=== PATIENT | female | born 1970 | race Caucasian/White ===

== ENCOUNTER → 2017-04-28 | Outpatient (CLI) | payer OTHER ==
--- NOTE | 2017-04-28 10:12 | US ---
EXAMINATION TYPE: US thyroid st tissue head/neck DATE OF EXAM: 04/28/2017 COMPARISON: NONE CLINICAL HISTORY: E04.9 Goiter, R22.0 Swelling. Goiter, has script for synthroid but has not started yet GLAND SIZE: Right Lobe: 5.6 x 1.7 x 1.5 cm Overall Parenchyma: homogenous Left Lobe: 5.6 x 1.2 x 1.6 cm Overall Parenchyma: homogeneous Isthmus Thickness: 0.3 cm NODULES RIGHT: # of nodules measured on right: 1 1. 0.6 X 0.2 x 0.5 cm hypoechoic solid nodule at the mid pole with well-defined margins. This nodul e is wider than tall and shows intranodular vascularity. Prior size: [employer] here LEFT: # of nodules measured on left: 0 ISTHMUS: # of nodules measured in the isthmus: 0 Bilateral neck scanned, no evidence of lymphadenopathy. IMPRESSION: Single subcentimeter right thyroid nodule in an enlarged but otherwise homogenous thyroid gland.
== END | disposition home or self-care (01) ==
LOC: RADUSWWP 09:39
PROVIDERS: ATTEND Family Medicine
DX: E04.1 Nontoxic single thyroid nodule (principal); Z88.1 Allergy status to other antibiotic agents; Z88.6 Allergy status to analgesic agent
CPT/HCPCS: 76536

== ENCOUNTER → 2017-05-22 | Outpatient (CLI) | payer OTHER ==
--- NOTE | 2017-05-23 11:38 | NM ---
EXAMINATION TYPE: NM thyroid image w uptake DATE OF EXAM: 05/23/2017 COMPARISON: Thyroid ultrasound April 28, 2017 HISTORY: Neck swelling or palpable abnormality neck per order. Symptoms of weight gain and diminished appetite with irritability and insomnia per patient. TECHNIQUE: After the intravenous administration of 10.8 mCi Tc 99m Sodium Pertechnetate, thyroid imag ing is performed 10 minutes post injection. Thyroid iodine uptake is calculated after the oral admini stration of15.0 NM uCi I-131 capsule. FINDINGS: There is normal distribution of activity throughout the gland. The 4 hour iodine uptake is calculated at 7%, minimally deviated from normal range (normal range 8-14%). The 24-hour iodine upta ke is calculated at 26% in the normal range. (normal range 15-35%). IMPRESSION: Essentially normal thyroid scan and uptake.
== END | disposition home or self-care (01) ==
LOC: RADNMMAIN 10:01
PROVIDERS: ATTEND Family Medicine
DX: R22.0 Localized swelling, mass and lump, head (principal); R22.2 Localized swelling, mass and lump, trunk; Z88.1 Allergy status to other antibiotic agents; Z88.5 Allergy status to narcotic agent
CPT/HCPCS: 78014; A9528; A9512

== ENCOUNTER 2017-09-02 06:49 | Day surgery (SDC) | payer OTHER ==
[2017-08-27 14:59] VITALS: BMI 34.1
[~2017-09-02 06:49] MED LIST: DEXAMETHASONE SOD PHOSPHATE 10 MG/ML 1 ML VIAL IV ONE; LACTATED RINGERS 1,000 ML IV SCH; MIDAZOLAM 2 MG/2 ML VIAL IV PRN; ONDANSETRON 4 MG/2 ML VIAL IVP ONE; Pre Op ABX Message 1 EACH MISC MISCELLANE ONE; SCOPOLAMINE 1.5MG/72HR PATCH TRANSDERM ONE; fentaNYL (PF) 50 MCG/ML 2 ML AMP IV PRN
[2017-09-02] MEDS ORDERED: LIDOCAINE 1% 20 ML VIAL (10MG/ML) FOR IV START INTRADERMA ONE (07:20)
[2017-09-02] MEDS ORDERED: SUCCINYLCHOLINE CHLORIDE 100 MG/5 ML SYR IV ONE (07:55)
[2017-09-02] MEDS ORDERED: MIDAZOLAM 2 MG/2 ML VIAL ONE (07:55)
[2017-09-02] MEDS ORDERED: ePHEDrine SULFATE/0.9% NACL/PF 50 MG/5 ML SYRINGE IV ONE (07:55)
[2017-09-02] MEDS ORDERED: PROPOFOL 10 MG/ML 20 ML VIAL IV ONE (07:55)
[2017-09-02] MEDS ORDERED: fentaNYL (PF) 50 MCG/ML 2 ML AMP ONE (07:55)
[2017-09-02] MEDS ORDERED: LIDOCAINE 1% INJ 10MG/ML (20 ML MDV) ONE (07:55)
[2017-09-02] MEDS ORDERED: BUPIVACAINE (PF) 0.5% 30 ML VIAL SQ ONE ×2 (08:31)
[2017-09-02 09:24] VITALS: TEMP 98.2
[2017-09-02] MEDS ORDERED: SODIUM CHLORIDE 0.9% 1,000 ML IV ONE (09:39)
[2017-09-02] MEDS: MEPERIDINE 50 MG/ML SYRINGE IVP ONE ×4 (09:46→10:04)
[2017-09-02 10:32] VITALS: RESP 16
[2017-09-02 10:43] VITALS: BP 132/98; PULSE 110
--- NOTE | 2017-09-04 10:35 | OP ---
OPERATIVE REPORT SURGEON: Buck Clements DO PREOPERATIVE DIAGNOSIS: Degenerative joint of the medial and lateral meniscus of the left knee with degenerative joint disease of the left knee. POSTOPERATIVE DIAGNOSIS: There is a torn left knee meniscus with partial tear of the left lateral meniscus, grade 4 chondromalacia medial femoral compartment and grade 3-4 chondromalacia of the patellofemoral. PROCEDURE: 1. Left knee arthroscopy with medial meniscectomy, medical compartment chondroplasty, posterolateral meniscectomy. 2. Patellofemoral chondroplasty. DESCRIPTION OF PROCEDURE: The patient was take to the operative suite and placed in supine position. General inhalation anesthesia was performed by the Department of Anesthesiology. The patient was secured in a leg mcdonald and the left was prepped with Betadine down the calf. Sterile drapes applied in the usual manner. An superolateral inflow trocar was developed and irrigation of the joint was performed. The arthroscope was then introduced into the anteroinferior lateral portal. No displaced fragments in the area is noted. Partial tear of lateral meniscus noted. The scope was inserted through the patellar pouch. The area was inspected grade 3-4 chondromalacia noted. Scope was then moved back into the medial compartment and copiously irrigated performed. Grade 3 to 4 chondromalacia of the medial compartment is noted. Chondroplasty of patella femoral performed and instruments removed. All portal wounds were approximated with 4-0 Vicryl suture in an interrupted fashion. Sterile pressure dressing was applied. Patient was then transferred to the recovery room in satisfactory postoperative condition. GROSS PATHOLOGY: There is evidence of degenerative torn medial meniscus in the left knee with significant grade 3 -4 of the medial compartment as well as the patellofemoral compartment. A partial tear of the lateral meniscus was noted. MMODL / IJN: [id number] / [facility]
== END 2017-09-02 11:35 | disposition home or self-care (01) ==
LOC: OR 06:49
PROVIDERS: ATTEND Orthopaedic Surgery
DX: S83.242A Other tear of medial meniscus, current injury, left knee, initial encounter (principal); S83.282A Other tear of lateral meniscus, current injury, left knee, initial encounter; X58.XXXA Exposure to other specified factors, initial encounter; M94.262 Chondromalacia, left knee; K21.9 Gastro-esophageal reflux disease without esophagitis; I10 Essential (primary) hypertension; E03.9 Hypothyroidism, unspecified; R00.2 Palpitations; Z98.84 Bariatric surgery status; Z79.891 Long term (current) use of opiate analgesic; Z79.82 Long term (current) use of aspirin; Z79.899 Other long term (current) drug therapy; Z88.1 Allergy status to other antibiotic agents; Z88.5 Allergy status to narcotic agent
CPT/HCPCS: 29880; J2250; J1100; J2175; J2405; J2001; J3010; J0330; J2704

== ENCOUNTER → 2017-12-05 | Outpatient (CLI) | payer OTHER ==
--- NOTE | 2017-12-05 13:01 | US ---
EXAMINATION TYPE: US carotid duplex BILAT DATE OF EXAM: 12/05/2017 COMPARISONS: US 2017 CLINICAL HISTORY: R55 Syncope. Syncope EXAM MEASUREMENTS: RIGHT: Peak Systolic Velocity (PSV) cm/sec ----- Right CCA: 64.7 ----- Right ICA: 71.8 ----- Right ECA: 57.2 ICA/CCA ratio: 1.1 RIGHT: End Diastole cm/sec ----- Right CCA: 25.2 ----- Right ICA: 40.7 ----- Right ECA: 12.4 LEFT: Peak Systolic Velocity (PSV) cm/sec ----- Left CCA: 67.7 ----- Left ICA: 76.6 ----- Left ECA: 68.6 ICA/CCA ratio: 1.1 LEFT: End Diastole cm/sec ----- Left CCA: 32.5 ----- Left ICA: 45.0 ----- Left ECA: 14.5 VERTEBRALS (direction of flow): Right Vertebral: Antegrade Left Vertebral: Antegrade Rhythm: Normal Grayscale images show no significant plaque or stenosis bilaterally. Velocity measurements and ratios are within normal limits bilaterally in the internal carotid arteries. IMPRESSION: No hemodynamically significant stenosis is seen in either internal carotid artery . Criteria for Assigning % of Stenosis / Diameter reduction (Estimation based on the indirect measurements of the internal carotid artery velocities (ICA PSV). 1. Normal (no stenosis)=ICA PSV < 125 cm/s: ratio < 2.0: ICA EDV<40 cm/s. 2. Less than 50% stenosis=ICA PSV < 125 cm/s: ratio < 2.0: ICA EDV<40 cm/s. 3. 50 to 69% stenosis=ICA PSV of 125 to 230 cm/s: ration 2.0 ? 4.0: ICA EDV 40-100 cm/s. 4. Greater than 70% stenosis to near occlusion= ICA PSV > 230 cm/s: ratio > 4.0: ICA EDV > 100 cm/s. 5. Near occlusion= ICA PSV velocities may be low or undetectable: variable ratio and ICA EDV. 6. Total occlusion=unable to detect flow.
== END ==
LOC: RADUSWWP 12:11
PROVIDERS: ATTEND Psychiatry & Neurology Neurology
DX: R55 Syncope and collapse (principal)
CPT/HCPCS: 93880

== ENCOUNTER → 2018-01-21 | Outpatient (CLI) | payer OTHER ==
--- NOTE | 2018-01-22 13:49 | MM ---
Reason for exam: screening (asymptomatic). Last mammogram was performed 3 years and 11 months ago. History: Patient is postmenopausal and has history of other cancer at age 16. Family history of breast cancer in maternal aunt at age 30 and breast cancer in maternal cousin at age 32. Physical Findings: A clinical breast exam by your physician is recommended on an annual basis and results should be correlated with mammographic findings. MG Screening Mammo w CAD Bilateral CC, MLO, and XCCL view(s) were taken. Prior study comparison: February 23, 2014, bilateral MG screening mammo w CAD. There are scattered fibroglandular densities. Stable benign calcifications. There is chronic nodularity in the left breast. There is no discrete abnormality. No significant changes when compared with prior studies. ASSESSMENT: Benign, BI-RAD 2 RECOMMENDATION: Routine screening mammogram of both breasts in 1 year.
== END | disposition home or self-care (01) ==
LOC: RADMAMWWP 08:11
PROVIDERS: ATTEND Obstetrics & Gynecology Obstetrics
DX: Z12.31 Encounter for screening mammogram for malignant neoplasm of breast (principal)
CPT/HCPCS: 77067

== ENCOUNTER → 2018-03-25 | Outpatient (CLI) | payer OTHER ==
--- NOTE | 2018-03-26 09:56 | MR ---
MRI CERVICAL SPINE: CLINICAL HISTORY: Cervicalgia per order. Headache with severe neck pain for over 2 years causing pain or weakness into both arms and fingers per patient. TECHNIQUE: Multiplanar, multisequence imaging of the cervical spine is performed without IV contrast. IV contrast not given as patient refused. COMPARISON: Prior MRI cervical spine February 20, [address] cervical spine November 27, 2014. FINDINGS: Sagittal images of the cervical spine show the craniocervical junction to remain within nor mal limits. The cervical and upper thoracic spinal cord is normal in caliber and signal. There is in terval surgery with new artifact from disc material in the anterior fusion hardware C3-C5 levels. The re is stable and straightened alignment with slight grade 1 retrolisthesis of C5 on C6 redemonstrated . The vertebral body and intravertebral disk heights are normal above and below surgical levels. No n ew suspicious disc herniations are present. The bone marrow signal intensity is within normal limits . No significant spurring is noted. Axial images show the C2-C3 level to appear within normal limits. Axial images at C3-C4 and C4-C5 levels show artifact from disc material. There is some effacement of the anterior thecal sac due to bony projections of the vertebra. There is successful treatment of olamide or visualized disc herniations. Bilateral neural foramina are patent. Axial images at C5-C6, C6-C7, C7-T1 levels are felt within normal limits. IMPRESSION: Successful interval surgical correction of disc herniations C3-C4 and C4-C5 level. Stable alignment. No new suspicious disc herniations are present.
== END | disposition home or self-care (01) ==
LOC: RADMRIMAIN 13:01
PROVIDERS: ATTEND Psychiatry & Neurology Neurology
DX: M54.2 Cervicalgia (principal)
CPT/HCPCS: 72141

== ENCOUNTER → 2018-05-20 | Outpatient (CLI) | payer OTHER ==
[2018-05-20 13:18] LABS: Prothrombin Time 10.1 sec (9.0-12.0)
[2018-05-20 13:30] LABS: ALT 24 U/L (9-52); AST 24 U/L (14-36); Albumin 3.8 g/dL (3.5-5.0); Alkaline Phosphatase 123 U/L (38-126); Anion Gap 8 mmol/L; Blood Urea Nitrogen 13 mg/dL (7-17); Calcium 9.5 mg/dL (8.4-10.2); Carbon Dioxide 27 mmol/L (22-30); Chloride 108 mmol/L (98-107); Glucose 85 mg/dL (74-99); Potassium 4.3 mmol/L (3.5-5.1); Sodium 143 mmol/L (137-145); Total Bilirubin 0.4 mg/dL (0.2-1.3); Total Protein 6.8 g/dL (6.3-8.2)
[2018-05-20 13:33] LABS: HCT 40.5 % (34.0-46.0); HGB 12.8 gm/dL (11.4-16.0); Hypochromasia Slight; MCH 26.1 pg (25.0-35.0); MCHC 31.7 g/dL (31.0-37.0); MCV 82.4 fL (80.0-100.0); Mean Platelet Volume 9.3; Platelet Count 174 k/uL (150-450); RBC 4.91 m/uL (3.80-5.40); RDW 15.2 % (11.5-15.5); WBC 4.3 k/uL (3.8-10.6)
[2018-05-20 13:44] LABS: Appearance,Urine Cloudy (Clear); Bacteria,Urine Rare /hpf; Bilirubin,Urine Negative (Negative); Blood,Urine Negative (Negative); Color,Urine Yellow; Glucose,Urine (UA) Negative (Negative); Ketones,Urine Negative (Negative); Leukocyte Esterase,Urine Trace (Negative); Mucus,Urine Many /hpf; Nitrite,Urine Negative (Negative); PH, Urine 5.5 (5.0-8.0); Protein,Urine Trace (Negative); RBC,Urine 3 /hpf (0-5); Specific Gravity,Urine 1.022 (1.001-1.035); Squamous Epithelial Cell,Urine 13 /hpf (0-4); WBC,Urine 4 /hpf (0-5)
== END ==
LOC: LABPAT 10:59
PROVIDERS: ATTEND Orthopaedic Surgery
DX: Z01.812 Encounter for preprocedural laboratory examination (principal)
CPT/HCPCS: 36415; 80053; 81001; 85027; 85610; 85730; 87070

== ENCOUNTER → 2018-06-05 | Outpatient (CLI) | payer OTHER ==
--- NOTE | 2018-06-06 21:17 | CT ---
EXAMINATION TYPE: CT chest w con DATE OF EXAM: 06/05/2018 COMPARISON: 06/11/2017 HISTORY: 48-year-old female Pre-op, lung nodules TECHNIQUE: Contiguous axial scanning of the chest after the administration of 100 mL of Isovue 300. Coronal/sagittal reconstructions performed. CT DLP: 286..4mGycm. Automatic exposure control utilized for a dose reduction. FINDINGS: Heart normal size without pericardial effusion. Borderline aneurysm ascending aorta 3.9 cm. Conventional arch vessel branching anatomy. No thoracic lymphadenopathy. Calcified left hilar lymph nodes compatible with prior granulomatous dis ease. Mild bronchial wall thickening probably due to chronic bronchitis. No consolidation or pleural effusi on. There is a stable calcified subpleural pulmonary nodule left upper lobe measuring 1.3 cm. Tiny hiatal hernia. Postsurgical changes of Tyrone-en-Y gastric bypass prominent fluid within the exclu ded stomach incidentally noted. Cholecystectomy clips. Bones: No osseous destructive process. Fatty matrix hemangioma within the L1 vertebral body. IMPRESSION: 1. Prior granulomatous disease with calcified left hilar lymph nodes and a stable 1.3 cm left upper l obe calcified granuloma. No new pulmonary nodules. 2. Borderline aneurysm ascending aorta at 3.9 cm slightly increased from 3.7 cm last year. There may be some motion artifacts accounting for this difference.
== END | disposition home or self-care (01) ==
LOC: RADCTMAIN 16:26
PROVIDERS: ATTEND Family Medicine
DX: J84.10 Pulmonary fibrosis, unspecified (principal); I71.2 Thoracic aortic aneurysm, without rupture; Z88.1 Allergy status to other antibiotic agents; Z88.5 Allergy status to narcotic agent
CPT/HCPCS: 71260; Q9967

== ENCOUNTER → 2018-07-17 | Outpatient (CLI) | payer OTHER ==
[2018-07-17 11:29] LABS: HCT 41.1 % (34.0-46.0); HGB 13.1 gm/dL (11.4-16.0); MCH 26.1 pg (25.0-35.0); MCHC 31.8 g/dL (31.0-37.0); MCV 82.1 fL (80.0-100.0); Mean Platelet Volume 8.4; Platelet Count 167 k/uL (150-450); RBC 5.01 m/uL (3.80-5.40); RDW 15.2 % (11.5-15.5)
[2018-07-17 11:36] LABS: Albumin 4.2 g/dL (3.5-5.0); Calcium 9.8 mg/dL (8.4-10.2); Potassium 3.9 mmol/L (3.5-5.1); Total Bilirubin 0.3 mg/dL (0.2-1.3); Total Protein 7.2 g/dL (6.3-8.2)
[2018-07-17 11:42] LABS: Partial Thromboplastin Time 24.7 sec (22.0-30.0); Prothrombin Time 9.9 sec (9.0-12.0)
[2018-07-17 12:26] LABS: Appearance,Urine Cloudy (Clear); Bacteria,Urine Rare /hpf; Bilirubin,Urine Negative (Negative); Blood,Urine Negative (Negative); Color,Urine Yellow; Glucose,Urine (UA) Negative (Negative); Ketones,Urine Negative (Negative); Leukocyte Esterase,Urine Negative (Negative); Mucus,Urine Many /hpf; Nitrite,Urine Negative (Negative); PH, Urine 5.5 (5.0-8.0); Protein,Urine 1+ (Negative); RBC,Urine 3 /hpf (0-5); Specific Gravity,Urine 1.027 (1.001-1.035); Squamous Epithelial Cell,Urine 20 /hpf (0-4); Urobilinogen,Urine <2.0 mg/dL (<2.0); WBC,Urine 3 /hpf (0-5)
== END ==
LOC: LABPAT 09:59
PROVIDERS: ATTEND Orthopaedic Surgery
DX: Z01.812 Encounter for preprocedural laboratory examination (principal); M17.11 Unilateral primary osteoarthritis, right knee
CPT/HCPCS: 80053; 81001; 85027; 85610; 85730; 87070

== ENCOUNTER 2018-07-30 05:43 | Inpatient (IN) | payer OTHER ==
[2018-07-23 08:57] VITALS: BMI 35.5
[~2018-07-30 05:43] MED LIST changes: +ACETAMINOPHEN TAB 500 MG TAB PO ONE; -DEXAMETHASONE SOD PHOSPHATE 10 MG/ML 1 ML VIAL IV ONE; -LACTATED RINGERS 1,000 ML IV SCH; +MELOXICAM 7.5 MG TAB PO ONE; -MIDAZOLAM 2 MG/2 ML VIAL IV PRN; -ONDANSETRON 4 MG/2 ML VIAL IVP ONE; -Pre Op ABX Message 1 EACH MISC MISCELLANE ONE; -SCOPOLAMINE 1.5MG/72HR PATCH TRANSDERM ONE; +TRANEXAMIC ACID 1,000 MG in SODIUM CHLORIDE 0.9% 50 ML IVPB ONE; +VANCOMYCIN 1,500 MG in SODIUM CHLORIDE 0.9% 250 ML IVPB ONE; -fentaNYL (PF) 50 MCG/ML 2 ML AMP IV PRN
[2018-07-30] MEDS ORDERED: SCOPOLAMINE 1.5MG/72HR PATCH TRANSDERM ONE (05:49)
[2018-07-30] MEDS ORDERED: ONDANSETRON 4 MG/2 ML VIAL IVP ONE (05:49)
[2018-07-30] MEDS ORDERED: LIDOCAINE 1% 20 ML VIAL (10MG/ML) FOR IV START INTRADERMA PRN (05:49)
[2018-07-30] MEDS ORDERED: DEXAMETHASONE SOD PHOSPHATE 10 MG/ML 1 ML VIAL IV ONE (05:49)
[2018-07-30] MEDS ORDERED: ROPIVACAINE 246.25 MG, EPINEPHrine 0.5 MG, KETOROLAC 30 MG, cloNIDine HCL/PF 80 MCG, WA... MISCELLANE ONE ×5 (06:06)
[2018-07-30] MEDS: LACTATED RINGERS 1,000 ML IV SCH (06:51)
[2018-07-30] MEDS: MIDAZOLAM (PF) 2 MG/2 ML VIAL IV PRN ×2 (06:51→08:01)
[2018-07-30] MEDS ORDERED: NA PHOS,M-B/NA PHOS,DI-BA 133 ML ENEMA RECTAL PRN (08:48)
[2018-07-30] MEDS ORDERED: DIAZEPAM 5 MG TAB PO PRN (08:48)
[2018-07-30] MEDS ORDERED: NALOXONE 0.4 MG/ML 1 ML VIAL IV PRN (08:48)
[2018-07-30] MEDS ORDERED: BISACODYL 10 MG SUPP RECTAL PRN (08:48)
[2018-07-30] MEDS ORDERED: HYDROmorphone 1 MG/ML 1 ML SYRINGE IVP PRN ×3 (08:48)
[2018-07-30] MEDS ORDERED: MAGNESIUM HYDROXIDE 2,400 MG/10 ML CUP PO PRN (08:48)
[2018-07-30] MEDS ORDERED: MEPERIDINE 50 MG/ML SYRINGE ONE (09:11)
[2018-07-30] MEDS ORDERED: SODIUM CHLORIDE 0.9% 100 ML BAG ONE (09:11)
[2018-07-30] MEDS ORDERED: TRANEXAMIC ACID 1,000 MG/10 ML VIAL ONE (09:11)
[2018-07-30] MEDS ORDERED: fentaNYL (PF) 50 MCG/ML 2 ML AMP ONE (09:11)
[2018-07-30] MEDS ORDERED: PROPOFOL 10 MG/ML 20 ML VIAL IV ONE (09:11)
[2018-07-30] MEDS ORDERED: MIDAZOLAM 2 MG/2 ML VIAL ONE (09:11)
[2018-07-30] MEDS ORDERED: ceFAZolin 3,000 MG in SODIUM CHLORIDE 0.9% IRRIGATIO 3,000 ML IRRIGATION ONE (09:12)
[2018-07-30] MEDS ORDERED: LACTATED RINGERS 1,000 ML IV ONE (10:12)
--- NOTE | 2018-07-30 10:40 | P.OP ---
Date of Procedure: 07/30/18 Preoperative Diagnosis: Severe osteoarthritis left knee Postoperative Diagnosis: Severe osteoarthritis left knee Procedure(s) Performed: Left total knee arthroplasty Implants: [employer] II CR Oxinium cruciate retaining femoral component size 4, left [employer] left nonporous tibial baseplate size 3 [employer] II, XLPE Deep Dished articular insert, size 10 mm, Size 3 -4 left [employer] BCS resurfacing oval patellar component, 29 mm All components were cemented using Palacos R bone cement.. The articulation is Oxinium on polyethylene. Anesthesia: spinal Surgeon: Dario Kate Supervisor Paint #1: Rose Marie Wade Estimated Blood Loss (ml): 25 Pathology: other (Bone and cartilage) Condition: stable Disposition: PACU Indications for Procedure: After failure of conservative treatment we discussed the surgical and nonsurgical treatment options at length. Patient wishes to proceed with a total knee arthroplasty. Complications specific to this procedure were discussed at length, including but not limited to infection, bleeding, stiffness , and nerve injury. Patient is aware of all these complications and informed consent was obtained Operative Findings: The operative findings are consistent with severe osteoarthritis of the left knee Description of Procedure: Patient was seen in the preoperative area consent was reviewed and operative site was marked with a skin marker. An adductor canal pain catheter was placed by anesthesia in the preoperative area. Patient was then brought to the operating room and given preoperative antibiotics intravenously. A spinal anesthetic was administered by the anesthesia department. A tourniquet was placed on the upper thigh and the lower extremity was prepped and draped in usual sterile fashion. A gram of transexamic acid was given. A universal timeout was then performed which confirmed the patient's name, surgical site, ALLERGIES, and consent. The lower extremity was then exsanguinated and tourniquet was inflated to 250 mmHg. A standard and anterior midline approach to the knee was performed. The skin and subcutaneous tissue was dissected down to the patellar tendon. A medial parapatellar arthrotomy was then performed. The knee was then extended, the patellar was everted, and the knee was again flexed. Anterior horns of both menisci were excised, and a release was performed to the posterior medial aspect of the knee. On gross visual inspection, there was complete loss of articular cartilage in the medial and patellofemoral joint spaces. There was also significant cartilage damage in the lateral compartment. There were multiple periarticular osteophytes which were then removed with a Ronguer. The femoral canal was then opened with the appropriate drill, and the intramedullary femoral cutting guide was then placed and set for 5 of valgus. The distal femoral cutting block was then pinned in place, and the distal femur was then cut. The cutting block was then removed and the cut was checked for flatness. Next, the sizing guide was then placed and set for 3 external rotation based off of the epicondylar axis and Whitesides line. After the femur was sized, the appropriate 4-in-1 cutting block was then pinned in place. The anterior condyles were cut without notching. The posterior and chamfer cuts were performed while protecting the collateral ligaments. The cutting block was then removed, and the femoral canal was plugged with autologous bone. Attention was then directed to the tibia. The remaining ACL was removed with a Ronguer, and the tibia was then gently subluxed forward with a large bent knee retractor. Any remaining menisci was excised. The posterior lateral corner was cauterized in order to cauterize the lateral geniculate artery. The extra medullary tibial cutting guide was then placed, set for the appropriate rotation , slope, and depth of resection. The proximal tibia cutting guide was then pinned in place. Proximal tibia was then cut and sized. Next trials were then placed with the appropriate-sized insert. The knee was able to fully extend and flex to 130 and was stable throughout all range of motion. The knee was then extended, patella everted. Patella was then measured, and then using an osteotomy guide, the patella was cut at the appropriate level. The patella was then measured and drilled and the patella trial was then placed. The knee was then taken through range of motion with the patella trial and the patella tracked normally. The knee was then extended patella trial was then removed and the patella was everted. Knee was then flexed and lug holes were drilled through the femoral trial and the femoral trial was then removed. The tibial was then exposed, and the tibial broach guide was then pinned in place after it was set for the appropriate rotation to allow for the most coverage without overhang. The tibia was then reamed and broached. The cut surfaces of bone were then irrigated with pulsatile lavage. The posterior structures were injected with the ropivacaine solution. The knee was also irrigated with Irrisept solution. The components were then opened, the cement was mixed, and the components were then cemented in place. The cement was allowed to harden with the knee in full extension. While the cement was hardening, the remaining soft tissues were then injected with a ropivacaine solution, which consisted of 246.25 mg of ropivacaine, 0.5 mg of epinephrine, 30 mg of Toradol, 80 g of clonidine, and 48.45 mL of sterile water, for a total of 100 mL of fluid injected. After the cemented hardened. The tourniquet was released, and hemostasis was obtained. A second gram of transexamic acid was given. The knee was again irrigated. The knee was again taken through range of motion and found to be stable throughout all range of motion of 0-130 , and the patella tracked normally. The fascia was then closed with #2 strata fix suture. The subcutaneous tissue was closed with 3-0 Vicryl and 3-0 strata fix. Dermabond glue was used for the skin and placed with the knee in flexion. The patient was placed in a sterile silver dressing. Patient was then transferred to recovery room in stable condition. The dental chairside assistant ALEM Anderson was required due the complexity surgery and the need for a skilled occupational therapist assistants. She assisted in positioning, draping, retraction, and closure of the wound.
[2018-07-30] MEDS ORDERED: ROPIVACAINE 1,100 MG, SODIUM CHLORIDE 0.9% 500 ML 330 ML MISCELLANE PRN ×2 (10:54)
--- NOTE | 2018-07-30 10:56 | P.ONQ ---
Anesthesiology Proc Note - PNB - Peripheral Nerve Block Performed Left Adductor Canal Infusion Time Out Performed: Yes ([id number]) Procedure Start Time: 08:00 Procedure Stop Time: 08:10 Indication: Acute Post-Operative Pain, Dx/Pain Location (Left Knee Pain), Requested by physician Sedation Type: Sedate with meaningful contact maintained Preparation: Sterile Prep Position: Supine Catheter: Indwelling Needle Types: On-Q Needle Size: 100mm (4") Needle Gauge: 21 Technique: Ultrasound Injectate: 0.5% Ropivacaine (see comment for volume) (20ml) Blood Aspirated: No Pain Paresthesia on Injection Noted: No Resistance on Injection: Normal Events: Uneventful and Well Tolerated
[2018-07-30] MEDS ORDERED: diphenhydrAMINE 50 MG/ML 1 ML VIAL IVP ONE (11:00)
--- NOTE | 2018-07-30 11:36 | XR ---
EXAMINATION TYPE: XR knee limited LT DATE OF EXAM: 07/30/2018 COMPARISON: None HISTORY: Post evaluation placement of the left knee prosthesis. TECHNIQUE: 2 views left knee FINDINGS: Postsurgical changes are present. Tibial and femoral components have been placed. No acute fractures are evident. IMPRESSION: 1. No acute fractures post left knee replacement.
[2018-07-30] MEDS: SODIUM CHLORIDE 0.9% 1,000 ML IV SCH ×2 (13:59→22:43)
[2018-07-30] MEDS: HYDROcodone/APAP 5-325MG 1 EACH TAB PO PRN ×3 (15:11→22:42)
--- NOTE | 2018-07-30 16:32 | P.CONS ---
History of Present Illness - Reason for Consult Consult date: 07/30/18 Medical management Requesting physician: Dario Kate - Chief Complaint Status post left total knee arthroplasty - History of Present Illness This is a 48-year-old female one of Dr. Patricia with a previous medical history significant for peptic ulcer disease, GERD, significant osteoarthritis, depressive and anxiety disorder, patient underwent left total knee arthroplasty that was done successfully by Dr. Kate and we are asked to see the patient for medical management. Patient's laying down in bed in no apparent distress she denies any chest pain or shortness breath she has no abdominal pain nausea vomiting or diarrhea. Review of Systems Constitutional: Reports weight loss, Denies chronic headaches, Denies malaise, Denies weakness, Denies weight gain Eyes: denies blurred vision, denies bulging eye, denies decreased vision, denies diplopia Ears, nose, mouth and throat: Denies dysphagia, Denies neck lump, Denies sore throat Cardiovascular: Denies chest pain, Denies decreased exercise tolerance, Denies dyspnea on exertion, Denies lightheadedness, Denies rapid heart beat, Denies shortness of breath, Denies syncope Respiratory: Denies congestion, Denies cough with sputum, Denies home oxygen, Denies sleep apnea, Denies snoring, Denies wheezing Gastrointestinal: Denies belching, Denies bloating, Denies BRBPR, Denies change in bowel habits, Denies heartburn, Denies melena, Denies nausea, Denies vomiting Genitourinary: Denies dysuria, Denies hematuria Musculoskeletal: Denies myalgias Musculoskeletal: left: knee pain, knee stiffness, absent: ankle pain, ankle stiffness, ankle swelling, elbow pain, elbow stiffness, elbow swelling, foot pain, foot stiffness, foot swelling, hand pain, hand stiffness, hand swelling, hip pain, hip stiffness, hip swelling, knee swelling, shoulder pain, shoulder stiffness, shoulder swelling, wrist pain, wrist stiffness, wrist swelling Integumentary: Denies pruritus, Denies rash Neurological: Denies numbness, Denies weakness Psychiatric: Reports anxiety, Reports depression, Denies sadness/tearfulness, Denies sleep disturbances, Denies suicidal ideation Endocrine: Denies fatigue, Denies weight change Past Medical History Past Medical History: GERD/Reflux, Hypertension, Osteoarthritis (OA) Additional Past Medical History / Comment(s): chronic back and neck pain, migraines, PAST HISTORY OF HYPERTENSION, ascending aortic aneurysm, gastric ulcers History of Any Multi-Drug Resistant Organisms: None Reported Past Surgical History: Bariatric Surgery, Cholecystectomy, Hysterectomy, Orthopedic Surgery Additional Past Surgical History / Comment(s): Migraines, NARA-EN-Y, cervical fusion c2-c5, arthroscopy lt knee Past Anesthesia/Blood Transfusion Reactions: No Reported Reaction Past Psychological History: Depression Smoking Status: Never smoker Past Alcohol Use History: Rare Past Drug Use History: Marijuana Additional Drug Use History / Comment(s): MEDICAL CARD - Past Family History Mother Family Medical History: Coronary Artery Disease (CAD) (Mother is 66-year-old has history of CAD post CABG and diabetes mellitus type 2.) Father Family Medical History: Coronary Artery Disease (CAD) (Father is 66-year-old has history of CAD post CABG .) Brother(s) Family Medical History: No Reported History (Patient has one brother no major medical problems.) Daughter(s) Family Medical History: No Reported History (Patient has 2 daughters no major medical problems.) Son(s) Family Medical History: No Reported History (Patient has one son no major medical problems.) Medications and Allergies Home Medications Medication Instructions Recorded Confirmed Type HYDROcodone/APAP 10-325MG [[place] 1 tab PO Q6H PRN 03/13/15 07/30/18 History 10] Omeprazole [PriLOSEC] 20 mg PO HS 08/27/17 07/30/18 History Sertraline HCl [Zoloft] 50 mg PO HS 06/01/18 07/30/18 History Allergies Allergy/AdvReac Type Severity Reaction Status Date / Time ciprofloxacin [From Cipro] AdvReac Nausea & Verified 07/30/18 15:19 Vomiting, SWELLING ciprofloxacin HCl AdvReac Nausea & Verified 07/30/18 15:19 [From Cipro] Vomiting, SWELLING hydromorphone HCl AdvReac VOMITING, Verified 07/30/18 15:19 [From Dilaudid] DIZZY morphine AdvReac Itching Verified 07/30/18 15:19 Physical Exam Vitals: Vital Signs Temp Pulse Pulse Pulse Resp BP Pulse Ox 07/30/18 15:15 97.4 F L 62 16 128/86 98 07/30/18 13:55 64 16 117/71 97 07/30/18 13:18 52 L 16 113/71 92 L 07/30/18 12:55 57 L 16 114/69 93 L 07/30/18 12:21 61 16 135/71 95 07/30/18 12:00 63 16 141/73 95 07/30/18 11:30 69 17 157/78 97 07/30/18 11:00 88 16 132/78 98 07/30/18 10:47 97.8 F 92 16 122/75 96 07/30/18 08:16 89 16 121/65 100 07/30/18 06:53 97.7 F 72 16 133/70 95 Intake and Output 07/30/18 07/30/18 07/30/18 06:59 14:59 22:59 Intake Total 200 1201 Output Total 25 Balance 200 1176 Intake: IV 200 1201 Output: Estimated Blood Loss 25 Other: # Voids 1 Weight 93.894 kg - Constitutional General appearance: average body habitus, no acute distress - EENT Eyes: anicteric sclerae, EOMI, PERRLA, no ptosis, no scleral icterus, normal appearance ENT: hearing grossly normal, NA/AT, normal oropharynx, no thrush Ears: bilateral: normal - Neck Neck: no lymphadenopathy, normal ROM, no rigidity, no stridor, no thyromegaly Carotids: bilateral: upstroke normal Thyroid: bilateral: normal size - Respiratory Respiratory: bilateral: diminished, negative: dullness, rales, rhonchi, wheezing , prolonged expiration, prolonged inspiration - Cardiovascular Rhythm: regular Heart sounds: normal: S1, S2 Abnormal Heart Sounds: no systolic murmur, no S3 Gallop, no S4 Gallop - Gastrointestinal General gastrointestinal: normal bowel sounds, soft, no splenomegaly, no tenderness, no umbilical hernia, no ventral hernia - Integumentary Integumentary: normal, normal turgor - Neurologic Neurologic: CNII-XII intact - Musculoskeletal Musculoskeletal: gait normal, strength equal bilaterally - Psychiatric Psychiatric: A&O x's 3, appropriate affect, intact judgment & insight Assessment and Plan Assessment: Assessment and plan: 1. Postoperative day #0 status post left total knee arthroplasty. Continue incentive spirometer, continue current pain management as outlined by orthopedic surgery, continue patient on aspirin 325 mg orally twice every day, physical therapy evaluation tomorrow morning, hopefully she will be discharged from the next 24 hours. 2. Peptic ulcer disease/GERD. Continue Prilosec 20 mg orally once every day. 3. Anxiety and depressive disorder. Continue patient on Zoloft 50 mg at bedtime. 4. DVT prophylaxis. Continue aspirin 325 mg orally twice every day. 5. GI prophylaxis. Continue patient on Prilosec 20 mg orally once every day. 6. Thank you for the consult we we will follow with you.
[2018-07-30] MEDS: ONDANSETRON 4 MG/2 ML VIAL IVP PRN (17:42)
[2018-07-30] MEDS ORDERED: VANCOMYCIN 1,500 MG in SODIUM CHLORIDE 0.9% 250 ML IVPB ONE (19:00)
[2018-07-30] MEDS ORDERED: SERTRALINE 50 MG TAB PO SCH (21:00)
[2018-07-30] MEDS ORDERED: SENNOSIDES-DOCUSATE SODIUM 1 EACH TAB PO SCH (21:00)
[2018-07-30] MEDS ORDERED: PANTOPRAZOLE 40 MG TABLET PO SCH (21:00)
[2018-07-30] MEDS: hydrOXYzine PAMOATE 25 MG CAP PO PRN (22:42)
[2018-07-30] MEDS: ASPIRIN 325 MG TAB PO SCH (22:49)
[2018-07-31] MEDS: hydrOXYzine PAMOATE 25 MG CAP PO PRN (05:13)
[2018-07-31] MEDS: ONDANSETRON 4 MG/2 ML VIAL IVP PRN (05:13)
[2018-07-31] MEDS: HYDROcodone/APAP 5-325MG 1 EACH TAB PO PRN ×2 (05:13→11:12)
[2018-07-31] MEDS: LACTATED RINGERS 1,000 ML IV SCH (06:06)
--- NOTE | 2018-07-31 07:22 | P.PN ---
Progress Note - Text Progress Note Date: 07/31/18 48-year-old female status post left total knee arthroplasty postop day #1, adductor canal catheter day #2. Current rate is at 8 ML's an hour, pain ranges between a 2-6 out of 10 in severity. Patient has complaints of "charley horses " in her upper and lower legs. No motor or sensory deficits, catheter site looks clean dry and intact. Continue with current management
[2018-07-31 07:46] VITALS: BP 127/63; PULSE 52; RESP 16; TEMP 98.3
[2018-07-31 08:48] LABS: Basophils % (A) 0 %; Eosinophils % (A) 0 %; HCT 32.8 % (34.0-46.0); HGB 10.2 gm/dL (11.4-16.0); Hypochromasia Slight; Lymphocytes # (A) 1.1 k/uL (1.0-4.8); Lymphocytes % (A) 16 %; MCH 25.6 pg (25.0-35.0); MCV 82.6 fL (80.0-100.0); Mean Platelet Volume 8.8; Monocytes # (A) 0.5 k/uL (0-1.0); Monocytes % (A) 7 %; Neutrophils # (A) 5.4 k/uL (1.3-7.7); Neutrophils % (A) 75 %; Platelet Count 134 k/uL (150-450); RBC 3.97 m/uL (3.80-5.40); RDW 15.2 % (11.5-15.5); WBC 7.2 k/uL (3.8-10.6)
[2018-07-31] MEDS ORDERED: MELOXICAM 7.5 MG TAB PO SCH (09:00)
--- NOTE | 2018-07-31 09:58 | P.DS ---
Providers Date of admission: 07/30/18 05:43 Expected date of discharge: 07/31/18 Attending physician: Dario Kate Consults: 07/30/18 08:48 Consult Physician Routine Consulting Provider: Waqas Patricia Consult Reason/Comments: medical management Do you want consulting provider notified?: Yes 07/30/18 14:54 Consult Physician Routine Consulting Provider: Yadiel Black Consult Reason/Comments: medical mangement Do you want consulting provider notified?: Yes Primary care physician: Waqas Patricia - Discharge Diagnosis(es) (1) Primary osteoarthritis of left knee Current Visit: Yes Status: Acute (2) S/P total knee arthroplasty Current Visit: Yes Status: Acute Hospital Course: This is a 48-year-old female with known history of degenerative arthritis of the left knee. The patient presents for evaluation. After discussion and consideration patient elects to proceed with total knee arthroplasty. The patient is seen preoperatively by Dr. Kate and medically cleared for surgery by their primary care physician. Patient is admitted to [facility] on 07/30/2018 for total knee arthroplasty. The procedures performed without complication or sequelae. The patient is doing well postoperatively. Labs and vital signs are stable on day of discharge. On day of discharge patient's knee incision is healing well. There is minimal erythema. There is no drainage noted at this time. There is minimal soft tissue swelling to the knee. Patient has full foot and ankle motion without difficulty or pain. Neurovascular status to the left lower extremity is intact. Patient is discharged home in good condition. Please see med rec for accurate list of home medications. Plan - Discharge Summary Discharge Rx Participant: Yes New Discharge Prescriptions: New Aspirin 325 mg PO BID #60 tab hydrOXYzine PAMOATE [Vistaril] 25 mg PO Q6H PRN #30 capsule PRN Reason: Pain No Action HYDROcodone/APAP 10-325MG [[place] 10] 1 tab PO Q6H PRN PRN Reason: Pain Omeprazole [PriLOSEC] 20 mg PO HS Sertraline HCl [Zoloft] 50 mg PO HS Discharge Medication List HYDROcodone/APAP 10-325MG [[place] 10] 1 tab PO Q6H PRN 03/13/15 [History] Omeprazole [PriLOSEC] 20 mg PO HS 08/27/17 [History] Sertraline HCl [Zoloft] 50 mg PO HS 06/01/18 [History] Aspirin 325 mg PO BID #60 tab 07/31/18 [Rx] hydrOXYzine PAMOATE [Vistaril] 25 mg PO Q6H PRN #30 capsule 07/31/18 [Rx] Follow up Appointment(s)/Referral(s): [facility] [NON-STAFF] - As Needed [facility], [NON-STAFF] - As Needed Waqas Patricia DO [Primary Care Provider] - 1 Week Dario Kate DO [Doctor of Osteopathic Medicine] - 08/13/18 1:20 pm Ambulatory/Diagnostic Orders: Continuous Passive Motion (CPM) Machine [DME.AMB1] Time Frame: 3 Weeks, Location : None Selected Activity/Diet/Wound Care/Special Instructions: Weightbearing as tolerated with a walker. CPM 5-6h daily. Leave dressing intact. May be removed by home care nurse in 10 days. May shower with dressing on. Pain management per Dr. Freitas. Patient states that she has a pain contract with him. Please follow up with [facility] and call with any questions or concerns, . Discharge Disposition: HOME WITH HOME HEALTH SERVICES
[2018-07-31] MEDS: ASPIRIN 325 MG TAB PO SCH (10:22)
[2018-07-31] MEDS ORDERED: ASPIRIN 81 MG PO SCH (10:45)
--- NOTE | 2018-07-31 15:43 | P.PN ---
Subjective Progress Note Date: 07/31/18 This is a 48-year-old female one of Dr. Patricia with a previous medical history significant for peptic ulcer disease, GERD, significant osteoarthritis, depressive and anxiety disorder, patient underwent left total knee arthroplasty that was done successfully by Dr. Kate and we are asked to see the patient for medical management. Patient's laying down in bed in no apparent distress she denies any chest pain or shortness breath she has no abdominal pain nausea vomiting or diarrhea. 07/31: Patient's pain is currently controlled. She has been working with physical therapy. She is scheduled for discharge home today. No medication changes from us. Patient is being discharged home today in stable condition. Review of Systems Constitutional: Reports weight loss, Denies chronic headaches, Denies malaise, Denies weakness Eyes: denies blurred vision, denies bulging eye, denies decreased vision, denies diplopia Ears, nose, mouth and throat: Denies dysphagia, Denies neck lump, Denies sore throat Cardiovascular: Denies chest pain, Denies decreased exercise tolerance, Denies dyspnea on exertion, Denies lightheadedness, Denies rapid heart beat, Denies shortness of breath, Denies syncope Respiratory: Denies congestion, Denies cough with sputum, Denies home oxygen, Denies sleep apnea, Denies snoring, Denies wheezing Gastrointestinal: Denies belching, Denies bloating, Denies BRBPR, Denies change in bowel habits, Denies heartburn, Denies melena, Denies nausea, Denies vomiting Genitourinary: Denies dysuria, Denies hematuria Musculoskeletal: Denies myalgias Musculoskeletal: left: knee pain, knee stiffness, absent: ankle pain, ankle stiffness, ankle swelling, elbow pain, elbow stiffness, elbow swelling, foot pain, foot stiffness, foot swelling, hand pain, hand stiffness, hand swelling, hip pain, hip stiffness, hip swelling, knee swelling, shoulder pain, shoulder stiffness, shoulder swelling, wrist pain, wrist stiffness, wrist swelling Integumentary: Denies pruritus, Denies rash Neurological: Denies numbness, Denies weakness Psychiatric: Reports anxiety, Reports depression, Denies sadness/tearfulness, Denies sleep disturbances, Denies suicidal ideation Endocrine: Denies fatigue, Denies weight change Objective - Vital Signs Vital signs: Vital Signs Temp 98.3 F 07/31/18 07:03 Pulse 52 L 07/31/18 07:03 Resp 16 07/31/18 07:03 BP 127/63 07/31/18 07:03 Pulse Ox 96 07/31/18 07:03 Intake & Output 07/30/18 07/31/18 07/31/18 18:59 06:59 18:59 Intake Total 1201 1200 Output Total 25 Balance 1176 1200 Weight 93.894 kg Intake: IV 1201 Intake, IV Titration 1200 Amount Sodium Chloride 0.9% 1, 700 000 ml @ 70 mls/hr IV . [id number] [facility] Rx#:[id number] Vancomycin 1,500 mg In 500 Sodium Chloride 0.9% 250 ml @ 125 mls/hr IVPB ONCE ONE Rx#:[id number] Output: Estimated Blood Loss 25 Other: # Voids 1 - Exam General appearance: average body habitus, no acute distress - EENT Eyes: anicteric sclerae, EOMI, PERRLA, no ptosis, no scleral icterus, normal appearance ENT: hearing grossly normal, NA/AT, normal oropharynx, no thrush Ears: bilateral: normal - Neck Neck: no lymphadenopathy, normal ROM, no rigidity, no stridor, no thyromegaly Carotids: bilateral: upstroke normal Thyroid: bilateral: normal size - Respiratory Respiratory: bilateral: diminished, negative: dullness, rales, rhonchi, wheezing , prolonged expiration, prolonged inspiration - Cardiovascular Rhythm: regular Heart sounds: normal: S1, S2 Abnormal Heart Sounds: no systolic murmur, no S3 Gallop, no S4 Gallop - Gastrointestinal General gastrointestinal: normal bowel sounds, soft, no splenomegaly, no tenderness, no umbilical hernia, no ventral hernia - Integumentary Integumentary: normal, normal turgor - Neurologic Neurologic: CNII-XII intact - Musculoskeletal Musculoskeletal: gait normal, strength equal bilaterally - Psychiatric Psychiatric: A&O x's 3, appropriate affect, intact judgment & insight - Labs CBC & Chem 7: 07/31/18 07:26 Labs: Abnormal Lab Results - Last 24 Hours (Table) 07/31/18 Range/Units 07:26 Hgb 10.2 L (11.4-16.0) gm/dL Hct 32.8 L (34.0-46.0) % Plt Count 134 L (150-450) k/uL Assessment and Plan Plan: 1. Status post left total knee arthroplasty. Continue incentive spirometer, continue current pain management as outlined by orthopedic surgery, continue patient on aspirin 325 mg orally twice every day, physical therapy evaluation tomorrow morning, hopefully she will be discharged home today. 2. Peptic ulcer disease/GERD. Continue Prilosec 20 mg orally once every day. 3. Anxiety and depressive disorder. Continue patient on Zoloft 50 mg at bedtime. 4. DVT prophylaxis. Continue aspirin 325 mg orally twice every day. 5. GI prophylaxis. Continue patient on Prilosec 20 mg orally once every day. Discharge plan: Home Impression and plan of care have been directed as dictated by the signing physician. Dariana Davis nurse practitioner acting as scribe for signing physician.
== END 2018-07-31 12:25 | disposition home health service (06) | DRG 470 ==
LOC: 2ORMAIN 05:43 → 4SSUR 14:23
PROVIDERS: ADMIT Orthopaedic Surgery; ATTEND Orthopaedic Surgery
PROC: 0SRD069 Replacement of Left Knee Joint with Oxidized Zirconium on Polyethylene Synthetic Substitute, Cemented, Open Approach (ICD-10-PCS; principal; 2018-07-30 09:15)
DX: M17.12 Unilateral primary osteoarthritis, left knee (principal); F32.9 Major depressive disorder, single episode, unspecified; F41.9 Anxiety disorder, unspecified; I10 Essential (primary) hypertension; K21.9 Gastro-esophageal reflux disease without esophagitis; K27.9 Peptic ulcer, site unspecified, unspecified as acute or chronic, without hemorrhage or perforation; G43.909 Migraine, unspecified, not intractable, without status migrainosus; G89.29 Other chronic pain; I71.2 Thoracic aortic aneurysm, without rupture; M54.9 Dorsalgia, unspecified; E03.9 Hypothyroidism, unspecified; Z90.710 Acquired absence of both cervix and uterus; Z79.899 Other long term (current) drug therapy; Z98.84 Bariatric surgery status; Z88.1 Allergy status to other antibiotic agents; Z88.5 Allergy status to narcotic agent; Z98.1 Arthrodesis status; Z90.49 Acquired absence of other specified parts of digestive tract; Z82.49 Family history of ischemic heart disease and other diseases of the circulatory system; Z83.3 Family history of diabetes mellitus
CPT/HCPCS: 85025; 88300

== ENCOUNTER 2018-09-07 11:33 | Emergency (ER) | payer OTHER ==
[2018-09-07 11:41] VITALS: TEMP 98.7
[2018-09-07] MEDS ORDERED: SODIUM CHLORIDE 0.9% 1,000 ML IV STA (11:59)
[2018-09-07 12:45] LABS: Basophils % (A) 0 %; Eosinophils # (A) 0.1 k/uL (0-0.7); Eosinophils % (A) 2 %; HGB 14.4 gm/dL (11.4-16.0); Lymphocytes # (A) 1.2 k/uL (1.0-4.8); Lymphocytes % (A) 25 %; MCH 25.8 pg (25.0-35.0); MCV 80.6 fL (80.0-100.0); Mean Platelet Volume 8.1; Monocytes # (A) 0.3 k/uL (0-1.0); Monocytes % (A) 6 %; Neutrophils % (A) 65 %; Platelet Count 192 k/uL (150-450); RBC 5.58 m/uL (3.80-5.40); RDW 15.5 % (11.5-15.5); WBC 4.7 k/uL (3.8-10.6)
[2018-09-07 12:48] LABS: ALT 29 U/L (9-52); AST 38 U/L (14-36); Albumin 4.6 g/dL (3.5-5.0); Alkaline Phosphatase 128 U/L (38-126); Anion Gap 17 mmol/L; Blood Urea Nitrogen 19 mg/dL (7-17); Calcium 10.2 mg/dL (8.4-10.2); Carbon Dioxide 20 mmol/L (22-30); Chloride 102 mmol/L (98-107); Glucose 84 mg/dL (74-99); Potassium 4.4 mmol/L (3.5-5.1); Sodium 139 mmol/L (137-145); Total Bilirubin 0.8 mg/dL (0.2-1.3); Total Protein 7.9 g/dL (6.3-8.2)
--- NOTE | 2018-09-07 12:48 | ED ---
General Adult HPI - General Chief complaint: Dizziness Stated complaint: palpitations, weakness Time Seen by Provider: 09/07/18 11:46 Source: patient, RN notes reviewed Mode of arrival: wheelchair Limitations: no limitations - History of Present Illness Initial comments: Patient's a 48-year-old female presented to the emergency room today with a chief complaint palpitations. Patient does admit that she's had palpitations off and on in the past. Does admit that today when after waking up she noticed that she could feel these palpitations and they have been pretty persistent. She does admit that recently they've been more persistent. She states that she had a knee replacement approximately on 07/30/2018. Patient does admit that appetite has been somewhat decreased recently but states she's been trying to eat and drink. Patient does feel dizzy at times when she is up moving around. Patient denies any other complaints or symptoms. Patient denies any recent fever , chills, shortness of breath, chest pain, back pain, abdominal pain, nausea or vomiting, numbness or tingling, headaches or visual changes, or any other complaints. - Related Data Home Medications Medication Instructions Recorded Confirmed HYDROcodone/APAP 10-325MG [[place] 1 tab PO Q6H PRN 03/13/15 09/07/18 10] Omeprazole [PriLOSEC] 20 mg PO HS 08/27/17 09/07/18 Sertraline HCl [Zoloft] 50 mg PO HS 06/01/18 09/07/18 Allergies Allergy/AdvReac Type Severity Reaction Status Date / Time ciprofloxacin [From Cipro] AdvReac Nausea & Verified 09/07/18 11:51 Vomiting, SWELLING ciprofloxacin HCl AdvReac Nausea & Verified 09/07/18 11:51 [From Cipro] Vomiting, SWELLING hydromorphone HCl AdvReac VOMITING, Verified 09/07/18 11:51 [From Dilaudid] DIZZY morphine AdvReac Itching Verified 09/07/18 11:51 Review of Systems ROS Statement: Those systems with pertinent positive or pertinent negative responses have been documented in the HPI. ROS Other: All systems not noted in ROS Statement are negative. Past Medical History Past Medical History: GERD/Reflux, Hypertension, Osteoarthritis (OA) Additional Past Medical History / Comment(s): chronic back and neck pain, migraines, PAST HISTORY OF HYPERTENSION, ascending aortic aneurysm, gastric ulcers History of Any Multi-Drug Resistant Organisms: None Reported Past Surgical History: Bariatric Surgery, Cholecystectomy, Hysterectomy, Orthopedic Surgery Additional Past Surgical History / Comment(s): Migraines, NARA-EN-Y, cervical fusion c2-c5, arthroscopy lt knee Past Anesthesia/Blood Transfusion Reactions: No Reported Reaction Past Psychological History: Depression Smoking Status: Never smoker Past Alcohol Use History: Rare Past Drug Use History: Marijuana - Past Family History Mother Family Medical History: Coronary Artery Disease (CAD) (Mother is 66-year-old has history of CAD post CABG and diabetes mellitus type 2.) Father Family Medical History: Coronary Artery Disease (CAD) (Father is 66-year-old has history of CAD post CABG .) Brother(s) Family Medical History: No Reported History (Patient has one brother no major medical problems.) Daughter(s) Family Medical History: No Reported History (Patient has 2 daughters no major medical problems.) Son(s) Family Medical History: No Reported History (Patient has one son no major medical problems.) General Exam - General Exam Comments Initial Comments: General: The patient is awake and alert, in no distress, and does not appear acutely ill. Eye: Pupils are equal, round and reactive to light, extra-ocular movements are intact. No nystagmus. There is normal conjunctiva bilaterally. No signs of icterus. Ears, nose, mouth and throat: There are moist mucous membranes and no oral lesions. Neck: The neck is supple, there is no tenderness or JVD. Cardiovascular: Tachycardic. No murmur, rub or gallop is appreciated. Respiratory: Lungs are clear to auscultation, respirations are non-labored, breath sounds are equal. No wheezes, stridor, rales, or rhonchi. Musculoskeletal: Normal ROM, no tenderness. Neurological: A&O x 3. CN II-XII intact, There are no obvious motor or sensory deficits. Coordination appears grossly intact. Speech is normal. Skin: Skin is warm and dry and no rashes or lesions are noted. Psychiatric: Cooperative, appropriate mood & affect, normal judgment. Limitations: no limitations Course Vital Signs 09/07/18 09/07/18 09/07/18 11:38 13:00 13:30 Temperature 98.7 F Pulse Rate 141 H 80 92 Respiratory 20 17 19 Rate Blood Pressure 148/102 145/100 131/96 O2 Sat by Pulse 98 98 Oximetry 09/07/18 09/07/18 14:00 14:30 Temperature Pulse Rate 80 74 Respiratory 18 18 Rate Blood Pressure 132/97 131/87 O2 Sat by Pulse 98 97 Oximetry EKG Findings - EKG Comments: EKG Findings:: EKG performed at 1149: Shows sinus tachycardia 170 bpm. MI interval 160. QRS 80. QT/QTC 322/449. No acute ST changes. Medical Decision Making - Medical Decision Making Patient's CT of the chest was negative for any evidence of PE. No other acute abnormality. Patient palpitations improved here in the emergency room. Initial heart rate was in the 140s. Repeat heart rate has been in the 70s and 80s here in the emergency room. Patient does admit that she's not had much of an appetite. She states that she does try to drink water. Patient's urinalysis does show 4+ ketones. She was given a liter bolus. She states palpitations improved she's feeling well at this time. Denies any dizziness. Patient will be discharged home. She is advised to increase oral fluids. Advised following up with her family doctor also her cut off saw operator over the next 2 days. Advised return if any symptoms increase or worsen. She states understanding and is in agreement. - Lab Data Result diagrams: 09/07/18 12:12 09/07/18 12:12 Lab Results 09/07/18 09/07/18 09/07/18 Range/Units 12:12 12:12 12:12 WBC 4.7 (3.8-10.6) k/uL RBC 5.58 H (3.80-5.40) m/uL Hgb 14.4 D (11.4-16.0) gm/dL Hct 45.0 (34.0-46.0) % MCV 80.6 (80.0-100.0) fL MCH 25.8 (25.0-35.0) pg MCHC 32.0 (31.0-37.0) g/dL RDW 15.5 (11.5-15.5) % Plt Count 192 (150-450) k/uL Neutrophils % 65 % Lymphocytes % 25 % Monocytes % 6 % Eosinophils % 2 % Basophils % 0 % Neutrophils # 3.0 (1.3-7.7) k/uL Lymphocytes # 1.2 (1.0-4.8) k/uL Monocytes # 0.3 (0-1.0) k/uL Eosinophils # 0.1 (0-0.7) k/uL Basophils # 0.0 (0-0.2) k/uL PT (9.0-12.0) sec INR (<1.2) APTT (22.0-30.0) sec D-Dimer (<0.60) mg/L FEU Sodium 139 (137-145) mmol/L Potassium 4.4 (3.5-5.1) mmol/L Chloride 102 (98-107) mmol/L Carbon Dioxide 20 L (22-30) mmol/L Anion Gap 17 mmol/L BUN 19 H (7-17) mg/dL Creatinine 0.76 (0.52-1.04) mg/dL Est GFR (CKD-EPI)AfAm >90 (>60 ml/min/1.73 sqM) Est GFR (CKD-EPI)NonAf >90 (>60 ml/min/1.73 sqM) Glucose 84 (74-99) mg/dL Calcium 10.2 (8.4-10.2) mg/dL Total Bilirubin 0.8 (0.2-1.3) mg/dL AST 38 H (14-36) U/L ALT 29 (9-52) U/L Alkaline Phosphatase 128 H (38-126) U/L Total Creatine Kinase 45 (30-135) U/L CK-MB (CK-2) <0.2 (0.0-2.4) ng/mL CK-MB (CK-2) Rel Index Troponin I <0.012 (0.000-0.034) ng/mL Total Protein 7.9 (6.3-8.2) g/dL Albumin 4.6 (3.5-5.0) g/dL Urine Color Urine Appearance (Clear) Urine pH (5.0-8.0) Ur Specific [place] (1.001-1.035) Urine Protein (Negative) Urine Glucose (UA) (Negative) Urine Ketones (Negative) Urine Blood (Negative) Urine Nitrite (Negative) Urine Bilirubin (Negative) Urine Urobilinogen (<2.0) mg/dL Ur Leukocyte Esterase (Negative) Urine RBC (0-5) /hpf Urine WBC (0-5) /hpf Ur Squamous Epith Cells (0-4) /hpf Urine Bacteria (None) /hpf Urine Mucus (None) /hpf Urine HCG, Qual (Not Detectd) 09/07/18 09/07/18 09/07/18 Range/Units 12:12 12:36 12:36 WBC (3.8-10.6) k/uL RBC (3.80-5.40) m/uL Hgb (11.4-16.0) gm/dL Hct (34.0-46.0) % MCV (80.0-100.0) fL MCH (25.0-35.0) pg MCHC (31.0-37.0) g/dL RDW (11.5-15.5) % Plt Count (150-450) k/uL Neutrophils % % Lymphocytes % % Monocytes % % Eosinophils % % Basophils % % Neutrophils # (1.3-7.7) k/uL Lymphocytes # (1.0-4.8) k/uL Monocytes # (0-1.0) k/uL Eosinophils # (0-0.7) k/uL Basophils # (0-0.2) k/uL PT 10.2 (9.0-12.0) sec INR 0.9 (<1.2) APTT 24.9 (22.0-30.0) sec D-Dimer 1.16 H (<0.60) mg/L FEU Sodium (137-145) mmol/L Potassium (3.5-5.1) mmol/L Chloride (98-107) mmol/L Carbon Dioxide (22-30) mmol/L Anion Gap mmol/L BUN (7-17) mg/dL Creatinine (0.52-1.04) mg/dL Est GFR (CKD-EPI)AfAm (>60 ml/min/1.73 sqM) Est GFR (CKD-EPI)NonAf (>60 ml/min/1.73 sqM) Glucose (74-99) mg/dL Calcium (8.4-10.2) mg/dL Total Bilirubin (0.2-1.3) mg/dL AST (14-36) U/L ALT (9-52) U/L Alkaline Phosphatase (38-126) U/L Total Creatine Kinase (30-135) U/L CK-MB (CK-2) (0.0-2.4) ng/mL CK-MB (CK-2) Rel Index Troponin I (0.000-0.034) ng/mL Total Protein (6.3-8.2) g/dL Albumin (3.5-5.0) g/dL Urine Color Yellow Urine Appearance Cloudy H (Clear) Urine pH 6.0 (5.0-8.0) Ur Specific [place] 1.029 (1.001-1.035) Urine Protein 2+ H (Negative) Urine Glucose (UA) Negative (Negative) Urine Ketones 4+ H (Negative) Urine Blood Negative (Negative) Urine Nitrite Negative (Negative) Urine Bilirubin 1+ H (Negative) Urine Urobilinogen 4.0 (<2.0) mg/dL Ur Leukocyte Esterase Negative (Negative) Urine RBC <1 (0-5) /hpf Urine WBC 4 (0-5) /hpf Ur Squamous Epith Cells 19 H (0-4) /hpf Urine Bacteria Rare H (None) /hpf Urine Mucus Many H (None) /hpf Urine HCG, Qual Not Detected (Not Detectd) Disposition Clinical Impression: Palpitations Disposition: HOME SELF-CARE Condition: Good Instructions (If sedation given, give patient instructions): Heart Palpitations (DC) Additional Instructions: Please use medication as discussed. Please follow-up with cut off saw operator/family doctor in the next 2 days of symptoms have not improved. Please return to emergency room if the symptoms increase or worsen or for any other concerns. Is patient prescribed a controlled substance at d/c from ED?: No Referrals: Waqas Patricia DO [Primary Care Provider] - 1-2 days Time of Disposition: 14:49
[2018-09-07 13:01] LABS: INR 0.9 (<1.2); Partial Thromboplastin Time 24.9 sec (22.0-30.0); Prothrombin Time 10.2 sec (9.0-12.0)
[2018-09-07 13:04] LABS: Creatine Kinase 45 U/L (30-135)
[2018-09-07 13:11] LABS: D-Dimer 1.16 mg/L FEU (<0.60)
[2018-09-07 13:13] LABS: Appearance,Urine Cloudy (Clear); Bacteria,Urine Rare /hpf; Bilirubin,Urine 1+ (Negative); Blood,Urine Negative (Negative); Color,Urine Yellow; Glucose,Urine (UA) Negative (Negative); Ketones,Urine 4+ (Negative); Leukocyte Esterase,Urine Negative (Negative); Mucus,Urine Many /hpf; Nitrite,Urine Negative (Negative); Protein,Urine 2+ (Negative); RBC,Urine <1 /hpf (0-5); Specific Gravity,Urine 1.029 (1.001-1.035); Squamous Epithelial Cell,Urine 19 /hpf (0-4)
[2018-09-07 13:17] LABS: Creatine Kinase MB <0.2 ng/mL (0.0-2.4); Troponin I <0.012 ng/mL (0.000-0.034)
--- NOTE | 2018-09-07 13:25 | XR ---
EXAMINATION TYPE: XR chest 2V DATE OF EXAM: 09/07/2018 COMPARISON: Chest CT June 05, 2018. Older CT from 2017. HISTORY: Palpitations and pain. TECHNIQUE: Frontal and lateral views of the chest are obtained. FINDINGS: Overlying EKG leads are seen. There is 1.1 cm calcified nodule or granuloma left upper lobe redemonstrated There is no focal air space opacity, pleural effusion, or pneumothorax seen. The car diac silhouette size is within normal limits. The osseous structures are intact. Surgical changes e pigastric region from gastric bypass procedure are redemonstrated. IMPRESSION: No acute cardiopulmonary process. No significant change from prior studies.
--- NOTE | 2018-09-07 14:13 | CT ---
EXAMINATION TYPE: CT angio chest DATE OF EXAM: 09/07/2018 COMPARISON: CT chest June 05, 2018 HISTORY: Shortness of breath. Post OP Knee replacement [address] DLP: 278.4 mGycm. Automated Exposure Control for Dose Reduction was Utilized. CONTRAST: CTA scan of the thorax is performed with IV Contrast, patient injected with 100 mL of Isovue 370, pul monary embolism protocol. MIP Images are created on CT scanner and reviewed. FINDINGS: LUNGS: There is stable calcified 1.1 cm nodule or granuloma posterior lateral aspect left upper lobe axial image 44. The lungs are grossly clear, there is no concerning noncalcified parenchymal mass or nodule identified. There is no pleural effusion or pneumothorax seen. The tracheobronchial tree is patent. MEDIASTINUM: There is satisfactory enhancement of the pulmonary artery and its branches, there is no CT evidence for pulmonary embolism. There are no greater than 1 cm noncalcified hilar or mediastinal lymph nodes. Stable calcified left hilar lymph nodes or axial image 58. No cardiomegaly or pericar dial effusion is seen. OTHER: Cholecystectomy are seen. Mild multilevel spurring in the thoracic spine is redemonstrated. IMPRESSION: No CT evidence for acute pulmonary embolism. No suspicious acute pulmonary process.
[2018-09-07 14:57] VITALS: BP 134/85; PULSE 80; RESP 19
== END 2018-09-07 14:57 | disposition home or self-care (01) ==
LOC: EC 11:33
DX: R00.2 Palpitations (principal); R42 Dizziness and giddiness; R53.1 Weakness; R63.0 Anorexia; K21.9 Gastro-esophageal reflux disease without esophagitis; F32.9 Major depressive disorder, single episode, unspecified; M19.90 Unspecified osteoarthritis, unspecified site; Z96.659 Presence of unspecified artificial knee joint; Z79.899 Other long term (current) drug therapy; Z88.1 Allergy status to other antibiotic agents; Z88.5 Allergy status to narcotic agent
CPT/HCPCS: 36415; 93005; 85379; 80053; 82550; 82553; 84484; 85025; 85610; 85730; 81001; 81025; 71046; 71275; 99284; 96360; Q9967

== ENCOUNTER 2018-10-07 19:27 | Emergency (ER) | payer OTHER ==
[2018-10-07 19:36] VITALS: TEMP 98.2
[2018-10-07 19:47] LABS: Glucose,Whole Blood 59 mg/dL (75-99)
[2018-10-07] MEDS ORDERED: ONDANSETRON 4 MG/2 ML VIAL IVP STA (19:59)
[2018-10-07] MEDS ORDERED: SODIUM CHLORIDE 0.9% 500 ML 500 ML IV STA (19:59)
[2018-10-07] MEDS ORDERED: SODIUM CHLORIDE 0.9% 1,000 ML IV STA (19:59)
[2018-10-07] MEDS ORDERED: HYDROmorphone 1 MG/ML 1 ML SYRINGE IVP STA (20:01)
--- NOTE | 2018-10-07 20:15 | ED ---
General Adult HPI - General Chief complaint: Dizziness Stated complaint: Dizzy,light headed, chest pain, vomiting Time Seen by Provider: 10/07/18 19:39 Source: patient, family, RN notes reviewed, old records reviewed Mode of arrival: ambulatory Limitations: no limitations - History of Present Illness Initial comments: Chief complaint and history of present illness a 48-year-old female here with her significant other. The patient reports she's had multiple episodes of being dizzy today. She's been seeing a neurologist for several months because of persistent dizziness. Today it was worse than normal. Causing her to vomit several times. She is unable to keep her pain medication down. She states that if she had Zofran at home she may not as needed to come to the emergency room. She also complains of a chest discomfort on the right side of her chest. The patient states that she had a total knee replacement approximately 2 months ago on the left knee and takes Ranger. Unable to keep her Ranger down. Past history of migraine type headaches as well mild photophobia today. - Related Data Home Medications Medication Instructions Recorded Confirmed HYDROcodone/APAP 10-325MG [Ranger 1 tab PO Q6H PRN 03/13/15 10/07/18 10] Omeprazole [PriLOSEC] 20 mg PO HS 08/27/17 10/07/18 Sertraline HCl [Zoloft] 50 mg PO HS 06/01/18 10/07/18 Previous Rx's Medication Instructions Recorded Ondansetron Odt [Zofran Odt] 4 mg PO Q8HR PRN #10 tab 10/08/18 Allergies Allergy/AdvReac Type Severity Reaction Status Date / Time ciprofloxacin [From Cipro] AdvReac Nausea & Verified 10/07/18 20:56 Vomiting, SWELLING ciprofloxacin HCl AdvReac Nausea & Verified 10/07/18 20:56 [From Cipro] Vomiting, SWELLING hydromorphone HCl AdvReac VOMITING, Verified 10/07/18 20:56 [From Dilaudid] DIZZY morphine AdvReac Itching Verified 10/07/18 20:56 Review of Systems ROS Statement: Those systems with pertinent positive or pertinent negative responses have been documented in the HPI. Review of systems. Patient has a headache which she describes as not being a migraine. Mild photophobia. Denies neck ache that she's had chronic neck pain in the past. Right-sided chest discomfort on again off again throughout the day. Chronic dizziness worse today than other days with the past several months for which she seeing a neurologist. Nausea vomiting several times today and injured her pain medication down which she takes for total knee surgery 2 months ago. Neurologically intact. All systems are reviewed. Past medical problems significant for GERD, hypertension, osteoarthritis chronic back and neck pain. Surgeries include a Tyrone-en-Y for bariatric surgery purposes. Cholecystectomy, hysterectomy and total left knee just several months ago. The patient reports ALLERGIES to Cipro, hydromorphone and morphine. The patient states she can take Dilaudid. The patient denies smoking denies drinking. ROS Other: All systems not noted in ROS Statement are negative. Past Medical History Past Medical History: GERD/Reflux, Hypertension, Osteoarthritis (OA) Additional Past Medical History / Comment(s): chronic back and neck pain, migraines, PAST HISTORY OF HYPERTENSION, ascending aortic aneurysm, gastric ulcers History of Any Multi-Drug Resistant Organisms: None Reported Past Surgical History: Bariatric Surgery, Cholecystectomy, Hysterectomy, Orthopedic Surgery Additional Past Surgical History / Comment(s): Migraines, TYRONE-EN-Y, cervical fusion c2-c5, arthroscopy lt knee Past Anesthesia/Blood Transfusion Reactions: No Reported Reaction Past Psychological History: Depression Smoking Status: Never smoker Past Alcohol Use History: Rare Past Drug Use History: Marijuana - Past Family History Mother Family Medical History: Coronary Artery Disease (CAD) (Mother is 66-year-old has history of CAD post CABG and diabetes mellitus type 2.) Father Family Medical History: Coronary Artery Disease (CAD) (Father is 66-year-old has history of CAD post CABG .) Brother(s) Family Medical History: No Reported History (Patient has one brother no major medical problems.) Daughter(s) Family Medical History: No Reported History (Patient has 2 daughters no major medical problems.) Son(s) Family Medical History: No Reported History (Patient has one son no major medical problems.) General Exam - General Exam Comments Initial Comments: General: The patient is awake and alert, appears a complaint of recurrent chronic dizziness worse today, right-sided chest pain on again off again throughout the day. Several episodes of nausea vomiting. in no distress, and does not appear acutely ill. Vital signs shows temperature 98.2 pulse 84 respiratory rate 18 pulse ox on percent room air blood pressure 154/98 Eye: Pupils are equal, round and reactive to light, extra-ocular movements are intact ; there is normal conjunctiva bilaterally. No signs of icterus. Ears, nose, mouth and throat: There are moist mucous membranes and no oral lesions. Thyroid not enlarged, no anterior cervical lymphadenopathy. Neck: Chronic neck pain for which she's had surgery. No acute changes. Cardiovascular: There is a regular rate and rhythm. No murmur, rub or gallop is appreciated. Denies palpitations. Complains of right-sided chest discomfort. Respiratory: Lungs are clear to auscultation, respirations are non-labored, breath sounds are equal. No wheezes, stridor, rales, or rhonchi. Gastrointestinal: Soft, non-distended, non-tender abdomen without masses or organomegaly noted. There is no rebound or guarding present. No CVA tenderness. Bowel sounds are unremarkable. Back: There is no tenderness to palpation in the midline. There is no obvious deformity. No rashes noted. Musculoskeletal: Normal ROM, no tenderness, There is no pedal edema. There is no calf tenderness or swelling. Sensation intact. Pulses equal bilaterally 2+. Recent total left knee surgery 2 months ago. Chronic pain. Able to flex and extend though. Neurological: CN II-XII intact, There are no obvious motor or sensory deficits. Coordination appears grossly intact. Speech is normal. No focal or lateralizing findings. Complains of dizziness worse today than usual. Has been seeing a neurologist for several months because of chronic dizziness. Skin: Skin is warm and dry and no rashes or lesions are noted. Psychiatric: Cooperative, appropriate mood & affect, normal judgment. Limitations: no limitations Course Vital Signs 10/07/18 10/07/18 10/07/18 19:31 21:50 22:30 Temperature 98.2 F Pulse Rate 84 76 64 Respiratory 18 18 18 Rate Blood Pressure 154/98 130/84 146/84 O2 Sat by Pulse 100 100 99 Oximetry 10/07/18 10/08/18 23:30 00:30 Temperature Pulse Rate 77 90 Respiratory 18 16 Rate Blood Pressure 126/95 134/63 O2 Sat by Pulse 98 96 Oximetry EKG Findings - EKG Comments: EKG Findings:: R interval is 136 QRS 90 QT 386 QTc 434. This EKG was compared to one dated 09/07/2018 Dr. Duran Medical Decision Making - Medical Decision Making Medical decision making; this is a 48-year-old female here with complaint of left knee pain. Patient reports that she been dizzy at home and has been vomiting. Has not been able to take her Ranger for her left knee pain. The patient had a total left knee surgery over 2 months ago. The patient stated that there are certain medication she cannot take but she can take Dilaudid. This was ordered to be administered but she then informed the nurse that she said she can't take Dilaudid but she can take Demerol. The patient's labs show a white count 5.7 hemoglobin 13 hematocrit of 40 with an INR 1.0. D-dimer is elevated 1.22. Patient's BUN is 7 creatinine 0.58 GFR greater than 90. Glucose 86. AST and ALT both mildly elevated. The patient has had a Tyrone-en-Y for bariatric surgery. X-ray of the chest done AP and lateral view and reviewed by radiologist entire report was read. His final impression is no acute cardiopulmonary disease. No significant change from before. As read by Dr. Umanzor CT [facility] chest rule out PE was performed and reviewed by radiologist this is compared to a CT done on 09/07/2018. His final impression is no PE. No other acute cardiopulmonary disease. As read by Dr. Umanzor ultrasound of the left leg is being ordered to rule out DVT. The patient had a total left knee done 2 months ago. Ultrasound of the left lower extremity was done and performed by the radiologist and reviewed his final impression is no evidence of DVT. The patient was placed on Zofran to control nausea. Advised follow-up with her family doctor and orth[facility]od [facility] surgeon. Patient states he is ready and willing to go home. - Lab Data Result diagrams: 10/07/18 19:50 10/07/18 19:50 Lab Results 10/07/18 10/07/18 10/07/18 Range/Units 19:37 19:50 19:50 WBC 5.7 (3.8-10.6) k/uL RBC 4.92 (3.80-5.40) m/uL Hgb 13.1 (11.4-16.0) gm/dL Hct 40.8 (34.0-46.0) % MCV 82.8 (80.0-100.0) fL MCH 26.6 (25.0-35.0) pg MCHC 32.2 (31.0-37.0) g/dL RDW 15.9 H (11.5-15.5) % Plt Count 152 (150-450) k/uL Neutrophils % 83 % Lymphocytes % 8 % Monocytes % 7 % Eosinophils % 1 % Basophils % 0 % Neutrophils # 4.7 (1.3-7.7) k/uL Lymphocytes # 0.5 L (1.0-4.8) k/uL Monocytes # 0.4 (0-1.0) k/uL Eosinophils # 0.0 (0-0.7) k/uL Basophils # 0.0 (0-0.2) k/uL PT (9.0-12.0) sec INR (<1.2) D-Dimer (<0.60) mg/L FEU Sodium 137 (137-145) mmol/L Potassium 3.4 L (3.5-5.1) mmol/L Chloride 101 (98-107) mmol/L Carbon Dioxide 22 (22-30) mmol/L Anion Gap 14 mmol/L BUN 7 (7-17) mg/dL Creatinine 0.58 (0.52-1.04) mg/dL Est GFR (CKD-EPI)AfAm >90 (>60 ml/min/1.73 sqM) Est GFR (CKD-EPI)NonAf >90 (>60 ml/min/1.73 sqM) Glucose 87 (74-99) mg/dL POC Glucose (mg/dL) 59 L (75-99) mg/dL POC Glu Portfolio Mgr ID Brennon Griffiths Calcium 9.0 (8.4-10.2) mg/dL Total Bilirubin 0.8 (0.2-1.3) mg/dL AST 92 H (14-36) U/L ALT 61 H (9-52) U/L Alkaline Phosphatase 222 H (38-126) U/L Troponin I (0.000-0.034) ng/mL Total Protein 6.6 (6.3-8.2) g/dL Albumin 3.9 (3.5-5.0) g/dL 10/07/18 10/07/18 Range/Units 19:50 19:50 WBC (3.8-10.6) k/uL RBC (3.80-5.40) m/uL Hgb (11.4-16.0) gm/dL Hct (34.0-46.0) % MCV (80.0-100.0) fL MCH (25.0-35.0) pg MCHC (31.0-37.0) g/dL RDW (11.5-15.5) % Plt Count (150-450) k/uL Neutrophils % % Lymphocytes % % Monocytes % % Eosinophils % % Basophils % % Neutrophils # (1.3-7.7) k/uL Lymphocytes # (1.0-4.8) k/uL Monocytes # (0-1.0) k/uL Eosinophils # (0-0.7) k/uL Basophils # (0-0.2) k/uL PT 10.3 (9.0-12.0) sec INR 1.0 (<1.2) D-Dimer 1.22 H (<0.60) mg/L FEU Sodium (137-145) mmol/L Potassium (3.5-5.1) mmol/L Chloride (98-107) mmol/L Carbon Dioxide (22-30) mmol/L Anion Gap mmol/L BUN (7-17) mg/dL Creatinine (0.52-1.04) mg/dL Est GFR (CKD-EPI)AfAm (>60 ml/min/1.73 sqM) Est GFR (CKD-EPI)NonAf (>60 ml/min/1.73 sqM) Glucose (74-99) mg/dL POC Glucose (mg/dL) (75-99) mg/dL POC Glu Portfolio Mgr ID Calcium (8.4-10.2) mg/dL Total Bilirubin (0.2-1.3) mg/dL AST (14-36) U/L ALT (9-52) U/L Alkaline Phosphatase (38-126) U/L Troponin I <0.012 (0.000-0.034) ng/mL Total Protein (6.3-8.2) g/dL Albumin (3.5-5.0) g/dL Disposition Clinical Impression: Chronic pain, History of recent surgery Disposition: HOME SELF-CARE Condition: Fair Instructions (If sedation given, give patient instructions): Dizziness (ED), Chronic Pain (ED) Additional Instructions: Follow-up with your family doctor and orthopedic surgeon. Take Zofran to control nausea vomiting. Increase fluids. Keep leg elevated. Prescriptions: Ondansetron Odt [Zofran Odt] 4 mg PO Q8HR PRN #10 tab PRN Reason: Nausea Is patient prescribed a controlled substance at d/c from ED?: No Referrals: Waqas Patricia DO [Primary Care Provider] - 1-2 days Time of Disposition: 01:18
[2018-10-07 21:11] LABS: Prothrombin Time 10.3 sec (9.0-12.0)
[2018-10-07 21:15] LABS: ALT 61 U/L (9-52); AST 92 U/L (14-36); Albumin 3.9 g/dL (3.5-5.0); Alkaline Phosphatase 222 U/L (38-126); Anion Gap 14 mmol/L; Blood Urea Nitrogen 7 mg/dL (7-17); Carbon Dioxide 22 mmol/L (22-30); Chloride 101 mmol/L (98-107); Glucose 87 mg/dL (74-99); Potassium 3.4 mmol/L (3.5-5.1); Sodium 137 mmol/L (137-145); Total Bilirubin 0.8 mg/dL (0.2-1.3); Total Protein 6.6 g/dL (6.3-8.2)
[2018-10-07 22:03] LABS: Basophils % (A) 0 %; Eosinophils % (A) 1 %; HCT 40.8 % (34.0-46.0); HGB 13.1 gm/dL (11.4-16.0); Lymphocytes # (A) 0.5 k/uL (1.0-4.8); Lymphocytes % (A) 8 %; MCH 26.6 pg (25.0-35.0); MCHC 32.2 g/dL (31.0-37.0); MCV 82.8 fL (80.0-100.0); Mean Platelet Volume 9.3; Monocytes # (A) 0.4 k/uL (0-1.0); Monocytes % (A) 7 %; Neutrophils # (A) 4.7 k/uL (1.3-7.7); Neutrophils % (A) 83 %; Platelet Count 152 k/uL (150-450); RBC 4.92 m/uL (3.80-5.40); RDW 15.9 % (11.5-15.5); WBC 5.7 k/uL (3.8-10.6)
[2018-10-07] MEDS ORDERED: MEPERIDINE 50 MG/ML SYRINGE IVP STA (22:09)
[2018-10-07 22:20] LABS: D-Dimer 1.22 mg/L FEU (<0.60)
--- NOTE | 2018-10-07 22:33 | XR ---
EXAM: XR Chest, 2 Views CLINICAL HISTORY: ITS.REASON XR Reason: Right-sided chest pain TECHNIQUE: Frontal and lateral views of the chest. COMPARISON: Chest radiography 09/07/18 FINDINGS: Lungs: Calcified granuloma at the left upper lobe. No consolidation. No hilar enlargement. Pleural space: No perfusion or pneumothorax. Heart: Normal cardiothymic silhouette. Mediastinum: Trachea appears to be normal. Bones/joints: Bones are unremarkable. Upper abdomen: Surgical clips project over the far medial/upper aspect of the left upper quadrant beneath the diaphragm. IMPRESSION: No acute cardiopulmonary disease. No significant change from before.
--- NOTE | 2018-10-07 23:55 | CT ---
EXAM: CT Angiography Chest With Intravenous Contrast CLINICAL HISTORY: ITS.REASON CT Reason: Right-sided chest pain, elevated d-dimer TECHNIQUE: Axial computed tomographic angiography images of the chest with intravenous contrast using pulmonary embolism protocol. CTDI is 6.5 mGy and DLP is 241.40 mGy-cm. This CT exam was performed using one or more of the following dose reduction techniques: automated exposure control, adjustment of the mA and/or kV according to patient size, and/or use of iterative reconstruction technique. MIP reconstructed images were created and reviewed. COMPARISON: Chest CT 09/07/18. FINDINGS: Pulmonary arteries: Unremarkable. No pulmonary embolism. Aorta: No acute findings. No thoracic aortic aneurysm. Lungs: Calcified granuloma at the left upper lobe. No mass. Pleural space: Unremarkable. No significant effusion. No pneumothorax. Heart: Unremarkable. No cardiomegaly. No significant pericardial effusion. No evidence of RV dysfunction. Bones/joints: No acute fracture. No dislocation. Soft tissues: Unremarkable. Lymph nodes: Unremarkable. No enlarged lymph nodes. IMPRESSION: No PE. No other acute cardiopulmonary disease.
[2018-10-08 00:58] VITALS: BP 134/63; PULSE 90; RESP 16
--- NOTE | 2018-10-08 01:08 | US ---
EXAM: US Left Lower Extremity, deep venous CLINICAL HISTORY: ITS.REASON US Reason: total left knee, 2 months ago, elevated d-dimer TECHNIQUE: Real-time ultrasound scan of the left lower extremity deep venous system with image documentation. COMPARISON: No relevant prior studies available. FINDINGS: Soft tissues: Unremarkable. No abscess. No foreign body. Deep veins: No DVT. Lymph nodes: No mass or adenopathy. IMPRESSION: No DVT.
== END 2018-10-08 01:22 | disposition home or self-care (01) ==
LOC: EC 19:27
DX: M25.562 Pain in left knee (principal); G89.29 Other chronic pain; R42 Dizziness and giddiness; R11.10 Vomiting, unspecified; H53.149 Visual discomfort, unspecified; R07.89 Other chest pain; K21.9 Gastro-esophageal reflux disease without esophagitis; F32.9 Major depressive disorder, single episode, unspecified; M19.90 Unspecified osteoarthritis, unspecified site; Z79.899 Other long term (current) drug therapy; Z88.1 Allergy status to other antibiotic agents; Z88.5 Allergy status to narcotic agent; Z96.652 Presence of left artificial knee joint; Z53.29 Procedure and treatment not carried out because of patient's decision for other reasons
CPT/HCPCS: 99285; 96374; 96375; 96361 ×3; 36415; 93005; 85379; 80053; 84484; 85025; 85610; 71046; 93971; 71275; J2175; J2405; Q9967

== ENCOUNTER → 2019-01-04 | Outpatient (CLI) | payer OTHER ==
[2019-01-04 17:30] LABS: Rheumatoid Factor 6 IU/mL (0-15)
[2019-01-04 18:22] LABS: DNA Double-Stranded NEGATIVE (NEGATIVE); RNP <0.2 AI; Scleroderma SC-70 Ab <0.2 AI
[2019-01-06 10:21] LABS: Cyclic Citrullinated Pep IgG 6
== END | disposition home or self-care (01) ==
LOC: LABWHC1 11:14
PROVIDERS: ATTEND Psychiatry & Neurology Pain Medicine
DX: M25.50 Pain in unspecified joint (principal)
CPT/HCPCS: 36415; 83516; 85652; 86038; 86140; 86200; 86225; 86235; 86431

== ENCOUNTER 2019-04-05 08:47 | Day surgery (SDC) | payer OTHER ==
[2019-03-29 12:25] VITALS: BMI 32.2
[~2019-04-05 08:47] MED LIST changes: -ACETAMINOPHEN TAB 500 MG TAB PO ONE; -MELOXICAM 7.5 MG TAB PO ONE; +SODIUM CHLORIDE 0.9% 1,000 ML IV SCH; -TRANEXAMIC ACID 1,000 MG in SODIUM CHLORIDE 0.9% 50 ML IVPB ONE; -VANCOMYCIN 1,500 MG in SODIUM CHLORIDE 0.9% 250 ML IVPB ONE
[2019-04-05] MEDS ORDERED: SODIUM CHLORIDE 0.9% 500 ML 500 ML IV ONE (09:21)
[2019-04-05 09:24] VITALS: RESP 16; TEMP 98
[2019-04-05 11:47] VITALS: BP 176/76; PULSE 74
--- NOTE | 2019-04-05 13:33 | P.PCN ---
Preoperative Diagnosis: Diagnosis Recurrent syncope Twelve-lead ECG shows baseline artifact but [place] interval is normal uterus is lateral and QT interval is normal no delta waves no epsilon waves ST segments in V1 through V3 are normal Tilt table test per protocol Baseline heart rate 68 beats a minute Baseline blood pressure 144/82 mmHg Patient was tilted upright at an angle of 70 per protocol the maximum heart rate increased 107 bpm within the first 10 minutes and there after remained between 9210 bpm. No change in blood pressure The patient felt lightheaded she felt her heart beating inside her head and getting sweaty. No syncope or presyncope Patient is laid supine heart rate went down to 108 beats a minute Impression Normal twelve-lead ECG mild orthostatic intolerance No syncope
== END 2019-04-05 11:47 | disposition home or self-care (01) ==
LOC: CATHEP 08:47
PROVIDERS: ATTEND Internal Medicine Clinical Cardiac Electrophysiology
DX: R55 Syncope and collapse (principal); R42 Dizziness and giddiness; R00.2 Palpitations; I10 Essential (primary) hypertension; Z82.49 Family history of ischemic heart disease and other diseases of the circulatory system; Z98.84 Bariatric surgery status; Z79.891 Long term (current) use of opiate analgesic; Z79.899 Other long term (current) drug therapy; Z88.1 Allergy status to other antibiotic agents; Z88.5 Allergy status to narcotic agent
CPT/HCPCS: 93660

== ENCOUNTER 2019-04-21 10:40 | Observation (INO) | payer OTHER ==
[2019-04-21] MEDS ORDERED: NITROGLYCERIN OINT 1 INCH/GM PACKET TOPICAL STA (11:22)
[2019-04-21] MEDS ORDERED: ASPIRIN 81 MG PO STA (11:22)
[2019-04-21] MEDS ORDERED: NITROGLYCERIN SL TABS 0.4 MG TAB SUBLINGUAL STA (11:22)
--- NOTE | 2019-04-21 11:24 | ED ---
General Adult HPI - General Chief complaint: Chest Pain Stated complaint: chest pain, dizziness Source: patient, RN notes reviewed Mode of arrival: wheelchair Limitations: no limitations - History of Present Illness Initial comments: This is a 49-year-old female presents emergency Department with a past medical history significant for hypertension and a strong family history with coronary artery disease both mom and dad had bypass surgery in the early 50s. Patient presents today he comes of chest pressure which radiates to her back and both her arms feel heavy. Patient states she also is mildly short of breath per patient denies any diaphoretic episodes. Patient denies any nausea vomiting. Patient denies lightheadedness currently but states she has been having many episodes of lightheadedness recently and cardiology wants to put a loop recorder in. Patient denies abdominal pain patient denies nausea vomiting diarrhea. Patient denies any leg swelling or calf pain. - Related Data Home Medications Medication Instructions Recorded Confirmed HYDROcodone/APAP 10-325MG [G[place]ley 1 tab PO Q6H PRN 03/13/15 04/21/19 10] Omeprazole [PriLOSEC] 40 mg PO HS 08/27/17 04/21/19 Baclofen 10 mg PO TID PRN 03/29/19 04/21/19 SUMAtriptan SUCCINATE [Imitrex] 50 mg PO DAILY PRN 03/29/19 04/21/19 Meclizine [Antivert] 12.5 mg PO DAILY PRN 04/21/19 04/21/19 Allergies Allergy/AdvReac Type Severity Reaction Status Date / Time ciprofloxacin [From Cipro] AdvReac Nausea & Verified 04/21/19 11:46 Vomiting, SWELLING ciprofloxacin HCl AdvReac Nausea & Verified 04/21/19 11:46 [From Cipro] Vomiting, SWELLING hydromorphone HCl AdvReac VOMITING, Verified 04/21/19 11:46 [From Dilaudid] DIZZY morphine AdvReac Itching Verified 04/21/19 11:46 Review of Systems ROS Statement: Those systems with pertinent positive or pertinent negative responses have been documented in the HPI. ROS Other: All systems not noted in ROS Statement are negative. Past Medical History Past Medical History: GERD/Reflux, Hypertension, Osteoarthritis (OA), Sleep Apnea/CPAP/BIPAP, Syncope Additional Past Medical History / Comment(s): Chronic back and neck pain, migraines, past history of hypertension, no current problems, ascending aortic aneurysm, gastric ulcers. No CPAP use, "sleep apnea may be resolved, I've lost 200lbs." Episodes of light headedness and dizziness approximately monthly X1 yr, but occurring more frequently recently, weekly to daily. "Thick blood, having it retested March 06." History of Any Multi-Drug Resistant Organisms: None Reported Past Surgical History: Bariatric Surgery, Cholecystectomy, Hysterectomy, Joint Replacement, Orthopedic Surgery Additional Past Surgical History / Comment(s): NARA-EN-Y, cervical fusion C2-C5, arthroscopy left knee, left knee replacement. Past Anesthesia/Blood Transfusion Reactions: Motion Sickness Past Psychological History: Depression Smoking Status: Never smoker Past Alcohol Use History: None Reported Past Drug Use History: None Reported - Past Family History Mother Family Medical History: Coronary Artery Disease (CAD) Father Family Medical History: Coronary Artery Disease (CAD) Brother(s) Family Medical History: No Reported History Daughter(s) Family Medical History: No Reported History Son(s) Family Medical History: No Reported History General Exam - General Exam Comments Initial Comments: GENERAL: Patient is well-developed and well-nourished. Patient is nontoxic and well- hydrated and is in mild distress. ENT: Neck is soft and supple. No significant lymphadenopathy is noted. Oropharynx is clear. Moist mucous membranes. Neck has full range of motion without eliciting any pain. EYES: The sclera were anicteric and conjunctiva were pink and moist. Extraocular movements were intact and pupils were equal round and reactive to light. Eyelids were unremarkable. PULMONARY: Unlabored respirations. Good breath sounds bilaterally. No audible rales rhonchi or wheezing was noted. CARDIOVASCULAR: There is a regular rate and rhythm without any murmurs gallops or rubs. ABDOMEN: Soft and nontender with normal bowel sounds. SKIN: Skin is clear with no lesions or rashes and otherwise unremarkable. NEUROLOGIC: Patient is alert and oriented x3. Cranial nerves II through XII are grossly intact. Motor and sensory are also intact. Normal speech, volume and content. Symmetrical smile. MUSCULOSKELETAL: Normal extremities with adequate strength and full range of motion. LYMPHATICS: No significant lymphadenopathy is noted PSYCHIATRIC: Normal psychiatric evaluation. 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 Patient's EKG shows no ST segment elevation or depression or T wave abnormalities are noted. Chest x-ray shows no acute abnormality. I started the patient on heparin because of her unstable angina picture. I spoke with Dr. Pruitt she agreed to admit the patient admitted the patient I consult cardiology continued heparin and aspirin and Nitropaste on the floor. - Lab Data Result diagrams: 04/21/19 11:50 04/21/19 11:50 Lab Results 04/21/19 04/21/19 04/21/19 Range/Units 11:50 11:50 11:50 WBC 4.2 (3.8-10.6) k/uL RBC 5.03 (3.80-5.40) m/uL Hgb 13.3 (11.4-16.0) gm/dL Hct 40.7 (34.0-46.0) % MCV 81.0 (80.0-100.0) fL MCH 26.4 (25.0-35.0) pg MCHC 32.6 (31.0-37.0) g/dL RDW 15.2 (11.5-15.5) % Plt Count 142 L (150-450) k/uL Neutrophils % 68 % Lymphocytes % 23 % Monocytes % 6 % Eosinophils % 2 % Basophils % 1 % Neutrophils # 2.8 (1.3-7.7) k/uL Lymphocytes # 0.9 L (1.0-4.8) k/uL Monocytes # 0.3 (0-1.0) k/uL Eosinophils # 0.1 (0-0.7) k/uL Basophils # 0.0 (0-0.2) k/uL PT 9.9 (9.0-12.0) sec INR 0.9 (<1.2) APTT 23.6 (22.0-30.0) sec Sodium 141 (137-145) mmol/L Potassium 4.1 (3.5-5.1) mmol/L Chloride 107 (98-107) mmol/L Carbon Dioxide 26 (22-30) mmol/L Anion Gap 8 mmol/L BUN 16 (7-17) mg/dL Creatinine 0.79 (0.52-1.04) mg/dL Est GFR (CKD-EPI)AfAm >90 (>60 ml/min/1.73 sqM) Est GFR (CKD-EPI)NonAf 90 (>60 ml/min/1.73 sqM) Glucose 107 H (74-99) mg/dL Calcium 9.6 (8.4-10.2) mg/dL Magnesium 1.8 (1.6-2.3) mg/dL Total Bilirubin 0.4 (0.2-1.3) mg/dL AST 20 (14-36) U/L ALT 11 (9-52) U/L Alkaline Phosphatase 100 (38-126) U/L Troponin I (0.000-0.034) ng/mL Total Protein 7.1 (6.3-8.2) g/dL Albumin 4.2 (3.5-5.0) g/dL 04/21/19 Range/Units 11:50 WBC (3.8-10.6) k/uL RBC (3.80-5.40) m/uL Hgb (11.4-16.0) gm/dL Hct (34.0-46.0) % MCV (80.0-100.0) fL MCH (25.0-35.0) pg MCHC (31.0-37.0) g/dL RDW (11.5-15.5) % Plt Count (150-450) k/uL Neutrophils % % Lymphocytes % % Monocytes % % Eosinophils % % Basophils % % Neutrophils # (1.3-7.7) k/uL Lymphocytes # (1.0-4.8) k/uL Monocytes # (0-1.0) k/uL Eosinophils # (0-0.7) k/uL Basophils # (0-0.2) k/uL PT (9.0-12.0) sec INR (<1.2) APTT (22.0-30.0) sec Sodium (137-145) mmol/L Potassium (3.5-5.1) mmol/L Chloride (98-107) mmol/L Carbon Dioxide (22-30) mmol/L Anion Gap mmol/L BUN (7-17) mg/dL Creatinine (0.52-1.04) mg/dL Est GFR (CKD-EPI)AfAm (>60 ml/min/1.73 sqM) Est GFR (CKD-EPI)NonAf (>60 ml/min/1.73 sqM) Glucose (74-99) mg/dL Calcium (8.4-10.2) mg/dL Magnesium (1.6-2.3) mg/dL Total Bilirubin (0.2-1.3) mg/dL AST (14-36) U/L ALT (9-52) U/L Alkaline Phosphatase (38-126) U/L Troponin I <0.012 (0.000-0.034) ng/mL Total Protein (6.3-8.2) g/dL Albumin (3.5-5.0) g/dL Critical Care Time Critical Care Time: Yes Total Critical Care Time: 35 Disposition Clinical Impression: Unstable angina pectoris Disposition: ADMITTED IP TO THIS HOSP Referrals: Mitesh Mcpherson MD [Primary Care Provider] - 1-2 days Time of Disposition: 14:13
[2019-04-21 11:56] LABS: Basophils % (A) 1 %; Eosinophils # (A) 0.1 k/uL (0-0.7); Eosinophils % (A) 2 %; HCT 40.7 % (34.0-46.0); HGB 13.3 gm/dL (11.4-16.0); Lymphocytes # (A) 0.9 k/uL (1.0-4.8); Lymphocytes % (A) 23 %; MCH 26.4 pg (25.0-35.0); MCHC 32.6 g/dL (31.0-37.0); Mean Platelet Volume 9.1; Monocytes # (A) 0.3 k/uL (0-1.0); Monocytes % (A) 6 %; Neutrophils # (A) 2.8 k/uL (1.3-7.7); Neutrophils % (A) 68 %; Platelet Count 142 k/uL (150-450); RBC 5.03 m/uL (3.80-5.40); RDW 15.2 % (11.5-15.5); WBC 4.2 k/uL (3.8-10.6)
--- NOTE | 2019-04-21 11:58 | XR ---
EXAMINATION TYPE: XR chest 2V DATE OF EXAM: 04/21/2019 COMPARISON: 10/07/2018 HISTORY: Chest pain with dizziness TECHNIQUE: Frontal and lateral views of the chest are obtained. FINDINGS: There is no focal air space opacity, pleural effusion, or pneumothorax seen. Calcified 1. 1 cm granuloma in the left upper lobe was demonstrated on the CT chest dated 09/07/2018. cardiac silho uette size is within normal limits. The osseous structures are intact. Surgical changes seen at the gastroesophageal junction. Mild multilevel degenerative changes of the spine and partial visualizati on of a cervical fusion device. IMPRESSION: No acute cardiopulmonary process.
[2019-04-21 12:05] LABS: INR 0.9 (<1.2); Partial Thromboplastin Time 23.6 sec (22.0-30.0); Prothrombin Time 9.9 sec (9.0-12.0)
[2019-04-21 12:17] LABS: ALT 11 U/L (9-52); AST 20 U/L (14-36); African American GFR (CKD) >90 (>60 ml/min/1.73 sqM); Albumin 4.2 g/dL (3.5-5.0); Alkaline Phosphatase 100 U/L (38-126); Anion Gap 8 mmol/L; Blood Urea Nitrogen 16 mg/dL (7-17); Calcium 9.6 mg/dL (8.4-10.2); Carbon Dioxide 26 mmol/L (22-30); Chloride 107 mmol/L (98-107); Glucose 107 mg/dL (74-99); Magnesium 1.8 mg/dL (1.6-2.3); Potassium 4.1 mmol/L (3.5-5.1); Sodium 141 mmol/L (137-145); Total Bilirubin 0.4 mg/dL (0.2-1.3); Total Protein 7.1 g/dL (6.3-8.2)
[2019-04-21] MEDS ORDERED: HEPARIN SODIUM,PORCINE 5,000 UNIT/ML 1 ML VIAL IV ONE (14:10)
[2019-04-21] MEDS ORDERED: HEPARIN SOD,PORK IN 0.45% NACL 25,000 UNIT in 0.45% NACL 1 250ML.BAG IV SCH (14:15)
[2019-04-21] MEDS ORDERED: NITROGLYCERIN SL TABS 0.4 MG TAB SUBLINGUAL PRN (14:26)
[2019-04-21] MEDS ORDERED: BACLOFEN 10 MG TAB PO PRN (15:19)
[2019-04-21] MEDS ORDERED: HYDROcodone/APAP 10-325MG 1 EACH TAB PO PRN (15:19)
[2019-04-21] MEDS ORDERED: MECLIZINE 12.5 MG TAB PO PRN (15:19)
--- NOTE | 2019-04-21 15:22 | P.HPIM ---
History of Present Illness H&P Date: 04/21/19 49 years old female patient of Dr. Mcpherson with past medical history of GERD, hypertension, osteoarthritis, sleep apnea on CPAP, history of syncope, history of bariatric surgery with [place]-en-Y with recent left knee replacement comes in from her doctor's office where she was having the procedure for her left lower knee. Patient was noted to have high blood pressure in the clinic and procedure was postponed. Patient started having acute chest pain radiating to her neck and arm associated with shortness of breath. Patient denies any previous episodes. She does have peptic ulcer disease for which she takes Protonix at nighttime but these symptoms were different. She also endorses sweating. Pat henry also have dizziness for which she is currently being worked up with Dr. Thomas and has an appointment for placement of loop recorder on May 06. Patient denies any shortness of breath or cough with sputum production. She does have numbness in the left lower extremity post surgically but denies any new tingling or weakness in any of her extremities. On evaluation Y to suggest a pulse rate of 70 regular blood pressure 122/92 saturating on room air 100%. Blood work suggests a platelet of 142 hemoglobin 13.3 PT INR normal. Creatinine 0.79. Troponin 1 negative EKG with normal sinus rhythm with sinus arrhythmias. Cardiology consulted Review of Systems Constitutional: Denies chills, Denies fever, Denies lethargy, Denies malaise, Denies poor appetite, Denies weakness, Denies weight loss Eyes: denies decreased vision, denies diplopia, denies discharge, denies pain Ears: deny: decreased hearing Ears, nose, mouth and throat: Denies dental pain, Denies headache, Denies nasal discharge, Denies nose pain Cardiovascular: Endorses chest pain, Denies decreased exercise tolerance, Denies edema, endorses high blood pressure, Denies irregular heart beat, Denies palpitations, Denies paroxysmal nocturnal dyspnea, Denies rapid heart beat, Denies shortness of breath Respiratory: Denies congestion, Denies cough, Denies cough with sputum, Denies dyspnea, Denies home oxygen, Denies wheezing Gastrointestinal: Denies abdominal pain, Denies change in bowel habits, Denies coffee ground emesis, Denies early satiety, Denies excessive gas, Denies heartburn, Denies hematemesis, Denies hematochezia, Denies loss of appetite, Denies nausea, Denies vomiting Genitourinary: Denies dysuria, Denies flank pain, Denies kidney stones, Denies menorrhagia, Denies urgency, Denies urinary frequency Musculoskeletal: Endorses gait dysfunction, endorses back pain neck pain knee pain Denies limitation of motion, Denies morning stiffness, Denies muscle cramps Integumentary: Denies rash, Denies wounds, Denies brittle nails, Denies change in hair/nails, Denies darkening of skin Neurological: Denies balance difficulties, Denies change in speech, Denies double vision, Denies gait dysfunction, Denies loss of vision, Denies motor disturbance, Denies numbness, Denies paralysis, Denies paresthesias, Denies seizures Psychiatric: Endorses anxiety, Denies depression Endocrine: Denies excessive sweating, Denies excessive thirst, Denies high blood sugars, Denies palpitations Hematologic/Lymphatic: Denies easy bruising, Denies lymphadenopathy Past Medical History Past Medical History: GERD/Reflux, Hypertension, Osteoarthritis (OA), Sleep Apnea/CPAP/BIPAP, Syncope Additional Past Medical History / Comment(s): Chronic back and neck pain, migraines, past history of hypertension, no current problems, ascending aortic aneurysm, gastric ulcers. No CPAP use, "sleep apnea may be resolved, I've lost 200lbs." Episodes of light headedness and dizziness approximately monthly X1 yr, but occurring more frequently recently, weekly to daily. "Thick blood, having it retested March 06." History of Any Multi-Drug Resistant Organisms: None Reported Past Surgical History: Bariatric Surgery, Cholecystectomy, Hysterectomy, Joint Replacement, Orthopedic Surgery Additional Past Surgical History / Comment(s): NARA-EN-Y, cervical fusion C2-C5, arthroscopy left knee, left knee replacement. Past Anesthesia/Blood Transfusion Reactions: Motion Sickness Past Psychological History: Depression Smoking Status: Never smoker Past Alcohol Use History: None Reported Past Drug Use History: None Reported - Past Family History Mother Family Medical History: Coronary Artery Disease (CAD) Additional Family Medical History / Comment(s): At the age of mid 40s Father Family Medical History: Coronary Artery Disease (CAD) Additional Family Medical History / Comment(s): At the age of mid 40s Brother(s) Family Medical History: No Reported History Daughter(s) Family Medical History: No Reported History Son(s) Family Medical History: No Reported History Medications and Allergies Home Medications Medication Instructions Recorded Confirmed Type HYDROcodone/APAP 10-325MG [[place] 1 tab PO Q6H PRN 03/13/15 04/21/19 History 10] Omeprazole [PriLOSEC] 40 mg PO HS 08/27/17 04/21/19 History Baclofen 10 mg PO TID PRN 03/29/19 04/21/19 History SUMAtriptan SUCCINATE [Imitrex] 50 mg PO DAILY PRN 03/29/19 04/21/19 History Meclizine [Antivert] 12.5 mg PO DAILY PRN 04/21/19 04/21/19 History Allergies Allergy/AdvReac Type Severity Reaction Status Date / Time ciprofloxacin [From Cipro] AdvReac Nausea & Verified 04/21/19 11:46 Vomiting, SWELLING ciprofloxacin HCl AdvReac Nausea & Verified 04/21/19 11:46 [From Cipro] Vomiting, SWELLING hydromorphone HCl AdvReac VOMITING, Verified 04/21/19 11:46 [From Dilaudid] DIZZY morphine AdvReac Itching Verified 04/21/19 11:46 Physical Exam Vitals: Vital Signs Temp Pulse Pulse Resp BP Pulse Ox 04/21/19 14:00 70 16 123/92 100 04/21/19 13:00 69 17 133/90 100 04/21/19 12:00 64 16 134/95 100 04/21/19 11:21 89 87 18 100 04/21/19 10:47 97.6 F 91 18 147/98 100 Intake and Output 04/21/19 04/21/19 04/21/19 06:59 14:59 22:59 Other: Weight 84.368 kg - Constitutional General appearance: cooperative, no acute distress, obese - EENT Eyes: anicteric sclerae, PERRLA, normal appearance ENT: hearing grossly normal - Neck Neck: no lymphadenopathy, normal ROM, no other, no rigidity, no stridor, no thyromegaly - Respiratory Respiratory: bilateral: CTA, negative: diminished, dullness, rales, rhonchi - Cardiovascular Rhythm: regular Heart sounds: normal: S1, S2 Abnormal Heart Sounds: no systolic murmur, no diastolic murmur, no rub, no S3 Gallop, no S4 Gallop, no click, no other - Gastrointestinal General gastrointestinal: normal bowel sounds, soft - Integumentary Integumentary: no rash - Neurologic Neurologic: CNII-XII intact - Musculoskeletal Musculoskeletal: gait normal, strength equal bilaterally postsurgical status changes noted on the left knee with numbness involving the lateral side of the leg - Psychiatric Psychiatric: A&O x's 3, appropriate affect Results CBC & Chem 7: 04/21/19 11:50 04/21/19 11:50 Labs: Abnormal Lab Results - Last 24 Hours (Table) 04/21/19 04/21/19 Range/Units 11:50 11:50 Plt Count 142 L (150-450) k/uL Lymphocytes # 0.9 L (1.0-4.8) k/uL Glucose 107 H (74-99) mg/dL Thrombosis Risk Factor Assmnt - DVT/VTE Prophylaxis DVT/VTE Prophylaxis: Pharmacologic Prophylaxis ordered Assessment and Plan Plan: #1 acute chest pain likely N STEMI patient has a strong family history of coronary artery disease with chest pain that improved with nitroglycerin. Patient cannot take aspirin due to bariatric surgery. Cardiology consult these EKG negative for coronary artery disease troponin 3 ordered. Continue heparin drip #2 history of hypertension initiated on metoprolol 12.5 twice a day #3 history of osteoarthritis with left knee replacement postoperative numbness in the left lower extremity pain controlled on [place] #4 history of cervical degenerative disc disease with cervical fusion C2 to C5 continue [place] 10 every 6 #5 history of syncope unclear etiology plan for a loop recorder with Dr. Thomas continue telemetry #6 DVT prophylaxis with heparin #7 CODE STATUS full code Disposition likely tomorrow post stress test after cardiology evaluation
[2019-04-21] MEDS ORDERED: ACETAMINOPHEN TAB 325 MG TAB PO STA (15:57)
[2019-04-21 16:04] VITALS: BMI 31.9
[2019-04-21] MEDS: NITROGLYCERIN OINT 1 INCH/GM PACKET TOPICAL SCH (18:15)
[2019-04-21] MEDS ORDERED: ONDANSETRON 4 MG/2 ML VIAL IVP PRN (19:00)
[2019-04-21] MEDS: METOPROLOL TARTRATE 12.5 MG TAB PO SCH (19:40)
[2019-04-21] MEDS ORDERED: PANTOPRAZOLE 40 MG TABLET PO SCH (21:00)
[2019-04-22 03:19] LABS: Cholesterol 186 mg/dL (<200); HDL Cholesterol 82 mg/dL (40-60); LDL Cholesterol,Calculated 92 mg/dL (0-99); Triglycerides 60 mg/dL (<150)
[2019-04-22] MEDS: NITROGLYCERIN OINT 1 INCH/GM PACKET TOPICAL SCH ×2 (05:03→08:13)
[2019-04-22 07:55] VITALS: RESP 18
[2019-04-22] MEDS: METOPROLOL TARTRATE 12.5 MG TAB PO SCH ×2 (08:12→08:13)
--- NOTE | 2019-04-22 08:49 | P.CRDCN ---
History of Present Illness Consult date: 04/22/19 Chief complaint: Chest pain History of present illness: This is a pleasant 49-year-old female patient who sees Dr. Thomas in the office on regular basis with no significant past medical history of coronary artery disease, diabetes, hypertension, or dyslipidemia, currently the patient is in process of having loop recorder implantation in the next few weeks, presented to the hospital complaining of chest discomfort. The patient was at her doctor's office to have any injection for severe arthritis in the left knee. She started experiencing discomfort, in the mid of the chest, as a sharp kind of discomfort, and clearly state that the discomfort is worse when she takes a deep breath. Lasted for few seconds only. Currently the patient is chest pain- free. She noticed that the pressure was elevated as well and was about 1 60 mmHg. Because of that she decided to come to the emergency room. The cardiac workup came in to be unremarkable. The EKG showed sinus rhythm without any significant ST or T-wave abnormalities. The cardiac enzymes were checked and came in to be unremarkable. The patient x-ray also came in to be an unre markable. Currently she is chest pain-free. I did advise the patient to get up and around. If she is chest pain-free, she possibly can be discharged home and follow-up with Dr. Dr. Thomas as an outpatient. Past Medical History Past Medical History: GERD/Reflux, Hypertension, Osteoarthritis (OA), Sleep Apnea/CPAP/BIPAP, Syncope Additional Past Medical History / Comment(s): Chronic back and neck pain, migraines, past history of hypertension, no current problems, ascending aortic aneurysm, gastric ulcers. No CPAP use, "sleep apnea may be resolved, I've lost 200lbs." Episodes of light headedness and dizziness approximately monthly X1 yr, but occurring more frequently recently, weekly to daily. "Thick blood, having it retested March 06." History of Any Multi-Drug Resistant Organisms: None Reported Past Surgical History: Bariatric Surgery, Cholecystectomy, Hysterectomy, Joint Replacement, Orthopedic Surgery Additional Past Surgical History / Comment(s): NARA-EN-Y, cervical fusion C2-C5, arthroscopy left knee, left knee replacement. Past Anesthesia/Blood Transfusion Reactions: Motion Sickness Past Psychological History: Depression Smoking Status: Never smoker Past Alcohol Use History: None Reported Past Drug Use History: None Reported - Past Family History Mother Family Medical History: Coronary Artery Disease (CAD) Additional Family Medical History / Comment(s): At the age of mid 40s Father Family Medical History: Coronary Artery Disease (CAD) Additional Family Medical History / Comment(s): At the age of mid 40s Brother(s) Family Medical History: No Reported History Daughter(s) Family Medical History: No Reported History Son(s) Family Medical History: No Reported History Medications and Allergies Home Medications Medication Instructions Recorded Confirmed Type HYDROcodone/APAP 10-325MG [[place] 1 tab PO Q6H PRN 03/13/15 04/21/19 History 10] Omeprazole [PriLOSEC] 40 mg PO HS 08/27/17 04/21/19 History Baclofen 10 mg PO TID PRN 03/29/19 04/21/19 History SUMAtriptan SUCCINATE [Imitrex] 50 mg PO DAILY PRN 03/29/19 04/21/19 History Meclizine [Antivert] 12.5 mg PO DAILY PRN 04/21/19 04/21/19 History Allergies Allergy/AdvReac Type Severity Reaction Status Date / Time ciprofloxacin [From Cipro] AdvReac Nausea & Verified 04/21/19 11:46 Vomiting, SWELLING ciprofloxacin HCl AdvReac Nausea & Verified 04/21/19 11:46 [From Cipro] Vomiting, SWELLING hydromorphone HCl AdvReac VOMITING, Verified 04/21/19 11:46 [From Dilaudid] DIZZY morphine AdvReac Itching Verified 04/21/19 11:46 Physical Exam Vitals: Vital Signs Temp Pulse Pulse Pulse Resp BP BP 04/22/19 07:00 98.0 F 86 18 92/64 04/22/19 04:00 98.2 F 51 L 17 108/64 04/22/19 03:46 42 L 17 04/22/19 00:00 98.2 F 53 L 17 112/71 04/21/19 20:00 97.7 F 63 18 134/89 04/21/19 15:00 97.6 F 65 15 110/78 04/21/19 14:00 70 16 123/92 04/21/19 13:00 69 17 133/90 04/21/19 12:00 64 16 134/95 04/21/19 11:21 89 87 18 04/21/19 10:47 97.6 F 91 18 147/98 Pulse Ox 04/22/19 07:00 97 04/22/19 04:00 98 04/22/19 03:46 04/22/19 00:00 98 04/21/19 20:00 98 04/21/19 15:00 98 04/21/19 14:00 100 04/21/19 13:00 100 04/21/19 12:00 100 04/21/19 11:21 100 04/21/19 10:47 100 Intake and Output 04/21/19 04/22/19 04/22/19 22:59 06:59 14:59 Other: # Voids 1 1 - Constitutional General appearance: no acute distress - Respiratory Respiratory: bilateral: CTA - Cardiovascular Rhythm: regular Heart sounds: normal: S1, S2 Results 04/21/19 11:50 04/21/19 11:50 Cardiac Enzymes 04/21/19 04/21/19 04/21/19 Range/Units 11:50 11:50 18:28 AST 20 (14-36) U/L Troponin I <0.012 <0.012 (0.000-0.034) ng/mL 04/21/19 Range/Units 23:21 AST (14-36) U/L Troponin I <0.012 (0.000-0.034) ng/mL Coagulation 04/21/19 04/21/19 Range/Units 11:50 21:08 PT 9.9 (9.0-12.0) sec APTT 23.6 62.7 H (22.0-30.0) sec Lipids 04/21/19 Range/Units 11:50 Triglycerides 60 (<150) mg/dL Cholesterol 186 (<200) mg/dL HDL Cholesterol 82 H (40-60) mg/dL CBC 04/21/19 Range/Units 11:50 WBC 4.2 (3.8-10.6) k/uL RBC 5.03 (3.80-5.40) m/uL Hgb 13.3 (11.4-16.0) gm/dL Hct 40.7 (34.0-46.0) % Plt Count 142 L (150-450) k/uL Comprehensive Metabolic Panel 04/21/19 Range/Units 11:50 Sodium 141 (137-145) mmol/L Potassium 4.1 (3.5-5.1) mmol/L Chloride 107 (98-107) mmol/L Carbon Dioxide 26 (22-30) mmol/L BUN 16 (7-17) mg/dL Creatinine 0.79 (0.52-1.04) mg/dL Glucose 107 H (74-99) mg/dL Calcium 9.6 (8.4-10.2) mg/dL AST 20 (14-36) U/L ALT 11 (9-52) U/L Alkaline Phosphatase 100 (38-126) U/L Total Protein 7.1 (6.3-8.2) g/dL Albumin 4.2 (3.5-5.0) g/dL Current Medications Generic Name Dose Route Start Last Admin Trade Name Freq PRN Reason Stop Dose Admin Hydrocodone Bitart/Acetaminophen 1 each 04/21/19 15:19 [place] 10 PO Q6H PRN Pain Aspirin 325 mg 04/22/19 09:00 04/22/19 08:12 Aspirin PO Not Given DAILY [facility] Baclofen 10 mg 04/21/19 15:19 Lioresal PO TID PRN CRAMPS Heparin Sodium/Sodium Chloride 250 mls @ 9.998 mls/hr 04/21/19 14:15 04/21/19 14:26 25,000 unit/ Sodium Chloride IV 11.85 units/kg/hr .Q24H LACY 9.998 mls/hr Administration Protocol 11.85 UNITS/KG/HR Meclizine HCl 12.5 mg 04/21/19 15:19 Antivert PO DAILY PRN DIZZINESS Metoprolol Tartrate 12.5 mg 04/21/19 21:00 04/22/19 08:13 Lopressor PO Not Given BID [facility] Nitroglycerin 0.4 mg 04/21/19 14:26 Nitrostat SUBLINGUAL Q5M PRN Chest Pain Nitroglycerin 1 inch 04/21/19 18:00 04/22/19 08:13 Nitro-Bid Oint TOPICAL Not Given Q6HR [facility] Ondansetron HCl 4 mg 04/21/19 19:00 04/21/19 19:40 Zofran IVP 4 mg Q6HR PRN Administration Nausea And Vomiting Pantoprazole Sodium 40 mg 04/21/19 21:00 04/21/19 17:14 Protonix PO 40 mg HS LACY Administration Intake and Output 04/21/19 04/22/19 04/22/19 22:59 06:59 14:59 Other: # Voids 1 1 04/21/19 11:50 04/21/19 11:50 Assessment and Plan Assessment: Assessment #1 atypical chest discomfort which has resolved Plan #1 the patient was ruled out for acute coronary event #2 currently she is asymptomatic #3 she is hemodynamically stable #4 the patient can be discharged home and follow-up with Dr. Dr. Thomas as an outpatient
[2019-04-22] MEDS ORDERED: ASPIRIN 325 MG TAB PO SCH (09:00)
[2019-04-22 12:13] VITALS: BP 95/63; PULSE 56; TEMP 97.6
--- NOTE | 2019-04-22 12:58 | P.DS ---
Providers Date of admission: 04/21/19 14:26 Expected date of discharge: 04/22/19 Attending physician: Ilia Pruitt MD Consults: 04/21/19 14:26 Consult Physician Urgent Consulting Provider: [facility] Consult Reason/Comments: Unstable angina Do you want consulting provider notified?: Yes Primary care physician: Mitesh Mcpherson [facility] Course: 49 years old female patient of Dr. Mcpherson with past medical history of GERD, hypertension, osteoarthritis, sleep apnea on CPAP, history of syncope, history of bariatric surgery with [place]-en-Y with recent left knee replacement comes in from her doctor's office where she was having the procedure for her left lower knee. Patient was noted to have high blood pressure in the clinic and procedure was postponed. Patient started having acute chest pain radiating to her neck and arm associated with shortness of breath. Patient denies any previous episodes. She does have peptic ulcer disease for which she takes Protonix at nighttime but these symptoms were different. She also endorses sweating. Patient also have dizziness for which she is currently being worked up with Dr. Thomas and has an appointment for placement of loop recorder on May 06. Patient denies any shortness of breath or cough with sputum production. She does have numbness in the left lower extremity post surgically but denies any new tingling or weakness in any of her extremities. On evaluation Y to suggest a pulse rate of 70 regular blood pressure 122/92 saturating on room air 100%. Blood work suggests a platelet of 142 hemoglobin 13.3 PT INR normal. Creatinine 0.79. Troponin 1 negative EKG with normal sinus rhythm with sinus arrhythmias. Cardiology consulted 04/22: Patient has been seen by Dr. Reagan and cleared for discharge home. Acute coronary syndrome has been ruled out and patient has been asymptomatic. She has been hemodynamically stable. Troponins are negative on 3 draws. Triglycerides 60, cholesterol 186, LDL 92, HDL 82. The patient complains of having 6 episodes of vomiting last night and patient has been recommended to take omeprazole in the morning for the next 4 weeks to see if this will help. She is complaining of back pain. She is also complaining of some dizziness for which Antivert has been recommended. Discharge diagnoses: #1 acute chest pain, acute coronary syndrome ruled out #2 hypertension #3 history of osteoarthritis with left knee replacement postoperative numbness in the left lower extremity #4 history of cervical degenerative disc disease with cervical fusion C2 to C5 #5 history of syncope unclear etiology plan for a loop recorder with Dr. Thomas Discharge plan: Home Impression and plan of care have been directed as dictated by the signing physician. Dariana Davis nurse practitioner acting as scribe for signing physician. Patient Condition at Discharge: Good Plan - Discharge Summary Discharge Rx Participant: No New Discharge Prescriptions: New Metoprolol Tartrate [Lopressor] 12.5 mg PO BID #60 tab Meclizine [Antivert] 25 mg PO TID PRN #30 tab PRN Reason: dizziness Continue HYDROcodone/APAP 10-325MG [[place] 10-325] 1 tab PO Q6H PRN PRN Reason: Pain Omeprazole [PriLOSEC] 40 mg PO HS Baclofen 10 mg PO TID PRN PRN Reason: CRAMPS SUMAtriptan SUCCINATE [Imitrex] 50 mg PO DAILY PRN PRN Reason: Migraine Headache Meclizine [Antivert] 12.5 mg PO DAILY PRN PRN Reason: DIZZINESS Discharge Medication List HYDROcodone/APAP 10-325MG [[place] 10-325] 1 tab PO Q6H PRN 03/13/15 [History] Omeprazole [PriLOSEC] 40 mg PO HS 08/27/17 [History] Baclofen 10 mg PO TID PRN 03/29/19 [History] SUMAtriptan SUCCINATE [Imitrex] 50 mg PO DAILY PRN 03/29/19 [History] Meclizine [Antivert] 12.5 mg PO DAILY PRN 04/21/19 [History] Meclizine [Antivert] 25 mg PO TID PRN #30 tab 04/22/19 [Rx] Metoprolol Tartrate [Lopressor] 12.5 mg PO BID #60 tab 04/22/19 [Rx] Follow up Appointment(s)/Referral(s): Mitesh Mcpherson MD [Primary Care Provider] - 1 Week Idalia Thomas MD [STAFF PHYSICIAN] - 05/04/19 3:30 pm (follow up with Dr. Thomas) Patient Instructions/Handouts: Chest Pain (DC), Dizziness (GEN) Activity/Diet/Wound Care/Special Instructions: Take omeprazole in a.m. daily for one month. patient is to see [facility] for loop recorder implantation Discharge Disposition: HOME SELF-CARE
== END 2019-04-22 12:20 | disposition home or self-care (01) ==
LOC: EC 10:40 → 1SOBS 14:26
PROVIDERS: ADMIT Internal Medicine; ATTEND Internal Medicine
DX: R07.89 Other chest pain (principal); I10 Essential (primary) hypertension; R20.0 Anesthesia of skin; R55 Syncope and collapse; G89.29 Other chronic pain; M54.9 Dorsalgia, unspecified; R06.02 Shortness of breath; M79.605 Pain in left leg; R61 Generalized hyperhidrosis; R42 Dizziness and giddiness; K21.9 Gastro-esophageal reflux disease without esophagitis; G47.30 Sleep apnea, unspecified; K27.9 Peptic ulcer, site unspecified, unspecified as acute or chronic, without hemorrhage or perforation; M17.12 Unilateral primary osteoarthritis, left knee; I71.2 Thoracic aortic aneurysm, without rupture; F32.9 Major depressive disorder, single episode, unspecified; G43.909 Migraine, unspecified, not intractable, without status migrainosus; E66.9 Obesity, unspecified; Z68.31 Body mass index [BMI] 31.0-31.9, adult; Z96.652 Presence of left artificial knee joint; M50.30 Other cervical disc degeneration, unspecified cervical region; Z98.1 Arthrodesis status; Z98.84 Bariatric surgery status; Z90.49 Acquired absence of other specified parts of digestive tract; Z90.710 Acquired absence of both cervix and uterus; Z79.899 Other long term (current) drug therapy; Z79.891 Long term (current) use of opiate analgesic; Z88.1 Allergy status to other antibiotic agents; Z88.5 Allergy status to narcotic agent; Z82.49 Family history of ischemic heart disease and other diseases of the circulatory system
CPT/HCPCS: 96375; 96376; 96365; 99291; 36415; 93005; 80061; 80053; 83735; 84484; 85025; 85610; 85730; 71046; G0378 ×2; J1644 ×2; J2405

== ENCOUNTER 2019-05-05 07:26 | Day surgery (SDC) | payer OTHER ==
[2019-04-30 10:32] VITALS: BMI 31.0
[2019-05-05 07:47] VITALS: RESP 16; TEMP 98.1
[2019-05-05] MEDS ORDERED: SODIUM CHLORIDE 0.9% 1,000 ML IV ONE (08:01)
[2019-05-05] MEDS ORDERED: LIDOCAINE 1% INJ 10MG/ML (20 ML MDV) ONE (08:17)
[2019-05-05] MEDS ORDERED: fentaNYL (PF) 50 MCG/ML 2 ML AMP ONE (08:40)
[2019-05-05] MEDS ORDERED: MIDAZOLAM (PF) 2 MG/2 ML VIAL IV ONE (08:40)
[2019-05-05] MEDS ORDERED: LIDOCAINE 1% INJ 10MG/ML (20 ML MDV) SQ ONE (08:41)
[2019-05-05] MEDS ORDERED: fentaNYL (PF) 50 MCG/ML 2 ML AMP IV ONE (08:42)
[2019-05-05] MEDS ORDERED: ACETAMINOPHEN TAB 325 MG TAB PO PRN (09:35)
--- NOTE | 2019-05-05 09:42 | P.PCN ---
Date of Procedure: 05/05/19 Preoperative Diagnosis: Unexplained syncope Postoperative Diagnosis: The same Procedure(s) Performed: Loop recorder insertion Description of Procedure: Patient was brought to the lab in a fasting state. She was prepped and draped in the usual fashion. Patient was given IV sedation with 2 mg of Versed and 25 g of fentanyl. The skin in the third intercostal space on the left side was infiltrated with lidocaine. An incision was made in the skin and loop recorder was inserted in the usual fashion. Patient tolerated the procedure well. No immediate complications. The R waves are measured this, 0.42 mV. Since it is programmed to 0.035 mV. Blanking period is programmed 150 ms. Tachycardia detection is programmed to 182 bpm and the [place] cardiac detection is programmed to 30 bpm.. No immediate complications. Final impression: Successful implantation of loop recorder. Plan: Patient will be discharged home later today. Follow-up in the office in one week
[2019-05-05 10:35] VITALS: BP 122/69; PULSE 80
== END 2019-05-05 10:30 | disposition home or self-care (01) ==
LOC: CATHEP 07:26
PROVIDERS: ATTEND Internal Medicine Cardiovascular Disease
DX: R55 Syncope and collapse (principal); I10 Essential (primary) hypertension; Z82.49 Family history of ischemic heart disease and other diseases of the circulatory system; Z79.899 Other long term (current) drug therapy; Z88.5 Allergy status to narcotic agent; Z88.8 Allergy status to other drugs, medicaments and biological substances; Z88.1 Allergy status to other antibiotic agents; Z98.84 Bariatric surgery status
CPT/HCPCS: 33285; C1764; J2001; J3010; J2250

== ENCOUNTER → 2019-05-26 | Outpatient (CLI) | payer OTHER ==
[2019-05-26 19:43] LABS: African American GFR (CKD) 77.2 (60.0-200.0); Anion Gap 6.4 mmol/L (4.00-12.00); Calcium 9.5 mg/dL (8.7-10.3); Carbon Dioxide 25.6 mmol/L (21.6-31.8); Magnesium 1.9 mg/dL (1.5-2.4); Potassium 4.3 mmol/L (3.5-5.5)
== END ==
LOC: LABWHC1 11:41
PROVIDERS: ATTEND Nurse Practitioner Adult Health
DX: I47.1 Supraventricular tachycardia (principal)
CPT/HCPCS: 36415; 80048; 83735; 84443; 84481

== ENCOUNTER 2019-06-08 12:59 | Observation (INO) | payer OTHER ==
[2019-06-08] MEDS ORDERED: NITROGLYCERIN SL TABS 0.4 MG TAB SUBLINGUAL STA ×3 (13:24)
[2019-06-08] MEDS ORDERED: ASPIRIN 81 MG PO STA (13:24)
--- NOTE | 2019-06-08 13:27 | ED ---
General Adult HPI - General Chief complaint: Chest Pain Stated complaint: Chest Pain Time Seen by Provider: 06/08/19 13:12 Source: patient, RN notes reviewed Mode of arrival: ambulatory Limitations: no limitations - History of Present Illness Initial comments: Patient is a pleasant 49-year-old female presenting to the emergency Department with chest discomfort. Onset of symptoms was yesterday. Discomfort feels sharp. Discomfort has been waxing and waning. Discomfort is currently rated 7/10. There has been some radiation towards right arm and up towards the right jaw. Patient has some associated dyspnea, nausea, and sweating or sweating was just this morning. Patient also has some back discomfort. Back discomfort did start a couple of days ago and patient questions if this was related to some work she was doing. No history of similar symptoms previously - Related Data Home Medications Medication Instructions Recorded Confirmed HYDROcodone/APAP 10-325MG [[place] 1 tab PO Q6H PRN 03/13/15 05/05/19 10-325] Omeprazole [PriLOSEC] 40 mg PO HS 08/27/17 05/05/19 Baclofen 10 mg PO TID PRN 03/29/19 05/05/19 SUMAtriptan SUCCINATE [Imitrex] 50 mg PO DAILY PRN 03/29/19 04/30/19 Meclizine [Antivert] 12.5 mg PO DAILY PRN 04/21/19 04/30/19 Previous Rx's Medication Instructions Recorded Meclizine [Antivert] 25 mg PO TID PRN #30 tab 04/22/19 Metoprolol Tartrate [Lopressor] 12.5 mg PO BID #60 tab 04/22/19 Allergies Allergy/AdvReac Type Severity Reaction Status Date / Time aspirin AdvReac Abdominal Verified 06/08/19 13:38 Pain ciprofloxacin [From Cipro] AdvReac Nausea & Verified 05/05/19 07:38 Vomiting, SWELLING ciprofloxacin HCl AdvReac Nausea & Verified 05/05/19 07:38 [From Cipro] Vomiting, SWELLING hydromorphone HCl AdvReac VOMITING, Verified 05/05/19 07:38 [From Dilaudid] DIZZY morphine AdvReac Itching Verified 05/05/19 07:38 Review of Systems ROS Statement: Those systems with pertinent positive or pertinent negative responses have been documented in the HPI. ROS Other: All systems not noted in ROS Statement are negative. Constitutional: Denies: fever Eyes: Denies: eye pain ENT: Denies: ear pain Respiratory: Reports: as per HPI. Denies: cough Cardiovascular: Reports: chest pain Endocrine: Denies: fatigue Gastrointestinal: Reports: nausea. Denies: abdominal pain Genitourinary: Denies: dysuria Musculoskeletal: Reports: as per HPI Skin: Denies: rash Neurological: Denies: weakness Past Medical History Past Medical History: GERD/Reflux, Hypertension, Osteoarthritis (OA), Sleep Apnea/CPAP/BIPAP, Syncope Additional Past Medical History / Comment(s): Chronic back and neck pain, migraines, past history of hypertension, no current problems, ascending aortic aneurysm, gastric ulcers. No CPAP use, "sleep apnea may be resolved, I've lost 200lbs." Episodes of light headedness and dizziness approximately monthly X1 yr, but occurring more frequently recently, weekly to daily. "Thick blood, having it retested March 06." History of Any Multi-Drug Resistant Organisms: None Reported Past Surgical History: Bariatric Surgery, Cholecystectomy, Hysterectomy, Joint Replacement, Orthopedic Surgery Additional Past Surgical History / Comment(s): NARA-EN-Y, cervical fusion C2-C5, arthroscopy left knee, left knee replacement. Past Anesthesia/Blood Transfusion Reactions: Motion Sickness Past Psychological History: Depression Smoking Status: Never smoker Past Alcohol Use History: None Reported Past Drug Use History: Marijuana - Past Family History Mother Family Medical History: Coronary Artery Disease (CAD) Additional Family Medical History / Comment(s): At the age of mid 40s Father Family Medical History: Coronary Artery Disease (CAD) Additional Family Medical History / Comment(s): At the age of mid 40s Brother(s) Family Medical History: No Reported History Daughter(s) Family Medical History: No Reported History Son(s) Family Medical History: No Reported History General Exam Limitations: no limitations General appearance: alert, in no apparent distress Head exam: Present: atraumatic Eye exam: Present: normal appearance Neck exam: Present: normal inspection Respiratory exam: Present: normal lung sounds bilaterally. Absent: chest wall tenderness Cardiovascular Exam: Present: regular rate, normal rhythm Expanded Peripheral pulses: 2+: Radial (R), Radial (L), Posterior Tibialis (R), Posterior Tibialis (L), Dorsalis Pedis (R), Dorsalis Pedis (L) GI/Abdominal exam: Present: soft. Absent: tenderness Extremities exam: Present: normal inspection. Absent: pedal edema, calf tenderness Back exam: Present: normal inspection. Absent: tenderness Neurological exam: Present: alert Psychiatric exam: Present: normal affect, normal mood Skin exam: Present: normal color Course Vital Signs 06/08/19 06/08/19 13:07 13:43 Temperature 97.9 F Pulse Rate 75 72 Respiratory 18 16 Rate Blood Pressure 117/82 110/74 O2 Sat by Pulse 100 95 Oximetry EKG Findings - EKG Comments: EKG Findings:: Sed rate bradycardia 55. OR 138. QRS 84. QT 394. QTC 376. Normal axis. Normal QRS. No acute ST change. Medical Decision Making - Medical Decision Making Patient reevaluated and significantly improved following nitro glycerin. Patient updated on results and plan. Case was discussed in detail with Dr. Black, who will admit covering for Dr. Mcpherson. - Lab Data Result diagrams: 06/08/19 13:27 06/08/19 13:27 Lab Results 06/08/19 06/08/19 06/08/19 Range/Units 13:27 13:27 13:27 WBC 4.5 (3.8-10.6) k/uL RBC 4.91 (3.80-5.40) m/uL Hgb 13.3 (11.4-16.0) gm/dL Hct 41.2 (34.0-46.0) % MCV 83.9 (80.0-100.0) fL MCH 27.1 (25.0-35.0) pg MCHC 32.3 (31.0-37.0) g/dL RDW 14.4 (11.5-15.5) % Plt Count 168 (150-450) k/uL Neutrophils % 55 % Lymphocytes % 32 % Monocytes % 7 % Eosinophils % 3 % Basophils % 1 % Neutrophils # 2.5 (1.3-7.7) k/uL Lymphocytes # 1.5 (1.0-4.8) k/uL Monocytes # 0.3 (0-1.0) k/uL Eosinophils # 0.1 (0-0.7) k/uL Basophils # 0.0 (0-0.2) k/uL PT (9.0-12.0) sec INR (<1.2) APTT (22.0-30.0) sec D-Dimer (<0.60) mg/L FEU Sodium 141 (137-145) mmol/L Potassium 4.0 (3.5-5.1) mmol/L Chloride 107 (98-107) mmol/L Carbon Dioxide 27 (22-30) mmol/L Anion Gap 7 mmol/L BUN 20 H (7-17) mg/dL Creatinine 0.99 (0.52-1.04) mg/dL Est GFR (CKD-EPI)AfAm 78 (>60 ml/min/1.73 sqM) Est GFR (CKD-EPI)NonAf 68 (>60 ml/min/1.73 sqM) Glucose 95 (74-99) mg/dL Calcium 9.6 (8.4-10.2) mg/dL Magnesium 1.9 (1.6-2.3) mg/dL Total Bilirubin 0.3 (0.2-1.3) mg/dL AST 21 (14-36) U/L ALT 16 (9-52) U/L Alkaline Phosphatase 96 (38-126) U/L Creatine Kinase 58 (30-135) U/L CK-MB (CK-2) <0.2 (0.0-2.4) ng/mL Troponin I <0.012 (0.000-0.034) ng/mL NT-Pro-B Natriuret Pep pg/mL Total Protein 7.0 (6.3-8.2) g/dL Albumin 4.1 (3.5-5.0) g/dL 06/08/19 06/08/19 Range/Units 13:27 13:27 WBC (3.8-10.6) k/uL RBC (3.80-5.40) m/uL Hgb (11.4-16.0) gm/dL Hct (34.0-46.0) % MCV (80.0-100.0) fL MCH (25.0-35.0) pg MCHC (31.0-37.0) g/dL RDW (11.5-15.5) % Plt Count (150-450) k/uL Neutrophils % % Lymphocytes % % Monocytes % % Eosinophils % % Basophils % % Neutrophils # (1.3-7.7) k/uL Lymphocytes # (1.0-4.8) k/uL Monocytes # (0-1.0) k/uL Eosinophils # (0-0.7) k/uL Basophils # (0-0.2) k/uL PT 10.0 (9.0-12.0) sec INR 0.9 (<1.2) APTT 24.7 (22.0-30.0) sec D-Dimer 0.32 (<0.60) mg/L FEU Sodium (137-145) mmol/L Potassium (3.5-5.1) mmol/L Chloride (98-107) mmol/L Carbon Dioxide (22-30) mmol/L Anion Gap mmol/L BUN (7-17) mg/dL Creatinine (0.52-1.04) mg/dL Est GFR (CKD-EPI)AfAm (>60 ml/min/1.73 sqM) Est GFR (CKD-EPI)NonAf (>60 ml/min/1.73 sqM) Glucose (74-99) mg/dL Calcium (8.4-10.2) mg/dL Magnesium (1.6-2.3) mg/dL Total Bilirubin (0.2-1.3) mg/dL AST (14-36) U/L ALT (9-52) U/L Alkaline Phosphatase (38-126) U/L Creatine Kinase (30-135) U/L CK-MB (CK-2) (0.0-2.4) ng/mL Troponin I (0.000-0.034) ng/mL NT-Pro-B Natriuret Pep 86 pg/mL Total Protein (6.3-8.2) g/dL Albumin (3.5-5.0) g/dL - Radiology Data Radiology results: image reviewed (Chest x-ray shows no acute process) Disposition Clinical Impression: Chest pain Disposition: ADMITTED IP TO THIS [facility] Is patient prescribed a controlled substance at d/c from ED?: No Referrals: Mitesh Mcpherson MD [Primary Care Provider] - 1-2 days Decision Time: 16:43
[2019-06-08 13:47] LABS: Basophils % (A) 1 %; Eosinophils # (A) 0.1 k/uL (0-0.7); Eosinophils % (A) 3 %; HCT 41.2 % (34.0-46.0); HGB 13.3 gm/dL (11.4-16.0); Lymphocytes # (A) 1.5 k/uL (1.0-4.8); Lymphocytes % (A) 32 %; MCH 27.1 pg (25.0-35.0); MCHC 32.3 g/dL (31.0-37.0); MCV 83.9 fL (80.0-100.0); Mean Platelet Volume 8.3; Monocytes # (A) 0.3 k/uL (0-1.0); Monocytes % (A) 7 %; Neutrophils # (A) 2.5 k/uL (1.3-7.7); Neutrophils % (A) 55 %; Platelet Count 168 k/uL (150-450); RBC 4.91 m/uL (3.80-5.40); RDW 14.4 % (11.5-15.5); WBC 4.5 k/uL (3.8-10.6)
[2019-06-08 13:50] LABS: Albumin 4.1 g/dL (3.5-5.0); Calcium 9.6 mg/dL (8.4-10.2); Magnesium 1.9 mg/dL (1.6-2.3); Total Bilirubin 0.3 mg/dL (0.2-1.3)
[2019-06-08] MEDS ORDERED: ACETAMINOPHEN TAB 325 MG TAB PO STA (13:51)
[2019-06-08] MEDS ORDERED: ONDANSETRON 4 MG/2 ML VIAL IVP STA (13:51)
[2019-06-08 14:15] LABS: Creatine Kinase MB <0.2 ng/mL (0.0-2.4); Troponin I <0.012 ng/mL (0.000-0.034)
--- NOTE | 2019-06-08 14:15 | XR ---
EXAMINATION TYPE: XR chest 2V DATE OF EXAM: 06/08/2019 COMPARISON: 04/21/2019 HISTORY: 49-year-old female chest pain TECHNIQUE: AP and lateral views FINDINGS: Heart normal size. Aorta and pulmonary vasculature are within normal limits. Loop recorder device pro jects over the left heart margin. No consolidation or pleural effusion. Overlying EKG leads obscures the known left upper lobe calcified granuloma. IMPRESSION: No acute cardiopulmonary process. Known left upper lobe calcified granuloma.
[2019-06-08 14:21] LABS: D-Dimer 0.32 mg/L FEU (<0.60); INR 0.9 (<1.2); Partial Thromboplastin Time 24.7 sec (22.0-30.0)
[2019-06-08] MEDS ORDERED: NITROGLYCERIN SL TABS 0.4 MG TAB SUBLINGUAL PRN (16:43)
[2019-06-08] MEDS: NITROGLYCERIN OINT 1 INCH/GM PACKET TOPICAL SCH ×2 (18:52→23:10)
[2019-06-08 19:42] VITALS: BMI 31.3
[2019-06-08] MEDS ORDERED: MECLIZINE 25 MG TAB PO PRN (20:51)
[2019-06-08] MEDS ORDERED: HYDROcodone/APAP 10-325MG 1 EACH TAB PO PRN (20:51)
[2019-06-08] MEDS ORDERED: BACLOFEN 10 MG TAB PO PRN (20:51)
[2019-06-08] MEDS ORDERED: PANTOPRAZOLE 40 MG TABLET PO SCH (21:00)
[2019-06-08] MEDS: METOPROLOL TARTRATE 12.5 MG TAB PO SCH (21:03)
[2019-06-08] MEDS ORDERED: KETOROLAC 30 MG/ML 1 ML VIAL IVP STA (21:16)
[2019-06-08] MEDS ORDERED: ONDANSETRON 4 MG/2 ML VIAL IVP PRN (21:17)
[2019-06-09 02:10] LABS: Cholesterol 155 mg/dL (<200); HDL Cholesterol 71 mg/dL (40-60); LDL Cholesterol,Calculated 73 mg/dL (0-99); Triglycerides 56 mg/dL (<150)
[2019-06-09] MEDS: NITROGLYCERIN OINT 1 INCH/GM PACKET TOPICAL SCH (06:12)
[2019-06-09] MEDS ORDERED: KETOROLAC 30 MG/ML 1 ML VIAL IVP PRN (08:32)
--- NOTE | 2019-06-09 08:37 | XR ---
EXAMINATION TYPE: XR cervical spine comp DATE OF EXAM: 06/09/2019 TECHNIQUE: Frontal, lateral, oblique, and open mouth view of the cervical spine are obtained. HISTORY: neck pain COMPARISON: Cervical spine x-ray December 12, 2014 FINDINGS: The cervical spine is visualized in its entirety from C1 thru the top of T1 level, there i s new anterior fusion plate and artificial disc material C3-C5 level. Alignment is stable. Mild disc space narrowing posteriorly at C5-C6 level. Prevertebral soft tissue is within normal limits. C1-C2 a rticulation satisfactory open mouth frontal view. Oblique images are within normal limits. Right post erior 5 mm round density in subcutaneous fat is redemonstrated presumed benign mid to lower cervical levels. Overlying hair is present. Overlying EKG leads are partially imaged. IMPRESSION: As above.
[2019-06-09] MEDS ORDERED: FLUoxetine HCL 20 MG CAP PO SCH (09:00)
[2019-06-09] MEDS ORDERED: ASPIRIN 81 MG PO SCH (09:00)
[2019-06-09] MEDS ORDERED: ASPIRIN 325 MG TAB PO SCH (09:00)
[2019-06-09] MEDS: METOPROLOL TARTRATE 12.5 MG TAB PO SCH (09:02)
--- NOTE | 2019-06-09 09:33 | P.CRDCN ---
History of Present Illness History of present illness: This is a pleasant 49-year-old female past medical history significant for palpitations and SVT, hypertension, gastroesophageal reflux disease, chronic neck and back pain, migraines, cervical fusion and regular marijuana use. She follows in the office with Dr. Thomas. She denies prior history of coronary artery disease. We have been asked to see her in consultation josé antonio wilson to chest discomfort. She states she woke up Friday morning with an achy sensation in the mid upper back between her shoulder blades. The discomfort persisted throughout the day and was worse with movement. At one point the discomfort radiated to the right shoulder and right neck. She tolerated this discomfort throughout the day on Friday and then Friday night while she was sitting down watching television she felt a sharp stabbing pain in the left precordial region. She also had ongoing back on the right shoulder, right neck and right arm discomfort at that time. Her chest pain was exacerbated by deep inspiration. She denies associated shortness of breath, dizziness, nausea, vomi ting, diaphoresis or palpitations. She initially went to the urgent care and was sent to the emergency department for further evaluation. She continues to have discomfort in the neck and mid upper back but no further chest discomfort. She was given Toradol the emergency department and this did improve her discomfort. EKG reveals sinus mechanism with no acute ST or T wave abnormalities noted. Chest x-ray is negative for an acute cardiopulmonary process. Laboratory data reviewed, cardiac enzymes negative 3, CBC unremarkable, d-dimer 0.32, sodium 141, potassium 4.0, creatinine 0.99, magnesium 1.9, proBNP 86, LDL 73. Current cardiac medications include metoprolol 12.5 mg twice a day. Most recent stress test performed in the office February 2018 with a dobutamine stress echocardiogram was negative for stress-induced ischemia. Most recent echocardiogram obtained in the office January 2018 revealed preserved LV systolic function with ejection fraction 55-60% with no valvular abnormalities noted. At the time of my exam: CONSTITUTIONAL: Denies fever. Denies chills. EYES: Denies blurred vision. Denies vision changes. Denies eye pain. EARS, NOSE, MOUTH & THROAT: Denies headache. Denies sore throat. Denies ear pain. CARDIOVASCULAR: Denies chest pain. Denies shortness of breath. Denies orthopnea. Denies PND. Denies palpitations. RESPIRATORY: Denies cough. GASTROINTESTINAL: Denies abdominal pain. Denies diarrhea. Denies constipation. Denies nausea. Denies vomiting. MUSCULOSKELETAL: Complains of neck and upper back pain. INTEGUMENTARY: Denies pruitis. Denies rash. NEUROLOGIC: Denies numbness. Denies tingling. Denies weakness. PSYCHIATRIC: Denies anxiety. Denies depression. ENDOCRINE: Denies fatigue. Denies weight change. Denies polydipsia. Denies polyurina. GENITOURINARY: Denies burning, hematuria or urgency with micturation. HEMATOLOGIC: Denies history of anemia. Denies bleeding. Blood pressure 118/75 heart rate 47 afebrile maintaining oxygen saturation on room air GENERAL: This is a 49-year-old female in no apparent distress at the time of my examination. HEENT: Head is atraumatic, normocephalic. Pupils are equal, round. Sclerae anicteric. Conjunctivae are clear. Mucous membranes of the mouth are moist. Neck is supple. There is no jugular venous distention. No carotid bruit is heard. LUNGS: Clear to auscultation no wheezes, rales or rhonchi. No chest wall ten derness is noted on palpation or with deep breathing. HEART: Regular rate and rhythm without murmurs, rubs or gallops. S1 and S2 heard. ABDOMEN: Soft, nontender. Bowel sounds are heard. No organomegaly noted. EXTREMITIES: No evidence of peripheral edema and no calf tenderness noted. VASCULAR: Radial and dorsalis pedis pulses palpated, no evidence of clubbing. NEUROLOGIC: Patient is awake, alert and oriented x3. ASSESSMENT Chest pain, atypical. An acute coronary event has been ruled out. Neck and back pain. History of SVT, loop recorder in place History of cervical fusion Daily marijuana use Obesity, BMI 31 PLAN An acute coronary event has been ruled out with no EKG evidence of ischemia and negative cardiac enzymes. Obtain 2-D echocardiogram and Doppler study to assess cardiac structure and function. X-ray of the cervical spine was requested. Symptoms are atypical to be related to angina and may be related to cervical strain. If echocardiogram is normal she is stable to be discharged from a cardiac perspective. Follow-up in the office with Dr. Thomas as previously established. Thank you kindly for this consultation. Nurse Practitioner note has been reviewed, I agree with a documented findings and plan of care. Patient was seen and examined. Past Medical History Past Medical History: GERD/Reflux, Hypertension, Osteoarthritis (OA), Sleep Apnea/CPAP/BIPAP, Syncope Additional Past Medical History / Comment(s): Chronic back and neck pain, migraines, past history of hypertension, no current problems, ascending aortic aneurysm, gastric ulcers. No CPAP use, "sleep apnea may be resolved, I've lost 200lbs." Episodes of light headedness and dizziness approximately monthly X1 yr, but occurring more frequently recently, weekly to daily. "Thick blood, having it retested March 06." History of Any Multi-Drug Resistant Organisms: None Reported Past Surgical History: Bariatric Surgery, Cholecystectomy, Hysterectomy, Joint Replacement, Orthopedic Surgery Additional Past Surgical History / Comment(s): NARA-EN-Y, cervical fusion C2-C5, arthroscopy left knee, left knee replacement. Past Anesthesia/Blood Transfusion Reactions: Motion Sickness Past Psychological History: Depression Smoking Status: Never smoker Past Alcohol Use History: None Reported Past Drug Use History: Marijuana Additional Drug Use History / Comment(s): MEDICAL MARIJUANA CARD, uses when needed for pain - 7-8X per month. -KNOWS TO REFRAIN FROM USE FOR AT LEAST 24 HOURS PRIOR TO PROCEDURE - Past Family History Mother Family Medical History: Coronary Artery Disease (CAD) Additional Family Medical History / Comment(s): At the age of mid 40s Father Family Medical History: Coronary Artery Disease (CAD) Additional Family Medical History / Comment(s): At the age of mid 40s Brother(s) Family Medical History: No Reported History Daughter(s) Family Medical History: No Reported History Son(s) Family Medical History: No Reported History Medications and Allergies Home Medications Medication Instructions Recorded Confirmed Type HYDROcodone/APAP 10-325MG [[place] 1 tab PO TID PRN 03/13/15 06/08/19 History 10-325] Omeprazole [PriLOSEC] 40 mg PO HS 08/27/17 06/08/19 History Baclofen 10 mg PO BID PRN 03/29/19 06/08/19 History SUMAtriptan SUCCINATE [Imitrex] 50 mg PO DAILY PRN 03/29/19 06/08/19 History Meclizine [Antivert] 25 mg PO TID PRN #30 tab 04/22/19 06/08/19 Rx FLUoxetine HCL [PROzac] 20 mg PO DAILY 06/08/19 06/08/19 History Metoprolol Tartrate [Lopressor] 12.5 mg PO BID 06/08/19 06/08/19 History Allergies Allergy/AdvReac Type Severity Reaction Status Date / Time aspirin AdvReac Abdominal Verified 06/08/19 16:52 Pain ciprofloxacin [From Cipro] AdvReac Nausea & Verified 06/08/19 16:52 Vomiting, SWELLING ciprofloxacin HCl AdvReac Nausea & Verified 06/08/19 16:52 [From Cipro] Vomiting, SWELLING hydromorphone HCl AdvReac VOMITING, Verified 06/08/19 16:52 [From Dilaudid] DIZZY morphine AdvReac Itching Verified 06/08/19 16:52 Physical Exam Vitals: Vital Signs Temp Pulse Pulse Resp BP BP Pulse Ox 06/09/19 04:15 63 18 119/60 96 06/08/19 23:43 97.9 F 67 18 111/73 97 06/08/19 19:03 97.7 F 61 18 123/80 100 06/08/19 18:52 82 16 133/86 98 06/08/19 13:43 72 16 110/74 95 06/08/19 13:07 97.9 F 75 18 117/82 100 Intake and Output 06/08/19 06/09/19 06/09/19 22:59 06:59 14:59 Intake Total 222 Balance 222 Intake: Oral 222 Results 06/08/19 13:27 06/08/19 13:27 Cardiac Enzymes 06/08/19 06/08/19 06/08/19 Range/Units 13:27 13:27 19:02 AST 21 (14-36) U/L CK-MB (CK-2) <0.2 (0.0-2.4) ng/mL Troponin I <0.012 <0.012 (0.000-0.034) ng/mL 06/09/19 Range/Units 01:50 AST (14-36) U/L CK-MB (CK-2) (0.0-2.4) ng/mL Troponin I <0.012 (0.000-0.034) ng/mL Coagulation 06/08/19 Range/Units 13:27 PT 10.0 (9.0-12.0) sec APTT 24.7 (22.0-30.0) sec Lipids 06/09/19 Range/Units 01:50 Triglycerides 56 (<150) mg/dL Cholesterol 155 (<200) mg/dL HDL Cholesterol 71 H (40-60) mg/dL CBC 06/08/19 Range/Units 13:27 WBC 4.5 (3.8-10.6) k/uL RBC 4.91 (3.80-5.40) m/uL Hgb 13.3 (11.4-16.0) gm/dL Hct 41.2 (34.0-46.0) % Plt Count 168 (150-450) k/uL Comprehensive Metabolic Panel 06/08/19 Range/Units 13:27 Sodium 141 (137-145) mmol/L Potassium 4.0 (3.5-5.1) mmol/L Chloride 107 (98-107) mmol/L Carbon Dioxide 27 (22-30) mmol/L BUN 20 H (7-17) mg/dL Creatinine 0.99 (0.52-1.04) mg/dL Glucose 95 (74-99) mg/dL Calcium 9.6 (8.4-10.2) mg/dL AST 21 (14-36) U/L ALT 16 (9-52) U/L Alkaline Phosphatase 96 (38-126) U/L Total Protein 7.0 (6.3-8.2) g/dL Albumin 4.1 (3.5-5.0) g/dL Current Medications Generic Name Dose Route Start Last Admin Trade Name Freq PRN Reason Stop Dose Admin Hydrocodone Bitart/Acetaminophen 1 each 06/08/19 20:51 [place] 10 PO TID PRN Pain Aspirin 81 mg 06/09/19 09:00 Aspirin PO DAILY LACY Baclofen 10 mg 06/08/19 20:51 [place] PO BID PRN Muscle Spasm Fluoxetine HCl 20 mg 06/09/19 09:00 Prozac PO DAILY LACY Meclizine HCl 25 mg 06/08/19 20:51 Antivert PO TID PRN dizziness Metoprolol Tartrate 12.5 mg 06/08/19 21:00 06/08/19 21:03 Lopressor PO 12.5 mg BID LACY Administration Nitroglycerin 0.4 mg 10/22/19 16:43 Nitrostat SUBLINGUAL Q5M PRN Chest Pain Nitroglycerin 1 inch 06/08/19 18:00 06/09/19 06:12 Nitro-Bid Oint TOPICAL Not Given Q6HR LACY Ondansetron HCl 4 mg 06/08/19 21:17 06/08/19 21:24 Zofran IVP 4 mg Q6HR PRN Administration Nausea And Vomiting Pantoprazole Sodium 40 mg 06/08/19 21:00 06/08/19 21:03 Protonix PO 40 mg HS LACY Administration Sodium Chloride 10 ml 06/08/19 21:00 06/08/19 21:03 Saline Flush IV 10 ml BID LACY Administration Intake and Output 06/08/19 06/09/19 06/09/19 22:59 06:59 14:59 Intake Total 222 Balance 222 Intake: Oral 222 06/08/19 13:27 06/08/19 13:27
--- NOTE | 2019-06-09 09:50 | ECHOF ---
Referral Reason:cp MEASUREMENTS -------- HEIGHT: 162.6 cm WEIGHT: 82.6 kg BP: RVIDd: 2.6 cm (< 3.3) IVSd: 1.2 cm (0.6 - 1.1) LVIDd: 3.9 cm (3.9 - 5.3) LVPWd: 1.2 cm (0.6 - 1.1) IVSs: 1.8 cm LVIDs: 2.3 cm LVPWs: 1.6 cm LAESV Index (A-L): 22.64 ml/m Ao Diam: 2.5 cm (2.0 - 3.7) AV Cusp: 1.7 cm (1.5 - 2.6) LA Diam: 3.6 cm (2.7 - 3.8) MV EXCURSION: 11.236 mm (> 18.000) MV EF SLOPE: 110 mm/s (70 - 150) EPSS: 0.5 cm MV E Tk: 0.56 m/s MV DecT: 314 ms MV A Tk: 0.64 m/s MV E/A Ratio: 0.87 RAP: 5.00 mmHg RVSP: 23.47 mmHg TAPSE: 23.08 mm FINDINGS -------- Sinus rhythm. This was a technically good study. The left ventricular size is normal. There is mild concentric left ventricular hypertrophy. Overa ll left ventricular systolic function is normal with, an EF between 55 - 60 %. The diastolic fillin g pattern is normal for the age of the patient 9.75. The right ventricle is normal in size. The right ventricular systolic function is normal. The left atrial size is normal. Normal LA size by volume 22+/-6 ml/m2. The right atrial size is normal. The aortic valve is trileaflet and appears structurally normal. The mitral valve is normal. The mitral valve leaflets are mildly thickened. Mild mitral regurgita tion is present. The tricuspid valve appears structurally normal. Mild tricuspid regurgitation present. Right vent ricular systolic pressure is normal at < 35 mmHg. There is no pulmonic regurgitation present. The aortic root size is normal. Normal inferior vena cava with normal inspiratory collapse consistent with estimated right atrial pre ssure of 5 mmHg. There is no pericardial effusion. CONCLUSIONS -------- 1. Sinus rhythm. 2. This was a technically good study. 3. The left ventricular size is normal. 4. There is mild concentric left ventricular hypertrophy. 5. Overall left ventricular systolic function is normal with, an EF between 55 - 60 %. 6. The diastolic filling pattern is normal for the age of the patient 9.75 7. The right ventricle is normal in size. 8. The right ventricular systolic function is normal. 9. The left atrial size is normal. 10. Normal LA size by volume 22+/-6 ml/m2. 11. The right atrial size is normal. 12. The aortic valve is trileaflet and appears structurally normal. 13. The mitral valve is normal. 14. The mitral valve leaflets are mildly thickened. 15. Mild mitral regurgitation is present. 16. The tricuspid valve appears structurally normal. 17. Mild tricuspid regurgitation present. 18. Right ventricular systolic pressure is normal at < 35 mmHg. 19. There is no pulmonic regurgitation present. 20. The aortic root size is normal. 21. Normal inferior vena cava with normal inspiratory collapse consistent with estimated right atrial pressure of 5 mmHg. 22. There is no pericardial effusion. [employer] INSTALLER: Daphne Steve RDCS
[2019-06-09 12:03] VITALS: BP 122/86; PULSE 52; RESP 17; TEMP 98.3
[2019-06-09 12:16] LABS: Appearance,Urine Cloudy (Clear); Bacteria,Urine Moderate /hpf; Bilirubin,Urine Negative (Negative); Blood,Urine Negative (Negative); Color,Urine Yellow; Glucose,Urine (UA) Trace (Negative); Hyaline Casts,Urine 7 /lpf (0-2); Ketones,Urine Trace (Negative); Leukocyte Esterase,Urine Small (Negative); Mucus,Urine Many /hpf; Nitrite,Urine Positive (Negative); PH, Urine 5.5 (5.0-8.0); Protein,Urine 1+ (Negative); RBC,Urine 3 /hpf (0-5); Squamous Epithelial Cell,Urine 5 /hpf (0-4); Urobilinogen,Urine <2.0 mg/dL (<2.0)
--- NOTE | 2019-06-09 16:20 | P.HPIM ---
History of Present Illness H&P Date: 06/09/19 Chief Complaint: chest pain, neck pain HISTORY AND PHYSICAL AND DISCHARGE SUMMARY: This is a 49-year-old female patient of Uvaldo Conner NP/Dr. Mcpherson with past medical history of hypertension, gastroesophageal reflux disease, migraine headaches, chronic dizziness, chronic pain with neck, back and left knee pain, history of morbid obesity status post Tyrone-en-Y. 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 Thomas in patient is being worked up for dizziness episodes which she has frequently up to 10 or more times per day. She has a loop recorder in for the past month. Patient states that she started having back pain that woke her on Friday morning and it went into her right shoulder and right side of her neck. She thought she pulled a muscle but it continued to worsen on Friday. On Friday she had another episode and was severe with stabbing type pain in her chest that went up into her neck and the right side of her face was numb. The episodes last for 5-6 minutes. Patient also gives history of having chronic neck, back and knee pain and follows with Dr. Haskins's office for pain management. She has had cervical fusion done in the past. Patient also states that she feels that she is starting to have a urinary tract infection. She is complaining of pain with urination. She states she went to urgent care in [place] and then was sent here for evaluation. Troponins of been negative on 3 draws. Troponin 56, cholesterol 155, LDL 73, HDL 71. CBC and comp and symmetrical panel unremarkable. EKG was in normal sinus rhythm. Echocardiogram reveals EF 55-60% without concentric left ventricular hypertrophy, mild mitral regurgitation, mild tricuspid regurgitation. Cervical spine x-ray revealed degenerative changes. Patient has been seen by cardiology and cleared for discharge with follow-up at Dr. Thomas's office. Urinalysis cloudy, nitrate positive, leukoesterase small, WBCs 27, squamous cells 5, bacteria moderate. Patient will be discharged home today in stable condition. Review of Systems Constitutional: Denies chills, Denies fatigue, Denies fever, Denies lethargy, Denies malaise, Denies poor appetite, Denies weakness Eyes: denies blurred vision, denies pain Ears, nose, mouth and throat: Denies dental pain, Denies dysphagia, Denies headache, Denies nasal congestion, Denies vertigo Cardiovascular: Denies chest pain, Denies decreased exercise tolerance, Denies dyspnea on exertion, Denies edema, Denies leg edema, Denies lightheadedness, Denies shortness of breath, Denies syncope Respiratory: Denies cough, Denies cough with sputum, Denies dyspnea, Denies excessive sputum, Denies hemoptysis, Denies home oxygen Gastrointestinal: Denies abdominal pain, Denies diarrhea, Denies loss of appetite, Denies nausea, Denies vomiting Genitourinary: Reports dysuria, Reports urinary frequency, Denies hematuria Musculoskeletal: Reports neck pain, Denies frequent falls, Denies gait dysfu nction, Denies muscle weakness, Denies myalgias Integumentary: Denies pruritus, Denies rash, Denies wounds Neurological: Denies change in mentation, Denies change in speech, Denies numbness, Denies seizures, Denies weakness Psychiatric: Denies anxiety, Denies depression Endocrine: Denies fatigue, Denies weight change Past Medical History Past Medical History: GERD/Reflux, Hypertension, Osteoarthritis (OA), Sleep Apnea/CPAP/BIPAP, Syncope Additional Past Medical History / Comment(s): Chronic back and neck pain, migraines, past history of hypertension, no current problems, ascending aortic aneurysm, gastric ulcers. No CPAP use, "sleep apnea may be resolved, I've lost 200lbs." Episodes of light headedness and dizziness approximately monthly X1 yr, but occurring more frequently recently, weekly to daily. "Thick blood, having it retested March 06." History of Any Multi-Drug Resistant Organisms: None Reported Past Surgical History: Bariatric Surgery, Cholecystectomy, Hysterectomy, Joint Replacement, Orthopedic Surgery Additional Past Surgical History / Comment(s): TYRONE-EN-Y, cervical fusion C2-C5, arthroscopy left knee, left knee replacement. Past Anesthesia/Blood Transfusion Reactions: Motion Sickness Past Psychological History: Depression Smoking Status: Never smoker Past Alcohol Use History: None Reported Past Drug Use History: Marijuana Additional Drug Use History / Comment(s): MEDICAL MARIJUANA CARD, uses when needed for pain - 7-8X per month. -KNOWS TO REFRAIN FROM USE FOR AT LEAST 24 HOURS PRIOR TO PROCEDURE - Past Family History Mother Family Medical History: Coronary Artery Disease (CAD) Additional Family Medical History / Comment(s): Mother is alive at age 68 with history of three-vessel CABG and diabetes. Father Family Medical History: Coronary Artery Disease (CAD) Additional Family Medical History / Comment(s): Father is alive at age 68 with history of three-vessel CABG. Brother(s) Family Medical History: No Reported History Additional Family Medical History / Comment(s): Patient has one brother with history of seasonal ALLERGIES. Patient does not have any sisters. Daughter(s) Family Medical History: No Reported History Additional Family Medical History / Comment(s): Patient is a total of 3 children with no major medical problems. Son(s) Family Medical History: No Reported History Medications and Allergies Home Medications Medication Instructions Recorded Confirmed Type HYDROcodone/APAP 10-325MG [Mt [place] 1 tab PO TID PRN 03/13/15 06/08/19 History 10-325] Omeprazole [PriLOSEC] 40 mg PO HS 08/27/17 06/08/19 History Baclofen 10 mg PO BID PRN 03/29/19 06/08/19 History SUMAtriptan SUCCINATE [Imitrex] 50 mg PO DAILY PRN 03/29/19 06/08/19 History Meclizine [Antivert] 25 mg PO TID PRN #30 tab 04/22/19 06/08/19 Rx FLUoxetine HCL [PROzac] 20 mg PO DAILY 06/08/19 06/08/19 History Metoprolol Tartrate [Lopressor] 12.5 mg PO BID 06/08/19 06/08/19 History Cefuroxime Axetil [Ceftin] 500 mg PO BID 7 Days #14 tab 06/09/19 Rx Allergies Allergy/AdvReac Type Severity Reaction Status Date / Time aspirin AdvReac Abdominal Verified 06/08/19 16:52 Pain ciprofloxacin [From Cipro] AdvReac Nausea & Verified 06/08/19 16:52 Vomiting, SWELLING ciprofloxacin HCl AdvReac Nausea & Verified 06/08/19 16:52 [From Cipro] Vomiting, SWELLING hydromorphone HCl AdvReac VOMITING, Verified 06/08/19 16:52 [From Dilaudid] DIZZY morphine AdvReac Itching Verified 06/08/19 16:52 Physical Exam Vitals: Vital Signs Temp Pulse Pulse Pulse Resp BP BP 06/09/19 08:00 98.1 F 47 L 18 118/75 06/09/19 04:15 63 18 119/60 06/08/19 23:43 97.9 F 67 18 111/73 06/08/19 19:03 97.7 F 61 18 123/80 06/08/19 18:52 82 16 133/86 06/08/19 13:43 72 16 110/74 06/08/19 13:07 97.9 F 75 18 117/82 Pulse Ox 06/09/19 08:00 99 06/09/19 04:15 96 06/08/19 23:43 97 06/08/19 19:03 100 06/08/19 18:52 98 06/08/19 13:43 95 06/08/19 13:07 100 Intake and Output 06/08/19 06/09/19 06/09/19 22:59 06:59 14:59 Intake Total 222 Balance 222 Intake: Oral 222 Gen: This is a 49-year-old obese female. She is resting in bed appears to be comfortable and in no acute distress. HEENT: Head is atraumatic, normocephalic. Pupils equal, round. Sclerae is anicteric. NECK: Supple. No JVD. No lymphadenopathy. No thyromegaly. LUNGS: Clear to auscultation. No wheezes or rhonchi. No intercostal retractions. HEART: Regular rate and rhythm. No murmur. ABDOMEN: Soft. Bowel sounds are present. No masses. No tenderness. EXTREMITIES: No pedal edema. No calf tenderness. NEUROLOGICAL: Patient is awake, alert and oriented x3. Cranial nerves 2 through 12 are grossly intact. Results CBC & Chem 7: 06/08/19 13:27 06/08/19 13:27 Labs: Abnormal Lab Results - Last 24 Hours (Table) 06/08/19 06/09/19 Range/Units 13:27 01:50 BUN 20 H (7-17) mg/dL HDL Cholesterol 71 H (40-60) mg/dL Thrombosis Risk Factor Assmnt - Choose All That Apply Each Factor Represents 1 point: Age 41-60 years, Obesity (BMI >25) Thrombosis Risk Factor Assessment Total Risk Factor Score: 2 Thrombosis Risk Factor Assessment Level: Low Risk Assessment and Plan Plan: 1. Chest pain. Acute coronary syndrome ruled out. 2. Right-sided neck, shoulder and chest pain secondary to cervical disc disease. 3. Hypertension. 4. Gastroesophageal reflux disease. 5. Chronic dizziness with loop recorder finding SVT. Follow-up with Dr. Thomas. 6. History of peptic ulcer disease. 7. Chronic pain: Neck back and knee. 8. Morbid obesity status post Tyrone-en-Y with loss of 200 pounds. 9. Urinary tract infection. Patient will be sent home with antibiotic and will need follow-up regarding culture report. Patient places on observation status Discharge plan: Home today Discharge Medication List HYDROcodone/APAP 10-325MG [Mt Baldy 10-325] 1 tab PO TID PRN 03/13/15 [History] Omeprazole [PriLOSEC] 40 mg PO HS 08/27/17 [History] Baclofen 10 mg PO BID PRN 03/29/19 [History] SUMAtriptan SUCCINATE [Imitrex] 50 mg PO DAILY PRN 03/29/19 [History] Meclizine [Antivert] 25 mg PO TID PRN #30 tab 04/22/19 [Rx] FLUoxetine HCL [PROzac] 20 mg PO DAILY 06/08/19 [History] Metoprolol Tartrate [Lopressor] 12.5 mg PO BID 06/08/19 [History] Cefuroxime Axetil [Ceftin] 500 mg PO BID 7 Days #14 tab 06/09/19 [Rx]--new Impression and plan of care have been directed as dictated by the signing physician. Dariana Davis nurse practitioner acting as scribe for signing physician.
== END 2019-06-09 12:30 | disposition home or self-care (01) ==
LOC: EC 12:59 → 1SOBS 16:43
PROVIDERS: ADMIT Internal Medicine; ATTEND Internal Medicine
DX: R07.89 Other chest pain (principal); M50.90 Cervical disc disorder, unspecified, unspecified cervical region; K21.9 Gastro-esophageal reflux disease without esophagitis; I10 Essential (primary) hypertension; J84.10 Pulmonary fibrosis, unspecified; G47.30 Sleep apnea, unspecified; R42 Dizziness and giddiness; M19.90 Unspecified osteoarthritis, unspecified site; G43.909 Migraine, unspecified, not intractable, without status migrainosus; N39.0 Urinary tract infection, site not specified; I71.2 Thoracic aortic aneurysm, without rupture; I08.1 Rheumatic disorders of both mitral and tricuspid valves; I47.1 Supraventricular tachycardia; G89.29 Other chronic pain; R11.0 Nausea; R61 Generalized hyperhidrosis; M54.9 Dorsalgia, unspecified; M25.562 Pain in left knee; F32.9 Major depressive disorder, single episode, unspecified; E66.01 Morbid (severe) obesity due to excess calories; Z68.31 Body mass index [BMI] 31.0-31.9, adult; Z79.891 Long term (current) use of opiate analgesic; Z79.899 Other long term (current) drug therapy; Z88.6 Allergy status to analgesic agent; Z88.1 Allergy status to other antibiotic agents; Z88.5 Allergy status to narcotic agent; Z86.79 Personal history of other diseases of the circulatory system; Z90.710 Acquired absence of both cervix and uterus; Z90.49 Acquired absence of other specified parts of digestive tract; Z98.84 Bariatric surgery status; Z98.1 Arthrodesis status; Z96.652 Presence of left artificial knee joint; Z87.11 Personal history of peptic ulcer disease; Z95.818 Presence of other cardiac implants and grafts; Z82.49 Family history of ischemic heart disease and other diseases of the circulatory system; Z83.3 Family history of diabetes mellitus
CPT/HCPCS: 93005 ×2; 96375; 96376 ×2; 96374; 99285; 36415; 93306; 85379; 83880; 80061; 80053; 82550; 82553; 83735; 84484 ×2; 85025; 85610; 85730; 81001; 87086; 87077; 87186; 72050; 71046; G0378 ×2; J2405; J1885 ×2

== ENCOUNTER 2019-09-16 11:11 | Day surgery (SDC) | payer OTHER ==
[2019-09-14 15:03] VITALS: BMI 32.9
[2019-09-16] MEDS: SODIUM CHLORIDE 0.9% 1,000 ML IV SCH ×2 (11:42→18:23)
[2019-09-16 12:05] LABS: African American GFR (CKD) >90 (>60 ml/min/1.73 sqM); Anion Gap 6 mmol/L; Blood Urea Nitrogen 15 mg/dL (7-17); Calcium 9.7 mg/dL (8.4-10.2); Carbon Dioxide 25 mmol/L (22-30); Chloride 108 mmol/L (98-107); Glucose 103 mg/dL (74-99); Non-African American GFR(CKD) >90 (>60 ml/min/1.73 sqM); Potassium 4.3 mmol/L (3.5-5.1); Sodium 139 mmol/L (137-145)
[2019-09-16 12:06] LABS: Basophils % (A) 1 %; Eosinophils # (A) 0.1 k/uL (0-0.7); Eosinophils % (A) 2 %; HCT 42.7 % (34.0-46.0); HGB 13.5 gm/dL (11.4-16.0); Lymphocytes # (A) 1.6 k/uL (1.0-4.8); Lymphocytes % (A) 40 %; MCH 26.6 pg (25.0-35.0); MCHC 31.7 g/dL (31.0-37.0); MCV 83.7 fL (80.0-100.0); Mean Platelet Volume 10.4; Monocytes # (A) 0.2 k/uL (0-1.0); Monocytes % (A) 6 %; Neutrophils # (A) 1.9 k/uL (1.3-7.7); Neutrophils % (A) 49 %; Platelet Count 169 k/uL (150-450); RDW 14.3 % (11.5-15.5)
[2019-09-16] MEDS ORDERED: MIDAZOLAM 2 MG/2 ML VIAL IVP ONE (12:07)
[2019-09-16] MEDS ORDERED: fentaNYL (PF) 50 MCG/ML 2 ML AMP ONE (13:20)
[2019-09-16] MEDS ORDERED: PHENYLEPHRINE-0.9% NACL SYG 1 MG/10 ML SYRINGE ONE (13:20)
[2019-09-16] MEDS ORDERED: PROPOFOL 10 MG/ML 20 ML VIAL IV ONE (13:20)
[2019-09-16] MEDS ORDERED: MIDAZOLAM 2 MG/2 ML VIAL ONE (13:20)
[2019-09-16] MEDS ORDERED: LIDOCAINE 1% INJ 10MG/ML (20 ML MDV) ONE ×2 (13:34→14:01)
--- NOTE | 2019-09-16 13:43 | P.HPCAR ---
History of Present Illness This is Dr. Cabral dictating an H&P on this patient The patient was interviewed and examined by me IMPRESSION / ASSESSMENT: Recurrent loss of consciousness, brief Mild orthostatic intolerance History of palpitations and documented SVT, long RP tachycardia, drug refractory Hypertension Migraine PLAN: In view of her recurrent palpitations with symptoms and breakthrough episodes on metoprolol I would recommend she proceed with diagnostic EP study and possible efficacy ablation Risks and benefits of this were discussed with her in detail previously she is stable from a cardiac vascular standpoint. She is stable from a medical standpoint She denies any recent upper story infection fever chills cough pneumonitis-like symptoms any UTI or any other contraindications to the EP study HPI 41 year female experiencing recurrent palpitations. These are of sudden onset and lasts for about 5-10 minutes. He had associated with chest discomfort and sweatiness. She underwent implantation of a loop monitor and this showed long RP SVT, recurrent episodes despite being on beta blockers She also has recurrent episodes of loss of consciousness with a brief period tilt table test revealed mild orthostatic intolerance ROS: No fever chills or rigors, no cough, phlegm or expectoration, no nausea, vomiting or diarrhea, no hematuria, dysuria, no musculoskeletal complaints, no strokes or seizures, no skin lesions. EXAMINATION: 134/82 mmHg pulse rate in the 90s Breath sounds are clear no rhonchi no crackles no JVD Normal heart sounds normal S1 normal S2 no murmurs Soft abdomen nontender Extended is warm no edema REVIEW OF LABS, ECG & MEDICAL DATA Labs are reviewed hemoglobin 13.5, sodium 139, potassium 4.3 BUN 15 creatinine 0.75 glucose 103 Physical Exam Vitals: Vital Signs Temp Pulse Resp BP Pulse Ox 09/16/19 11:30 97.9 F 94 16 134/82 100 Intake and Output 09/15/19 09/16/19 09/16/19 22:59 06:59 14:59 Intake Total 20 Balance 20 Intake: IV 20 Other: Weight 83.4 kg Past Medical History Past Medical History: GERD/Reflux, Hypertension, Osteoarthritis (OA), Sleep Apnea/CPAP/BIPAP, Syncope Additional Past Medical History / Comment(s): Chronic back & neck pain, migraines, past history of hypertension, ascending aortic aneurysm, gastric ulcers. No CPAP use, "sleep apnea may be resolved, I've lost 200lbs." Episodes of light headedness and dizziness approximately monthly X1 yr, but occurring more frequently recently, was told "thick blood" in summer, had retested-never heard anything more, see Dr Cabral H & P History of Any Multi-Drug Resistant Organisms: None Reported Past Surgical History: Bariatric Surgery, Cholecystectomy, Hysterectomy, Joint Replacement, Orthopedic Surgery Additional Past Surgical History / Comment(s): NARA-EN-Y, cervical fusion C2-C5, arthroscopy left knee, left knee replacement, loop recorder insertion Past Anesthesia/Blood Transfusion Reactions: Motion Sickness Smoking Status: Never smoker - Past Family History Mother Family Medical History: Coronary Artery Disease (CAD) Additional Family Medical History / Comment(s): Mother is alive at age 68 with history of three-vessel CABG and diabetes. Father Family Medical History: Coronary Artery Disease (CAD) Additional Family Medical History / Comment(s): Father is alive at age 68 with history of three-vessel CABG. Brother(s) Family Medical History: No Reported History Additional Family Medical History / Comment(s): Patient has one brother with history of seasonal ALLERGIES. Patient does not have any sisters. Daughter(s) Family Medical History: No Reported History Additional Family Medical History / Comment(s): Patient is a total of 3 children with no major medical problems. Son(s) Family Medical History: No Reported History Physical Examination Vital Signs Temp Pulse Resp BP Pulse Ox 09/16/19 11:30 97.9 F 94 16 134/82 100 Intake and Output 09/15/19 09/16/19 09/16/19 22:59 06:59 14:59 Intake Total 20 Balance 20 Intake: IV 20 Other: Weight 83.4 kg Results 09/16/19 11:15 09/16/19 11:15 CBC 09/16/19 Range/Units 11:15 WBC 4.0 (3.8-10.6) k/uL RBC 5.10 (3.80-5.40) m/uL Hgb 13.5 (11.4-16.0) gm/dL Hct 42.7 (34.0-46.0) % Plt Count 169 (150-450) k/uL Comprehensive Metabolic Panel 09/16/19 Range/Units 11:15 Sodium 139 (137-145) mmol/L Potassium 4.3 (3.5-5.1) mmol/L Chloride 108 H (98-107) mmol/L Carbon Dioxide 25 (22-30) mmol/L BUN 15 (7-17) mg/dL Creatinine 0.75 (0.52-1.04) mg/dL Glucose 103 H (74-99) mg/dL Calcium 9.7 (8.4-10.2) mg/dL Current Medications Generic Name Dose Route Start Last Admin Trade Name Freq PRN Reason Stop Dose Admin Lactated Ringer's 1,000 mls @ 20 mls/hr 09/16/19 05:53 Lactated Ringers IV .Q24H LACY Sodium Chloride 1,000 mls @ 50 mls/hr 09/16/19 05:53 09/16/19 11:42 Saline 0.9% IV 20 mls .Q20H LACY Administration Intake and Output 09/15/19 09/16/19 09/16/19 22:59 06:59 14:59 Intake Total 20 Balance 20 Intake: IV 20 Other: Weight 83.4 kg Patient Weight 09/17/19 06:59 Weight 83.4 kg 09/16/19 11:15 09/16/19 11:15
[2019-09-16] MEDS ORDERED: LIDOCAINE 1% INJ 10MG/ML (20 ML MDV) SQ ONE (13:56)
[2019-09-16] MEDS ORDERED: HEPARIN SODIUM (1,000 UNIT/ML) 1,000 UNIT in SODIUM CHLORIDE 0.9% 1,000 ML IRRIGATION ONE (14:45)
[2019-09-16] MEDS ORDERED: ACETAMINOPHEN TAB 325 MG TAB PO PRN (17:36)
[2019-09-16] MEDS ORDERED: HYDROcodone/APAP 5-325MG 1 EACH TAB PO PRN (17:36)
--- NOTE | 2019-09-16 17:43 | P.PCN ---
Preoperative Diagnosis: Summary of diagnostic EP study and ablation Diagnostic EP study revealed #1 any history inducible long bursts of high right atrial tachycardia on the posterior base of the SVC. Phrenic nerve could be stimulated at the site. During phrenic nerve stimulation from about the site RF ablation was applied up to 15 pots. Tachycardia was rendered noninducible baseline state but could still be inducible on Isuprel. Higher outputs were not used. 10 second ablations were performed. Transient, very mild phrenic nerve palsy which recovered almost immediately. No further RF ablation was applied #2 AV ivis reentrant tachycardia, status post successful ablation Major Medical management of high right atrial tachycardia. Patient is failed beta blockers. Try verapamil 120 mg by mouth daily
[2019-09-16 18:18] VITALS: RESP 18
[2019-09-16] MEDS ORDERED: ONDANSETRON 4 MG/2 ML VIAL IVP PRN (18:22)
[2019-09-16] MEDS ORDERED: ACETAMINOPHEN IV (For NPO) 1,000 MG in EMPTY BAG 1 BAG IVPB ONE (19:00)
[2019-09-16] MEDS ORDERED: HYDROcodone/APAP 10-325MG 1 EACH TAB PO PRN (21:08)
[2019-09-16] MEDS ORDERED: ALPRAZolam 0.5 MG TAB PO PRN (21:08)
[2019-09-16] MEDS: ONDANSETRON 4 MG TAB PO PRN (21:16)
[2019-09-16] MEDS ORDERED: SUMAtriptan SUCCINATE 50 MG TAB PO PRN (22:00)
[2019-09-16] MEDS ORDERED: PANTOPRAZOLE 40 MG TABLET PO SCH (22:15)
[2019-09-16] MEDS: LACTATED RINGERS 1,000 ML IV SCH (23:46)
[2019-09-17 08:12] VITALS: BP 142/72; PULSE 64; TEMP 97.9
[2019-09-17] MEDS: LACTATED RINGERS 1,000 ML IV SCH (08:17)
[2019-09-17] MEDS: ONDANSETRON 4 MG TAB PO PRN (08:41)
[2019-09-17] MEDS ORDERED: VERAPAMIL SR 120 MG TABLET.ER PO SCH (09:00)
--- NOTE | 2019-09-17 12:03 | P.PN ---
Subjective Patient is doing well. No chest discomfort dizziness lightheadedness or palpitations. The groins of healed well there is no hematoma She is ablating in the hallways Yesterday patient went a diagnostic EP study for palpitations She right atrial tachycardia at the base of the SVC exactly on the phrenic nerve. Lobar ablation was performed. Partial success was noted with a tachycardic and still be induced on Isuprel However if adequate or is used for radiofrequency ablation of this atrial tachycardia focus, this will result in phrenic nerve injury She also had AV ivis reentrant tachycardia and she Successful ablation for this Impression High right atrial tachycardia at the base of the SVC posteriorly, right on the phrenic nerve Urine ivis reentry Hypertension Suggest Verapamil 120 mg by mouth daily Avoid RFA of the atrial tachycardia The only way to achieve this would be to put a balloon in the pericardium to get the phrenic nerve off the SVC and perform an endocardial atrial ablation I would recommend medical treatment first Follow-up in a week Objective - Vital Signs Vital signs: Vital Signs Temp 97.9 F 09/17/19 08:00 Pulse 64 09/17/19 08:00 Resp 18 09/17/19 08:00 BP 142/72 09/17/19 08:00 Pulse Ox 99 09/17/19 08:00 Intake & Output 09/16/19 09/17/19 09/17/19 18:59 06:59 18:59 Intake Total 1317 1000 Balance 1317 1000 Weight 83.4 kg 84.1 kg Intake: IV 1317 Sodium Chloride 0.9% 1, 50 000 ml @ 50 mls/hr IV . Q20H [facility] Rx#:[id number] Intake, IV Titration 1000 Amount ACETAMINOPHEN IV (For NPO 1000 ) 1,000 mg In Empty Bag 1 bag @ 400 mls/hr IVPB ONCE ONE Rx#:[id number] - Labs CBC & Chem 7: 09/16/19 11:15 09/16/19 11:15 Labs: Abnormal Lab Results - Last 24 Hours (Table) 09/16/19 Range/Units 11:15 Chloride 108 H (98-107) mmol/L Glucose 103 H (74-99) mg/dL
--- NOTE | 2019-09-22 05:33 | CE ---
CARDIAC ELECTROPHYSIOLOGY REPORT Nicole Horn is a 49-year-old female who has had recurrent SVT and she is brought in for a diagnostic EP study and possible radiofrequency ablation. Patient was brought to the EP lab in a fasting state. Written informed consent was obtained prior to the procedure. The left groin was prepped and draped as per protocol. Venous sheaths were placed in the right and left femoral veins and via these diagnostic catheters were positioned in the right heart including high right atrial catheter, His bundle catheter, RV catheter and coronary sinus catheter. Baseline measurements were as follows: SD interval 133 milliseconds, QRS 114 milliseconds. QT 366 milliseconds and sinus cycle length was 674 milliseconds, AH interval 52 milliseconds, HV interval 35 milliseconds. Sinus node recovery times at 600, 500 and 400 milliseconds were 1419, 673 and 1211 milliseconds. With straight pacing, the patient would repeatedly go into an SVT with the high to low sequence consistent with high right atrial tachycardia. The P waves in lead V1 were negative. The P waves are also very similar to the sinus P-wave morphology. Tachycardia, there would be long nonsustained runs of atrial tachycardia which would terminate spontaneously with the ventricular signal and this tachycardia also had other characteristics of atrial tachycardia including a warm up phase of warm down phase prior to termination. During diagnostic EP study, the slow pathway was also demonstrated and later AVNRT was also easily inducible. The patient would go from one tachycardia (High right atrial tachycardia) to another (AV ivis reentry). Therefore a long sheath was placed and RF ablation catheter was placed. An irrigated tip catheter was used. The slow pathway was mapped. After mapping his bundle and coronary sinus, RF ablation was applied anterior to the coronary sinus and the slow pathway was completely eliminated. Following this, the high right atrial tachycardia was induced and mapped. A 3D electroanatomic mapping was performed. The high right atrial tachycardia was mapped to the posterolateral SVC base. The early set of activation was tagged very carefully. Following this, phrenic nerve pacing was performed in this area and unfortunately the phrenic nerve stimulation was noted all along and around this early focus of atrial tachycardia. Therefore, during phrenic nerve, RF ablation was applied with a 5 watt power and then ramped up to a 10 watt power. Each RF ablation was 15 seconds while monitoring the phrenic nerve function. We successfully performed RF ablation up to 15 resendez for 15 seconds at a time, but at 20 resendez transient phrenic nerve paresis was noted came off completely. The phrenic nerve function recovered completely. However, there was only partial success of atrial tachycardia as expected. It was much more difficult to re-induce, but with stimulation we could induce it. At this point, all catheters were removed. The patient was transferred back to telemetry. RESULT: Diagnostic EP study revealin. Atrial tachycardia from the high right atrium, at the base of the SVC posterolaterally exactly where the phrenic nerve was stimulated. RF ablation was applied here for up to 20 resendez for 15 seconds only but we could not apply longer lesions nor higher power on account of phrenic nerve paresis. The patient had extremely transient phrenic nerve paresis, which recovered completely and therefore no further ablations were performed. However, this did result in at least partial success and became difficult to re-induce the tachycardia. 2. Typical AV ivis reentry, status post successful mapping and ablation of the slow pathway. Patient tolerated the procedure well without any acute complications. PLAN: Start verapamil for medical management and may consider flecainide in the future if needed. MMODL / IJN: [id number] /
== END 2019-09-17 10:19 | disposition home or self-care (01) ==
LOC: CATHEP 11:11 → 3SCARD 16:10 → CATHEP 09-17 10:19
PROVIDERS: ATTEND Internal Medicine Clinical Cardiac Electrophysiology
DX: R55 Syncope and collapse (principal); I47.1 Supraventricular tachycardia; R00.2 Palpitations; I10 Essential (primary) hypertension; G43.909 Migraine, unspecified, not intractable, without status migrainosus; K21.9 Gastro-esophageal reflux disease without esophagitis; M19.90 Unspecified osteoarthritis, unspecified site; G47.30 Sleep apnea, unspecified; G89.29 Other chronic pain; M54.2 Cervicalgia; Z98.84 Bariatric surgery status; Z98.1 Arthrodesis status; Z96.652 Presence of left artificial knee joint; Z90.49 Acquired absence of other specified parts of digestive tract; Z90.710 Acquired absence of both cervix and uterus; I71.4 Abdominal aortic aneurysm, without rupture; Z87.11 Personal history of peptic ulcer disease; Z82.49 Family history of ischemic heart disease and other diseases of the circulatory system; Z83.3 Family history of diabetes mellitus; Z79.891 Long term (current) use of opiate analgesic; Z79.899 Other long term (current) drug therapy; Z88.6 Allergy status to analgesic agent; Z88.1 Allergy status to other antibiotic agents; Z88.5 Allergy status to narcotic agent
CPT/HCPCS: 93623; 93613; 93653; 93655; 80048; 85025; C1894; C1769 ×2; C1730 ×3; C1731; C1759; C1893; C1732; J2250; J2405; J2001; J3010; J1644; J0131; J2370; J2704

== ENCOUNTER → 2019-09-28 | Outpatient (CLI) | payer OTHER ==
--- NOTE | 2019-09-28 11:48 | CT ---
EXAMINATION TYPE: CT cervical spine wo con DATE OF EXAM: 09/28/2019 COMPARISON: X-rays of the cervical spine dated 06/09/[address] of the cervical spine dated 5 HISTORY: Neck pain, numbness CT DLP: 353.80 mGycm. Automated Exposure Control for Dose Reduction was Utilized. TECHNIQUE: CT scan of the cervical spine is obtained without contrast, axial images are obtained, sa gittal and coronal reformatted images are also reviewed. FINDINGS: There has been interval placement of an anterior cervical fusion device spanning the C3-C5 vertebral levels with intervertebral disc cages and osseous fusion of these levels. There are small p osterior projecting osteophytes from the superior endplate of L4 and C5 into the spinal canal. Vacuum disc disease is seen at C5-C6. There is straightening of usual cervical lordosis. Prevertebral soft tissues are within normal limits. Cervical spine vertebral body heights and alignme nt are maintained. Lung apices are well aerated C2-C3: There is a small central disc herniation without spinal canal stenosis nor neuroforaminal narr owing. C3-C5: Osseous fusion from the anterior cervical fusion device. No significant spinal canal stenosis nor neuroforaminal narrowing. C5-C6: There is uncovertebral hypertrophy and facet arthropathy creating mild bilateral neural forami nal narrowing. No spinal canal stenosis. C6-C7: No significant disease on CT. No spinal canal stenosis nor neural foraminal narrowing. C7-T1: No significant disease on CT. No spinal canal stenosis nor neural foraminal narrowing. IMPRESSION: 1. Small central disc herniation at C2-C3 however no spinal canal stenosis or neural foraminal narrow ing is seen at this level. 2. Cervical fusion from C3 through C5 maintains alignment. There is straightening of usual cervical l ordosis that may be on the basis of muscular strain/spasm or patient positioning. 3. Mild bilateral neural foraminal narrowing at C5-C6 as a result of facet arthropathy and uncoverteb ral hypertrophy.
== END | disposition home or self-care (01) ==
LOC: RADCTMAIN 11:13
PROVIDERS: ATTEND Orthopaedic Surgery
DX: M48.02 Spinal stenosis, cervical region (principal); M50.21 Other cervical disc displacement, high cervical region; M48.8X2 Other specified spondylopathies, cervical region; Z98.1 Arthrodesis status
CPT/HCPCS: 72125

== ENCOUNTER 2020-02-06 09:35 | Inpatient (IN) | payer MEDICAID, OTHER ==
[2020-02-06 10:06] LABS: Amphetamine Screen,Urine Not Detected (NotDetected); Barbiturate Screen,Urine Not Detected (NotDetected); Benzodiazepines Screen,Urine Not Detected (NotDetected); Cocaine Screen,Urine Not Detected (NotDetected); Methadone Screen, Urine Not Detected (NotDetected); Opiate Screen,Urine Detected (NotDetected); Oxycodone Screen, Urine Not Detected (NotDetected); Phencyclidine Screen,Urine Not Detected (NotDetected); Tricyclic Antidepressant,Urine Not Detected (NotDetected); Urn Cannabinoid Scrn Detected (NotDetected)
--- NOTE | 2020-02-06 10:15 | ED ---
Psych HPI - General Chief Complaint: Psychiatric Symptoms Stated Complaint: Mental Health Time Seen by Provider: 02/06/20 09:40 Source: patient, RN notes reviewed Mode of arrival: ambulatory Limitations: no limitations - History of Present Illness Initial Comments: 49-year-old female presents emergency Department chief complaint of anger issues, depression, suicidal ideation. Patient states she call the crisis hotline who advised, emergency from. Patient states that she is to be on Prozac states it was not helping has not taken it recently. Patient states she does not have a current primary care physician or psychiatrist. Patient has had multiple thoughts of hurting herself. Denies any homicidal ideation. Denies any drug or alcohol abuse. - Related Data Home Medications Medication Instructions Recorded Confirmed HYDROcodone/APAP 10-325MG [[place] 1 tab PO HS 03/13/15 02/06/20 10-325] Omeprazole [PriLOSEC] 20 mg PO DAILY 08/27/17 02/06/20 Metoprolol Tartrate 25 mg PO BID 02/06/20 02/06/20 Allergies Allergy/AdvReac Type Severity Reaction Status Date / Time aspirin AdvReac Abdominal Verified 02/06/20 16:40 Pain ciprofloxacin [From Cipro] AdvReac Nausea & Verified 02/06/20 16:40 Vomiting, SWELLING ciprofloxacin HCl AdvReac Nausea & Verified 02/06/20 16:40 [From Cipro] Vomiting, SWELLING hydromorphone HCl AdvReac VOMITING, Verified 02/06/20 16:40 [From Dilaudid] DIZZY morphine AdvReac Itching Verified 02/06/20 16:40 Review of Systems ROS Statement: Those systems with pertinent positive or pertinent negative responses have been documented in the HPI. ROS Other: All systems not noted in ROS Statement are negative. Past Medical History Past Medical History: GERD/Reflux, Hypertension, Osteoarthritis (OA), Sleep Apnea/CPAP/BIPAP, Syncope Additional Past Medical History / Comment(s): Chronic back & neck pain, migraines, ascending aortic aneurysm, gastric ulcers. Episodes of light headedness and dizziness , History of Any Multi-Drug Resistant Organisms: None Reported Past Surgical History: Bariatric Surgery, Cholecystectomy, EPS, Hysterectomy, Joint Replacement, Orthopedic Surgery Additional Past Surgical History / Comment(s): NARA-EN-Y, cervical fusion C2-C5, arthroscopy left knee, left knee replacement, loop recorder insertion Past Anesthesia/Blood Transfusion Reactions: Motion Sickness Past Psychological History: Depression Smoking Status: Never smoker Past Alcohol Use History: None Reported Past Drug Use History: Marijuana - Past Family History Mother Family Medical History: Coronary Artery Disease (CAD) Additional Family Medical History / Comment(s): Mother is alive at age 68 with history of three-vessel CABG and diabetes. Father Family Medical History: Coronary Artery Disease (CAD) Additional Family Medical History / Comment(s): Father is alive at age 68 with history of three-vessel CABG. Brother(s) Family Medical History: No Reported History Additional Family Medical History / Comment(s): Patient has one brother with history of seasonal ALLERGIES. Patient does not have any sisters. Daughter(s) Family Medical History: No Reported History Additional Family Medical History / Comment(s): Patient is a total of 3 children with no major medical problems. Son(s) Family Medical History: No Reported History General Exam Limitations: no limitations General appearance: alert, in no apparent distress Head exam: Present: atraumatic, normocephalic, normal inspection Eye exam: Present: normal appearance, PERRL, EOMI. Absent: scleral icterus, conjunctival injection, periorbital swelling ENT exam: Present: normal exam, normal oropharynx, mucous membranes moist, TM's normal bilaterally Neck exam: Present: normal inspection, full ROM. Absent: tenderness, meningismus, lymphadenopathy Respiratory exam: Present: normal lung sounds bilaterally. Absent: respiratory distress, wheezes, rales, rhonchi, stridor Cardiovascular Exam: Present: regular rate, normal rhythm, normal heart sounds. Absent: systolic murmur, diastolic murmur, rubs, gallop, clicks GI/Abdominal exam: Present: soft, normal bowel sounds. Absent: distended, tenderness, guarding, rebound, rigid Neurological exam: Present: alert, oriented X3 Psychiatric exam: Present: depressed Skin exam: Present: warm, dry, intact, normal color. Absent: rash Course Vital Signs 02/06/20 02/06/20 02/06/20 09:38 09:41 11:22 Temperature 98.2 F Pulse Rate 91 Respiratory 18 20 20 Rate Blood Pressure 161/115 O2 Sat by Pulse 98 Oximetry 02/06/20 02/06/20 16:37 16:38 Temperature 98.2 F Pulse Rate 87 87 Respiratory 20 20 Rate Blood Pressure 112/87 112/87 O2 Sat by Pulse 98 98 Oximetry Medical Decision Making - Lab Data Result diagrams: 02/07/20 07:47 02/07/20 07:47 Lab Results 02/06/20 Range/Units 09:50 Urine Opiates Screen Detected H (NotDetected) Ur Oxycodone Screen Not Detected (NotDetected) Urine Methadone Screen Not Detected (NotDetected) Ur Propoxyphene Screen Not Detected (NotDetected) Ur Barbiturates Screen Not Detected (NotDetected) U Tricyclic Antidepress Not Detected (NotDetected) Ur Phencyclidine Scrn Not Detected (NotDetected) Ur Amphetamines Screen Not Detected (NotDetected) U Methamphetamines Scrn Not Detected (NotDetected) U Benzodiazepines Scrn Not Detected (NotDetected) Urine Cocaine Screen Not Detected (NotDetected) U Marijuana (THC) Screen Detected H (NotDetected) Disposition Clinical Impression: Depression, Suicidal ideation Disposition: TRANSFER TO PSYCH HOSP/UNIT
[2020-02-06] MEDS ORDERED: LORazepam 1 MG TAB PO PRN (16:49)
[2020-02-06] MEDS ORDERED: ACETAMINOPHEN TAB 325 MG TAB PO PRN (16:49)
[2020-02-06] MEDS ORDERED: MAGNESIUM HYDROXIDE 2,400 MG/10 ML CUP PO PRN (16:49)
[2020-02-06] MEDS ORDERED: MAG HYDROX/AL HYDROX/SIMETH 30 ML CUP PO PRN (16:49)
[2020-02-06] MEDS ORDERED: ZIPRASIDONE 20 MG VIAL IM PRN (16:49)
[2020-02-06] MEDS: METOPROLOL TARTRATE 25 MG TAB PO SCH (20:48)
[2020-02-06] MEDS: HYDROcodone/APAP 5-325MG 1 EACH TAB PO PRN (21:34)
[2020-02-07] MEDS: METOPROLOL TARTRATE 25 MG TAB PO SCH ×2 (08:25→21:49)
[2020-02-07] MEDS: PANTOPRAZOLE 40 MG TABLET PO SCH (08:25)
[2020-02-07] MEDS: NICOTINE 14MG/24HR PATCH TRANSDERM SCH (08:25)
[2020-02-07 08:26] LABS: Basophils % (A) 1 %; Eosinophils # (A) 0.1 k/uL (0-0.7); Eosinophils % (A) 3 %; HCT 43.1 % (34.0-46.0); HGB 13.5 gm/dL (11.4-16.0); Lymphocytes # (A) 1.5 k/uL (1.0-4.8); Lymphocytes % (A) 39 %; MCH 26.8 pg (25.0-35.0); MCHC 31.5 g/dL (31.0-37.0); MCV 85.2 fL (80.0-100.0); Mean Platelet Volume 9.9; Monocytes # (A) 0.3 k/uL (0-1.0); Monocytes % (A) 8 %; Neutrophils # (A) 1.8 k/uL (1.3-7.7); Neutrophils % (A) 45 %; Platelet Count 170 k/uL (150-450); RBC 5.05 m/uL (3.80-5.40); RDW 14.5 % (11.5-15.5)
[2020-02-07 08:49] LABS: ALT 11 U/L (4-34); AST 21 U/L (14-36); African American GFR (CKD) >90 (>60 ml/min/1.73 sqM); Albumin 3.9 g/dL (3.5-5.0); Alkaline Phosphatase 90 U/L (38-126); Anion Gap 7 mmol/L; Blood Urea Nitrogen 12 mg/dL (7-17); Calcium 9.6 mg/dL (8.4-10.2); Carbon Dioxide 29 mmol/L (22-30); Chloride 104 mmol/L (98-107); Cholesterol 156 mg/dL (<200); Glucose 75 mg/dL (74-99); HDL Cholesterol 77 mg/dL (40-60); LDL Cholesterol,Calculated 64 mg/dL (0-99); Non-African American GFR(CKD) 88 (>60 ml/min/1.73 sqM); Potassium 3.8 mmol/L (3.5-5.1); Sodium 140 mmol/L (137-145); Total Bilirubin 0.6 mg/dL (0.2-1.3); Total Protein 6.8 g/dL (6.3-8.2); Triglycerides 76 mg/dL (<150)
[2020-02-07] MEDS: lamoTRIgine 25 MG TAB PO SCH ×2 (11:21→21:49)
--- NOTE | 2020-02-07 12:00 | P.HP ---
Psychiatric H&P - . H&P Date: 02/07/20 History & Physical: Allergies Allergy/AdvReac Type Severity Reaction Status Date / Time aspirin AdvReac Abdominal Verified 02/06/20 16:40 Pain ciprofloxacin From Cipro AdvReac Nausea & Verified 02/06/20 16:40 Vomiting, SWELLING ciprofloxacin HCl AdvReac Nausea & Verified 02/06/20 16:40 From Cipro Vomiting, SWELLING hydromorphone HCl AdvReac VOMITING, Verified 02/06/20 16:40 From Dilaudid DIZZY morphine AdvReac Itching Verified 02/06/20 16:40 Vital Signs Temp 97.6 F 02/07/20 06:10 Pulse 80 02/07/20 08:26 Resp 16 02/07/20 06:10 BP 125/84 02/07/20 08:26 Pulse Ox 98 02/06/20 16:38 Intake & Output 02/06/20 02/07/20 02/07/20 18:59 06:59 18:59 Weight 83.007 kg Laboratory Last Values WBC 4.0 k/uL (3.8-10.6) 02/07/20 07:47 RBC 5.05 m/uL (3.80-5.40) 02/07/20 07:47 Hgb 13.5 gm/dL (11.4-16.0) 02/07/20 07:47 Hct 43.1 % (34.0-46.0) 02/07/20 07:47 MCV 85.2 fL (80.0-100.0) 02/07/20 07:47 MCH 26.8 pg (25.0-35.0) 02/07/20 07:47 MCHC 31.5 g/dL (31.0-37.0) 02/07/20 07:47 RDW 14.5 % (11.5-15.5) 02/07/20 07:47 Plt Count 170 k/uL (150-450) 02/07/20 07:47 Neutrophils % 45 % 02/07/20 07:47 Lymphocytes % 39 % 02/07/20 07:47 Monocytes % 8 % 02/07/20 07:47 Eosinophils % 3 % 02/07/20 07:47 Basophils % 1 % 02/07/20 07:47 Neutrophils # 1.8 k/uL (1.3-7.7) 02/07/20 07:47 Lymphocytes # 1.5 k/uL (1.0-4.8) 02/07/20 07:47 Monocytes # 0.3 k/uL (0-1.0) 02/07/20 07:47 Eosinophils # 0.1 k/uL (0-0.7) 02/07/20 07:47 Basophils # 0.0 k/uL (0-0.2) 02/07/20 07:47 Sodium 140 mmol/L (137-145) 02/07/20 07:47 Potassium 3.8 mmol/L (3.5-5.1) 02/07/20 07:47 Chloride 104 mmol/L (98-107) 02/07/20 07:47 Carbon Dioxide 29 mmol/L (22-30) 02/07/20 07:47 Anion Gap 7 mmol/L 02/07/20 07:47 BUN 12 mg/dL (7-17) 02/07/20 07:47 Creatinine 0.80 mg/dL (0.52-1.04) 02/07/20 07:47 Est GFR (CKD-EPI)AfAm >90 (>60 ml/min/1.73 sqM) 02/07/20 07:47 Est GFR (CKD-EPI)NonAf 88 (>60 ml/min/1.73 sqM) 02/07/20 07:47 Glucose 75 mg/dL (74-99) 02/07/20 07:47 Calcium 9.6 mg/dL (8.4-10.2) 02/07/20 07:47 Total Bilirubin 0.6 mg/dL (0.2-1.3) 02/07/20 07:47 AST 21 U/L (14-36) 02/07/20 07:47 ALT 11 U/L (4-34) 02/07/20 07:47 Alkaline Phosphatase 90 U/L (38-126) 02/07/20 07:47 Total Protein 6.8 g/dL (6.3-8.2) 02/07/20 07:47 Albumin 3.9 g/dL (3.5-5.0) 02/07/20 07:47 Triglycerides 76 mg/dL (<150) 02/07/20 07:47 Cholesterol 156 mg/dL (<200) 02/07/20 07:47 LDL Cholesterol, Calc 64 mg/dL (0-99) 02/07/20 07:47 HDL Cholesterol 77 mg/dL (40-60) H 02/07/20 07:47 TSH 2.030 mIU/L (0.465-4.680) 02/07/20 07:47 Urine Opiates Screen Detected (NotDetected) H 02/06/20 09:50 Ur Oxycodone Screen Not Detected (NotDetected) 02/06/20 09:50 Urine Methadone Screen Not Detected (NotDetected) 02/06/20 09:50 Ur Propoxyphene Screen Not Detected (NotDetected) 02/06/20 09:50 Ur Barbiturates Screen Not Detected (NotDetected) 02/06/20 09:50 U Tricyclic Antidepress Not Detected (NotDetected) 02/06/20 09:50 Ur Phencyclidine Scrn Not Detected (NotDetected) 02/06/20 09:50 Ur Amphetamines Screen Not Detected (NotDetected) 02/06/20 09:50 U Methamphetamines Scrn Not Detected (NotDetected) 02/06/20 09:50 U Benzodiazepines Scrn Not Detected (NotDetected) 02/06/20 09:50 Urine Cocaine Screen Not Detected (NotDetected) 02/06/20 09:50 U Marijuana (THC) Screen Detected (NotDetected) H 02/06/20 09:50 02/07/20 10:36 IDENTIFYING DATA: Patient is a 49-year-old female who is currently engaged to her fi[employer]ach [employer] and lives at home with her son in a house as 3 other kids and is currently supported by her [employer] job. HPI: Patient presented to the hospital over the weekend for "anger issues, depression and suicidal ideations" according to ER report. Patient apparently called a crisis line who advised her to come in to the hospital. Patient's UDS was positive for opiates and marijuana. Patient endorsed depression for years and chronic suicidal ideations. She states that she had been taking Prozac for approximately one year however stopped 1 year ago. She states that on Friday "my brain just snapped" and describes irritability and anger. She claims that she took 3 pills in an overdose attempt however does not know what pills she took however became scared and tearful and stopped. She also claims that she "tore up my yard with my truck". She did not identify any specific triggers when asked however patient did begin speaking about her son being a ongoing stressor as he is stealing from her and her fianc and also using drugs and drinking at the age of [age] years old. She states that she does have some guilt and problems with concentration and also endorses poor sleep sleeping approximately 2-3 hours a night. She claims that she does see shadows at times and feels that "like bugs are crawling on me". She does endorse a vague history of what appeared to be manic-type episodes where she feels she has an increase in energy and decreased need for sleep. Patient denies any suicidal or homicidal ideations intent or plan. At this time patient denies any auditory or visual hallucinations. Patient admits to using marijuana daily smoking 2 joints. Patient also endorses smoking cigarettes. She denies any other recreational drug use including alcohol. PAST PSYCHIATRIC HISTORY: Patient states that she has a history of depression and marijuana use. She claims that she was previously prescribed Prozac over a year ago however has stopped taking it. Patient denies any previous psychiatric hospitalizations. Patient denies any psychiatric outpatient follow-up. Patient denies any history of suicide attempts in the past. PMH: GERD, hypertension, osteoarthritis, obstructive sleep apnea, chronic back and neck pain. ALLERGIES: as per EMR CHEMICAL DEPENDENCY HISTORY: as per HPI FAMILY PSYCHIATRIC/SUBSTANCE USE HISTORY: She states that her daughter suffers from depression and son is depressed and abusing drugs and alcohol. SOCIAL HISTORY: Patient was born and raised in [facility] and claims that she completed up to the 11th grade in school and dropped out. She denies any legal history. She claims that she has not worked in over 20 years and is currently unemployed. She is currently supported by her fianc and lives with him and her son in a house and has 3 kids. MENTAL STATUS EXAM: General Appearance: Patient appears to be stated age is alert, irritable yet directable and attempts to cooperate. Patient appears to have poor hygiene and grooming. Behavior: Patient is seated without any agitated behavior. Irritable Speech: Patient's speech is fluent and nonpressured. Mood/Affect: Patient reports their mood is depressed and irritable, affect is congruent and labile. Suicidality/Homicidality: Patient denies having any homicidal ideation intent or plan. Denies any suicidal ideations intent or plan Perceptions: Patient denies any visual hallucinations and denies any auditory hallucinations Though content/process: There is no evidence of any delusional thought content and thought process is linear and goal-directed. Memory and concentration: AOX3, grossly intact for the purposes of this session. Can spell "WORLD" backwards Judgment and insight: poor/impulsive. STRENGTHS/WEAKNESSES: strength is that patient is resilient. Weakness is that patient has poor judgment and is impulsive INTELLECT: average IMPRESSIONS: Mood disorder unspecified, likely bipolar disorder depressed Cannabis use disorder Nicotine dependence PLAN: -Patient is admitted under voluntary status to [facility]HU for stabilization of psychiatric symptoms and safety. Patient signed adult voluntary form and medication consent and is placed in patient's chart. -Medications : Will start patient on Lamictal 25 mg twice a day with the plan to titrate up as needed for mood stabilization/depression. We'll also start patient on trazodone 50 mg daily at bedtime for insomnia/mood. -Ativan and Geodon PRN for agitation/aggression -Patient was counselled on substance abuse and desired to cut back on use -Patient was informed of the risks, benefits and side effects of the medication and patient verbally consented to taking the medications. Patient signed med consent form and was placed in chart. -Internal Medicine consult to perform medical evaluation and physical. -NRT - nicotine patch -SW on board for discharge planning. Encourage patient to participate in groups to work on coping skills. 02/07/20 11:53
[2020-02-07 16:09] LABS: Hemoglobin A1C 5.3 % (4.0-6.0)
[2020-02-07] MEDS: HYDROcodone/APAP 5-325MG 1 EACH TAB PO PRN ×2 (16:22→22:07)
[2020-02-07] MEDS: traZODone HCL 50 MG TAB PO SCH (21:49)
--- NOTE | 2020-02-07 23:47 | P.MDCNMH ---
History of Present Illness H&P Date: 02/07/20 Chief Complaint: Suicidal ideation Management of chronic medical conditions Ms. Horn is a 49-year-old female with a past medical history of hypertension, GERD, migraine headaches, obstructive sleep apnea presented to the abdomen with complaint of depression and suicidal ideation. Patient was feeling depressed and called the crisis hotline and was advised to come to the emergency. Patient has history of depression and was taking Prozac in the past. But currently she is off of antidepressants. Patient states that she does not have any active complaints. On review of systems denies having any fevers chills or rigors. No chest pain or palpitations. No cough or difficulty breathing. No bowel pain nausea vomiting or diarrhea. No dysuria hematuria. On reviewing the vitals patient's vitals have been stable since admission and blood pressure is under good control. She also had labs done all of which are within normal limits. UDS is positive for opiates and marijuana. Review of Systems REVIEW OF SYSTEMS: NEURO:No c/o weakness of the extremties, No facial droop, No speech abnormalities. VASCULAR: no edema HEMATOLOGIC: No history of easy bleeding and bruising . No recent infections . RESPIRATORY: No cough, No SOB, No chest discomfort. IMMUNE: No infections INTEGUMENT: no rashes OPHTHALMOLOGIC: No blurry vision and no eye discharge : No dysuria or hematuria CARDIAC: No chest pain , shortness of breath , paroxysmal nocturnal dyspnea MUSCULOSKELETAL : No Aches or pains in the joints or muscles. GI: No abdominal pain, nausea, vomiting or diarrhea Past Medical History Past Medical History: GERD/Reflux, Hypertension, Osteoarthritis (OA), Sleep Apnea/CPAP/BIPAP, Syncope Additional Past Medical History / Comment(s): Chronic back & neck pain, migraines, ascending aortic aneurysm, gastric ulcers. Episodes of light headedness and dizziness , History of Any Multi-Drug Resistant Organisms: None Reported Past Surgical History: Bariatric Surgery, Cholecystectomy, EPS, Hysterectomy, Joint Replacement, Orthopedic Surgery Additional Past Surgical History / Comment(s): NARA-EN-Y, cervical fusion C2-C5, arthroscopy left knee, left knee replacement, loop recorder insertion Past Anesthesia/Blood Transfusion Reactions: Motion Sickness Past Psychological History: Depression Smoking Status: Never smoker Past Alcohol Use History: None Reported Past Drug Use History: Marijuana - Past Family History Mother Family Medical History: Coronary Artery Disease (CAD) Additional Family Medical History / Comment(s): Mother is alive at age 68 with history of three-vessel CABG and diabetes. Father Family Medical History: Coronary Artery Disease (CAD) Additional Family Medical History / Comment(s): Father is alive at age 68 with history of three-vessel CABG. Brother(s) Family Medical History: No Reported History Additional Family Medical History / Comment(s): Patient has one brother with history of seasonal ALLERGIES. Patient does not have any sisters. Daughter(s) Family Medical History: No Reported History Additional Family Medical History / Comment(s): Patient is a total of 3 children with no major medical problems. Son(s) Family Medical History: No Reported History Medications and Allergies Home Medications Medication Instructions Recorded Confirmed Type HYDROcodone/APAP 10-325MG [[facility] 1 tab PO HS 03/13/15 02/06/20 History 10-325] Omeprazole [PriLOSEC] 20 mg PO DAILY 08/27/17 02/06/20 History Metoprolol Tartrate 25 mg PO BID 02/06/20 02/06/20 History Allergies Allergy/AdvReac Type Severity Reaction Status Date / Time aspirin AdvReac Abdominal Verified 02/06/20 16:40 Pain ciprofloxacin [From Cipro] AdvReac Nausea & Verified 02/06/20 16:40 Vomiting, SWELLING ciprofloxacin HCl AdvReac Nausea & Verified 02/06/20 16:40 [From Cipro] Vomiting, SWELLING hydromorphone HCl AdvReac VOMITING, Verified 02/06/20 16:40 [From Dilaudid] DIZZY morphine AdvReac Itching Verified 02/06/20 16:40 Physical Exam Vitals: Vital Signs Temp Pulse Pulse Resp BP BP Pulse Ox 02/07/20 08:26 80 125/84 02/07/20 06:10 97.6 F 61 16 111/73 02/06/20 20:47 98.0 F 131 H 16 140/83 02/06/20 17:02 97.2 F L 69 16 134/76 02/06/20 16:38 98.2 F 87 20 112/87 98 02/06/20 16:37 87 20 112/87 98 - Constitutional General appearance: obese - EENT Eyes: PERRLA - Respiratory Bilateraly BS positive, No wheeze or crackles - Cardiovascular Rhythm: regular - Gastrointestinal General gastrointestinal: soft - Integumentary Integumentary: normal - Musculoskeletal Musculoskeletal: gait normal Cranial Nerve Examination - Cranial Nerves Cranial Nerve II- Optic: Intact Cranial Nerve III- Oculomotor: Intact Cranial Nerve IV- Trochlear: Intact Cranial Nerve V- Trigeminal: Intact Cranial Nerve - Abducens: Intact Cranial Nerve VII- Facial: Intact Cranial Nerve VIII- Auditory: Intact Cranial Nerve IX- Glossopharyngeal: Intact Cranial Nerve X- Vagus: Intact Cranial Nerve XI- Accessory: Intact Cranial Nerve XII- Hypoglossal: Intact Results CBC & Chem 7: 02/07/20 07:47 02/07/20 07:47 Labs: Abnormal Lab Results - Last 24 Hours (Table) 02/07/20 Range/Units 07:47 HDL Cholesterol 77 H (40-60) mg/dL Assessment and Plan Assessment: ASSESSMENT Depression with suicidal ideation Hypertension GERD Osteoarthritis Chronic migraine headaches History of cervical fusion Chronic low back pain Obstructive sleep apnea Plan: Patient's blood pressure is within normal limits continue blood blood pressure medications which is metoprolol 25 mg twice daily. Continue with [facility] for management of her chronic low back pain. Protonix for her GERD. And management of depression as per primary care team. We will follow the patient on as-needed basis. Thank you for the consult.
[2020-02-08] MEDS: PANTOPRAZOLE 40 MG TABLET PO SCH (08:19)
[2020-02-08] MEDS: METOPROLOL TARTRATE 25 MG TAB PO SCH ×2 (08:19→22:04)
[2020-02-08] MEDS: lamoTRIgine 25 MG TAB PO SCH ×2 (08:19→22:03)
[2020-02-08] MEDS: NICOTINE 14MG/24HR PATCH TRANSDERM SCH (08:39)
[2020-02-08] MEDS ORDERED: hydrOXYzine PAMOATE 25 MG CAP PO PRN (09:23)
--- NOTE | 2020-02-08 09:29 | P.PN ---
Progress Note - Text Progress Note Date: 02/08/20 Interval History: Patient was seen wandering the hallways and was directable and agreeable to marty foote with caption writer in the office. Patient appeared to be speaking with other patients on the unit awaiting for group. She states that she is getting along better with other people on the unit however was asking about discharge today. She states that she feels "about the same" with regards her depression and mood and claims that she still has anger episodes. She feels that the medication is helped mildly so far. She states that she was able to sleep throughout the night on the trazodone and wants to remain on the same dose. She states that she is going to groups and try to participate as best as she can. Patient did state that she would like to have medication available as needed for anxiety. She admits to a fair appetite. At this time patient denies any suicidal or homical ideations, intent or plan. Patient denies any auditory, visual hallucinations and denies any paranoia or delusions. Patient denies any side effects from the medications and has been compliant with meds. Mental Status Exam: General Appearance: Patient appears to be stated age is alert, more directable today. Patient appears to have poor hygiene and grooming. Behavior: Patient is seated without any agitated behavior. Less irritable Speech: Patient's speech is fluent and nonpressured. Mood/Affect: Patient reports their mood is "about the same", affect is congruent Suicidality/Homicidality: Patient denies having any homicidal ideation intent or plan. Denies any suicidal ideations intent or plan Perceptions: Patient denies any visual hallucinations and denies any auditory hallucinations Though content/process: There is no evidence of any delusional thought content and thought process is linear and goal-directed. Memory and concentration: AOX3, grossly intact for the purposes of this session Judgment and insight: poor/impulsive, mildly improving. Assessment Mood disorder unspecified, likely bipolar disorder depressed Cannabis use disorder Nicotine dependence Plan: -Patient continues to meet criteria for inpatient psychiatric admission for symptom stabilization and safety. Patient has signed adult voluntary form and medication consent and was placed in patient's chart. -Medications: Increase Lamictal to 50 mg twice a day for mood stabilization/depression, continue trazodone 50 mg nightly for insomnia/mood. Added Vistaril 25 mg when necessary for anxiety. -When necessary Ativan and Geodon for agitation/aggression. -NRT - nicotine patch -SW on board for discharge planning. Encouraged the patient to participate in milieu. Likely discharge in 2-3 days.
[2020-02-08] MEDS: HYDROcodone/APAP 5-325MG 1 EACH TAB PO PRN ×2 (16:05→22:04)
[2020-02-08] MEDS: traZODone HCL 50 MG TAB PO SCH (22:04)
[2020-02-09] MEDS: lamoTRIgine 25 MG TAB PO SCH ×2 (08:51→21:55)
[2020-02-09] MEDS: PANTOPRAZOLE 40 MG TABLET PO SCH (08:51)
[2020-02-09] MEDS: METOPROLOL TARTRATE 25 MG TAB PO SCH ×2 (08:51→21:54)
--- NOTE | 2020-02-09 10:36 | P.PN ---
Progress Note - Text Progress Note Date: 02/09/20 Interval History: Patient was seen taking part in group this morning and was directable and agre eable to speak with science writer in the office. Patient appeared to be appropriate with science writer during conversation. She did appear to be in mild distress and states that she feels depressed today and was fairly tearful during the encounter. She claims that she has been thinking a lot about her son at home and how he has been "throwing parties and getting into trouble". She claims that she feels guilty for being on the unit and being away from her family at home however she does realize that she needs significant help. She claims that she did feel mildly dizzy last night before bed. She states that she was able to sleep throughout the night on the trazodone and wants to remain on the same dose. She states that she is going to groups and try to participate as best as she can. She admits to a fair appetite. At this time patient denies any suicidal or homical ideations, intent or plan. Patient denies any auditory, visual hallucinations and denies any paranoia or delusions. Patient denies any side effects from the medications and has been compliant with meds. Mental Status Exam: General Appearance: Patient appears to be stated age is alert, more directable today. Patient appears to have improving hygiene and grooming. Behavior: Patient is seated without any agitated behavior. Less irritable however is tearful and appears to be upset. Speech: Patient's speech is fluent and nonpressured. Mood/Affect: Patient reports their mood is "depressed", affect is congruent Suicidality/Homicidality: Patient denies having any homicidal ideation intent or plan. Denies any suicidal ideations intent or plan Perceptions: Patient denies any visual hallucinations and denies any auditory hallucinations Though content/process: There is no evidence of any delusional thought content and thought process is linear and goal-directed. Focused on depressive symptoms and recurring thoughts. Memory and concentration: AOX3, grossly intact for the purposes of this session Judgment and insight: poor/impulsive, mildly improving. Assessment Mood disorder unspecified, likely bipolar disorder depressed Cannabis use disorder Nicotine dependence Plan: -Patient continues to meet criteria for inpatient psychiatric admission for symptom stabilization and safety. Patient has signed adult voluntary form and medication consent and was placed in patient's chart. -Medications: Continue with Lamictal to 50 mg twice a day for mood stabilization/depression, continue trazodone 50 mg nightly for insomnia/mood. Continue with Vistaril 25 mg when necessary for anxiety. Consider adding antidepressant tomorrow depending on patient's symptoms. -When necessary Ativan and Geodon for agitation/aggression. -NRT - nicotine patch -SW on board for discharge planning. Encouraged the patient to participate in milieu. Likely discharge in 2-3 days.
[2020-02-09] MEDS: HYDROcodone/APAP 5-325MG 1 EACH TAB PO PRN ×2 (16:51→21:54)
[2020-02-09] MEDS: traZODone HCL 50 MG TAB PO SCH (21:55)
[2020-02-10] MEDS: METOPROLOL TARTRATE 25 MG TAB PO SCH ×2 (08:25→21:51)
[2020-02-10] MEDS: PANTOPRAZOLE 40 MG TABLET PO SCH (08:25)
[2020-02-10] MEDS: lamoTRIgine 25 MG TAB PO SCH ×2 (08:25→21:52)
--- NOTE | 2020-02-10 11:15 | P.PN ---
Progress Note - Text Progress Note Date: 02/10/20 Interval History: Patient was seen taking part in group this morning and was directable and agre eable to speak with ad writer in the office. Patient appeared to be appropriate with ad writer during conversation however patient continues to endorse depression and tearfulness at times. She states that she is trying to get along with others on the unit and take part in group as best as she can. She states that she has recurring thoughts about her son and feels unsafe to go home at this time. She states that she is agreeable to start the antidepressant today and claims that she still is dealing with irritability. She also endorsed having poor sleep last night and is agreeable to have her trazodone increased. He continues to endorse guilt and anxiety. She admits to a fair appetite. At this time patient denies any suicidal or homical ideations, intent or plan. Patient denies any auditory, visual hallucinations and denies any paranoia or delusions. Patient denies any side effects from the medications and has been compliant with meds. Mental Status Exam: General Appearance: Patient appears to be stated age is alert, more directable today attempts to cooperate. Patient appears to have improving hygiene and grooming. Behavior: Patient is seated without any agitated behavior. Somewhat irritable today. Speech: Patient's speech is fluent and nonpressured. Mood/Affect: Patient reports their mood is "depressed and anxious", affect is congruent Suicidality/Homicidality: Patient denies having any homicidal ideation intent or plan. Denies any suicidal ideations intent or plan Perceptions: Patient denies any visual hallucinations and denies any auditory hallucinations Though content/process: There is no evidence of any delusional thought content and thought process is linear and goal-directed. Focused on depressive symptoms and recurring thoughts. Memory and concentration: AOX3, grossly intact for the purposes of this session Judgment and insight: poor/impulsive, mildly improving. Assessment Mood disorder unspecified, likely bipolar disorder depressed Cannabis use disorder Nicotine dependence Plan: -Patient continues to meet criteria for inpatient psychiatric admission for symptom stabilization and safety. Patient has signed adult voluntary form and medication consent and was placed in patient's chart. -Medications: Increased 100 mg daily +50 mg daily at bedtime for mood stabilization/depression, increased trazodone 100 mg nightly for insomnia/mood. Continue with Vistaril 25 mg when necessary for anxiety. Added Zoloft 50 mg daily for mood/anxiety. -When necessary Ativan and Geodon for agitation/aggression. -NRT - nicotine patch -SW on board for discharge planning. Encouraged the patient to participate in milieu. Likely discharge back home tomorrow.
[2020-02-10] MEDS: SERTRALINE 50 MG TAB PO SCH (11:16)
[2020-02-10] MEDS ORDERED: traZODone HCL 100 MG TAB PO SCH (21:00)
[2020-02-10] MEDS: HYDROcodone/APAP 5-325MG 1 EACH TAB PO PRN (21:51)
[2020-02-11] MEDS: METOPROLOL TARTRATE 25 MG TAB PO SCH ×2 (08:35→21:39)
[2020-02-11] MEDS: lamoTRIgine 100 MG TAB PO SCH (08:35)
[2020-02-11] MEDS: SERTRALINE 50 MG TAB PO SCH ×2 (08:35→21:39)
[2020-02-11] MEDS: PANTOPRAZOLE 40 MG TABLET PO SCH (08:35)
[2020-02-11] MEDS ORDERED: traZODone HCL 100 MG TAB PO PRN (11:30)
--- NOTE | 2020-02-11 11:40 | P.PN ---
Subjective Progress Note Date: 02/11/20 The patient was seen in the chart was reviewed. The patient continues to report feeling depressed and reports frequent crying spells. She remains preoccupied with problems at her home with her 15-year-old son. The patient reports compliance with her medications but reports increased sedation and GI upset Clarke the Zoloft was started. The patient reports that she does not feel ready for discharge today. The patient reports fair sleep last night and refused her trazodone but is requesting that trazodone be changed to as needed. The patient reports compliance with the milieu therapy and attempts to participate in the activities on the unit. She states that she has recurring thoughts about her son and feels unsafe to go home at this time. She states that she is agreeable to start the antidepressant today and claims that she still is dealing with irritability. She continues to endorse guilt and anxiety. She admits to a fair appetite. At this time patient denies any suicidal or homicidal ideations, intent or plan. Patient denies any auditory, visual hallucinations and denies any paranoia or delusions. Objective - Vital Signs Vital signs: Vital Signs Temp 97.9 F 02/11/20 06:06 Pulse 79 02/11/20 08:38 Resp 16 02/11/20 06:06 BP 126/95 02/11/20 08:38 Pulse Ox 98 02/10/20 06:37 - Exam Mental Status Exam: General Appearance: Patient appears to be stated age is alert, more directable today attempts to cooperate. Patient appears to have fair hygiene and grooming. Behavior: Patient is seated without any agitated behavior. Speech: Patient's speech is fluent and nonpressured. Mood/Affect: Patient reports their mood is "not so good", affect is congruent Suicidality/Homicidality: Patient denies having any homicidal ideation intent or plan. Denies any suicidal ideations intent or plan Perceptions: Patient denies any visual hallucinations and denies any auditory hallucinations Though content/process: There is no evidence of any delusional thought content and thought process is linear and goal-directed. Focused on depressive symptoms and recurring thoughts. Memory and concentration: AOX3, grossly intact for the purposes of this session Judgment and insight: poor/impulsive, mildly improving. - Labs CBC & Chem 7: 02/07/20 07:47 02/07/20 07:47 Assessment and Plan Assessment: Assessment Mood disorder unspecified, likely bipolar disorder depressed Cannabis use disorder Nicotine dependence Plan: Plan: -Patient continues to meet criteria for inpatient psychiatric admission for symptom stabilization and safety. Patient has signed adult voluntary form and medication consent and was placed in patient's chart. -Medications: Continue Lamictal 100 mg daily +50 mg daily at bedtime for mood stabilization/depression. Change trazodone 100 mg nightly for insomnia/mood as when necessary. Continue with Vistaril 25 mg when necessary for anxiety. Change Zoloft 50 mg at bedtime for mood/anxiety. -When necessary Ativan and Geodon for agitation/aggression. -NRT - nicotine patch -SW on board for discharge planning. Encouraged the patient to participate in milieu. Likely discharge back home 1-2 days.
[2020-02-11] MEDS: lamoTRIgine 25 MG TAB PO SCH (21:39)
[2020-02-11] MEDS: HYDROcodone/APAP 5-325MG 1 EACH TAB PO PRN (21:41)
[2020-02-12] MEDS: PANTOPRAZOLE 40 MG TABLET PO SCH (08:37)
[2020-02-12] MEDS: METOPROLOL TARTRATE 25 MG TAB PO SCH ×2 (08:37→21:48)
[2020-02-12] MEDS: lamoTRIgine 100 MG TAB PO SCH (08:37)
--- NOTE | 2020-02-12 11:13 | P.PN ---
Progress Note - Text Interval history: The patient is found in the hallway she follows me to an interview room. She states that she was admitted with feelings of depression and suicidal thoughts and feelings of anger. She reports that those have subsided. She is hoping to be discharged Friday. The only concern she had was she felt that the Zoloft was causing excessive sleepiness and yesterday the dose was changed to bedtime. She has been attending groups. She states appetite is decreased but that has been a chronic finding ever since her bariatric surgery. Her fianc will be visiting this evening. Mental status exam: The patient is an overweight female appearing her stated age. She is dressed in her own clothing. Eye contact is appropriate. She is pleasant cooperative easily directed. Speech is fluent spontaneous nonpressured. She demonstrates no tangential thinking loose associations or flight of ideas. She reports no suicidal or homicidal ideation intent or plan she reports no auditory or visual hallucinations or any specific delusions there is no observed evidence of psychosis. Insight and judgment appear to be im proving. She demonstrates no verbal or physical aggressiveness. Plan: The patient will continue on her current psychotropic medications. The Zoloft has been changed to bedtime we will see if this causes less daytime fatigue. She will continue participating in the milieu we will monitor for safety. It appears that she is clinically stabilizing. Vital signs reviewed.
[2020-02-12] MEDS: SERTRALINE 50 MG TAB PO SCH (21:48)
[2020-02-12] MEDS: lamoTRIgine 25 MG TAB PO SCH (21:48)
--- NOTE | 2020-02-13 09:21 | P.PN ---
Progress Note - Text Interval history: The patient is found at the front desk manager she follows me to an interview room. She indicates her mood is good. She requests to be discharged home today. She describes feeling overly tired because of the Lamictal dosing. Discussed switching the Lamictal dosing to 50 mg daily and 100 mg at bedtime and she is agreeable. She has been attending groups. She indicates she slept last night staff reported she slept 4 hours. No behavioral disturbance reported. Mental status exam: The patient is an overweight female, she presents with adequate hygiene grooming she is pleasant cooperative and easily directed. Eye contact is appropriate speech is fluent spontaneous nonpressured. No evidence of hypomania joon or psychosis. She is reporting no auditory or visual hallucinations or any specific delusions. She demonstrates no verbal or physical aggressiveness she demonstrates no involuntary repetitive movements. Affect is brighter. She denies having any hopelessness thinking she reports no suicidal ideation intent or plan or homicidal ideation intent or plan. Mental status exam: The patient will continue on her current medications we will change the Lamictal dosing as noted above. It appears that she is clinically stabilizing and will be appropriate for discharge as soon as tomorrow. Vital si gns reviewed. She is encouraged to continue participating in the milieu.
[2020-02-13] MEDS: PANTOPRAZOLE 40 MG TABLET PO SCH (09:26)
[2020-02-13] MEDS: METOPROLOL TARTRATE 25 MG TAB PO SCH ×2 (09:26→21:19)
[2020-02-13] MEDS: lamoTRIgine 25 MG TAB PO SCH (09:27)
[2020-02-13] MEDS: lamoTRIgine 100 MG TAB PO SCH (09:37)
[2020-02-13] MEDS ORDERED: lamoTRIgine 100 MG TAB PO SCH (21:00)
[2020-02-13] MEDS: SERTRALINE 50 MG TAB PO SCH (21:19)
[2020-02-14 06:52] VITALS: BP 132/95; PULSE 83; RESP 18; TEMP 98
--- NOTE | 2020-02-14 09:17 | P.DS ---
Providers Date of admission: 02/06/20 16:28 Expected date of discharge: 02/14/20 Attending physician: Cuco Silveira MD Consults: 02/06/20 16:49 Consult Physician Routine Consulting Provider: Itzel Cowart Consult Reason/Comments: medical management Do you want consulting provider notified?: Yes Primary care physician: Yaz Edwards - Discharge Diagnosis(es) (1) Bipolar disorder current episode depressed Current Visit: Yes Status: Acute Priority: High (2) Cannabis use disorder, mild, abuse Current Visit: Yes Status: Acute Priority: Medium (3) Nicotine dependence Current Visit: Yes Status: Acute Priority: Low Hospital Course: Admission HPI: Patient is a 49-year-old female who is currently engaged to her fianc and lives at home with her son in a house as 3 other kids and is currently supported by her [employer] job. Patient presented to the hospital over the wee kend for "anger issues, depression and suicidal ideations" according to ER report. Patient apparently called a crisis line who advised her to come in to the hospital. Patient's UDS was positive for opiates and marijuana. Patient endorsed depression for years and chronic suicidal ideations. She states that she had been taking Prozac for approximately one year however stopped 1 year ago. She states that on Friday "my brain just snapped" and describes irritability and anger. She claims that she took 3 pills in an overdose attempt however does not know what pills she took however became scared and tearful and stopped. She also claims that she "tore up my yard with my truck". She did not identify any specific triggers when asked however patient did begin speaking about her son being a ongoing stressor as he is stealing from her and her fianc and also using drugs and drinking at the age of [age] years old. She states that she does have some guilt and problems with concentration and also endorses poor sleep sleeping approximately 2-3 hours a night. She claims that she does see shadows at times and feels that "like bugs are crawling on me". She does endorse a vague history of what appeared to be manic-type episodes where she feels she has an increase in energy and decreased need for sleep. Patient denies any suicidal or homicidal ideations intent or plan. At this time patient denies any auditory or visual hallucinations. Patient admits to using marijuana daily smoking 2 joints. Patient also endorses smoking cigarettes. She denies any other recreational drug use including alcohol. Hospital course: Upon admission to the unit patient was initially labile, irritable and depressed. Patient was however directable and agreeable to commence treatment. Patient got along well with other patients on the unit and followed unit protocol. Patient was compliant with the medications and denied any side effects throughout hospital course. Patient was started on Lamictal and titrated up to a dose of 50 mg every morning +100 mg daily at bedtime for mood stabilization/depression, trazodone 100 mg daily at bedtime when necessary for insomnia, and Zoloft 50 mg daily at bedtime for mood/anxiety. Patient spoke of her stressors and engaged in therapy both group and individual. Patient was also seen by medical team for history and physical exam. Throughout the course of the hospitalization patient gradually improved with regards to mood lability, irritability, anxiety, sleep and became future oriented with improved insight and judgment. On the day of discharge patient denied any suicidal or homicidal ideations intent or plan denied any auditory or visual hallucinations. Patient endorsed wanting to live for her future and her family. Patient denied any paranoia and did not endorse any delusions. Patient does have a significant history of substance abuse however was counseled on abstaining from all substances including alcohol and marijuana. Patient was offered however declined inpatient substance-abuse rehab and wanted to cut back use on her own. Patient was also counseled on the medications and need for regular compliance and was encouraged to follow-up with their outpatient appointment for mental health and also for primary care. Prior to discharge a family meeting will be arranged by social media marketing specialist to answer any questions and ensure safety upon discharge. Mental status exam: General Appearance: Patient appears to be stated age is alert, pleasant, and cooperative. Patient is in no acute distress and has fair hygiene and grooming Behavior: Patient is calmly seated without any agitated behavior. Appropriate. Speech: Patient's speech is fluent and nonpressured. Mood/Affect: Patient reports their mood is "much better", affect is congruent an d euthymic. Suicidality/Homicidality: Patient denies having any suicidal or homicidal ideation intent or plan. Perceptions: Patient denies any auditory or visual hallucinations. Though content/process: There is no evidence of any delusional thought content and thought process is linear and goal-directed. more future oriented Memory and concentration: AOX3, grossly intact for the purposes of this session. Can spell "WORLD" backwards correctly. Judgment and insight: Improved with guarded prognosis Impression: Bipolar disorder, currently depressed Cannabis use disorder, mild Nicotine dependence Plan: -Continue with discharge today as patient has improved and stabilized psychiatrically and is not currently an imminent threat to herself and/or others. -Continue medications: Zoloft 50 mg daily at bedtime for mood/anxiety, trazodone 100 mg daily at bedtime when necessary for insomnia/mood, Lamictal 50 mg every morning +100 mg daily at bedtime for mood stabilization/depression. Patient denied any rashes on her skin and was told to monitor for any rashes and seek urgent medical attention if she does notice any, patient verbally understood and agreed. -Patient was counseled on the need for medication compliance and appropriate follow-up at mental health and also primary care for medical issues. Patient verbalized understanding and agreed. -Social work to arrange for and conduct family meeting to ensure safety upon discharge and answer any questions/concerns. Social work also to arrange for patients follow up appointments with [facility] for psychiatric care along with follow up with primary care provider. -Patient counseled on abstaining from recreational drugs and marijuana and alcohol. Was informed/educated on the adverse effects on their physical and mental health. Patient verbally agreed and understood. Patient was offered substance abuse treatment however declined at this time. -Patient was instructed to return to the hospital or seek immediate medical care if their psychiatric or medical symptoms do worsen or reoccur. Allergies Allergy/AdvReac Type Severity Reaction Status Date / Time aspirin AdvReac Abdominal Verified 02/06/20 16:40 Pain ciprofloxacin [From Cipro] AdvReac Nausea & Verified 02/06/20 16:40 Vomiting, SWELLING ciprofloxacin HCl AdvReac Nausea & Verified 02/06/20 16:40 [From Cipro] Vomiting, SWELLING hydromorphone HCl AdvReac VOMITING, Verified 02/06/20 16:40 [From Dilaudid] DIZZY morphine AdvReac Itching Verified 02/06/20 16:40 Laboratory Results WBC 4.0 k/uL (3.8-10.6) 02/07/20 07:47 RBC 5.05 m/uL (3.80-5.40) 02/07/20 07:47 Hgb 13.5 gm/dL (11.4-16.0) 02/07/20 07:47 Hct 43.1 % (34.0-46.0) 02/07/20 07:47 MCV 85.2 fL (80.0-100.0) 02/07/20 07:47 MCH 26.8 pg (25.0-35.0) 02/07/20 07:47 MCHC 31.5 g/dL (31.0-37.0) 02/07/20 07:47 RDW 14.5 % (11.5-15.5) 02/07/20 07:47 Plt Count 170 k/uL (150-450) 02/07/20 07:47 Neutrophils % 45 % 02/07/20 07:47 Lymphocytes % 39 % 02/07/20 07:47 Monocytes % 8 % 02/07/20 07:47 Eosinophils % 3 % 02/07/20 07:47 Basophils % 1 % 02/07/20 07:47 Neutrophils # 1.8 k/uL (1.3-7.7) 02/07/20 07:47 Lymphocytes # 1.5 k/uL (1.0-4.8) 02/07/20 07:47 Monocytes # 0.3 k/uL (0-1.0) 02/07/20 07:47 Eosinophils # 0.1 k/uL (0-0.7) 02/07/20 07:47 Basophils # 0.0 k/uL (0-0.2) 02/07/20 07:47 Sodium 140 mmol/L (137-145) 02/07/20 07:47 Potassium 3.8 mmol/L (3.5-5.1) 02/07/20 07:47 Chloride 104 mmol/L (98-107) 02/07/20 07:47 Carbon Dioxide 29 mmol/L (22-30) 02/07/20 07:47 Anion Gap 7 mmol/L 02/07/20 07:47 BUN 12 mg/dL (7-17) 02/07/20 07:47 Creatinine 0.80 mg/dL (0.52-1.04) 02/07/20 07:47 Est GFR (CKD-EPI)AfAm >90 (>60 ml/min/1.73 sqM) 02/07/20 07:47 Est GFR (CKD-EPI)NonAf 88 (>60 ml/min/1.73 sqM) 02/07/20 07:47 Glucose 75 mg/dL (74-99) 02/07/20 07:[address] Glu mg/dL 105 02/07/20 07:47 Hemoglobin A1c 5.3 % (4.0-6.0) 02/07/20 07:47 Calcium 9.6 mg/dL (8.4-10.2) 02/07/20 07:47 Total Bilirubin 0.6 mg/dL (0.2-1.3) 02/07/20 07:47 AST 21 U/L (14-36) 02/07/20 07:47 ALT 11 U/L (4-34) 02/07/20 07:47 Alkaline Phosphatase 90 U/L (38-126) 02/07/20 07:47 Total Protein 6.8 g/dL (6.3-8.2) 02/07/20 07:47 Albumin 3.9 g/dL (3.5-5.0) 02/07/20 07:47 Triglycerides 76 mg/dL (<150) 02/07/20 07:47 Cholesterol 156 mg/dL (<200) 02/07/20 07:47 LDL Cholesterol, Calc 64 mg/dL (0-99) 02/07/20 07:47 HDL Cholesterol 77 mg/dL (40-60) H 02/07/20 07:47 TSH 2.030 mIU/L (0.465-4.680) 02/07/20 07:47 Urine Opiates Screen Detected (NotDetected) H 02/06/20 09:50 Ur Oxycodone Screen Not Detected (NotDetected) 02/06/20 09:50 Urine Methadone Screen Not Detected (NotDetected) 02/06/20 09:50 Ur Propoxyphene Screen Not Detected (NotDetected) 02/06/20 09:50 Ur Barbiturates Screen Not Detected (NotDetected) 02/06/20 09:50 U Tricyclic Antidepress Not Detected (NotDetected) 02/06/20 09:50 Ur Phencyclidine Scrn Not Detected (NotDetected) 02/06/20 09:50 Ur Amphetamines Screen Not Detected (NotDetected) 02/06/20 09:50 U Methamphetamines Scrn Not Detected (NotDetected) 02/06/20 09:50 U Benzodiazepines Scrn Not Detected (NotDetected) 02/06/20 09:50 Urine Cocaine Screen Not Detected (NotDetected) 02/06/20 09:50 U Marijuana (THC) Screen Detected (NotDetected) H 02/06/20 09:50 Vital Signs Temp 98.0 F 02/14/20 06:51 Pulse 83 02/14/20 06:51 Resp 18 02/14/20 06:51 BP 132/95 02/14/20 06:51 Pulse Ox 95 02/14/20 06:51 Intake & Output 02/13/20 02/14/20 02/14/20 18:59 06:59 18:59 Weight 81.4 kg Patient Condition at Discharge: Stable Plan - Discharge Summary New Discharge Prescriptions: New traZODone HCL [Desyrel] 100 mg PO HS PRN 30 Days tab PRN Reason: Insomnia lamoTRIgine [LaMICtal] 50 mg PO DAILY 30 Days tab lamoTRIgine [LaMICtal] 100 mg PO HS 30 Days tab Acetaminophen Tab [Tylenol] 650 mg PO Q4HR PRN tab PRN Reason: Pain/Discomfort Sertraline [Zoloft] 50 mg PO HS 30 Days tab Continue HYDROcodone/APAP 10-325MG [[place] 10-325] 1 tab PO HS Omeprazole [PriLOSEC] 20 mg PO DAILY Metoprolol Tartrate 25 mg PO BID Discharge Medication List HYDROcodone/APAP 10-325MG [[place] 10-325] 1 tab PO HS 03/13/15 [History] Omeprazole [PriLOSEC] 20 mg PO DAILY 08/27/17 [History] Metoprolol Tartrate 25 mg PO BID 02/06/20 [History] Acetaminophen Tab [Tylenol] 650 mg PO Q4HR PRN tab 02/14/20 [Rx] Sertraline [Zoloft] 50 mg PO HS 30 Days tab 02/14/20 [Rx] lamoTRIgine [LaMICtal] 50 mg PO DAILY 30 Days tab 02/14/20 [Rx] lamoTRIgine [LaMICtal] 100 mg PO HS 30 Days tab 02/14/20 [Rx] traZODone HCL [Desyrel] 100 mg PO HS PRN 30 Days tab 02/14/20 [Rx] Follow up Appointment(s)/Referral(s): [facility]Outside[facility] - 1 Week (02/16/20 at 11 am with Yaz Moon MD [Primary Care Provider] - 1-2 days Activity/Diet/Wound Care/Special Instructions: Activity and diet as tolerated. Avoid the use of street drugs and alcohol. Take all medications as prescribed. When you are in need of refills on your medications please contact your medical provider and/or outpatient psychiatrist to have this done. Please go to scheduled outpatient appointment for aftercare treatment. If symptoms return or become worse, call the crisis line at and/or go to the nearest emergency room for evaluation. Discharge Disposition: HOME SELF-CARE
[2020-02-14] MEDS: PANTOPRAZOLE 40 MG TABLET PO SCH (09:29)
[2020-02-14] MEDS: lamoTRIgine 25 MG TAB PO SCH (09:29)
[2020-02-14] MEDS: METOPROLOL TARTRATE 25 MG TAB PO SCH (09:29)
== END 2020-02-14 10:45 | disposition home or self-care (01) | DRG 885 ==
LOC: EC 09:35 → 3MHU 16:28
PROVIDERS: ADMIT Psychiatry & Neurology Psychiatry; ATTEND Psychiatry & Neurology Psychiatry
DX: F31.30 Bipolar disorder, current episode depressed, mild or moderate severity, unspecified (principal); R45.851 Suicidal ideations; F17.210 Nicotine dependence, cigarettes, uncomplicated; F41.9 Anxiety disorder, unspecified; G47.00 Insomnia, unspecified; I10 Essential (primary) hypertension; F12.10 Cannabis abuse, uncomplicated; Z71.51 Drug abuse counseling and surveillance of drug abuser; Z79.899 Other long term (current) drug therapy; G43.909 Migraine, unspecified, not intractable, without status migrainosus; Z82.49 Family history of ischemic heart disease and other diseases of the circulatory system; Z83.3 Family history of diabetes mellitus; Z87.11 Personal history of peptic ulcer disease; Z90.710 Acquired absence of both cervix and uterus; Z96.652 Presence of left artificial knee joint; Z90.49 Acquired absence of other specified parts of digestive tract; G89.29 Other chronic pain; M54.2 Cervicalgia; Z98.1 Arthrodesis status; M54.9 Dorsalgia, unspecified; I71.4 Abdominal aortic aneurysm, without rupture
CPT/HCPCS: 80053; 80061; 80306; 82075; 83036; 84443; 85025; 99285

== ENCOUNTER 2020-12-20 20:49 | Emergency (ER) | payer BC, OTHER ==
[2020-12-20 21:01] VITALS: BP 165/94; PULSE 66; RESP 18; TEMP 97.9
[2020-12-20] MEDS ORDERED: KETOROLAC 15 MG/ML 1 ML VIAL IM STA (21:47)
[2020-12-20] MEDS ORDERED: HYDROcodone/APAP 7.5-325MG 1 EACH TAB PO ONE (21:47)
--- NOTE | 2020-12-20 21:47 | ED ---
ENT HPI - General Chief complaint: Dental/Oral Stated complaint: Dental Pain Time Seen by Provider: 12/20/20 21:20 Source: patient Mode of arrival: ambulatory Limitations: no limitations - History of Present Illness Initial comments: Patient is a 50-year-old female presenting to the emergency Department with complaints of right-sided dental pain for the last 3 days. Patient states she went to urgent care 3 days ago for dental pain, they started her on penicillin. Patient states she went back there today because she continues to be in pain however they stated that there is nothing else that they can do, she is to follow-up with her dentist. Patient states she has been attempting to get an appointment with her dentist but has not been able to at least for a week. She states that she has been taking Tylenol but it has not been helping with the pain. She denies any fevers or chills, no facial swelling, no nausea or vomiting. She has no further complaints at this time. - Related Data Home Medications Medication Instructions Recorded Confirmed HYDROcodone/APAP 10-325MG [[place] 1 tab PO HS 03/13/15 02/06/20 10-325] Omeprazole [PriLOSEC] 20 mg PO DAILY 08/27/17 02/06/20 Metoprolol Tartrate 25 mg PO BID 02/06/20 02/06/20 Previous Rx's Medication Instructions Recorded Acetaminophen Tab [Tylenol] 650 mg PO Q4HR PRN tab 02/14/20 Sertraline [Zoloft] 50 mg PO HS 30 Days tab 02/14/20 lamoTRIgine [LaMICtal] 50 mg PO DAILY 30 Days tab 02/14/20 lamoTRIgine [LaMICtal] 100 mg PO HS 30 Days tab 02/14/20 traZODone HCL [Desyrel] 100 mg PO HS PRN 30 Days tab 02/14/20 HYDROcodone/APAP 5-325MG [[place] 1 tab PO Q6HR PRN #12 tab 12/20/20 5-325] Allergies Allergy/AdvReac Type Severity Reaction Status Date / Time aspirin AdvReac Abdominal Verified 12/20/20 21:01 Pain ciprofloxacin [From Cipro] AdvReac Nausea & Verified 12/20/20 21:01 Vomiting, SWELLING ciprofloxacin HCl AdvReac Nausea & Verified 12/20/20 21:01 [From Cipro] Vomiting, SWELLING hydromorphone HCl AdvReac VOMITING, Verified 12/20/20 21:01 [From Dilaudid] DIZZY morphine AdvReac Itching Verified 12/20/20 21:01 Review of Systems ROS Statement: Those systems with pertinent positive or pertinent negative responses have been documented in the HPI. ROS Other: All systems not noted in ROS Statement are negative. Past Medical History Past Medical History: GERD/Reflux, Hypertension, Osteoarthritis (OA), Sleep Apnea/CPAP/BIPAP, Syncope Additional Past Medical History / Comment(s): Chronic back & neck pain, migraines, ascending aortic aneurysm, gastric ulcers. Episodes of light headedness and dizziness , History of Any Multi-Drug Resistant Organisms: None Reported Past Surgical History: Bariatric Surgery, Cholecystectomy, EPS, Hysterectomy, Joint Replacement, Orthopedic Surgery Additional Past Surgical History / Comment(s): NARA-EN-Y, cervical fusion C2-C5, arthroscopy left knee, left knee replacement, loop recorder insertion Past Anesthesia/Blood Transfusion Reactions: Motion Sickness Past Psychological History: Depression Smoking Status: Never smoker Past Alcohol Use History: None Reported Past Drug Use History: Marijuana - Past Family History Mother Family Medical History: Coronary Artery Disease (CAD) Additional Family Medical History / Comment(s): Mother is alive at age 68 with history of three-vessel CABG and diabetes. Father Family Medical History: Coronary Artery Disease (CAD) Additional Family Medical History / Comment(s): Father is alive at age 68 with history of three-vessel CABG. Brother(s) Family Medical History: No Reported History Additional Family Medical History / Comment(s): Patient has one brother with history of seasonal ALLERGIES. Patient does not have any sisters. Daughter(s) Family Medical History: No Reported History Additional Family Medical History / Comment(s): Patient is a total of 3 children with no major medical problems. Son(s) Family Medical History: No Reported History General Exam - General Exam Comments Initial Comments: GENERAL: Patient is well-developed and well-nourished. Patient is nontoxic and in no acute distress. HEAD: Atraumatic, normocephalic. EYES: Pupils equal round and reactive to light, extraocular movements intact, sclera anicteric, conjunctiva are normal. Eyelids were unremarkable. ENT: TMs normal, nares patent, oropharynx clear without exudates. Moist mucous membranes. Patient has numerous dental caries, fractured teeth and decayed teeth. No visible dental abscess seen in the right upper or lower side. She has pain on both the upper right teeth and lower right teeth. NECK: Normal range of motion, supple without lymphadenopathy or JVD. LUNGS: Unlabored respirations. Breath sounds clear to auscultation bilaterally and equal. No wheezes rales or rhonchi. HEART: Regular rate and rhythm without murmurs, rubs or gallops. ABDOMEN: Soft, nontender, normoactive bowel sounds. No guarding, no rebound. No masses appreciated. : Deferred MUSCULOSKELETAL: Normal extremities with adequate strength and normal range of motion, no pitting or edema. No clubbing or cyanosis. NEUROLOGICAL: Patient is alert and oriented x 3. Motor and sensory are also intact. Cranial nerves II through XII grossly intact. Symmetrical smile. Normal speech, normal gait. PSYCH: Normal mood, normal affect. SKIN: Warm, Dry, normal turgor, no rashes or lesions noted. Limitations: no limitations Course Vital Signs 12/20/20 20:59 Temperature 97.9 F Pulse Rate 66 Respiratory 18 Rate Blood Pressure 165/94 O2 Sat by Pulse 100 Oximetry Medical Decision Making - Medical Decision Making Patient is a 50-year-old female here for right-sided dental pain has been increasing over the past 3 days. She was started on penicillin 3 days ago by urgent care. Her vital signs are stable, no visible dental abscess seen. Patient will be given pain control here, recommended continuing with her penicillin. She is a follow-up with her dentist as soon as possible. Patient is stable for discharge. Patient is in agreement with this plan of care. Return parameters were discussed with the patient and they verbalized understanding. Case discussed with Dr. Peterson. Disposition Clinical Impression: Dental caries, Fracture of tooth, Toothache Disposition: HOME SELF-CARE Condition: Stable Instructions (If sedation given, give patient instructions): Toothache (ED) Additional Instructions: Please return to the Emergency Department if symptoms worsen or any other concerns. Continue with your already prescribed penicillin. May take Tylenol for pain, [place] for more severe pain. Follow-up with your dentist. Prescriptions: HYDROcodone/APAP 5-325MG [[place] 5-325] 1 tab PO Q6HR PRN #12 tab PRN Reason: Pain Is patient prescribed a controlled substance at d/c from ED?: Yes When asked, does pt state using other controlled substances?: No If prescribed controlled substance>3 days was MAPS reviewed?: Prescribed <3 Days If opioid is for acute pain is fill amount 7 days or less?: Yes If Rx opioid, was Start Talking consent form obtained?: Yes Referrals: Yaz Edwards MD [Primary Care Provider] - 1-2 days Time of Disposition: 21:47
== END 2020-12-20 22:02 | disposition home or self-care (01) ==
LOC: EC 20:49
DX: S02.5XXA Fracture of tooth (traumatic), initial encounter for closed fracture (principal); K02.9 Dental caries, unspecified; K21.9 Gastro-esophageal reflux disease without esophagitis; M19.90 Unspecified osteoarthritis, unspecified site; I10 Essential (primary) hypertension; G89.29 Other chronic pain; M54.2 Cervicalgia; G43.909 Migraine, unspecified, not intractable, without status migrainosus; G47.30 Sleep apnea, unspecified; F32.9 Major depressive disorder, single episode, unspecified; F12.90 Cannabis use, unspecified, uncomplicated; Z87.11 Personal history of peptic ulcer disease; Z79.899 Other long term (current) drug therapy; X58.XXXA Exposure to other specified factors, initial encounter
CPT/HCPCS: 99282; 96372; J1885

== ENCOUNTER 2021-05-28 10:40 | Emergency (ER) | payer BC, OTHER ==
--- NOTE | 2021-05-28 13:27 | XR ---
EXAMINATION TYPE: XR chest 2V DATE OF EXAM: 05/28/2021 COMPARISON: 06/08/2019 INDICATION: Cough congestion headache TECHNIQUE: Frontal and lateral views of the chest are obtained. FINDINGS: The heart size is normal. The pulmonary vasculature is normal. No suspicious infiltrates or consolidations are. Patient's known 1.4 cm granuloma in left upper lung roblero again evident.. Loop recorder overlies the heart IMPRESSION: 1. No acute pulmonary process.
[2021-05-28] MEDS ORDERED: KETOROLAC 15 MG/ML 1 ML VIAL IVP STA (15:47)
[2021-05-28] MEDS ORDERED: IPRATROPIUM-ALBUTEROL 3 ML NEB INHALATION STA (15:47)
--- NOTE | 2021-05-28 15:55 | ED ---
General Adult HPI - General Chief complaint: Upper Respiratory Infection Stated complaint: fever and cough Time Seen by Provider: 05/28/21 15:09 Source: patient, RN notes reviewed Mode of arrival: ambulatory Limitations: no limitations - History of Present Illness Initial comments: 51-year-old female presents to the emergency department with complaints of 1 week history of nonproductive cough. States cough is worse at night interrupting her sleep. Reports symptoms have not been alleviated by taking Tylenol and Robitussin. States she was COVID tested the day after her symptoms began and it was negative. Does report contact with a Covid-positive individual approximately 3 weeks ago. Patient denies fever, chills, chest pain, difficulty breathing, abdominal pain, nausea, vomiting, diarrhea. - Related Data Home Medications Medication Instructions Recorded Confirmed Omeprazole [PriLOSEC] 20 mg PO DAILY 08/27/17 05/28/21 Metoprolol Tartrate 25 mg PO BID 02/06/20 05/28/21 Acetaminophen Tab [Tylenol] 1,000 - 2,000 mg PO Q6H PRN 05/28/21 05/28/21 Sertraline [Zoloft] 100 mg PO DAILY 05/28/21 05/28/21 guaiFENesin-DM 100-10MG/5ML 1 dose PO Q2-3H PRN 05/28/21 05/28/21 [Robitussin DM] Previous Rx's Medication Instructions Recorded lamoTRIgine [LaMICtal] 50 mg PO DAILY 30 Days tab 02/14/20 lamoTRIgine [LaMICtal] 100 mg PO HS 30 Days tab 02/14/20 traZODone HCL [Desyrel] 100 mg PO HS PRN 30 Days tab 02/14/20 Albuterol Sulfate [Proair 1 puff PO Q6HR PRN #1 each 05/28/21 Respiclick] Benzonatate [Tessalon Perles] 100 mg PO TID PRN #15 cap 05/28/21 Allergies Allergy/AdvReac Type Severity Reaction Status Date / Time aspirin AdvReac Abdominal Verified 05/28/21 16:38 Pain ciprofloxacin [From Cipro] AdvReac Nausea & Verified 05/28/21 16:38 Vomiting, SWELLING ciprofloxacin HCl AdvReac Nausea & Verified 05/28/21 16:38 [From Cipro] Vomiting, SWELLING hydromorphone HCl AdvReac VOMITING, Verified 05/28/21 16:38 [From Dilaudid] DIZZY morphine AdvReac Itching Verified 05/28/21 16:38 Review of Systems ROS Statement: Those systems with pertinent positive or pertinent negative responses have been documented in the HPI. ROS Other: All systems not noted in ROS Statement are negative. Past Medical History Past Medical History: GERD/Reflux, Hypertension, Osteoarthritis (OA), Sleep Apnea/CPAP/BIPAP, Syncope Additional Past Medical History / Comment(s): Chronic back & neck pain, migraines, ascending aortic aneurysm, gastric ulcers. Episodes of light headedness and dizziness , History of Any Multi-Drug Resistant Organisms: None Reported Past Surgical History: Bariatric Surgery, Cholecystectomy, EPS, Hysterectomy, Joint Replacement, Orthopedic Surgery Additional Past Surgical History / Comment(s): NARA-EN-Y, cervical fusion C2-C5, arthroscopy left knee, left knee replacement, loop recorder insertion Past Anesthesia/Blood Transfusion Reactions: Motion Sickness Past Psychological History: Depression Smoking Status: Never smoker Past Alcohol Use History: None Reported Past Drug Use History: Marijuana - Past Family History Mother Family Medical History: Coronary Artery Disease (CAD) Additional Family Medical History / Comment(s): Mother is alive at age 68 with history of three-vessel CABG and diabetes. Father Family Medical History: Coronary Artery Disease (CAD) Additional Family Medical History / Comment(s): Father is alive at age 68 with history of three-vessel CABG. Brother(s) Family Medical History: No Reported History Additional Family Medical History / Comment(s): Patient has one brother with history of seasonal ALLERGIES. Patient does not have any sisters. Daughter(s) Family Medical History: No Reported History Additional Family Medical History / Comment(s): Patient is a total of 3 children with no major medical problems. Son(s) Family Medical History: No Reported History General Exam Limitations: no limitations (This is a well-developed, well-nourished female in no acute distress. Initial temperature 98.2, pulse 75, respirations 20, pressure 146/86, pulse ox 98% on room air.) General appearance: alert, in no apparent distress Head exam: Present: atraumatic, normocephalic, normal inspection ENT exam: Present: normal exam, normal oropharynx, mucous membranes moist. Absent: mucous membranes dry Neck exam: Present: normal inspection. Absent: tenderness, meningismus, lymphadenopathy Respiratory exam: Present: wheezes (Faint scattered wheezes noted left upper lobe). Absent: respiratory distress, rales, rhonchi, stridor, chest wall tenderness, accessory muscle use Cardiovascular Exam: Present: regular rate, normal rhythm, normal heart sounds. Absent: systolic murmur, diastolic murmur, rubs, gallop, clicks Neurological exam: Present: alert, oriented X3, CN II-XII intact Psychiatric exam: Present: normal affect, normal mood Skin exam: Present: warm, dry, intact, normal color. Absent: rash Course Vital Signs 05/28/21 05/28/21 05/28/21 11:41 15:03 16:02 Temperature 98.2 F Pulse Rate 75 62 68 Respiratory 20 18 18 Rate Blood Pressure 146/86 127/83 O2 Sat by Pulse 98 98 Oximetry 05/28/21 05/28/21 16:13 17:33 Temperature 97.8 F Pulse Rate 70 97 Respiratory 18 16 Rate Blood Pressure 111/89 O2 Sat by Pulse 97 Oximetry - Reevaluation(s) Reevaluation #1: 05/28/21 17:11 Lungs clear to auscultation, patient appears to be resting comfortably in no acute distress. Dry cough persists. Medical Decision Making - Medical Decision Making 51-year-old female was evaluated for URI symptoms including persistent cough. Physical exam is positive for dry cough and scattered fine wheezes in the left upper lobe. Patient does not appear in any distress, but was given a breathing treatment with improvement. Also given Toradol for complaints of generalized body aches she relates to coughing. Chest x-ray was negative for any acute findings. Cepheid 4-Plex swab negative. Patient was prescribed Tessalon Perles and an albuterol inhaler. Instructed to follow-up with her primary care provider for a recheck in the next 1-2 days. Return parameters were discussed in detail. Patient verbalizes understanding and agrees with this plan. This patient's case was discussed with my attending Dr. Arevalo - Lab Data Lab Results 05/28/21 Range/Units 16:03 Influenza Type A (PCR) Not Detected (Not Detectd) Influenza Type B (PCR) Not Detected (Not Detectd) RSV (PCR) Not Detected (Not Detectd) SARS-CoV-2 (PCR) Not Detected (Not Detectd) - Radiology Data Radiology results: report reviewed, image reviewed Two-view Chest x-ray was obtained. Report was reviewed in its entirety. Findings do include a known 1.4 cm granuloma in the left upper lung. Impression per Dr. Rizzo is no acute pulmonary process. Disposition Clinical Impression: Acute upper respiratory infection Disposition: HOME SELF-CARE Condition: Stable Instructions (If sedation given, give patient instructions): Upper Respiratory Infection (ED) Additional Instructions: Rest, increase fluids, take medications as directed. Follow-up with your primary care provider for recheck in the next 1-2 days. Return to the emergency department with any new, worsening, or concerning symptoms. Prescriptions: Albuterol Sulfate [Proair Respiclick] 1 puff PO Q6HR PRN #1 each PRN Reason: Wheezing Benzonatate [Tessalon Perles] 100 mg PO TID PRN #15 cap PRN Reason: Cough Is patient prescribed a controlled substance at d/c from ED?: No Referrals: Yaz Edwards MD [Primary Care Provider] - 1-2 days Time of Disposition: 17:49
[2021-05-28 17:35] VITALS: BP 111/89; PULSE 97; RESP 16; TEMP 97.8
[2021-05-28] MEDS ORDERED: BENZONATATE 100 MG CAP PO STA (17:43)
== END 2021-05-28 17:57 | disposition home or self-care (01) ==
LOC: EC 10:40
DX: J06.9 Acute upper respiratory infection, unspecified (principal); I10 Essential (primary) hypertension; K21.9 Gastro-esophageal reflux disease without esophagitis; Z20.822 Contact with and (suspected) exposure to COVID-19; Z79.899 Other long term (current) drug therapy; Z88.1 Allergy status to other antibiotic agents; Z88.5 Allergy status to narcotic agent; Z88.6 Allergy status to analgesic agent
CPT/HCPCS: 99283 ×2; 96374 ×2; 94640; 87636; 71046; J1885

== ENCOUNTER 2021-10-30 23:49 | Observation (INO) | payer BC, OTHER ==
[2021-10-31 00:29] LABS: Basophils % (A) 1 %; Eosinophils % (A) 3 %; HGB 12.4 gm/dL (11.4-16.0); Lymphocytes % (A) 31 %; MCHC 32.7 g/dL (31.0-37.0); MCV 82.6 fL (80.0-100.0); Mean Platelet Volume 9.7; Monocytes % (A) 7 %; Neutrophils % (A) 56 %; Platelet Count 183 k/uL (150-450); RBC 4.61 m/uL (3.80-5.40); RDW 15.4 % (11.5-15.5); WBC 5.3 k/uL (3.8-10.6)
[2021-10-31 00:30] LABS: Eosinophils # (A) 0.2 k/uL (0-0.7); Lymphocytes # (A) 1.7 k/uL (1.0-4.8); Monocytes # (A) 0.4 k/uL (0-1.0)
[2021-10-31 00:39] LABS: Albumin 3.9 g/dL (3.5-5.0); Potassium 4.5 mmol/L (3.5-5.1); Total Bilirubin 0.4 mg/dL (0.2-1.3); Total Protein 6.8 g/dL (6.3-8.2)
[2021-10-31 00:57] LABS: INR 0.9 (<1.2); Prothrombin Time 9.9 sec (9.0-12.0)
[2021-10-31 01:19] LABS: Partial Thromboplastin Time 20.7 sec (22.0-30.0)
--- NOTE | 2021-10-31 01:32 | XR ---
EXAMINATION TYPE: XR chest 2V DATE OF EXAM: 10/31/2021 COMPARISON: 05/28/2021 HISTORY: Chest pain TECHNIQUE: 2 views FINDINGS: There is a 15 mm calcified granuloma left upper lobe. Heart size is normal. There are no hi lar masses. The bony thorax is intact. IMPRESSION: Old granulomatous disease. No active cardiopulmonary disease. No change.
--- NOTE | 2021-10-31 04:40 | ED ---
Chest Pain HPI - General Chief Complaint: Chest Pain Stated Complaint: chest and arm pain Time Seen by Provider: 10/31/21 04:33 Source: patient Mode of arrival: wheelchair Limitations: no limitations - Related Data Home Medications Medication Instructions Recorded Confirmed Omeprazole [PriLOSEC] 20 mg PO DAILY 08/27/17 05/28/21 Metoprolol Tartrate 25 mg PO BID 02/06/20 05/28/21 Acetaminophen Tab [Tylenol] 1,000 - 2,000 mg PO Q6H PRN 05/28/21 05/28/21 Sertraline [Zoloft] 100 mg PO DAILY 05/28/21 05/28/21 guaiFENesin-DM 100-10MG/5ML 1 dose PO Q2-3H PRN 05/28/21 05/28/21 [Robitussin DM] Previous Rx's Medication Instructions Recorded lamoTRIgine [LaMICtal] 50 mg PO DAILY 30 Days tab 02/14/20 lamoTRIgine [LaMICtal] 100 mg PO HS 30 Days tab 02/14/20 traZODone HCL [Desyrel] 100 mg PO HS PRN 30 Days tab 02/14/20 Albuterol Sulfate [Proair 1 puff PO Q6HR PRN #1 each 05/28/21 Respiclick] Benzonatate [Tessalon Perles] 100 mg PO TID PRN #15 cap 05/28/21 Allergies Allergy/AdvReac Type Severity Reaction Status Date / Time aspirin AdvReac Abdominal Verified 10/30/21 23:59 Pain ciprofloxacin [From Cipro] AdvReac Nausea & Verified 10/30/21 23:59 Vomiting, SWELLING ciprofloxacin HCl AdvReac Nausea & Verified 10/30/21 23:59 [From Cipro] Vomiting, SWELLING hydromorphone HCl AdvReac VOMITING, Verified 10/30/21 23:59 [From Dilaudid] DIZZY morphine AdvReac Itching Verified 10/30/21 23:59 Review of Systems ROS Statement: Those systems with pertinent positive or pertinent negative responses have been documented in the HPI. ROS Other: All systems not noted in ROS Statement are negative. EKG Findings - EKG Comments: EKG Findings:: EKG shows sinus rhythm 61 WA 122 is 94 QTC 401 Past Medical History Past Medical History: GERD/Reflux, Hypertension, Osteoarthritis (OA), Sleep Apnea/CPAP/BIPAP, Syncope Additional Past Medical History / Comment(s): Chronic back & neck pain, migraines, ascending aortic aneurysm, gastric ulcers. Episodes of light headedness and dizziness , History of Any Multi-Drug Resistant Organisms: None Reported Past Surgical History: Bariatric Surgery, Cholecystectomy, EPS, Hysterectomy, Joint Replacement, Orthopedic Surgery Additional Past Surgical History / Comment(s): NARA-EN-Y, cervical fusion C2-C5, arthroscopy left knee, left knee replacement, loop recorder insertion Past Anesthesia/Blood Transfusion Reactions: Motion Sickness Past Psychological History: Depression Smoking Status: Never smoker Past Alcohol Use History: None Reported Past Drug Use History: Marijuana - Past Family History Mother Family Medical History: Coronary Artery Disease (CAD) Additional Family Medical History / Comment(s): Mother is alive at age 68 with history of three-vessel CABG and diabetes. Father Family Medical History: Coronary Artery Disease (CAD) Additional Family Medical History / Comment(s): Father is alive at age 68 with history of three-vessel CABG. Brother(s) Family Medical History: No Reported History Additional Family Medical History / Comment(s): Patient has one brother with history of seasonal ALLERGIES. Patient does not have any sisters. Daughter(s) Family Medical History: No Reported History Additional Family Medical History / Comment(s): Patient is a total of 3 children with no major medical problems. Son(s) Family Medical History: No Reported History General Exam Limitations: no limitations Course Vital Signs 10/30/21 23:59 Temperature 97.7 F Pulse Rate 62 Respiratory 20 Rate Blood Pressure 124/79 O2 Sat by Pulse 100 Oximetry Disposition Clinical Impression: Atypical chest pain, Chest pain Disposition: HOME SELF-CARE Condition: Good Instructions (If sedation given, give patient instructions): Chest Pain (ED) Is patient prescribed a controlled substance at d/c from ED?: No Referrals: Dario Greene DO [Primary Care Provider] - 1-2 days
[2021-10-31] MEDS ORDERED: ASPIRIN 81 MG PO STA (04:53)
[2021-10-31] MEDS ORDERED: MORPHINE SULFATE 4 MG/ML SYRINGE IV PRN (04:53)
[2021-10-31] MEDS ORDERED: NITROGLYCERIN SL TABS 0.4 MG TAB SUBLINGUAL PRN (04:53)
--- NOTE | 2021-10-31 05:22 | P.HPIM ---
History of Present Illness H&P Date: 10/31/21 The patient is a 51-year-old female with a PMH of hypertension, GERD, chronic neck pain status post cervical fusion who presents to the emergency room with complaints of substernal and left arm pain. The patient reports that her symptoms started roughly a week ago. She reports intermittent 8 out of 10 substernal sharp discomfort, with radiation down the left arm with associated numbness and tingling of the left arm. Reports the pain is exertional and nonexertional, occurs several times a day, lasting for up to an hour at a time and then resolved spontaneously. She denied associated shortness of breath, nausea, vomiting, diaphoresis, or palpitations. She initially believed it was related to her chronic GERD for which she tried to take Rolaids without any relief. She denied fever, chills, urinary complaints, cough, abdominal pain, diarrhea, headaches, weakness, visual disturbances. Chest x-ray in the emergency room revealed old granulomatous disease but no acute findings. Laboratory evaluation was remarkable for troponin less than 0.012, abnormal UA, and glucose 138. Review of systems: Pertinent positives and negatives as discussed in HPI, a complete review of systems was performed and all other systems are negative. Physical examination: General: non toxic, no distress, appears at stated age, obese Derm: no unusual rashes/lesions no unusual ecchymoses, warm, dry Head: atraumatic, normocephalic, symmetric Eyes: EOMI, no lid lag, anicteric sclera, pupils equal round reactive to light ENT: Nose and ears atraumatic, no thrush, no pharyngeal erythema Neck: No thyromegaly, no cervical lymphadenopathy, trachea midline, supple Mouth: no lip lesion, mucus membranes moist Cardiovascular: S1S2 reg, no murmur, positive posterior tibial pulse bilateral, no edema, capillary refill less than 2 seconds, no chest wall or left arm tenderness to palpation Lungs: CTA bilateral, no rhonchi, no rales , no accessory muscle use Abdominal: soft, nontender to palpation, no guarding, no appreciable organomegaly, normal bowel sounds Ext: no gross muscle atrophy, muscle strength 5 out of 5 in all 4 extremities grossly, no contractures, Neuro: CN II-XI grossly intact, light touch intact all 4 extremities, finger to nose within normal limits, Psych: Alert, oriented, appropriate affect Assessment/plan Atypical chest pain -Cardiac monitoring -Cardiology consult -Continue with aspirin -Trend troponin Abnormal UA -Patient denying urinary complaints except-likely colonization Chronic conditions: Hypertension, GERD -Continue with home meds DVT prophylaxis -Heparin subq The patient is admitted with an anticipated less than 2 midnight stay for evaluation of chest pain CODE STATUS: Full code Discussed with: Patient Anticipated discharge date: in am Anticipated discharge place: Home Past Medical History Past Medical History: GERD/Reflux, Hypertension, Osteoarthritis (OA), Sleep Apnea/CPAP/BIPAP, Syncope Additional Past Medical History / Comment(s): Chronic back & neck pain, migraines, ascending aortic aneurysm, gastric ulcers. Episodes of light headedness and dizziness , History of Any Multi-Drug Resistant Organisms: None Reported Past Surgical History: Bariatric Surgery, Cholecystectomy, EPS, Hysterectomy, Joint Replacement, Orthopedic Surgery Additional Past Surgical History / Comment(s): NARA-EN-Y, cervical fusion C2-C5, arthroscopy left knee, left knee replacement, loop recorder insertion Past Anesthesia/Blood Transfusion Reactions: Motion Sickness Past Psychological History: Depression Smoking Status: Never smoker Past Alcohol Use History: None Reported Past Drug Use History: Marijuana - Past Family History Mother Family Medical History: Coronary Artery Disease (CAD) Additional Family Medical History / Comment(s): Mother is alive at age 68 with history of three-vessel CABG and diabetes. Father Family Medical History: Coronary Artery Disease (CAD) Additional Family Medical History / Comment(s): Father is alive at age 68 with history of three-vessel CABG. Brother(s) Family Medical History: No Reported History Additional Family Medical History / Comment(s): Patient has one brother with history of seasonal ALLERGIES. Patient does not have any sisters. Daughter(s) Family Medical History: No Reported History Additional Family Medical History / Comment(s): Patient is a total of 3 children with no major medical problems. Son(s) Family Medical History: No Reported History Medications and Allergies Home Medications Medication Instructions Recorded Confirmed Type Omeprazole [PriLOSEC] 20 mg PO DAILY 08/27/17 05/28/21 History Metoprolol Tartrate 25 mg PO BID 02/06/20 05/28/21 History lamoTRIgine [LaMICtal] 50 mg PO DAILY 30 Days tab 02/14/20 05/28/21 Rx lamoTRIgine [LaMICtal] 100 mg PO HS 30 Days tab 02/14/20 05/28/21 Rx traZODone HCL [Desyrel] 100 mg PO HS PRN 30 Days tab 02/14/20 05/28/21 Rx Acetaminophen Tab [Tylenol] 1,000 - 2,000 mg PO Q6H PRN 05/28/21 05/28/21 History Albuterol Sulfate [Proair 1 puff PO Q6HR PRN #1 each 05/28/21 Rx Respiclick] Benzonatate [Tessalon Perles] 100 mg PO TID PRN #15 cap 05/28/21 Rx Sertraline [Zoloft] 100 mg PO DAILY 05/28/21 05/28/21 History guaiFENesin-DM 100-10MG/5ML 1 dose PO Q2-3H PRN 05/28/21 05/28/21 History [Robitussin DM] Allergies Allergy/AdvReac Type Severity Reaction Status Date / Time aspirin AdvReac Abdominal Verified 10/30/21 23:59 Pain ciprofloxacin [From Cipro] AdvReac Nausea & Verified 10/30/21 23:59 Vomiting, SWELLING ciprofloxacin HCl AdvReac Nausea & Verified 10/30/21 23:59 [From Cipro] Vomiting, SWELLING hydromorphone HCl AdvReac VOMITING, Verified 10/30/21 23:59 [From Dilaudid] DIZZY morphine AdvReac Itching Verified 10/30/21 23:59 Physical Exam Vitals: Vital Signs Temp Pulse Resp BP Pulse Ox 10/30/21 23:59 97.7 F 62 20 124/79 100 Intake and Output 10/30/21 10/30/21 10/31/21 14:59 22:59 06:59 Other: Weight 90.718 kg Results CBC & Chem 7: 10/31/21 00:17 10/31/21 00:17 Labs: Abnormal Lab Results - Last 24 Hours (Table) 10/31/21 10/31/21 Range/Units 00:17 00:17 APTT 20.7 L (22.0-30.0) sec Sodium 136 L (137-145) mmol/L BUN 19 H (7-17) mg/dL Alkaline Phosphatase 138 H (38-126) U/L
[2021-10-31] MEDS ORDERED: HEPARIN SODIUM,PORCINE/PF 5,000 UNIT/0.5 ML SYRINGE SQ SCH (08:00)
[2021-10-31] MEDS ORDERED: DOBUTamine DRIP for NUC MED 500 MG in DEXTROSE/WATER 1 250ML.BAG IV PRN (09:11)
--- NOTE | 2021-10-31 10:42 | P.CRDCN ---
History of Present Illness History of present illness: HISTORY OF PRESENT ILLNESS: This is a 51-year-old female with a past medical history significant for atrial tachycardia with previous ablation, GERD, back pain, and depression. Patient follows in the office with Dr. Thomas. We have been asked to see the patient in consultation for chest pain. Patient examined at the bedside. Patient states she has been having chest pain for the past week. She reports the pain is in the middle of her chest and goes into her arm. She reports the pain has been intermittent. Denies SOB. She currently denies SOB or chest pain at the time of examination. * EKG reveals sinus mechanism with no signs of acute ischemia * Chest xray negative for acute process * Laboratory data: WBC 5.3. Hemoglobin 12.4. Platelet count 183. D-dimer 0.24. Sodium 136. Potassium 4.5. BUN 19. Creatinine 0.91. Troponin negative 3 * Current home cardiac medications include metoprolol tartrate 25 mg twice a day * Most recent echocardiogram obtained in 2019 revealed ejection fraction 55-60%, mild MR, mild TR REVIEW OF SYSTEMS: At the time of my exam: CONSTITUTIONAL: Denies fever or chills. HEENT: Denies blurred vision, vision changes, or eye pain. Denies hemoptysis CARDIOVASCULAR: Denies chest pain. Denies orthopnea. Denies PND. Denies palpitations RESPIRATORY: Denies shortness of breath. GASTROINTESTINAL: Denies abdominal pain. Denies nausea or vomiting. HEMATOLOGIC: Denies bleeding disorders. GENITOURINARY: Denies any blood in urine. SKIN: Denies pruitis. Denies rash. PHYSICAL EXAM: VITAL SIGNS: Reviewed. GENERAL: Well-developed in no acute distress. HEENT: Head is normocephalic. Pupils are equal, round. Sclerae anicteric. Mucous membranes of the mouth are moist. Neck supple. No JVD or thyromegaly LUNGS: Respirations even and unlabored. Lungs essentially clear to auscultation bilaterally. HEART: Regular rate and rhythm. S1 and S2 heard. ABDOMEN: Soft. Nondistended. Nontender. EXTREMITIES: Normal range of motion. No clubbing or cyanosis. Peripheral pulses intact. No lower extremity edema NEUROLOGIC: Awake and alert. Oriented x 3. ASSESSMENT: Chest pain History of atrial tachycardia with previous ablation GERD Back pain Depression PLAN: An acute coronary event has been ruled out Resume home cardiac medications Patient to undergo Dobutamine stress test today to assess for ischemia Further recommendations pending patient course Nurse practitioner note has been reviewed by physician. Signing provider agrees with the documented findings, assessment, and plan of care. Past Medical History Past Medical History: GERD/Reflux, Hypertension, Osteoarthritis (OA), Sleep Apnea/CPAP/BIPAP, Syncope Additional Past Medical History / Comment(s): Chronic back & neck pain, migraines, ascending aortic aneurysm, gastric ulcers. Episodes of light headedness and dizziness , History of Any Multi-Drug Resistant Organisms: None Reported Past Surgical History: Bariatric Surgery, Cholecystectomy, EPS, Hysterectomy, Joint Replacement, Orthopedic Surgery Additional Past Surgical History / Comment(s): ANRA-EN-Y, cervical fusion C2-C5, arthroscopy left knee, left knee replacement, loop recorder insertion Past Anesthesia/Blood Transfusion Reactions: Motion Sickness Past Psychological History: Depression Smoking Status: Never smoker Past Alcohol Use History: None Reported Past Drug Use History: Marijuana - Past Family History Mother Family Medical History: Coronary Artery Disease (CAD) Additional Family Medical History / Comment(s): Mother is alive at age 68 with history of three-vessel CABG and diabetes. Father Family Medical History: Coronary Artery Disease (CAD) Additional Family Medical History / Comment(s): Father is alive at age 68 with history of three-vessel CABG. Brother(s) Family Medical History: No Reported History Additional Family Medical History / Comment(s): Patient has one brother with history of seasonal ALLERGIES. Patient does not have any sisters. Daughter(s) Family Medical History: No Reported History Additional Family Medical History / Comment(s): Patient is a total of 3 children with no major medical problems. Son(s) Family Medical History: No Reported History Medications and Allergies Home Medications Medication Instructions Recorded Confirmed Type Omeprazole [PriLOSEC] 20 mg PO HS 08/27/17 10/31/21 History Metoprolol Tartrate 25 mg PO BID 02/06/20 10/31/21 History lamoTRIgine [LaMICtal] 50 mg PO DAILY 30 Days tab 02/14/20 10/31/21 Rx lamoTRIgine [LaMICtal] 100 mg PO HS 30 Days tab 02/14/20 10/31/21 Rx Sertraline [Zoloft] 100 mg PO HS 05/28/21 10/31/21 History Allergies Allergy/AdvReac Type Severity Reaction Status Date / Time ciprofloxacin [From Cipro] Allergy Swelling Verified 10/31/21 06:58 at injection site ciprofloxacin HCl Allergy Swelling Verified 10/31/21 06:58 [From Cipro] at injection site aspirin AdvReac Abdominal Verified 10/31/21 06:58 Pain hydromorphone HCl AdvReac VOMITING, Verified 10/31/21 06:58 [From Dilaudid] DIZZY see comments morphine AdvReac Nausea & Verified 10/31/21 06:58 Vomiting Physical Exam Vitals: Vital Signs Temp Pulse Resp BP Pulse Ox 10/31/21 07:48 97.6 F 58 L 16 101/53 98 10/31/21 05:40 53 L 18 111/70 99 10/30/21 23:59 97.7 F 62 20 124/79 100 Intake and Output 10/30/21 10/31/21 10/31/21 22:59 06:59 14:59 Other: Weight 90.718 kg Results 10/31/21 00:17 10/31/21 00:17 Cardiac Enzymes 10/31/21 10/31/21 10/31/21 Range/Units 00:17 00:17 05:11 AST 20 (14-36) U/L Troponin I <0.012 <0.012 (0.000-0.034) ng/mL Coagulation 10/31/21 Range/Units 00:17 PT 9.9 (9.0-12.0) sec APTT 20.7 L (22.0-30.0) sec CBC 10/31/21 Range/Units 00:17 WBC 5.3 (3.8-10.6) k/uL RBC 4.61 (3.80-5.40) m/uL Hgb 12.4 (11.4-16.0) gm/dL Hct 38.0 (34.0-46.0) % Plt Count 183 (150-450) k/uL Comprehensive Metabolic Panel 10/31/21 Range/Units 00:17 Sodium 136 L (137-145) mmol/L Potassium 4.5 (3.5-5.1) mmol/L Chloride 107 (98-107) mmol/L Carbon Dioxide 24 (22-30) mmol/L BUN 19 H (7-17) mg/dL Creatinine 0.91 (0.52-1.04) mg/dL Glucose 99 (74-99) mg/dL Calcium 9.0 (8.4-10.2) mg/dL AST 20 (14-36) U/L ALT 9 (4-34) U/L Alkaline Phosphatase 138 H (38-126) U/L Total Protein 6.8 (6.3-8.2) g/dL Albumin 3.9 (3.5-5.0) g/dL Current Medications Generic Name Dose Route Start Last Admin Trade Name Freq PRN Reason Stop Dose Admin Aspirin 325 mg 11/01/21 09:00 Aspirin 325 Mg Tab PO DAILY LACY Heparin Sodium (Porcine) 5,000 unit 10/31/21 08:00 Heparin Sodium,Porcine/Pf 5,000 Unit/0.5 Ml Syringe SQ Q8HR LACY Morphine Sulfate 4 mg 10/31/21 04:53 Morphine Sulfate 4 Mg/Ml Syringe IV Q4HR PRN Chest Pain Nitroglycerin 0.4 mg 10/31/21 04:53 Nitroglycerin Sl Tabs 0.4 Mg Tab SUBLINGUAL Q5M PRN Chest Pain Intake and Output 10/30/21 10/31/21 10/31/21 22:59 06:59 14:59 Other: Weight 90.718 kg 10/31/21 00:17 10/31/21 00:17
[2021-10-31] MEDS ORDERED: DOBUTamine DRIP for NUC MED 500 MG/250 ML BAG IV ONE (11:20)
--- NOTE | 2021-10-31 12:38 | P.STRESS ---
- Stress Test Note Stress Test Results/Findings: Exam Performed: dobutamine stress echo Exam Date: 10/31/21 Reason for Exam: CHEST PAIN Height: 5 ft 4 in Weight: 90.718 kg Protocol: DOBUTAMINE STRESS ECHO Stage: IV Duration of Exercise: 12:09 MIN Resting Heart Rate: 63 Resting Blood Pressure: 107/67 Maximum Achieved Heart Rate: 147 Maximum Achieved Blood Pressure: 131/63 85% PMHR: 145 100% PMHR: 170 METS: Technologist Comment: Stress Test Results/Findings: Baseline heart rate 63 beats a minute, Baseline blood pressure 107/67 mmHg Baseline twelve-lead EKG shows sinus rhythm with a 0.[address] depression inferolaterally Patient received dobutamine infusion per protocol. Peak heart rate 147 beats a minute and normal blood pressure response No ECG evidence for ischemia Baseline 2-D echo showed normal LV systolic function without segmental wall motion abnormalities With dobutamine infusion there was a stepwise increment in overall LV contractility No wall motion abnormalities @Recovery lesional and global LV systolic function within normal Impression No ECG or echocardiographic evidence of ischemia
[2021-10-31] MEDS ORDERED: KETOROLAC 15 MG/ML 1 ML VIAL IVP STA (12:50)
[2021-10-31] MEDS ORDERED: diphenhydrAMINE 50 MG/ML 1 ML VIAL IVP STA (12:56)
[2021-10-31] MEDS ORDERED: PROCHLORPERAZINE INJ 10 MG/2 ML VIAL IVP STA (12:56)
--- NOTE | 2021-10-31 13:03 | P.DS ---
Providers Date of admission: 10/31/21 04:53 Expected date of discharge: 10/31/21 Attending physician: Daphnie Feldman MD Consults: 10/31/21 04:53 Consult Physician Urgent Consulting Provider: Shaina Dennis Consult Reason/Comments: cp Do you want consulting provider notified?: Yes Primary care physician: [facility] Course: Discharge Diagnosis: Atypical chest pain, acute coronary event ruled out Hypertension, continue daily medication regimen with metoprolol GERD, continue daily medication regimen with Prilosec Chronic neck pain status post cervical fusion, recommend further follow-up with orthospine surgeon and/or pain management if pain and/or intermittent numbness and tingling in extremities persists. Depression, continue daily medication regimen with sertraline. Hospital Course: Patient is a very pleasant 51-year-old female with a past medical history of hypertension, atrial tachycardia with previous ablation, GERD, chronic neck pain status post cervical fusion, and depression with anxiety. He presented to the emergency department earlier this morning with a chief complaint of chest pain. Pt stated that she has been experiencing pain to midsternal chest that radiates into her left arm accompanied by intermittent numbness and tingling of left arm. Patient states this pain began approximately one week ago and waxes and wanes occurring several times throughout the day. Patient states this pain can come on with exertion and at rest, but states she has not found any factors that make it worse or better. She was seen and fully evaluated in the emergency department. An EKG was completed showing normal sinus rhythm at 61 bpm with no noted T-wave or ST abnormalities. Chest x-ray was negative for acute cardiopulmonary process revealing old granulomatous disease. Labs were completed. CBC and BMP unremarkable with the exception of mild elevation of alkaline phosphatase at 138. D-dimer was completed and was negative at 0.24. Troponins were trended all resulting in less than 0.012. Patient underwent an echocardiogram and a cardiac stress test. Per cardiology report stress test was negative stating no EKG or echocardiographic evidence of ischemia. Awaiting final read of echocardiogram. Cardiology clearing patient from cardiac st andpoint recommending patient follow-up with her automatic dry starch operator Dr. Thomas in one week. Patient is medically stable at this time. Vital signs have remained unremarkable throughout admission. Patient reports currently being free from chest pain, shortness of breath, palpitations, dizziness, lightheadedness or any other complaints. Patient is medically stable for discharge home and to follow up with PCP and cardiology as directed. No medication changes were made this admission. Physical examination: Patient seen and examined at bedside. She reported being free from chest pain, shortness of breath, palpitations, dizziness, lightheadedness or any other complaints at time of assessment with the exception of a mild headache after stress test. Pt was given a migraine cocktail which resulted in resolution of headache. Patient then discharged home with family. Vital signs reviewed and stable. General: Nontoxic, no distress and appears stated age. Derm: Skin warm and dry, normal coloration for ethnicity. Head: Atraumatic, normocephalic and symmetric. Eyes: EOMs intact, no lid lag, and anicteric sclera Mouth: no lip lesions, mucus membranes moist Cardiovascular: regular rate and rhythm with normal S1S2, no murmur, positive posterior tibial pulses bilaterally, and cap refill < 2 seconds. Lungs: Respirations even, regular, and unlabored on room air. Lungs CTA bilaterally, no rhonchi, no rales, no wheezing, and no accessory muscle usage. Abdominal: soft, nontender to palpation, no guarding, no appreciable organomegaly Ext: ROM intact. No gross muscle atrophy, no edema, no contractures Neuro: Speech clear, face symmetrical and CN II-XII grossly intact with no noted focal neuro deficits Psych: Alert and oriented to person, place, time, and situation. Appropriate and pleasant affect. A total of 35 minutes of time were spent preparing this complex discharge summary. I reviewed the documentation as provided by the SINDY above, who is the original author of this note. I agree with the documented assessment and plan, with the following changes: None Patient Condition at Discharge: Stable Plan - Discharge Summary Discharge Rx Participant: Yes New Discharge Prescriptions: Continue Omeprazole [PriLOSEC] 20 mg PO HS Metoprolol Tartrate 25 mg PO BID lamoTRIgine [LaMICtal] 50 mg PO DAILY 30 Days tab lamoTRIgine [LaMICtal] 100 mg PO HS 30 Days tab Sertraline [Zoloft] 100 mg PO HS Discharge Medication List Omeprazole [PriLOSEC] 20 mg PO HS 08/27/17 [History] Metoprolol Tartrate 25 mg PO BID 02/06/20 [History] lamoTRIgine [LaMICtal] 50 mg PO DAILY 30 Days tab 02/14/20 [Rx] lamoTRIgine [LaMICtal] 100 mg PO HS 30 Days tab 02/14/20 [Rx] Sertraline [Zoloft] 100 mg PO HS 05/28/21 [History] Follow up Appointment(s)/Referral(s): Idalia Thomas MD [STAFF PHYSICIAN] - 1 Week Dario Greene DO [Primary Care Provider] - 1-2 days Patient Instructions/Handouts: Chest Pain (ED) Activity/Diet/Wound Care/Special Instructions: Activity: As tolerated. Take breaks as needed. Diet: Heart healthy and carb consistent diet. Avoid salts, or foods with hidden salts such as canned or boxed foods and frozen dinners. Extra salt makes your heart work harder and traps the fluid in your body for longer. Special Instructions: Take all of your medications as directed and remember to keep all of your doctor's appointments and follow-up as needed. Thank you for allowing us to participate in your care, it was truly a pleasure having you for our patient!!! Discharge Disposition: HOME SELF-CARE
[2021-10-31 13:09] VITALS: BP 115/67; PULSE 62; RESP 18; TEMP 97.9
[2021-10-31] MEDS ORDERED: METOPROLOL TARTRATE 25 MG TAB PO SCH (21:00)
[2021-11-01] MEDS ORDERED: ASPIRIN 325 MG TAB PO SCH (09:00)
== END 2021-10-31 14:17 | disposition home or self-care (01) ==
LOC: EC 23:49 → 6NMEDSUR 10-31 04:53
PROVIDERS: ADMIT Internal Medicine; ATTEND Internal Medicine
DX: R07.89 Other chest pain (principal); M79.602 Pain in left arm; R20.0 Anesthesia of skin; R20.2 Paresthesia of skin; R74.8 Abnormal levels of other serum enzymes; R82.90 Unspecified abnormal findings in urine; K21.9 Gastro-esophageal reflux disease without esophagitis; I10 Essential (primary) hypertension; I47.1 Supraventricular tachycardia; G47.30 Sleep apnea, unspecified; G89.29 Other chronic pain; M54.9 Dorsalgia, unspecified; M54.2 Cervicalgia; G43.909 Migraine, unspecified, not intractable, without status migrainosus; I71.2 Thoracic aortic aneurysm, without rupture; F32.A Depression, unspecified; R42 Dizziness and giddiness; E66.9 Obesity, unspecified; Z68.34 Body mass index [BMI] 34.0-34.9, adult; M19.90 Unspecified osteoarthritis, unspecified site; Z87.11 Personal history of peptic ulcer disease; Z79.899 Other long term (current) drug therapy; Z88.6 Allergy status to analgesic agent; Z88.8 Allergy status to other drugs, medicaments and biological substances; Z88.5 Allergy status to narcotic agent; Z88.1 Allergy status to other antibiotic agents; Z90.49 Acquired absence of other specified parts of digestive tract; Z90.710 Acquired absence of both cervix and uterus; Z96.652 Presence of left artificial knee joint; Z98.1 Arthrodesis status; Z82.49 Family history of ischemic heart disease and other diseases of the circulatory system; Z83.3 Family history of diabetes mellitus; Z84.89 Family history of other specified conditions
CPT/HCPCS: 96372; 96374; 96375; 99285; 36415; 93005; 93351; 85379; 80053; 83735; 84484; 85025; 85610; 85730; 71046; G0378; J1250; J0780; J1885; J1644

== ENCOUNTER 2021-12-03 20:50 | Emergency (ER) | payer BC, OTHER ==
[2021-12-03 21:01] VITALS: TEMP 98.1
[2021-12-03] MEDS ORDERED: ONDANSETRON 4 MG/2 ML VIAL IVP STA (21:26)
[2021-12-03] MEDS ORDERED: fentaNYL (PF) 50 MCG/ML 2 ML AMP IVP STA ×2 (21:34→22:33)
--- NOTE | 2021-12-03 21:34 | ED ---
Fall HPI - General Chief Complaint: Fall Stated Complaint: Neck Pain Time Seen by Provider: 12/03/21 21:07 Source: patient, EMS Mode of arrival: EMS - History of Present Illness Initial Comments: 's patient is a 51-year-old woman presenting to have evaluation after fall. Patient states that approximately 4 PM today she was at [employer], when she slipped and fell. She states that since that time she has been having pain to the low back. She indicates the sacral area as well as the lower portion of the cervical spine and some generalized headache. There was no loss of consciou sness. She is denying neurologic symptoms. She has not had any change in bladder or bowel function. The patient states that she tried taking her home pain medication but she has been having nausea and vomiting and therefore could not keep it down. Patient was transported by ambulance. She did refuse the cervical collar both in the ambulance and in the department here, even after discussion of risks and benefits. MD Complaint: fall Onset/Timin -: hour(s) Fall From: standing Place Fall Occurred: other (At [employer]) Loss of Consciousness: none Prolonged Down Time?: no Symptoms Prior to Fall: none Location: neck, back Severity: severe Quality: aching Context: tripped/slipped Associated Symptoms: neck pain - Related Data Home Medications Medication Instructions Recorded Confirmed Omeprazole [PriLOSEC] 20 mg PO HS 08/27/17 12/03/21 Metoprolol Tartrate 25 mg PO BID 02/06/20 12/03/21 Sertraline [Zoloft] 100 mg PO HS 05/28/21 12/03/21 traMADol HCl [Ultram] 50 mg PO QID PRN 12/03/21 12/03/21 Previous Rx's Medication Instructions Recorded lamoTRIgine [LaMICtal] 50 mg PO DAILY 30 Days tab 02/14/20 lamoTRIgine [LaMICtal] 100 mg PO HS 30 Days tab 02/14/20 Allergies Allergy/AdvReac Type Severity Reaction Status Date / Time ciprofloxacin [From Cipro] Allergy Swelling Verified 10/31/21 06:58 at injection site ciprofloxacin HCl Allergy Swelling Verified 10/31/21 06:58 [From Cipro] at injection site aspirin AdvReac Abdominal Verified 10/31/21 06:58 Pain hydromorphone HCl AdvReac VOMITING, Verified 10/31/21 06:58 [From Dilaudid] DIZZY see comments morphine AdvReac Nausea & Verified 10/31/21 06:58 Vomiting Review of Systems ROS Statement: Those systems with pertinent positive or pertinent negative responses have been documented in the HPI. ROS Other: All systems not noted in ROS Statement are negative. Constitutional: Denies: weakness Eyes: Denies: vision change ENT: Denies: epistaxis Cardiovascular: Denies: chest pain, palpitations, syncope Gastrointestinal: Reports: nausea, vomiting. Denies: abdominal pain Musculoskeletal: Reports: back pain Skin: Denies: rash Neurological: Reports: headache. Denies: weakness, numbness Past Medical History Past Medical History: GERD/Reflux, Hypertension, Osteoarthritis (OA), Sleep Apnea/CPAP/BIPAP, Syncope Additional Past Medical History / Comment(s): Chronic back & neck pain, migraines, ascending aortic aneurysm, gastric ulcers. Episodes of light headedness and dizziness , History of Any Multi-Drug Resistant Organisms: None Reported Past Surgical History: Bariatric Surgery, Cholecystectomy, EPS, Hysterectomy, Joint Replacement, Orthopedic Surgery Additional Past Surgical History / Comment(s): NARA-EN-Y, cervical fusion C2-C5, arthroscopy left knee, left knee replacement, loop recorder insertion Past Anesthesia/Blood Transfusion Reactions: Motion Sickness Past Psychological History: Depression Smoking Status: Never smoker Past Alcohol Use History: None Reported Past Drug Use History: Marijuana - Past Family History Mother Family Medical History: Coronary Artery Disease (CAD) Additional Family Medical History / Comment(s): Mother is alive at age 68 with history of three-vessel CABG and diabetes. Father Family Medical History: Coronary Artery Disease (CAD) Additional Family Medical History / Comment(s): Father is alive at age 68 with history of three-vessel CABG. Brother(s) Family Medical History: No Reported History Additional Family Medical History / Comment(s): Patient has one brother with history of seasonal ALLERGIES. Patient does not have any sisters. Daughter(s) Family Medical History: No Reported History Additional Family Medical History / Comment(s): Patient is a total of 3 children with no major medical problems. Son(s) Family Medical History: No Reported History General Exam Limitations: no limitations General appearance: alert, anxious Head exam: Present: atraumatic, normocephalic Eye exam: Present: normal appearance. Absent: scleral icterus, conjunctival injection Neck exam: Present: normal inspection, tenderness, full ROM. Absent: meningismus Respiratory exam: Present: normal lung sounds bilaterally. Absent: respiratory distress, wheezes, rales, rhonchi, stridor Cardiovascular Exam: Present: regular rate, normal rhythm, normal heart sounds. Absent: systolic murmur, diastolic murmur, rubs, gallop GI/Abdominal exam: Present: soft. Absent: distended, tenderness, guarding, rebound, rigid, mass Extremities exam: Present: normal inspection, normal capillary refill. Absent: pedal edema, calf tenderness Back exam: Present: normal inspection, vertebral tenderness. Absent: CVA tenderness (R), CVA tenderness (L) Neurological exam: Present: alert Skin exam: Present: warm, dry, intact, normal color. Absent: rash Course Vital Signs 12/03/21 12/03/21 20:59 22:23 Temperature 98.1 F Pulse Rate 103 H 89 Respiratory 18 16 Rate Blood Pressure 140/94 134/79 O2 Sat by Pulse 100 98 Oximetry Disposition Clinical Impression: Fall, Back pain Disposition: HOME SELF-CARE Condition: Good Instructions (If sedation given, give patient instructions): Fall Prevention (ED) Is patient prescribed a controlled substance at d/c from ED?: No Referrals: Dario Greene DO [Primary Care Provider] - 1-2 days
--- NOTE | 2021-12-03 22:08 | CT ---
EXAMINATION TYPE: CT brain cspine wo con DATE OF EXAM: 12/03/2021 COMPARISON: CT scan cervical spine 09/28/2019 HISTORY: Fall, neck pain CT DLP: 1417.6 mGycm Automated exposure control for dose reduction was used. Ventricles have normal size. There is no mass effect or midline shift. There is no sign of intracrani al hemorrhage. Calvarium is intact. The skull base is intact. There is normal aeration of the mastoid sinuses. The cervical vertebra have fairly normal alignment. There is anterior plate with screws fusing the ce rvical spine from C3 to C5. Posterior elements are intact. Facet joints are intact. IMPRESSION: Previous fusion surgery. No change compared to old exam of the cervical spine. No acute abnormality. Negative CT scan of the brain.
--- NOTE | 2021-12-03 22:08 | XR ---
EXAMINATION TYPE: XR lumbosacral spine min 4V DATE OF EXAM: 12/03/2021 9:59 PM INDICATION: Patient age:Female; 51 years old; Reason for study: fall injury; COMPARISON: Lumbar spine radiograph 03/13/2015. TECHNIQUE: The lumbar spine was examined in 4 views. FINDINGS: No evidence of any acute osseous pathology. Mild facet joint arthropathy most pronounced a t L5-S1 with at least mild spinal canal stenosis. No evidence of loss of vertebral body height is see n. There is normal alignment of the lumbar vertebral bodies. Right upper quadrant cholecystectomy cli ps. IMPRESSION: 1. Mild multilevel disc degeneration changes without evidence for acute process.
[2021-12-03 23:53] VITALS: BP 134/70; PULSE 91; RESP 18
== END 2021-12-03 23:54 | disposition home or self-care (01) ==
LOC: EC 20:50
DX: T14.90XA Injury, unspecified, initial encounter (principal); Z88.1 Allergy status to other antibiotic agents; Z88.6 Allergy status to analgesic agent; Z88.5 Allergy status to narcotic agent; I10 Essential (primary) hypertension; K21.9 Gastro-esophageal reflux disease without esophagitis; Z79.83 Long term (current) use of bisphosphonates
CPT/HCPCS: 72110; 72125; 70450; 99284; 96374; 96375; 96376; J2405; J3010

== ENCOUNTER → 2022-02-12 | Outpatient (CLI) | payer BC, OTHER ==
--- NOTE | 2022-02-13 04:18 | MR ---
EXAMINATION TYPE: MR cervical spine wo con DATE OF EXAM: 02/12/2022 COMPARISON: 03/25/2018 HISTORY: Neck pain, headaches, BUE radiculopathy, hx surgery. Multiplanar multiecho imaging of the cervical spine with no contrast. There is metal artifact from anterior fusion surgery from C3 to C5. Normal alignment. There is a small posterior disc bulge at C5-6. Spinal canal measures 7.4 mm at C5-6 which appears to be the narrowest point. Cervical cord shows no edema. Brainstem is intact. No compr ession fracture. Posterior elements are intact. No evidence of cervical paraspinal mass. IMPRESSION: Anterior fusion surgery. There is a mild posterior disc bulge and herniation at C5-6 which is new com pared to old exam. No significant spinal stenosis. There is also mild posterior disc bulge at C2-3 wh ich is new compared to old exam.
== END | disposition home or self-care (01) ==
LOC: RADMRIMAIN 14:22
PROVIDERS: ATTEND Neurological Surgery
DX: M48.02 Spinal stenosis, cervical region (principal)
CPT/HCPCS: 72141

== ENCOUNTER → 2023-07-05 | Outpatient (CLI) | payer BC ==
--- NOTE | 2023-07-05 15:30 | MR ---
EXAMINATION TYPE: MR cervical spine wo/w con DATE OF EXAM: 07/05/2023 2:53 PM CLINICAL INDICATION:Female, 53 years old with history of M54.2 CERVICALGIA M54.12 RADICULOPATHY CERVI SHELLY; PHH, Neck pain that radiates down arms to fingers, history of surgery COMPARISON: 02/04/2022. TECHNIQUE: Multi planar, multi sequence imaging was performed utilizing: T1-weighted, T2-weighted, an d turbo inversion recovery imaging of the cervical spine. IV Contrast: 9 cc Gadobutrol (none if empty) FINDINGS: Alignment: The cervical vertebral bodies have preserved heights. Alignment is within normal limits gi meena patient positioning. Bones: Postsurgical changes to the spine with multilevel degeneration changes. Surgical changes exten d from C3 through C5. No abnormal postcontrast enhancement. Cord: The spinal cord is unremarkable with regards to their signal intensity and morphology. No abnormal postcontrast enhancement. Discs: Multilevel disc desiccation is present. C2-C3: No significant disc pathology. The spinal canal is patent. No neural foraminal stenosis. C3-C4: Postsurgical changes at this level from anterior fusion. Spinal canal is patent. No neural for aminal stenosis. C4-C5: Postsurgical changes at this level from anterior fusion. Spinal canal is patent. Osteophyte co mplex with narrowing the ventral subarachnoid space. No neural foraminal stenosis. C5-C6: No significant disc pathology. The spinal canal is patent. Bilateral facet and uncovertebral joint arthropathy are present with mild to moderate bilateral neural foraminal stenosis. C6-C7: No significant disc pathology. The spinal canal is patent. No neural foraminal stenosis. C7-T1: No significant disc pathology. The spinal canal is patent. No neural foraminal stenosis. Other: None. IMPRESSION: Postsurgical changes to the spine without evidence for significant spinal canal stenosis or neural fo raminal stenosis. No abnormal postcontrast enhancement.
== END | disposition home or self-care (01) ==
LOC: RADMRIMAIN 13:38
PROVIDERS: ATTEND Orthopaedic Surgery Orthopaedic Surgery of the Spine
DX: M43.12 Spondylolisthesis, cervical region (principal); E66.9 Obesity, unspecified; M50.322 Other cervical disc degeneration at C5-C6 level; R29.2 Abnormal reflex; R26.89 Other abnormalities of gait and mobility; Z98.890 Other specified postprocedural states
CPT/HCPCS: 72156; A9585

== ENCOUNTER 2023-07-12 15:35 | Emergency (ER) | payer BC ==
[2023-07-12 15:49] VITALS: TEMP 97.6
--- NOTE | 2023-07-12 15:58 | ED ---
General Adult HPI - General Source: patient Mode of arrival: EMS Limitations: no limitations <Miguel A Lopez - Last Filed: 07/12/23 16:18> <Eula Luciano - Last Filed: 07/12/23 23:10> - General Chief complaint: Arrhythmia/Palpitations Stated complaint: chest pain Time Seen by Provider: 07/12/23 18:30 - History of Present Illness Initial comments: Quick note for advanced triage: 53-year-old female presents to the emergency department for chief complaint of chest pain. Patient states for the past several weeks she has been getting episodes where her chest starts to race and she has some pain lasted for 15 minutes or so. However today around 1:30 PM patient had an episode which included her heart racing, chest pain. She went to lay down like she usually does to help rid of the symptoms however they did not go away like usual. Symptoms lasted for over an hour. Chest now just feels like a soreness. (Miguel A Lopez) 53-year-old female presents to the emergency department with reported palpitations. She does have a long-standing history of palpitations due to atrial tachycardia. She has had an ablation before by Dr. Diez. States that she will have frequent episodes of the tachycardia however she will lay down and symptoms will go away. Today the symptoms were persistent in the patient could not get her heart rate to slow down. She does take Toprol and states that she did take her morning dose. She has some associated chest pain. No associated coronary disease. Currently follows with Dr. Roman. She denies any calf pain or swelling. No fevers, chills or cough. Upon my evaluation the patient reports to feeling some numbness in her left arm. Patient has history of ascending aortic aneurysm which is being surveyed. No other alleviating, precipitating or modifying factors (Eula Luciano) - Related Data Home Medications Medication Instructions Recorded Confirmed Omeprazole [PriLOSEC] 20 mg PO HS 08/27/17 12/03/21 Metoprolol Tartrate 25 mg PO BID 02/06/20 12/03/21 Sertraline [Zoloft] 100 mg PO HS 05/28/21 12/03/21 traMADol HCl [Ultram] 50 mg PO QID PRN 12/03/21 12/03/21 Previous Rx's Medication Instructions Recorded lamoTRIgine [LaMICtal] 50 mg PO DAILY 30 Days tab 02/14/20 lamoTRIgine [LaMICtal] 100 mg PO HS 30 Days tab 02/14/20 Allergies Allergy/AdvReac Type Severity Reaction Status Date / Time ciprofloxacin [From Cipro] Allergy Swelling Verified 07/12/23 15:41 at injection site ciprofloxacin HCl Allergy Swelling Verified 07/12/23 15:41 [From Cipro] at injection site aspirin AdvReac Abdominal Verified 07/12/23 15:41 Pain hydromorphone HCl AdvReac VOMITING, Verified 07/12/23 15:41 [From Dilaudid] DIZZY see comments morphine AdvReac Nausea & Verified 07/12/23 15:41 Vomiting Review of Systems ROS Other: All systems not noted in ROS Statement are negative. <Miguel A Lopez - Last Filed: 07/12/23 16:18> ROS Other: All systems not noted in ROS Statement are negative. <Eula Luciano - Last Filed: 07/12/23 23:10> ROS Statement: Those systems with pertinent positive or pertinent negative responses have been documented in the HPI. Past Medical History Past Medical History: GERD/Reflux, Hypertension, Osteoarthritis (OA), Sleep Apnea/CPAP/BIPAP, Syncope Additional Past Medical History / Comment(s): Chronic back & neck pain, migraines, ascending aortic aneurysm, gastric ulcers. Episodes of light headedness and dizziness , History of Any Multi-Drug Resistant Organisms: None Reported Past Surgical History: Ablation, Bariatric Surgery, Cholecystectomy, EPS, Hysterectomy, Joint Replacement, Orthopedic Surgery Additional Past Surgical History / Comment(s): NARA-EN-Y, cervical fusion C2-C5, arthroscopy left knee, left knee replacement, loop recorder insertion Past Anesthesia/Blood Transfusion Reactions: Motion Sickness Past Psychological History: Depression Smoking Status: Never smoker Past Alcohol Use History: None Reported Past Drug Use History: Marijuana - Past Family History Mother Family Medical History: Coronary Artery Disease (CAD) Additional Family Medical History / Comment(s): Mother is alive at age 68 with history of three-vessel CABG and diabetes. Father Family Medical History: Coronary Artery Disease (CAD) Additional Family Medical History / Comment(s): Father is alive at age 68 with history of three-vessel CABG. Brother(s) Family Medical History: No Reported History Additional Family Medical History / Comment(s): Patient has one brother with history of seasonal ALLERGIES. Patient does not have any sisters. Daughter(s) Family Medical History: No Reported History Additional Family Medical History / Comment(s): Patient is a total of 3 children with no major medical problems. Son(s) Family Medical History: No Reported History <Miguel A Lopez - Last Filed: 07/12/23 16:18> General Exam Limitations: no limitations General appearance: alert Head exam: Present: atraumatic Eye exam: Present: normal appearance ENT exam: Present: normal exam, mucous membranes moist Neck exam: Present: normal inspection, full ROM Respiratory exam: Present: normal lung sounds bilaterally. Absent: respiratory distress, wheezes Cardiovascular Exam: Present: regular rate, normal rhythm, normal heart sounds <Miguel A Lopez - Last Filed: 07/12/23 16:18> General appearance: alert, in no apparent distress Head exam: Present: atraumatic, normocephalic, normal inspection Eye exam: Present: normal appearance, PERRL, EOMI. Absent: scleral icterus, conjunctival injection, periorbital swelling ENT exam: Present: normal exam, mucous membranes moist Neck exam: Present: normal inspection. Absent: tenderness, meningismus, lymphadenopathy Respiratory exam: Present: normal lung sounds bilaterally. Absent: respiratory distress, wheezes, rales, rhonchi, stridor Cardiovascular Exam: Present: regular rate, normal rhythm, normal heart sounds. Absent: systolic murmur, diastolic murmur, rubs, gallop, clicks GI/Abdominal exam: Present: soft, normal bowel sounds. Absent: distended, tenderness, guarding, rebound, rigid Extremities exam: Present: normal inspection, full ROM, normal capillary refill. Absent: tenderness, pedal edema, joint swelling, calf tenderness Back exam: Present: normal inspection Neurological exam: Present: alert, oriented X3, CN II-XII intact Psychiatric exam: Present: normal affect, normal mood Skin exam: Present: warm, dry, intact, normal color. Absent: rash <Eula Luciano - Last Filed: 07/12/23 23:10> Course Vital Signs 07/12/23 07/12/23 07/12/23 15:38 18:10 19:49 Temperature 97.6 F Pulse Rate 69 73 59 L Respiratory 20 18 19 Rate Blood Pressure 121/3 109/78 116/79 O2 Sat by Pulse 99 96 99 Oximetry 07/12/23 21:11 Temperature Pulse Rate 90 Respiratory 19 Rate Blood Pressure 114/75 O2 Sat by Pulse 100 Oximetry Medical Decision Making - Lab Data Result diagrams: 07/12/23 15:50 07/12/23 15:50 <Eula Luciano A - Last Filed: 07/12/23 23:10> - Medical Decision Making Was pt. sent in by a medical professional or institution (, PA, CONDUIT BENDER, urgent care, hospital, or halfway...) When possible be specific @ -No Did you speak to anyone other than the patient for history (EMS, parent, family, police, friend...)? What history was obtained from this source @ -EMS Did you review nursing and triage notes (agree or disagree)? Why? @ -I reviewed and agree with nursing and triage notes Were old charts reviewed (outside hosp., previous admission, EMS record, old EKG, old radiological studies, urgent care reports/EKG's, halfway records)? Report findings @ -Yes, I reviewed patient's echo and stress test from 2021 Differential Diagnosis (chest pain, altered mental status, abdominal pain women, abdominal pain men, vaginal bleeding, weakness, fever, dyspnea, syncope, headache, dizziness, GI bleed, back pain, seizure, CVA, palpatations, mental health, musculoskeletal)? @ -Differential Palpitations Ventricular arrhythmias, atrial arrhythmias, myocardial infarction, anemia, thyrotoxicosis, electrolyte imbalance, hypokalemia, pulmonary embolism, pulmonary disease, drugs, alcohol, anxiety, stress.... This is not meant to be an all-inclusive list. EKG interpreted by me (3pts min.). @ -yes and demonstrates sinus rhythm rate of 81 .MO interval 130. QRS 97. QTC of 400. No acute ST segment elevations or depressions. X-rays interpreted by me (1pt min.). @ -Yes and demonstrates no acute process CT interpreted by me (1pt min.). @ -Yes and demonstrates ascending aortic aneurysm which is stable in size U/S interpreted by me (1pt. min.). @ -None done What testing was considered but not performed or refused? (CT, X-rays, U/S, labs)? Why? @ -None What meds were considered but not given or refused? Why? @ -None Did you discuss the management of the patient with other professionals (professionals i.e. , PA, CONDUIT BENDER, lab, RT, psych nurse, social service director, o and m supervisor, teacher, banking officer, employment case manager)? Give summary @ -No Was smoking cessation discussed for >3mins.? @ -No Was critical care preformed (if so, how long)? @ -No Were there social determinants of health that impacted care today? How? (Homelessness, low income, unemployed, alcoholism, drug addiction, transportation, low edu. Level, literacy, decrease access to med. care, residential, rehab)? @ -No Was there de-escalation of care discussed even if they declined (Discuss DNR or withdrawal of care, Hospice)? DNR status @ -No What co-morbidities impacted this encounter? (DM, HTN, Smoking, COPD, CAD, Cancer, CVA, ARF, Chemo, Hep., AIDS, mental health diagnosis, sleep apnea, morbid obesity)? @ -Atrial tachycardia, ascending aortic aneurysm Was patient admitted / discharged? Hospital course, mention meds given and route, prescriptions, significant lab abnormalities, going to OR and other pertinent info. @ -Discharged. Upon arrival patient was placed into room 1. Thorough history and physical exam was performed. IV is established. Patient placed on continuous pulse ox and cardiac monitoring. 12-lead EKG is obtained. Labor atory studies are conducted. First troponin is negative. Chest x-ray demonstrates no acute process. Results are discussed the patient. Due to left arm numbness with chest pain and history of ascending aneurysm I did recommend CT which was performed and demonstrates stable size of the aneurysm. No dissection. Requested to perform a second troponin is patient is eager to go home. Second troponin is also negative. I discussed the results with the patient. State that she needs to follow up with her musical therapist for further evaluation including echo and stress testing. If she has any new or worsening symptoms she should return to the emergency room. Patient agreeable to plan and was discharged in stable condition Undiagnosed new problem with uncertain prognosis? @ -Yes Drug Therapy requiring intensive monitoring for toxicity (Heparin, Nitro, Insulin, Cardizem)? @ -No Were any procedures done? @ -No Diagnosis/symptom? @ -Acute palpitations, acute nonsustained tachycardia, history of atrial tachycardia Acute, or Chronic, or Acute on Chronic? @Acute Uncomplicated (without systemic symptoms) or Complicated (systemic symptoms)? @ -Complicated Side effects of treatment? @ -No Exacerbation, Progression, or Severe Exacerbation? @ -Yes Poses a threat to life or bodily function? How? (Chest pain, [place], [place], pneumonia, PE, COPD, DKA, ARF, appy, cholecystitis, CVA, Diverticulitis, Homicidal, Suicidal, threat to staff... and all critical care pts) @ -No (Eula Luciano) - Lab Data Lab Results 07/12/23 07/12/23 07/12/23 Range/Units 15:50 15:50 15:50 WBC 5.1 (3.8-10.6) k/uL RBC 4.90 (3.80-5.40) m/uL Hgb 13.5 (11.4-16.0) gm/dL Hct 41.1 (34.0-46.0) % MCV 84.0 (80.0-100.0) fL MCH 27.7 (25.0-35.0) pg MCHC 32.9 (31.0-37.0) g/dL RDW 14.6 (11.5-15.5) % Plt Count 144 L (150-450) k/uL MPV 9.6 Neutrophils % 69 % Lymphocytes % 22 % Monocytes % 6 % Eosinophils % 2 % Basophils % 0 % Neutrophils # 3.5 (1.3-7.7) k/uL Lymphocytes # 1.1 (1.0-4.8) k/uL Monocytes # 0.3 (0-1.0) k/uL Eosinophils # 0.1 (0-0.7) k/uL Basophils # 0.0 (0-0.2) k/uL PT 10.7 (10.0-12.5) sec INR 1.0 (<1.2) APTT 24.0 (22.0-30.0) sec Sodium 138 (137-145) mmol/L Potassium 4.1 (3.5-5.1) mmol/L Chloride 106 (98-107) mmol/L Carbon Dioxide 25 (22-30) mmol/L Anion Gap 7 mmol/L BUN 15 (7-17) mg/dL Creatinine 0.80 (0.52-1.04) mg/dL Est GFR (CKD-EPI)AfAm >90 (>60 ml/min/1.73 sqM) Est GFR (CKD-EPI)NonAf 85 (>60 ml/min/1.73 sqM) Glucose 98 (74-99) mg/dL Calcium 9.3 (8.4-10.2) mg/dL Magnesium 1.8 (1.6-2.3) mg/dL Total Bilirubin 0.4 (0.2-1.3) mg/dL AST 27 (14-36) U/L ALT 15 (4-34) U/L Alkaline Phosphatase 108 (38-126) U/L Troponin I (0.000-0.034) ng/mL Total Protein 7.1 (6.3-8.2) g/dL Albumin 4.2 (3.5-5.0) g/dL 07/12/23 07/12/23 Range/Units 15:50 19:04 WBC (3.8-10.6) k/uL RBC (3.80-5.40) m/uL Hgb (11.4-16.0) gm/dL Hct (34.0-46.0) % MCV (80.0-100.0) fL MCH (25.0-35.0) pg MCHC (31.0-37.0) g/dL RDW (11.5-15.5) % Plt Count (150-450) k/uL MPV Neutrophils % % Lymphocytes % % Monocytes % % Eosinophils % % Basophils % % Neutrophils # (1.3-7.7) k/uL Lymphocytes # (1.0-4.8) k/uL Monocytes # (0-1.0) k/uL Eosinophils # (0-0.7) k/uL Basophils # (0-0.2) k/uL PT (10.0-12.5) sec INR (<1.2) APTT (22.0-30.0) sec Sodium (137-145) mmol/L Potassium (3.5-5.1) mmol/L Chloride (98-107) mmol/L Carbon Dioxide (22-30) mmol/L Anion Gap mmol/L BUN (7-17) mg/dL Creatinine (0.52-1.04) mg/dL Est GFR (CKD-EPI)AfAm (>60 ml/min/1.73 sqM) Est GFR (CKD-EPI)NonAf (>60 ml/min/1.73 sqM) Glucose (74-99) mg/dL Calcium (8.4-10.2) mg/dL Magnesium (1.6-2.3) mg/dL Total Bilirubin (0.2-1.3) mg/dL AST (14-36) U/L ALT (4-34) U/L Alkaline Phosphatase (38-126) U/L Troponin I <0.012 <0.012 (0.000-0.034) ng/mL Total Protein (6.3-8.2) g/dL Albumin (3.5-5.0) g/dL Disposition <Miguel A Lopez - Last Filed: 07/12/23 16:18> Is patient prescribed a controlled substance at d/c from ED?: No Time of Disposition: 21:04 <Eula Luciano - Last Filed: 07/12/23 23:10> Clinical Impression: Palpitations Disposition: HOME SELF-CARE Condition: Stable Instructions (If sedation given, give patient instructions): Heart Palpitations (ED) Additional Instructions: Please call and make an appointment with the cardiology office. Continue taking your medications as directed and return for any new or worsening symptoms Referrals: Dario Greene DO [Primary Care Provider] - 1-2 days [facility] [Provider Group] - 1-2 days
[2023-07-12 16:25] LABS: Basophils % (A) 0 %; Eosinophils # (A) 0.1 k/uL (0-0.7); Eosinophils % (A) 2 %; HCT 41.1 % (34.0-46.0); HGB 13.5 gm/dL (11.4-16.0); Lymphocytes # (A) 1.1 k/uL (1.0-4.8); Lymphocytes % (A) 22 %; MCH 27.7 pg (25.0-35.0); MCHC 32.9 g/dL (31.0-37.0); Mean Platelet Volume 9.6; Monocytes # (A) 0.3 k/uL (0-1.0); Monocytes % (A) 6 %; Neutrophils # (A) 3.5 k/uL (1.3-7.7); Neutrophils % (A) 69 %; Platelet Count 144 k/uL (150-450); RDW 14.6 % (11.5-15.5); WBC 5.1 k/uL (3.8-10.6)
--- NOTE | 2023-07-12 16:28 | XR ---
EXAMINATION TYPE: XR chest 2V DATE OF EXAM: 07/12/2023 COMPARISON: 10/31/2021 HISTORY: Chest pain TECHNIQUE: Frontal and lateral views of the chest are obtained. FINDINGS: No change in the 13 mm left upper lobe pulmonary nodule. The lungs are otherwise clear. There is no p neumothorax or pleural effusion. Heart and pulmonary vasculature are normal. The osseous structures a re intact the exception of cervical fusion. IMPRESSION: 1. No acute cardiopulmonary disease. 2. Stable left upper lobe pulmonary nodule.
[2023-07-12 16:42] LABS: Prothrombin Time 10.7 sec (10.0-12.5)
[2023-07-12 16:45] LABS: ALT 15 U/L (4-34); AST 27 U/L (14-36); African American GFR (CKD) >90 (>60 ml/min/1.73 sqM); Albumin 4.2 g/dL (3.5-5.0); Alkaline Phosphatase 108 U/L (38-126); Anion Gap 7 mmol/L; Blood Urea Nitrogen 15 mg/dL (7-17); Calcium 9.3 mg/dL (8.4-10.2); Carbon Dioxide 25 mmol/L (22-30); Chloride 106 mmol/L (98-107); Glucose 98 mg/dL (74-99); Magnesium 1.8 mg/dL (1.6-2.3); Non-African American GFR(CKD) 85 (>60 ml/min/1.73 sqM); Potassium 4.1 mmol/L (3.5-5.1); Sodium 138 mmol/L (137-145); Total Bilirubin 0.4 mg/dL (0.2-1.3); Total Protein 7.1 g/dL (6.3-8.2)
[2023-07-12 19:58] VITALS: RESP 19
--- NOTE | 2023-07-12 20:43 | CT ---
EXAMINATION TYPE: CT angio thor/abd CT DLP: 1231.3 mGycm, Automated exposure control for dose reduction was used. DATE OF EXAM: 07/12/2023 7:30 PM COMPARISON: None. CLINICAL INDICATION:Female, 53 years old with history of chest pain, left arm numb, hx thoracic aneur ysm; [facility], TECHNIQUE: Dissection protocol: Multiple axial CT images of the chest and abdomen were obtained prior and to the administration of IV contrast. 3-D reformats and maximum intensity projection format were performed on a separate workstation. Contrast used: 95 cc [id number] Oral contrast used: without Oral Contrast FINDINGS: ARTERIAL VASCULATURE: Aorta enhances normally without evidence of dissection flap. Conventional 3 bra nch pattern from the arch. Minimal atherosclerosis along the distal arch. Fusiform dilatation of the ascending aorta measures 3.7 x 3.7 cm. This tapers to 2.3 cm along the distal arch. Celiac, SMA, sing le bilateral renal arteries appear normally patent. No evidence of AAA. No intramural hematoma. Mild atherosclerotic disease at the bifurcation, which is patent. Iliac arteries appear normal in course a nd caliber. PULMONARY ARTERIAL VASCULATURE: Limited assessment by phase of contrast. No filling defect is seen to suggest embolus. Main pulmonary artery is normal in size at 2.4 cm. VENOUS SYSTEM: Unremarkable. Lungs/pleura: No consolidative process, pleural effusion, or pneumothorax. Calcified subpleural granu brayan at the posterior lateral aspect left upper lobe measures 1.3 cm. No suspicious lung nodules. Heart: Normal in size with grossly preserved enhancement of the chambers. No pericardial effusion. Mediastinum: No gross evidence of adenopathy. Calcified left hilar nodes consistent with remote granu lomatous disease. Lower Neck: No significant findings. Abdomen: Liver: Unremarkable. Gallbladder and Bile ducts: Status post cholecystectomy, with mild prominence of the biliary tree lik vict[place] incident to this.. Pancreas: Unremarkable. Spleen: Unremarkable. Adrenal glands: Unremarkable. Kidneys and Ureters: Kidneys enhance symmetrically without evidence of mass. Mildly prominent extrare nal pelves without dilated ureters seen. No visible calculi. Bladder: Not imaged. Reproductive: Not imaged. Stomach and Bowel: Postoperative changes in the stomach and small bowel likely from gastric bypass. N o evidence of obstruction. Mild stool throughout the colon without focal abnormality seen. The append ix appears within normal limits. Peritoneum: No evidence of pneumoperitoneum or free fluid. Musculoskeletal: Osseous structures appear intact with mild diffuse degenerative changes.. Lymph nodes: No evidence of lymphadenopathy. Abdominal wall/soft tissues: Unremarkable. IMPRESSION: 1. No evidence of aortic dissection. 2. Fusiform ascending thoracic aortic aneurysm, 3.7 x 3.7 cm. 3. No evidence of pulmonary embolus given exam limitations. 4. Old calcified pulmonary granulomatous disease. 5. Postoperative changes including probable gastric bypass and cholecystectomy. 6. No acute process in the abdomen.
[2023-07-12 21:15] VITALS: BP 114/75; PULSE 90
== END 2023-07-12 21:12 | disposition home or self-care (01) ==
LOC: EC 15:35
DX: R00.2 Palpitations (principal); K21.9 Gastro-esophageal reflux disease without esophagitis; I10 Essential (primary) hypertension; G47.30 Sleep apnea, unspecified; F32.A Depression, unspecified; F12.90 Cannabis use, unspecified, uncomplicated; Z79.899 Other long term (current) drug therapy; Z88.6 Allergy status to analgesic agent; Z88.5 Allergy status to narcotic agent; Z88.8 Allergy status to other drugs, medicaments and biological substances; I71.21 Aneurysm of the ascending aorta, without rupture; J84.10 Pulmonary fibrosis, unspecified; Z88.1 Allergy status to other antibiotic agents; Z90.49 Acquired absence of other specified parts of digestive tract
CPT/HCPCS: 99285 ×2; 36415; 93005; 80053; 83735; 84484; 85025; 85610; 85730; 71046; 71275; 74175; Q9967

== ENCOUNTER 2023-12-13 04:21 | Inpatient (IN) | payer BC ==
[2023-12-13] MEDS: MORPHINE SULFATE 4 MG/ML SYRINGE IV STA (05:01)
[2023-12-13 05:08] LABS: Basophils % (A) 0 %; Eosinophils # (A) 0.1 k/uL (0-0.7); Eosinophils % (A) 1 %; HCT 41.4 % (34.0-46.0); HGB 13.1 gm/dL (11.4-16.0); Lymphocytes % (A) 13 %; MCH 27.3 pg (25.0-35.0); MCHC 31.6 g/dL (31.0-37.0); MCV 86.6 fL (80.0-100.0); Mean Platelet Volume 10.5; Monocytes # (A) 0.5 k/uL (0-1.0); Monocytes % (A) 7 %; Neutrophils # (A) 5.8 k/uL (1.3-7.7); Neutrophils % (A) 78 %; Platelet Count 151 k/uL (150-450); RBC 4.78 m/uL (3.80-5.40); RDW 15.2 % (11.5-15.5); WBC 7.4 k/uL (3.8-10.6)
[2023-12-13] MEDS: fentaNYL (PF) 50 MCG/ML 2 ML AMP IVP ONE (05:16)
[2023-12-13 05:34] LABS: ALT 12 U/L (4-34); AST 20 U/L (14-36); African American GFR (CKD) >90 (>60 ml/min/1.73 sqM); Albumin 3.7 g/dL (3.5-5.0); Alkaline Phosphatase 130 U/L (38-126); Amylase 40 U/L (30-110); Anion Gap 2 mmol/L; Blood Urea Nitrogen 24 mg/dL (7-17); Calcium 8.7 mg/dL (8.4-10.2); Carbon Dioxide 28 mmol/L (22-30); Chloride 108 mmol/L (98-107); Glucose 127 mg/dL (74-99); Lipase 81 U/L (23-300); Non-African American GFR(CKD) 80 (>60 ml/min/1.73 sqM); Sodium 138 mmol/L (137-145); Total Bilirubin 0.3 mg/dL (0.2-1.3); Total Protein 6.3 g/dL (6.3-8.2)
[2023-12-13 05:36] LABS: C Reactive Protein <0.5 mg/dL (<1.0)
--- NOTE | 2023-12-13 07:25 | ED ---
Abdominal Pain HPI - General Source: EMS Mode of arrival: EMS Limitations: no limitations - History of Present Illness MD Complaint: abdominal pain -: hour(s) Location: LUQ, RUQ, epigastric Radiation: none Migration to: no migration Severity: severe Quality: aching, sharp Consistency: constant Improves With: nothing Worsens With: nothing Associated Symptoms: nausea <Herbie Danielle - Last Filed: 12/13/23 07:23> <Farzad Cook - Last Filed: 12/13/23 08:33> - General Chief Complaint: Abdominal Pain Stated Complaint: ABD Pain Time Seen by Provider: 12/13/23 04:24 - History of Present Illness Initial Comments: This patient is 53-year-old woman who woke this morning due to upper abdominal pain. She states that she typically gets up early for work but the pain woke her up earlier than usual. She states the pain is moderately severe, constant, sharp aching. She has not noted worsening or relieving factors. She has had n ausea but no vomiting. Patient has not noted change in urination or bowel movements. She has not had fever or chills. Patient does have history of bariatric surgery in 2013 at an outside hospital. (Herbie Danielle) - Related Data Home Medications Medication Instructions Recorded Confirmed Omeprazole [PriLOSEC] 20 mg PO HS 08/27/17 12/03/21 Metoprolol Tartrate 25 mg PO BID 02/06/20 12/03/21 Sertraline [Zoloft] 100 mg PO HS 05/28/21 12/03/21 traMADol HCl [Ultram] 50 mg PO QID PRN 12/03/21 12/03/21 Previous Rx's Medication Instructions Recorded lamoTRIgine [LaMICtal] 50 mg PO DAILY 30 Days tab 02/14/20 lamoTRIgine [LaMICtal] 100 mg PO HS 30 Days tab 02/14/20 Allergies Allergy/AdvReac Type Severity Reaction Status Date / Time ciprofloxacin [From Cipro] Allergy Swelling Verified 07/12/23 15:41 at injection site ciprofloxacin HCl Allergy Swelling Verified 07/12/23 15:41 [From Cipro] at injection site aspirin AdvReac Abdominal Verified 07/12/23 15:41 Pain hydromorphone HCl AdvReac VOMITING, Verified 07/12/23 15:41 [From Dilaudid] DIZZY see comments morphine AdvReac Nausea & Verified 07/12/23 15:41 Vomiting Review of Systems ROS Other: All systems not noted in ROS Statement are negative. Constitutional: Denies: fever, chills Respiratory: Denies: cough, dyspnea Cardiovascular: Denies: chest pain, palpitations Gastrointestinal: Reports: abdominal pain, nausea. Denies: vomiting, diarrhea, melena, hematochezia Genitourinary: Denies: dysuria, hematuria Musculoskeletal: Denies: back pain Skin: Denies: rash Neurological: Denies: headache, weakness <Herbie Danielle - Last Filed: 12/13/23 07:23> ROS Other: All systems not noted in ROS Statement are negative. <Farzad Cook - Last Filed: 12/13/23 08:33> ROS Statement: Those systems with pertinent positive or pertinent negative responses have been documented in the HPI. Past Medical History Past Medical History: GERD/Reflux, Hypertension, Osteoarthritis (OA), Sleep Apnea/CPAP/BIPAP, Syncope Additional Past Medical History / Comment(s): Chronic back & neck pain, migraines, ascending aortic aneurysm, gastric ulcers. Episodes of light he adedness and dizziness , History of Any Multi-Drug Resistant Organisms: None Reported Past Surgical History: Ablation, Bariatric Surgery, Cholecystectomy, EPS, Hysterectomy, Joint Replacement, Orthopedic Surgery Additional Past Surgical History / Comment(s): NARA-EN-Y, cervical fusion C2-C5, arthroscopy left knee, left knee replacement, loop recorder insertion Past Anesthesia/Blood Transfusion Reactions: Motion Sickness Past Psychological History: Depression Smoking Status: Never smoker Past Alcohol Use History: None Reported Past Drug Use History: Marijuana - Past Family History Mother Family Medical History: Coronary Artery Disease (CAD) Additional Family Medical History / Comment(s): Mother is alive at age 68 with history of three-vessel CABG and diabetes. Father Family Medical History: Coronary Artery Disease (CAD) Additional Family Medical History / Comment(s): Father is alive at age 68 with history of three-vessel CABG. Brother(s) Family Medical History: No Reported History Additional Family Medical History / Comment(s): Patient has one brother with history of seasonal ALLERGIES. Patient does not have any sisters. Daughter(s) Family Medical History: No Reported History Additional Family Medical History / Comment(s): Patient is a total of 3 children with no major medical problems. Son(s) Family Medical History: No Reported History <Herbie Danielle - Last Filed: 12/13/23 07:23> General Exam Limitations: no limitations General appearance: alert, in no apparent distress Head exam: Present: atraumatic, normocephalic Eye exam: Present: normal appearance. Absent: scleral icterus, conjunctival injection ENT exam: Present: normal oropharynx Neck exam: Present: normal inspection Respiratory exam: Present: normal lung sounds bilaterally. Absent: respiratory distress, wheezes, rales, rhonchi, stridor Cardiovascular Exam: Present: regular rate, normal rhythm, normal heart sounds. Absent: systolic murmur, diastolic murmur, rubs, gallop GI/Abdominal exam: Present: soft, tenderness. Absent: distended, guarding, rebound, rigid, mass Extremities exam: Present: normal inspection, normal capillary refill. Absent: pedal edema, calf tenderness Back exam: Present: normal inspection. Absent: CVA tenderness (R), CVA tenderness (L) Neurological exam: Present: alert Skin exam: Present: warm, dry, intact, normal color. Absent: rash <BethorlyHerbie - Last Filed: 12/13/23 07:23> Course Vital Signs 12/13/23 04:23 Temperature 97.9 F Pulse Rate 59 L Respiratory 18 Rate Blood Pressure 133/80 O2 Sat by Pulse 98 Oximetry Medical Decision Making - Lab Data Result diagrams: 12/13/23 05:00 12/13/23 05:00 <LolisHerbie - Last Filed: 12/13/23 07:23> - Lab Data Result diagrams: 12/13/23 05:00 12/13/23 05:00 <Farzad Cook - Last Filed: 12/13/23 08:33> - Medical Decision Making Was pt. sent in by a medical professional or institution (, PA, HEALTH SERVICE WORKER, urgent care, hospital, or [facility]...) When possible be specific @ -No Did you speak to anyone other than the patient for history (EMS, parent, family, police, friend...)? What history was obtained from this source @ -No Did you review nursing and triage notes (agree or disagree)? Why? @ -I reviewed and agree with nursing and triage notes Were old charts reviewed (outside hosp., previous admission, EMS record, old EKG, old radiological studies, urgent care reports/EKG's, [facility] records)? Report findings @ -No old charts were reviewed Differential Diagnosis (chest pain, altered mental status, abdominal pain women, abdominal pain men, vaginal bleeding, weakness, fever, dyspnea, syncope, headache, dizziness, GI bleed, back pain, seizure, CVA, palpatations, mental he alth, musculoskeletal)? @ -Differential Abdominal Pain Women: Appendicitis, Cholecystitis, diverticulosis, ischemic bowel, pancreatitis, hepatitis, UTI, gastroenteritis, AAA, incarcerated hernia, bowel obstruction, constipation, inflammatory bowel, hepatitis, peptic ulcer disease, splenic infarction, perforated viscus, vulvitis, ovarian torsion, PID, kidney stone, placenta abruption, this is not meant to be an all-inclusive list EKG interpreted by me (3pts min.). @ -As above X-rays interpreted by me (1pt min.). @ -None done CT interpreted by me (1pt min.). @ -CT scan abdomen pelvis does show 1 cm high density focus at surgical site which could be ulcer or bleeding. U/S interpreted by me (1pt. min.). @ -None done What testing was considered but not performed or refused? (CT, X-rays, U/S, labs)? Why? @ -None What meds were considered but not given or refused? Why? @ -None Did you discuss the management of the patient with other professionals (professionals i.e. , PA, HEALTH SERVICE WORKER, lab, RT, psych nurse, drug abuse social worker, archivist, teacher, business development officer, continuous pillowcase cutter)? Give summary @ -Case was discussed with Dr. Garcia who will admit covering surgical call Was smoking cessation discussed for >3mins.? @ -No Was critical care preformed (if so, how long)? @ -No Were there social determinants of health that impacted care today? How? (Homelessness, low income, unemployed, alcoholism, drug addiction, transportation, low edu. Level, literacy, decrease access to med. care, nursing home, rehab)? @ -No Was there de-escalation of care discussed even if they declined (Discuss DNR or withdrawal of care, Hospice)? DNR status @ -No What co-morbidities impacted this encounter? (DM, HTN, Smoking, COPD, CAD, Cancer, CVA, ARF, Chemo, Hep., AIDS, mental health diagnosis, sleep apnea, morbid obesity)? @ -Post Nara-en-Y surgery approximately 12 years ago Was patient admitted / discharged? Hospital course, mention meds given and route, prescriptions, significant lab abnormalities, going to OR and other pertinent info. @ -Patient reevaluated resting comfortably in bed. Patient states discomfort is somewhat improved with morphine. Abdomen is soft with mild epigastric tenderness to palpation. Patient will be admitted. Admission orders written by Dr. Hill Undiagnosed new problem with uncertain prognosis? @ -No Drug Therapy requiring intensive monitoring for toxicity (Heparin, Nitro, Insulin, Cardizem)? @ -No Were any procedures done? @ -No Diagnosis/symptom? @ -Epigastric pain Acute, or Chronic, or Acute on Chronic? @ -Acute Uncomplicated (without systemic symptoms) or Complicated (systemic symptoms)? @ -Complicated with potential for ulcer Side effects of treatment? @ -No Exacerbation, Progression, or Severe Exacerbation? @ -No Poses a threat to life or bodily function? How? (Chest pain, USA, PA, pneumonia, PE, COPD, DKA, ARF, appy, cholecystitis, CVA, Diverticulitis, Homicidal, Suicidal, threat to staff... and all critical care pts) @ -No (Farzad Cook) - Lab Data Lab Results 12/13/23 12/13/23 12/13/23 Range/Units 05:00 05:00 05:00 WBC 7.4 (3.8-10.6) k/uL RBC 4.78 (3.80-5.40) m/uL Hgb 13.1 (11.4-16.0) gm/dL Hct 41.4 (34.0-46.0) % MCV 86.6 (80.0-100.0) fL MCH 27.3 (25.0-35.0) pg MCHC 31.6 (31.0-37.0) g/dL RDW 15.2 (11.5-15.5) % Plt Count 151 (150-450) k/uL MPV 10.5 Neutrophils % 78 % Lymphocytes % 13 % Monocytes % 7 % Eosinophils % 1 % Basophils % 0 % Neutrophils # 5.8 (1.3-7.7) k/uL Lymphocytes # 1.0 (1.0-4.8) k/uL Monocytes # 0.5 (0-1.0) k/uL Eosinophils # 0.1 (0-0.7) k/uL Basophils # 0.0 (0-0.2) k/uL Sodium 138 (137-145) mmol/L Potassium 4.0 (3.5-5.1) mmol/L Chloride 108 H (98-107) mmol/L Carbon Dioxide 28 (22-30) mmol/L Anion Gap 2 mmol/L BUN 24 H (7-17) mg/dL Creatinine 0.84 (0.52-1.04) mg/dL Est GFR (CKD-EPI)AfAm >90 (>60 ml/min/1.73 sqM) Est GFR (CKD-EPI)NonAf 80 (>60 ml/min/1.73 sqM) Glucose 127 H (74-99) mg/dL Plasma Lactic Acid Pop 1.2 (0.7-2.0) mmol/L Calcium 8.7 (8.4-10.2) mg/dL Total Bilirubin 0.3 (0.2-1.3) mg/dL AST 20 (14-36) U/L ALT 12 (4-34) U/L Alkaline Phosphatase 130 H (38-126) U/L C-Reactive Protein <0.5 (<1.0) mg/dL Total Protein 6.3 (6.3-8.2) g/dL Albumin 3.7 (3.5-5.0) g/dL Amylase 40 (30-110) U/L Lipase 81 (23-300) U/L Disposition <Herbie Danielle - Last Filed: 12/13/23 07:23> Is patient prescribed a controlled substance at d/c from ED?: No Time of Disposition: 08:23 <Farzad Cook - Last Filed: 12/13/23 08:33> Clinical Impression: Epigastric pain Disposition: ADMITTED IP TO THIS HOSP
--- NOTE | 2023-12-13 07:36 | CT ---
EXAMINATION TYPE: CT abdomen pelvis w con DATE OF EXAM: 12/13/2023 COMPARISON: 07/12/2023. HISTORY: 53-year-old female UPPER ABDOMINAL PAIN. History of bariatric surgery. TECHNIQUE: Contiguous axial scanning of the abdomen and pelvis following administration of 100 ml Iso shira 300 IV contrast. Delayed images through the kidneys and coronal/sagittal reconstructions perform ed. CT DLP: 1074.4 mGycm Automated exposure control for dose reduction was used. FINDINGS: The heart is normal size without pericardial effusion. Lung bases clear without pleural effusion. Post surgical changes which seem to relate to prior Tyrone-en-Y gastric bypass. There is some diffuse m ucosal enhancement within the not excluded stomach and a high density focus at the patient's gastroje junostomy, axial image 13 and sagittal image 82, not seen on 07/12/2023. No focal liver lesion. Stable mild prominence to the bile duct status post cholecystectomy. Portal ve nous system is patent. Adrenal glands, kidneys, spleen, and pancreas within normal limits. No dilated small bowel, free fluid, or free air. No mesenteric or retroperitoneal lymphadenopathy. Normal appendix. Mild overall spinal burden. No pericolic inflammatory change. Bladder only partially distended. Uterus surgically absent. Pelvic phleboliths. Neither ovary clearly seen. No abnormal fluid collection in the pelvis or pelvic lymphadenopathy. Bones: Mild degenerative change of the hips. Facet arthropathy lower lumbar spine. IMPRESSION: 1. PATIENT STATUS POST TYRONE-EN-Y GASTRIC BYPASS. THERE IS A 1 CM HIGH DENSITY NODULAR FOCUS AT THE GA STROJEJUNOSTOMY. THIS MAY CORRESPOND TO SURGICAL MATERIAL BUT WAS NOT SEEN ON 07/12/2023. CORRELATE F OR ANY FECAL OCCULT BLOOD AND WITH HEMOGLOBIN/HEMATOCRIT LEVELS TO EXCLUDE A FOCAL EROSION/MARGINAL U LCER AND POSSIBLE ASSOCIATED BLEEDING. DIRECT VISUALIZATION CLINICALLY INDICATED. 2. ENHANCEMENT WITHIN THE NONEXCLUDED STOMACH PRIOR TO THE GASTROJEJUNOSTOMY SUGGESTING MUCOSAL HYPER EMIA/GASTRITIS.
[2023-12-13] MEDS ORDERED: NALOXONE 0.4 MG/ML 1 ML VIAL IV PRN (07:59)
[2023-12-13] MEDS: FAMOTIDINE 20 MG TAB PO SCH (08:15)
[2023-12-13] MEDS: SODIUM CHLORIDE 0.9% 1,000 ML IV SCH (08:15)
[2023-12-13 12:16] LABS: Appearance,Urine Clear (Clear); Bacteria,Urine Occasional /hpf; Bilirubin,Urine Negative (Negative); Blood,Urine Negative (Negative); Color,Urine Light Yellow; Glucose,Urine (UA) Negative (Negative); Hyaline Casts,Urine 1 /lpf (0-2); Ketones,Urine Negative (Negative); Leukocyte Esterase,Urine Negative (Negative); Mucus,Urine Occasional /hpf; Nitrite,Urine Positive (Negative); PH, Urine 7.5 (5.0-8.0); Protein,Urine Trace (Negative); RBC,Urine 2 /hpf (0-5); Squamous Epithelial Cell,Urine 6 /hpf (0-4); Urobilinogen,Urine <2.0 mg/dL (<2.0); WBC,Urine 3 /hpf (0-5)
[2023-12-13 12:44] LABS: Specific Gravity,Urine >1.050 (1.001-1.035)
--- NOTE | 2023-12-13 13:36 | P.GSHP ---
History of Present Illness H&P Date: 12/13/23 Patient presented to the hospital with acute on chronic epigastric abdominal pain. She reports having an ulcer since her surgery 2013 now 11 years ago. She reports chronic history of an ulcer. She reports being 361 pounds and got down to 150 pounds. She has been lost to follow-up with any weight loss provider. She denies any tobacco use exposure. She denies any NSAID use. She reports hunger. She reports multiple surgeries including neck fusion, hysterectomy, orthopedic procedures. No recent upper endoscopy in over 5+ years. CT of the abdomen pelvis independently reviewed demonstrates no free air. Clinical features are suspicious for perforated gastrojejunal ulcer localized. Exam: Abdomen: No diffuse peritonitis. Tender epigastrium. Studies: CT of the abdomen pelvis independently reviewed demonstrates no free air. Fluid collection at the gastrojejunal anastomosis. This is my independent interpretation. Plan: 1. N.p.o. except mild swabs for 24 to 48 hours to allow for gastrojejunal ulceration to seal. 2. Will proceed with upper endoscopy after 48 hours. 3. 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 Inpatient hospitalization for perforated gastrojejunal ulcer. Disposition anticipated for 72 to 96 hours Past Medical History Past Medical History: GERD/Reflux, Hypertension, Osteoarthritis (OA), Sleep Apnea/CPAP/BIPAP, Syncope Additional Past Medical History / Comment(s): Chronic back & neck pain, migraines, ascending aortic aneurysm, gastric ulcers. Episodes of light headedness and dizziness , History of Any Multi-Drug Resistant Organisms: None Reported Past Surgical History: Ablation, Bariatric Surgery, Cholecystectomy, EPS, Hysterectomy, Joint Replacement, Orthopedic Surgery Additional Past Surgical History / Comment(s): NARA-EN-Y, cervical fusion C2-C5, arthroscopy left knee, left knee replacement, loop recorder insertion Past Anesthesia/Blood Transfusion Reactions: Motion Sickness Past Psychological History: Depression Smoking Status: Never smoker Past Alcohol Use History: None Reported Past Drug Use History: Marijuana - Past Family History Mother Family Medical History: Coronary Artery Disease (CAD) Additional Family Medical History / Comment(s): Mother is alive at age 68 with history of three-vessel CABG and diabetes. Father Family Medical History: Coronary Artery Disease (CAD) Additional Family Medical History / Comment(s): Father is alive at age 68 with history of three-vessel CABG. Brother(s) Family Medical History: No Reported History Additional Family Medical History / Comment(s): Patient has one brother with history of seasonal ALLERGIES. Patient does not have any sisters. Daughter(s) Family Medical History: No Reported History Additional Family Medical History / Comment(s): Patient is a total of 3 children with no major medical problems. Son(s) Family Medical History: No Reported History Medications and Allergies Home Medications Medication Instructions Recorded Confirmed Type Omeprazole [PriLOSEC] 20 mg PO HS 08/27/17 12/13/23 History Metoprolol Tartrate 25 mg PO HS 02/06/20 12/13/23 History Sertraline [Zoloft] 100 mg PO HS 05/28/21 12/13/23 History Naloxone HCl [Narcan] 4 mg NASAL DIRECTED PRN 12/13/23 12/13/23 History fentaNYL 25MCG/HR PATCH [Duragesic 1 patch TRANSDERM Q72H 12/13/23 12/13/23 History 25MCG/HR] lamoTRIgine [LaMICtal] 50 mg PO HS 12/13/23 12/13/23 History Allergies Allergy/AdvReac Type Severity Reaction Status Date / Time ciprofloxacin [From Cipro] Allergy Swelling Verified 12/13/23 08:56 at injection site ciprofloxacin HCl Allergy Swelling Verified 12/13/23 08:56 [From Cipro] at injection site aspirin AdvReac Abdominal Verified 12/13/23 08:56 Pain hydromorphone HCl AdvReac VOMITING, Verified 12/13/23 08:56 [From Dilaudid] DIZZY see comments morphine AdvReac Nausea & Verified 12/13/23 08:56 Vomiting ropinirole [From Requip] AdvReac Upset Verified 12/13/23 08:56 Stomach, Chest pain Surgical - Exam Vital Signs Temp Pulse Resp BP Pulse Ox 97.9 F 59 L 18 133/80 98 12/13/23 04:23 12/13/23 04:23 12/13/23 04:23 12/13/23 04:23 12/13/23 04:23 Results - Labs 12/13/23 05:00 12/13/23 05:00 Abnormal Lab Results - Last 24 Hours (Table) 12/13/23 12/13/23 Range/Units 05:00 11:12 Chloride 108 H (98-107) mmol/L BUN 24 H (7-17) mg/dL Glucose 127 H (74-99) mg/dL Alkaline Phosphatase 130 H (38-126) U/L Ur Specific [place] >1.050 H (1.001-1.035) Urine Protein Trace H (Negative) Urine Nitrite Positive H (Negative) Ur Squamous Epith Cells 6 H (0-4) /hpf Urine Bacteria Occasional H (None) /hpf Urine Mucus Occasional H (None) /hpf Diabetes panel 12/13/23 Range/Units 05:00 Sodium 138 (137-145) mmol/L Potassium 4.0 (3.5-5.1) mmol/L Chloride 108 H (98-107) mmol/L Carbon Dioxide 28 (22-30) mmol/L BUN 24 H (7-17) mg/dL Creatinine 0.84 (0.52-1.04) mg/dL Glucose 127 H (74-99) mg/dL Calcium 8.7 (8.4-10.2) mg/dL AST 20 (14-36) U/L ALT 12 (4-34) U/L Alkaline Phosphatase 130 H (38-126) U/L Total Protein 6.3 (6.3-8.2) g/dL Albumin 3.7 (3.5-5.0) g/dL Calcium panel 12/13/23 Range/Units 05:00 Calcium 8.7 (8.4-10.2) mg/dL Albumin 3.7 (3.5-5.0) g/dL Pituitary panel 12/13/23 Range/Units 05:00 Sodium 138 (137-145) mmol/L Potassium 4.0 (3.5-5.1) mmol/L Chloride 108 H (98-107) mmol/L Carbon Dioxide 28 (22-30) mmol/L BUN 24 H (7-17) mg/dL Creatinine 0.84 (0.52-1.04) mg/dL Glucose 127 H (74-99) mg/dL Calcium 8.7 (8.4-10.2) mg/dL Adrenal panel 12/13/23 Range/Units 05:00 Sodium 138 (137-145) mmol/L Potassium 4.0 (3.5-5.1) mmol/L Chloride 108 H (98-107) mmol/L Carbon Dioxide 28 (22-30) mmol/L BUN 24 H (7-17) mg/dL Creatinine 0.84 (0.52-1.04) mg/dL Glucose 127 H (74-99) mg/dL Calcium 8.7 (8.4-10.2) mg/dL Total Bilirubin 0.3 (0.2-1.3) mg/dL AST 20 (14-36) U/L ALT 12 (4-34) U/L Alkaline Phosphatase 130 H (38-126) U/L Total Protein 6.3 (6.3-8.2) g/dL Albumin 3.7 (3.5-5.0) g/dL
[2023-12-13] MEDS: PANTOPRAZOLE 40 MG/10 ML VIAL IVP SCH (14:42)
[2023-12-13] MEDS: SODIUM CHLORIDE 0.9% 2,000 ML IV ONE (14:42)
[2023-12-13] MEDS: PIPERACILLIN-TAZOBACTAM 3.375 GM in SODIUM CHLORIDE 0.9% 100 ML IVPB SCH (17:35)
[2023-12-13] MEDS ORDERED: PANTOPRAZOLE 40 MG TABLET PO SCH (21:00)
[2023-12-13] MEDS ORDERED: SERTRALINE 100 MG TAB PO SCH (21:00)
[2023-12-13] MEDS: METOPROLOL TARTRATE 25 MG TAB PO SCH (21:27)
[2023-12-13] MEDS: lamoTRIgine 25 MG TAB PO SCH (22:28)
--- NOTE | 2023-12-14 05:31 | P.CONS ---
History of Present Illness - Reason for Consult Consult date: 12/14/23 - History of Present Illness Patient is a 53-year-old female with a PMH of Tyrone-en-Y gastric bypass surgery, chronic neck pain and hypertension who presented to the emergency room with complaints of abdominal pain. Patient reports the pain started suddenly yesterday evening and persisted. The pain was initially 10 out of 10 upon arrival to the emergency room but has now improved to 200, is epigastric, nonradiating, with no alleviating or exacerbating features. Patient denies experiencing nausea, vomiting, diarrhea. Denies fever, chills, chest pain, shortness of breath. CT abdomen pelvis in the emergency room revealed findings of gastritis along the possible surgical material. Laboratory evaluation revealed an unremarkable UA with chloride 108, BUN 24, glucose 127, lactic acid 1.2. ED documentation reviewed and case discussed with ED provider. Review of systems: Pertinent positives and negatives as discussed in HPI, a complete review of systems was performed and all other systems are negative. Physical examination: Vital signs reviewed General: non toxic, no distress, appears older than stated age, these Derm: no unusual rashes/lesions, warm Head: atraumatic, normocephalic, symmetric Eyes: EOMI, no lid lag, anicteric sclera, pupils equal round reactive to light ENT: Nose and ears atraumatic Neck: No cervical lymphadenopathy, trachea midline, supple Mouth: no lip lesion, mucus membranes moist Cardiovascular: S1S2 reg, no murmur, positive dorsalis pedis pulse bilateral, no edema Lungs: CTA bilateral, no rhonchi, no rales, no accessory muscle use Abdominal: soft, minimal epigastric tenderness, no guarding Ext: muscle strength 5 out of 5 in all 4 extremities grossly, no gross muscle atrophy, no contractures, Neuro: CN II-XI grossly intact, no gross focal neuro deficits Psych: Alert, oriented, appropriate affect Assessment: Chronic conditions: Hypertension, chronic neck pain Abdominal pain with possible gastritis and surgical. Plan: Resume patient's home medications including Fentanyl patch Defer management of pain control and DVT prophylaxis to the primary surgery service We appreciate this opportunity to be involved in this patient's care. We will follow the patient with you. For any further questions, please not hesitate to contact the sound inpatient team. Past Medical History Past Medical History: GERD/Reflux, Hypertension, Osteoarthritis (OA), Sleep Apnea/CPAP/BIPAP, Syncope Additional Past Medical History / Comment(s): Chronic back & neck pain, migraines, ascending aortic aneurysm, gastric ulcers. Episodes of light headedness and dizziness , History of Any Multi-Drug Resistant Organisms: None Reported Past Surgical History: Ablation, Bariatric Surgery, Cholecystectomy, EPS, Hysterectomy, Joint Replacement, Orthopedic Surgery Additional Past Surgical History / Comment(s): TYRONE-EN-Y, cervical fusion C2-C5, arthroscopy left knee, left knee replacement, loop recorder insertion Past Anesthesia/Blood Transfusion Reactions: Motion Sickness Past Psychological History: Depression Smoking Status: Never smoker Past Alcohol Use History: None Reported Past Drug Use History: Marijuana Additional Drug Use History / Comment(s): MEDICAL MARIJUANA CARD, uses when needed for pain - 7-8X per month - Past Family History Mother Family Medical History: Coronary Artery Disease (CAD) Additional Family Medical History / Comment(s): Mother is alive at age 68 with history of three-vessel CABG and diabetes. Father Family Medical History: Coronary Artery Disease (CAD) Additional Family Medical History / Comment(s): Father is alive at age 68 with history of three-vessel CABG. Brother(s) Family Medical History: No Reported History Additional Family Medical History / Comment(s): Patient has one brother with history of seasonal ALLERGIES. Patient does not have any sisters. Daughter(s) Family Medical History: No Reported History Additional Family Medical History / Comment(s): Patient is a total of 3 children with no major medical problems. Son(s) Family Medical History: No Reported History Medications and Allergies Home Medications Medication Instructions Recorded Confirmed Type Omeprazole [PriLOSEC] 20 mg PO HS 08/27/17 12/13/23 History Metoprolol Tartrate 25 mg PO HS 02/06/20 12/13/23 History Sertraline [Zoloft] 100 mg PO HS 05/28/21 12/13/23 History Naloxone HCl [Narcan] 4 mg NASAL DIRECTED PRN 12/13/23 12/13/23 History fentaNYL 25MCG/HR PATCH [Duragesic 1 patch TRANSDERM Q72H 12/13/23 12/13/23 History 25MCG/HR] lamoTRIgine [LaMICtal] 50 mg PO HS 12/13/23 12/13/23 History Allergies Allergy/AdvReac Type Severity Reaction Status Date / Time ciprofloxacin [From Cipro] Allergy Swelling Verified 12/13/23 08:56 at injection site ciprofloxacin HCl Allergy Swelling Verified 12/13/23 08:56 [From Cipro] at injection site aspirin AdvReac Abdominal Verified 12/13/23 08:56 Pain hydromorphone HCl AdvReac VOMITING, Verified 12/13/23 08:56 [From Dilaudid] DIZZY see comments morphine AdvReac Nausea & Verified 12/13/23 08:56 Vomiting ropinirole [From Requip] AdvReac Upset Verified 12/13/23 08:56 Stomach, Chest pain Physical Exam Vitals: Vital Signs Temp Pulse Pulse Resp BP BP Pulse Ox 12/14/23 01:34 97.9 F 55 L 18 121/79 99 12/13/23 19:52 97.5 F L 56 L 18 112/74 97 12/13/23 17:10 98.1 F 55 L 18 111/76 96 12/13/23 16:34 98.1 F 62 18 107/70 96 12/13/23 12:31 58 L 18 126/89 99 12/13/23 11:00 76 18 115/72 98 12/13/23 09:00 78 18 130/85 98 Intake and Output 12/13/23 12/13/23 12/14/23 14:59 22:59 06:59 Other: Weight 90.718 kg Results CBC & Chem 7: 12/13/23 05:00 12/13/23 05:00 Labs: Abnormal Lab Results - Last 24 Hours (Table) 12/13/23 12/13/23 Range/Units 05:00 11:12 Chloride 108 H (98-107) mmol/L BUN 24 H (7-17) mg/dL Glucose 127 H (74-99) mg/dL Alkaline Phosphatase 130 H (38-126) U/L Ur Specific [place] >1.050 H (1.001-1.035) Urine Protein Trace H (Negative) Urine Nitrite Positive H (Negative) Ur Squamous Epith Cells 6 H (0-4) /hpf Urine Bacteria Occasional H (None) /hpf Urine Mucus Occasional H (None) /hpf
[2023-12-14 09:58] LABS: Basophils # (A) 0.04 X 10*3/uL (0.00-0.10); Basophils % (A) 0.7 %; Eosinophils # (A) 0.09 X 10*3/uL (0.04-0.35); Eosinophils % (A) 1.7 %; HCT 36.2 % (37.2-46.3); HGB 11.6 g/dL (12.0-15.0); Lymphocytes # (A) 1.67 X 10*3/uL (0.90-5.00); MCH 27.6 pg (27.0-32.0); Monocytes # (A) 0.51 X 10*3/uL (0.20-1.00); Monocytes % (A) 9.5 %; NRBC Per 100 WBC 0 X 10*3/uL (0.00-0.01); Neutrophils # (A) 3.06 X 10*3/uL (1.80-7.70); Neutrophils % (A) 56.7 %; Platelet Count 118 X 10*3/uL (140-440); RBC 4.21 X 10*6/uL (4.10-5.20); RDW 15.9 % (11.5-14.5); WBC 5.39 X 10*3/uL (4.50-10.00)
[2023-12-14] MEDS ORDERED: HYDROcodone/APAP 5-325MG 1 EACH TAB PO PRN (12:18)
[2023-12-14] MEDS: PROCHLORPERAZINE INJ 10 MG/2 ML VIAL IVP STA (12:21)
[2023-12-14] MEDS: diphenhydrAMINE 50 MG/ML 1 ML VIAL IVP STA (12:21)
--- NOTE | 2023-12-14 12:53 | P.PN ---
Subjective Progress Note Date: 12/14/23 patient Karley stable. She has some complaints of some mild epigastric pain. On exam vital signs are stable. Abdomen soft. There is some minimal tenderness. History of previous gastric bypass. Patient will undergo EGD by Dr. Garcia tomorrow. Objective - Vital Signs Vital signs: Vital Signs Temp 98.1 F 12/14/23 07:45 Pulse 59 L 12/14/23 08:00 Resp 17 12/14/23 08:00 BP 129/85 12/14/23 07:45 Pulse Ox 99 12/14/23 07:45 FiO2 Intake & Output 12/13/23 12/14/23 12/14/23 18:59 06:59 18:59 Weight 90.718 kg Other: # Voids 2 - Labs CBC & Chem 7: 12/14/23 04:09 12/13/23 05:00 Labs: Abnormal Lab Results - Last 24 Hours (Table) 12/14/23 Range/Units 04:09 Hgb 11.6 L (12.0-15.0) g/dL Hct 36.2 L (37.2-46.3) % RDW 15.9 H (11.5-14.5) % Plt Count 118 L (140-440) X 10*3/uL MPV 13.0 H (9.5-12.2) FL
[2023-12-14] MEDS ORDERED: DEXTROSE 50% SYRINGE 50 ML IVP PRN ×2 (13:57)
--- NOTE | 2023-12-14 14:05 | P.PN ---
Subjective Progress Note Date: 12/14/23 Hospital course: Patient is a 53-year-old female with a past medical history of Tyrone-en-Y gastric bypass, hypertension, GERD, chronic neck and back pain status post cervical fusion, obstructive sleep apnea, and daily cannabinoid use. She presented to the emergency department with a chief complaint of abdominal pain. She underwent evaluation in the emergency department. Vital signs upon arrival show blood pressure 133/80, heart rate 59, respiratory rate 18, temp 97.9 F, and SpO 2 of 98% on room air. Labs completed and reviewed. CBC unremarkable. BMP revealed mild hyperchloremia with chloride of 108 and prerenal azotemia with BUN of 24 otherwise normal findings. Lactic acid was 1.2. Liver profile showing elevated alkaline phosphatase otherwise normal findings. Amylase and lipase normal findings. Urinalysis was a contaminated specimen but not concerning for infection. CT abdomen and pelvis was completed revealing a 1 cm high density nodular focus at the gastrojejunostomy that was not present on previous scan completed on 07/12/2023, unable to rule out focal erosion or marginal ulcer also revealing enhancement within the nonexcluded stomach prior to the gastr ojejunostomy suggesting mucosal hyperemia/gastritis. Patient admitted under general surgery team and we were consulted for medical management throughout hospitalization. Physical exam: Patient seen and fully evaluated at bedside this morning. She is reporting currently abdominal pain is controlled but states migraine headache this morning and believes it secondary to being unable to sleep throughout the night. Patient denies having any dizziness, lightheadedness, changes in vision or hearing, or any other complaints at this time. She reports feeling slightly hungry and denies having any nausea or vomiting at this time. Vital signs reviewed and stable. General: Nontoxic, no distress and appears stated age. Derm: Skin warm and dry, normal coloration for ethnicity. Head: Atraumatic, normocephalic and symmetric. Eyes: EOMs intact, no lid lag, and anicteric sclera Mouth: no lip lesions, mucus membranes moist Cardiovascular: regular rate and rhythm with normal S1S2, no murmur, positive posterior tibial pulses bilaterally, and cap refill < 2 seconds. Lungs: Respirations even, regular, and unlabored on room air. Lungs CTA bilaterally, no rhonchi, no rales, no wheezing, and no accessory muscle usage. Abdominal: soft, nontender to palpation, no guarding, no appreciable orga nomegaly Ext: ROM intact. No gross muscle atrophy, no edema, no contractures Neuro: Speech clear, face symmetrical and CN II-XII grossly intact with no noted focal neuro deficits Psych: Alert and oriented to person, place, time, and situation. Appropriate and pleasant affect. Assessment and Plan of Care: Fluid collection gastrojejunal anastomosis site, rule out focal erosion versus ulceration -Management per primary admitting general surgery team. -Patient to continue with IV antibiotics with Zosyn 3.375 g every 8 hours -Patient to remain n.p.o. and diet to be advanced as recommended by general surgery team. -General surgery tentatively planning to take patient for upper endoscopy after 48 hours of bowel rest to allow for gastrojejunal ulceration to seal. -Order placed for blood glucose checks every 6 hours while patient remains NPO. Bicytopenia with anemia and thrombocytopenia -Concerns of possible focal erosion/ulceration with fluid collection to gastrojejunal anastomosis site as stated above. -Patient is tentatively scheduled for upper endoscopy with general surgery for further evaluation. -We will continue to monitor hemoglobin and platelet count closely and transfuse if needed for hemoglobin less than 7 and/or platelet count less than 25. Migraine headache -Order placed for Benadryl and Compazine, will hold off on administering Toradol as hemoglobin is being monitored closely. Hypertension -Continue daily medication regimen with metoprolol 25 mg nightly. GERD -GI prophylaxis with Protonix 40 mg IVP twice daily. Chronic neck and back pain status post cervical fusion -Symptomatic care and pain management, continue home fentanyl patch 25 mcg/h every 72 hours in order placed for [place] 5-325 mg every 4 hours as needed for breakthrough pain. Data reviewed: Morning labs reviewed. CBC showing slight decrease in hemoglobin from 13.1 down to 11.6 this morning along with new thrombocytopenia with platelet count decreasing from 151 down to 118 this morning. Vital signs reviewed and stable. Blood pressure 129/85, heart rate 59, respiratory rate 17, temp 98.1 F, and SpO2 of 99% on room air. Thank you for allowing us to participate in the care of this pleasant patient. Do not hesitate to contact us with questions. Someone can be reached from the [facility] hospitalist group all hours of the day at [phone] or via perfect serve. Patient was seen independently by Nurse Pracitioner. This document was prepared using Dragon dictation software. Please allow for errors in solar engineer, while rare they do occur. Dominic Hansen NP rendered care for this patient independently, reviewed the findings and plan as documented in the note above. I did not physically speak with or examine the patient on this date. Objective - Vital Signs Vital signs: Vital Signs Temp 98.1 F 12/14/23 07:45 Pulse 59 L 12/14/23 07:45 Resp 17 12/14/23 07:45 BP 129/85 12/14/23 07:45 Pulse Ox 99 12/14/23 07:45 FiO2 Intake & Output 12/13/23 12/14/23 12/14/23 18:59 06:59 18:59 Weight 90.718 kg Other: # Voids 2 - Labs CBC & Chem 7: 12/14/23 04:09 12/13/23 05:00 Labs: Abnormal Lab Results - Last 24 Hours (Table) 12/13/23 Range/Units 11:12 Ur Specific [place] >1.050 H (1.001-1.035) Urine Protein Trace H (Negative) Urine Nitrite Positive H (Negative) Ur Squamous Epith Cells 6 H (0-4) /hpf Urine Bacteria Occasional H (None) /hpf Urine Mucus Occasional H (None) /hpf
[2023-12-14 14:21] LABS: Glucose,Whole Blood 80 mg/dL (70-110)
[2023-12-14 18:16] LABS: HCT 37.3 % (34.0-46.0); HGB 11.9 gm/dL (11.4-16.0); MCH 27.5 pg (25.0-35.0); MCHC 31.8 g/dL (31.0-37.0); MCV 86.4 fL (80.0-100.0); Mean Platelet Volume 9.9; Platelet Count 127 k/uL (150-450); RBC 4.32 m/uL (3.80-5.40); RDW 15.3 % (11.5-15.5); WBC 4.6 k/uL (3.8-10.6)
[2023-12-15] MEDS ORDERED: PROPOFOL 10 MG/ML 20 ML VIAL IV ONE (07:25)
[2023-12-15] MEDS ORDERED: LIDOCAINE 1% INJ 10MG/ML (20 ML MDV) ONE (07:25)
[2023-12-15] MEDS: IV FLUID CONTINUATION 1,000 ML IV ONE ×2 (07:28→07:40)
--- NOTE | 2023-12-15 07:50 | P.PCN ---
Date of Procedure: 12/15/23 Description of Procedure: PREOPERATIVE DIAGNOSES: 1. Gastrojejunal ulcers 2. Dysphagia 3. Nausea and vomiting. 4. Epigastric abdominal pain 5. History of gastric bypass. POSTOPERATIVE DIAGNOSES: 1. Gastrojejunal stricture 2. Dysphagia 3. Nausea and vomiting. 4. Epigastric abdominal pain 5. History of gastric bypass. PROCEDURE PERFORMED: Esophagogastrojejunoscopy. SURGEON: Lisandra Angeles MD ANESTHESIA: MAC. INDICATIONS: The patient is a 53-year-old female with prior history of Tyrone-en-Y gastric bypass approximately 10 years ago. She presented with acute onset epigastric abdominal pain with pre-existing history of gastrojejunal ulcer including dysphagia and nausea and vomiting. With history of Tyrone-en-Y gastric bypass, upper endoscopy was offered for further evaluation and management. DESCRIPTION: Patient was brought to the endoscopy suite and laid in the left lateral decubitus position. After adequate IV sedation, a bite block was placed. An Olympus gastroscope was passed along the posterior oropharynx down to the distal esophagus where the squamocolumnar junction was found at approximately 38 cm from the incisors. The anastomosis was found at 45 cm, consistent with approximately 7 cm gastric pouch. The scope was advanced 60 cm from the incisors. No foreign body was found. No evidence of active gastrojejunal ulcerations were encountered. Stricture of the anastomosis, gastrojejunal was identified. The GI tract was desufflated. The patient tolerated the procedure well. FINDINGS: 1. 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 No foreign body found along the anastomosis. 3. Gastric pouch, 7 cm PLAN: 1. Recommend upper GI for gastric gastric fistula for epigastric abdominal pain
[2023-12-15 08:40] LABS: HCT 35.3 % (37.2-46.3); HGB 11.4 g/dL (12.0-15.0); MCH 27.4 pg (27.0-32.0); MCHC 32.3 g/dL (32.0-37.0); MCV 84.9 FL (80.0-97.0); Mean Platelet Volume 13.2 FL (9.5-12.2); NRBC Per 100 WBC 0 X 10*3/uL (0.00-0.01); Platelet Count 110 X 10*3/uL (140-440); RBC 4.16 X 10*6/uL (4.10-5.20); RDW 15.8 % (11.5-14.5); WBC 4.24 X 10*3/uL (4.50-10.00)
[2023-12-15 08:49] LABS: Chloride 110 mmol/L (96-109); Glucose 78 mg/dL (70-110); Magnesium 1.7 mg/dL (1.5-2.4); Potassium 3.8 mmol/L (3.5-5.5); Sodium 143 mmol/L (135-145)
[2023-12-15 08:50] LABS: ALT 8 U/L (8-44); AST 15 U/L (13-35); Albumin 3.4 g/dL (3.8-4.9); Albumin/Globulin Ratio 1.89 Ratio (1.60-3.17); Alkaline Phosphatase 99 U/L (41-126); Carbon Dioxide 21.5 mmol/L (21.6-31.8); Globulin 1.8 g/dL (1.6-3.3); Total Bilirubin 0.3 mg/dL (0.3-1.2); Total Protein 5.2 g/dL (6.2-8.2)
[2023-12-15] MEDS: ONDANSETRON 4 MG/2 ML VIAL IVP PRN (09:12)
[2023-12-15] MEDS: ACETAMINOPHEN IV (For NPO) 1,000 MG in EMPTY BAG 1 BAG IVPB PRN (10:10)
[2023-12-15] MEDS: PROCHLORPERAZINE INJ 10 MG/2 ML VIAL IVP STA (10:42)
[2023-12-15] MEDS: HYDROmorphone 1 MG/ML 1 ML SYRINGE IVP STA (10:42)
--- NOTE | 2023-12-15 12:23 | FL ---
EXAMINATION TYPE: FL UGI w small bowel DATE OF EXAM: 12/15/2023 COMPARISON: NONE HISTORY: Pain TECHNIQUE: A single contrast UGI study is performed with small bowel follow through. A total of 45 seconds of fluoroscopic time was utilized during procedure and 12 images obtained. Total dose area p roduct (DAP) in uGy*m?, mGy*cm? (or similar): Not provided. FINDINGS: Medical Field Representative image of the abdomen shows no gross abnormality. The esophagus shows normal motility and emptying into the stomach. No evidence of hiatal hernia or s tricture noted. Postsurgical changes suggest prior Tyrone-en-Y surgery. No obstruction. Delayed imaging demonstrates co ntrast in the right colon with no diagnostic obstruction. IMPRESSION: 1. Postsurgical changes with no evidence of obstruction.
--- NOTE | 2023-12-15 13:26 | P.PN ---
Subjective Progress Note Date: 12/15/23 CHIEF COMPLAINT: Gastrojejunal ulcers with epigastric pain HISTORY OF PRESENT ILLNESS: The patient is a 53-year-old female admitted with gastrojejunal ulcer with epigastric pain, possible perforation. She completed upper endoscopy which was unremarkable for ulcers. Additional diagnostic studies were obtained for abnormal anatomy related to her bypass and abdominal pain. She does report recurrent epigastric pain earlier this morning prior to her procedures. ROS: No fevers or chills. No new chest pain. No productive sputum PHYSICAL EXAM: VITAL SIGNS: Reviewed CONSTITUTIONAL: Well developed and in no acute distress. EYES: Conjuctivae without sclera icterus. Extraocular movements grossly intact. HEAD, EARS, NOSE, THROAT: Moist buccal mucosa. Head is atraumatic, normocephalic. Hears conversational speech. No nasal drainage. RESPIRATORY: Non-labored respirations and equal bilateral excursions. CARDIOVASCULAR: Palpable 2+ radial pulses. ABDOMEN: Obese, mild tenderness epigastrium. No peritonitis. MUSCULOSKELETAL: No gross deformity of the lower extremities noted. No clubbi ng. No cyanosis. SKIN: Good skin turgor. Well perfused. NEUROLOGIC: Cranial nerves II through XII grossly intact. No focal or lateralizing signs. PSYCH: Appropriate affect. Alert and oriented to person, place and time. CLINICAL LABS: Reviewed. WBC within normal limits. Hemoglobin down 11.4, anemia. STUDIES: Upper GI with small bowel follow-through independently reviewed demonstrates normal transit time. No evidence of leak or gastrogastric fistula identified. This is my independent interpretation. ASSESSMENT: 1. Gastrojejunal ulcers with epigastric pain 2. History of gastric bypass PLAN: 1. At this time, multiple studies demonstrates no acute evidence of perforation or gastric fistula. Will start diet. 2. Disposition 24 hours pending patient tolerance of diet 3. Follow-up in the bariatric center for additional assessment. Objective - Vital Signs Vital signs: Vital Signs Temp 97.5 F L 12/15/23 02:24 Pulse 52 L 12/15/23 02:24 Resp 19 12/15/23 02:24 BP 124/61 12/15/23 02:24 Pulse Ox 96 12/15/23 02:24 FiO2 Intake & Output 12/14/23 12/15/23 12/15/23 18:59 06:59 18:59 Intake Total 100 Balance 100 Intake: IV 100 Other: # Voids 2 2 - Labs CBC & Chem 7: 12/15/23 03:53 12/15/23 03:53 Labs: Abnormal Lab Results - Last 24 Hours (Table) 12/14/23 12/15/23 12/15/23 Range/Units 17:48 03:53 03:53 WBC 4.24 L (4.50-10.00) X 10*3/uL Hgb 11.4 L (12.0-15.0) g/dL Hct 35.3 L (37.2-46.3) % RDW 15.8 H (11.5-14.5) % Plt Count 127 L 110 L (150-450) k/uL MPV 13.2 H (9.5-12.2) FL Chloride 110 H (96-109) mmol/L Carbon Dioxide 21.5 L (21.6-31.8) mmol/L BUN/Creatinine Ratio 10.00 L (12.00-20.00) Ratio Total Protein 5.2 L (6.2-8.2) g/dL Albumin 3.4 L (3.8-4.9) g/dL
--- NOTE | 2023-12-15 13:40 | P.PN ---
Subjective Progress Note Date: 12/15/23 Hospital course: Patient is a 53-year-old female with a past medical history of [place]-en-Y gastric bypass, hypertension, GERD, chronic neck and back pain status post cervical fusion, obstructive sleep apnea, and daily cannabinoid use. She presented to the emergency department with a chief complaint of abdominal pain. She underwent evaluation in the emergency department. Vital signs upon arrival show blood pressure 133/80, heart rate 59, respiratory rate 18, temp 97.9 F, and SpO2 of 98% on room air. Labs completed and reviewed. CBC unremarkable. BMP revealed mild hyperchloremia with chloride of 108 and prerenal azotemia with BUN of 24 otherwise normal findings. Lactic acid was 1.2. Liver profile showing elevated alkaline phosphatase otherwise normal findings. Amylase and lipase normal findings. Urinalysis was a contaminated specimen but not concerning for infection. CT abdomen and pelvis was completed revealing a 1 cm high density nodular focus at the gastrojejunostomy that was not present on previous scan completed on 07/12/2023, unable to rule out focal erosion or marginal ulcer also revealing enhancement within the nonexcluded stomach prior to the gastrojejunostomy suggesting mucosal hyperemia/gastritis. Patient admitted under general surgery team and we were consulted for medical management throughout hospitalization. Physical exam: Patient seen and fully evaluated at bedside this morning. She was initially down having upper GI and small bowel x-ray but became very nauseous and started vomiting. Was called to bedside. Patient being given Compazine 10 mg IVP and Dilaudid 1 mg IVP. Patient reports she will reattempt going down for procedure. Vital signs reviewed and stable. General: Nontoxic, no distress and appears stated age. Derm: Skin warm and dry, normal coloration for ethnicity. Head: Atraumatic, normocephalic and symmetric. Eyes: EOMs intact, no lid lag, and anicteric sclera Mouth: no lip lesions, mucus membranes moist Cardiovascular: regular rate and rhythm with normal S1S2, no murmur, positive posterior tibial pulses bilaterally, and cap refill < 2 seconds. Lungs: Respirations even, regular, and unlabored on room air. Lungs CTA bilaterally, no rhonchi, no rales, no wheezing, and no accessory muscle usage. Abdominal: soft, nontender to palpation, no guarding, no appreciable organomegaly Ext: ROM intact. No gross muscle atrophy, no edema, no contractures Neuro: Speech clear, face symmetrical and CN II-XII grossly intact with no noted focal neuro deficits Psych: Alert and oriented to person, place, time, and situation. Appropriate and pleasant affect. Assessment and Plan of Care: Fluid collection gastrojejunal anastomosis site, rule out focal erosion versus ulceration -Management per primary admitting general surgery team. -Patient to continue with IV antibiotics with Zosyn 3.375 g every 8 hours -Patient to remain n.p.o. and diet to be advanced as recommended by general surgery team. -General surgery managing and took patient for upper endoscopy this morning. Bicytopenia with anemia and thrombocytopenia -Concerns of possible focal erosion/ulceration with fluid collection to gastrojejunal anastomosis site as stated above. -Patient is tentatively scheduled for upper endoscopy with general surgery for further evaluation. -We will continue to monitor hemoglobin and platelet count closely and transfuse if needed for hemoglobin less than 7 and/or platelet count less than 25. Migraine headache -Order placed for Benadryl and Compazine, will hold off on administering Toradol as hemoglobin is being monitored closely. Hypertension -Continue daily medication regimen with metoprolol 25 mg nightly. GERD -GI prophylaxis with Protonix 40 mg IVP twice daily. Chronic neck and back pain status post cervical fusion -Symptomatic care and pain management, continue home fentanyl patch 25 mcg/h every 72 hours in order placed for [place] 5-325 mg every 4 hours as needed for breakthrough pain. Data reviewed: Morning labs reviewed. CBC showing pancytopenia with WBC count of 4.24, stable normocytic anemia with hemoglobin of 11.4 and thrombocytopenia with platelet count of 110. BMP showing mild hyperchloremia with chloride of 110, bicarb of 21.5, and anion gap of 11.5. Blood glucose was 78. Magnesium was slightly low at 1.7. Vital signs reviewed and stable. Blood pressure 124/61, heart rate 52, respiratory rate 19, temp 97.5 F, and SpO2 of 96% on room air. Thank you for allowing us to participate in the care of this pleasant patient. Do not hesitate to contact us with questions. Someone can be reached from the [facility] hospitalist group all hours of the day at [phone] or via perfect serve. Patient was seen independently by Nurse Pracitioner. This document was prepared using [employer] dictation software. Please allow for errors in mainspring strip inspector, while rare they do occur. Dominic Hansen, [employer] rendered care for this patient independently, reviewed the findings and plan as documented in the note above. I did not physically speak with or examine the patient on this date. Objective - Vital Signs Vital signs: Vital Signs Temp 97.5 F L 12/15/23 02:24 Pulse 52 L 12/15/23 02:24 Resp 19 12/15/23 02:24 BP 124/61 12/15/23 02:24 Pulse Ox 96 12/15/23 02:24 FiO2 Intake & Output 12/14/23 12/15/23 12/15/23 18:59 06:59 18:59 Other: # Voids 2 2 - Labs CBC & Chem 7: 12/15/23 03:53 12/15/23 03:53 Labs: Abnormal Lab Results - Last 24 Hours (Table) 12/14/23 12/14/23 Range/Units 04:09 17:48 Hgb 11.6 L (12.0-15.0) g/dL Hct 36.2 L (37.2-46.3) % RDW 15.9 H (11.5-14.5) % Plt Count 118 L 127 L (140-440) X 10*3/uL MPV 13.0 H (9.5-12.2) FL
[2023-12-15] MEDS: MAGNESIUM SULFATE-D5W PMX 1 GM in DEXTROSE/WATER 1 100ML.BAG IVPB SCH (15:25)
[2023-12-15 16:45] LABS: Glucose,Whole Blood 120 mg/dL (70-110)
[2023-12-16 02:22] VITALS: PULSE 52
[2023-12-16 08:47] VITALS: BP 110/70; RESP 16; TEMP 97.7
--- NOTE | 2023-12-16 10:33 | P.PN ---
Subjective Progress Note Date: 12/16/23 Hospital course: Patient is a 53-year-old female with a past medical history of [place]-en-Y gastric bypass, hypertension, GERD, chronic neck and back pain status post cervical fusion, obstructive sleep apnea, and daily cannabinoid use. She presented to the emergency department with a chief complaint of abdominal pain. She underwent evaluation in the emergency department. Vital signs upon arrival show blood pressure 133/80, heart rate 59, respiratory rate 18, temp 97.9 F, and SpO2 of 98% on room air. Labs completed and reviewed. CBC unremarkable. BMP revealed mild hyperchloremia with chloride of 108 and prerenal azotemia with BUN of 24 otherwise normal findings. Lactic acid was 1.2. Liver profile showing elevated alkaline phosphatase otherwise normal findings. Amylase and lipase normal findings. Urinalysis was a contaminated specimen but not concerning for infection. CT abdomen and pelvis was completed revealing a 1 cm high density nodular focus at the gastrojejunostomy that was not present on previous scan completed on 07/12/2023, unable to rule out focal erosion or marginal ulcer also revealing enhancement within the nonexcluded stomach prior to the gastrojejunostomy suggesting mucosal hyperemia/gastritis. Patient admitted under general surgery team and we were consulted for medical management throughout hospitalization. Physical exam: Patient seen and fully evaluated at bedside this morning. He reports feeling great this morning. Patient smiling and states that she is looking forward to going home. She denies having any pain or complaints at this time she is tolerating a low fiber diet and currently awaiting discharge by general surgery team. Vital signs reviewed and stable. General: Nontoxic, no distress and appears stated age. Derm: Skin warm and dry, normal coloration for ethnicity. Head: Atraumatic, normocephalic and symmetric. Eyes: EOMs intact, no lid lag, and anicteric sclera Mouth: no lip lesions, mucus membranes moist Cardiovascular: regular rate and rhythm with normal S1S2, no murmur, positive posterior tibial pulses bilaterally, and cap refill < 2 seconds. Lungs: Respirations even, regular, and unlabored on room air. Lungs CTA bilaterally, no rhonchi, no rales, no wheezing, and no accessory muscle usage. Abdominal: soft, nontender to palpation, no guarding, no appreciable organomegaly Ext: ROM intact. No gross muscle atrophy, no edema, no contractures Neuro: Speech clear, face symmetrical and CN II-XII grossly intact with no noted focal neuro deficits Psych: Alert and oriented to person, place, time, and situation. Appropriate and pleasant affect. Assessment and Plan of Care: Fluid collection gastrojejunal anastomosis site General surgery ruled out focal erosion and ulceration after upper endoscopy with small bowel follow-through -Management per primary admitting general surgery team. -Patient to continue with IV antibiotics with Zosyn 3.375 g every 8 hours -Patient to a low fiber diet. Bicytopenia with anemia and thrombocytopenia -Remained stable with hemoglobin of 11.4 and platelet count of 110. No need for transfusion or further intervention at this time. Migraine headache -Order placed for Benadryl and Compazine, will hold off on administering Toradol as hemoglobin is being monitored closely. Hypertension -Continue daily medication regimen with metoprolol 25 mg nightly. GERD -GI prophylaxis with Protonix 40 mg IVP twice daily. Chronic neck and back pain status post cervical fusion -Symptomatic care and pain management, continue home fentanyl patch 25 mcg/h every 72 hours in order placed for [place] 5-325 mg every 4 hours as needed for breakthrough pain. Data reviewed: Labs completed 12/15/2023 reviewed. CBC showing pancytopenia with WBC count of 4.24, stable normocytic anemia with hemoglobin of 11.4 and thrombocytopenia with platelet count of 110. BMP showing mild hyperchloremia with chloride of 110, bicarb of 21.5, and anion gap of 11.5. Blood glucose was 78. Magnesium was slightly low at 1.7 and was replaced with 2 g magnesium sulfate IVPB.. Vital signs reviewed and stable. Blood pressure 110/70, heart rate 52, respiratory rate 16, temp 97.7 F, and SpO2 of 99% on room air. Patient cleared from medical perspective for discharge once cleared by primary a dmitting general surgery team. Med rec completed. Thank you for allowing us to participate in the care of this pleasant patient. Do not hesitate to contact us with questions. Someone can be reached from the [facility] hospitalist group all hours of the day at [phone] or via [employer]. Patient was seen independently by Nurse Pracitioner. This document was prepared using [employer] dictation software. Please allow for errors in software developer intern, while rare they do occur. Dominic Hansen NP rendered care for this patient independently, reviewed the findings and plan as documented in the note above. I did not physically speak with or examine the patient on this date. Objective - Vital Signs Vital signs: Vital Signs Temp 97.8 F 12/16/23 00:16 Pulse 52 L 12/16/23 00:16 Resp 17 12/16/23 00:16 BP 111/72 12/16/23 00:16 Pulse Ox 97 12/16/23 00:16 FiO2 Intake & Output 12/15/23 12/16/23 12/16/23 18:59 06:59 18:59 Intake Total 100 Balance 100 Intake: IV 100 Other: Voiding Method Toilet # Voids 2 2 - Labs CBC & Chem 7: 12/15/23 03:53 12/15/23 03:53 Labs: Abnormal Lab Results - Last 24 Hours (Table) 12/15/23 12/15/23 12/15/23 Range/Units 03:53 03:53 16:45 WBC 4.24 L (4.50-10.00) X 10*3/uL Hgb 11.4 L (12.0-15.0) g/dL Hct 35.3 L (37.2-46.3) % RDW 15.8 H (11.5-14.5) % Plt Count 110 L (140-440) X 10*3/uL MPV 13.2 H (9.5-12.2) FL Chloride 110 H (96-109) mmol/L Carbon Dioxide 21.5 L (21.6-31.8) mmol/L BUN/Creatinine Ratio 10.00 L (12.00-20.00) Ratio POC Glucose (mg/dL) 120 H (70-110) mg/dL Total Protein 5.2 L (6.2-8.2) g/dL Albumin 3.4 L (3.8-4.9) g/dL
--- NOTE | 2023-12-16 11:08 | P.DS ---
Providers Date of admission: 12/13/23 07:59 Expected date of discharge: 12/16/23 Attending physician: Lisandra Angeles Consults: 12/13/23 23:10 Consult Physician Routine Consulting Provider: Shadi Minor Consult Reason/Comments: medical management Do you want consulting provider notified?: Yes, Notify in am Primary care physician: Dario Greene [facility] Course: Diagnostic studies performed without evidence of ulcer or leak or gastric fistula. Features more consistent with esophageal stricture described. Outpatient dilation may be performed. Follow-up in bariatric center described. Adjustment of diet to pured and ground diet advised. Plan - Discharge Summary New Discharge Prescriptions: Continue Omeprazole [PriLOSEC] 20 mg PO HS Metoprolol Tartrate 25 mg PO HS Sertraline [Zoloft] 100 mg PO HS lamoTRIgine [LaMICtal] 50 mg PO HS fentaNYL 25MCG/HR PATCH [Duragesic 25MCG/HR] 1 patch TRANSDERM Q72H Naloxone HCl [Narcan] 4 mg NASAL DIRECTED PRN PRN Reason: Overdose Discharge Medication List Omeprazole [PriLOSEC] 20 mg PO HS 08/27/17 [History] Metoprolol Tartrate 25 mg PO HS 02/06/20 [History] Sertraline [Zoloft] 100 mg PO HS 05/28/21 [History] Naloxone HCl [Narcan] 4 mg NASAL DIRECTED PRN 12/13/23 [History] fentaNYL 25MCG/HR PATCH [Duragesic 25MCG/HR] 1 patch TRANSDERM Q72H 12/13/23 [History] lamoTRIgine [LaMICtal] 50 mg PO HS 12/13/23 [History] Follow up Appointment(s)/Referral(s): Dario Greene DO [Primary Care Provider] - 1-2 days Bariatric [place], [place] [NON-STAFF] - 12/31/23 Patient Instructions/Handouts: Esophageal Stricture (DC), Level 2 National Dysphagia Diet (GEN) Activity/Diet/Wound Care/Special Instructions: Recommend ground diet or pured diet. Discharge Disposition: HOME SELF-CARE
--- NOTE | 2023-12-17 14:09 | CDI ---
Documentation Clarification Form Date: 12/17/2023 01:47:22 PM From: Chelsey Lynne Phone: Admit Date: 12/13/2023 07:59:00 AM Patient Name: Nicole Vazquez Visit Number: [id number] Discharge Date: 12/16/2023 11:37:00 AM ATTENTION: The Clinical Documentation Specialists (CDI) and [facility] Coding Staff appreciate your assistance in clarifying documentation. Please respond to the clarification below the line at the bottom and electronically sign. The CDI & [facility] Coding staff will review the response and follow-up if needed. Please note: Queries are made part of the Legal Health Record. If you have any questions, please contact the author of this message via ITS. Dr. Lisandra Angeles Unspecified anemia is documented per Progress Note 12/13. Additional specificity regarding the type of anemia is requested. History/Risk Factors: 53yo F, Hx bariatric surgeryin 2012 esophageal stricture, Hx pre-existing ofgastrojejunal ulcer, bicytopeniawithanemiaandthrombocytopenia, migraine, HTN, GERD, CBP w neck sp fusion Clinical indicators: Hgb: 12/12 13.1 12/13 11.6 12/14 11.4 Hct: 12/12 41.4 12/13 36.2 12/14 35.3 Plt: 12/12 151 12/13 118 12/14 127 12/15 110 WBC: 12/12 7.4 12/14 4.24 RBC: 12/12 4.78 Treatment: Noneed for transfusionor further intervention at this time. Please clarify the type of anemia: [ ] Chronic blood loss anemia [ x ] Iron deficiency anemia [ ] Anemia of chronic disease [ ] Unable to determine [ ] Other, please specify (Template Last Revised: September 2020) [ x ] Iron deficiency anemia 12/18/23 @ 0835 [facility]
--- NOTE | 2023-12-17 14:27 | CDI ---
Documentation Clarification Form Date: 12/17/2023 01:47:22 PM From: Chelsey Lynne Phone: Admit Date: 12/13/2023 07:59:00 AM Patient Name: Nicole Vazquez Visit Number: [id number] Discharge Date: 12/16/2023 11:37:00 AM ATTENTION: The Clinical Documentation Specialists (CDI) and [facility] Coding Staff appreciate your assistance in clarifying documentation. Please respond to the clarification below the line at the bottom and electronically sign. The CDI & [facility] Coding staff will review the response and follow-up if needed. Please note: Queries are made part of the Legal Health Record. If you have any questions, please contact the author of this message via ITS. Dr. Lisandra Angeles Pancytopenia is documented per 12/14 Progress Note. Additional clarification regarding the etiology of pancytopenia is requested. History/Risk Factors: 53yo F, Hx bariatric surgery in 2012 esophageal stricture, Hx pre-existing of gastrojejunal ulcer, bicytopenia with anemia and thrombocytopenia, migraine, HTN, GERD, CBP w neck sp fusion Clinical indicators: Hgb: 12/12 13.1 12/13 11.6 12/14 11.4 Hct: 12/12 41.4 12/13 36.2 12/14 35.3 Plt: 12/12 151 12/13 118 12/14 127 12/15 110 WBC: 12/12 7.4 12/14 4.24 RBC: 12/12 4.78 CBC: 7 Treatment: Vital signs reviewed and stable. Please clarify the etiology of pancytopenia, if known: [ x] Pancytopenia due to other, (please specify) ____due to malabsorption [ ] Anemia, (please specify etiology) [ ] Thrombocytopenia, (please specify etiology) [ ] Other condition, (please specify) [ ] Unable to determine (Template Last Revised: October 2020) [ x] Pancytopenia due to other, (please specify) ____due to malabsorption [facility]
== END 2023-12-16 11:37 | disposition home or self-care (01) | DRG 392 ==
LOC: EC 04:21 → 4SSUR 07:59
PROVIDERS: ADMIT Surgery Plastic and Reconstructive Surgery; ATTEND Surgery Plastic and Reconstructive Surgery
PROC: 0DJ08ZZ Inspection of Upper Intestinal Tract, Via Natural or Artificial Opening Endoscopic (ICD-10-PCS; principal; 2023-12-15 08:00)
DX: K22.2 Esophageal obstruction (principal); D61.818 Other pancytopenia; K90.9 Intestinal malabsorption, unspecified; D69.6 Thrombocytopenia, unspecified; I71.21 Aneurysm of the ascending aorta, without rupture; D75.89 Other specified diseases of blood and blood-forming organs; G43.909 Migraine, unspecified, not intractable, without status migrainosus; R13.19 Other dysphagia; E87.8 Other disorders of electrolyte and fluid balance, not elsewhere classified; I10 Essential (primary) hypertension; D50.9 Iron deficiency anemia, unspecified; G47.33 Obstructive sleep apnea (adult) (pediatric); K21.9 Gastro-esophageal reflux disease without esophagitis; M54.2 Cervicalgia; G89.29 Other chronic pain; K29.70 Gastritis, unspecified, without bleeding; E83.42 Hypomagnesemia; R11.2 Nausea with vomiting, unspecified; M54.9 Dorsalgia, unspecified; Z96.652 Presence of left artificial knee joint; Z87.11 Personal history of peptic ulcer disease; Z98.1 Arthrodesis status; Z95.818 Presence of other cardiac implants and grafts; Z98.84 Bariatric surgery status; Z79.899 Other long term (current) drug therapy; Z88.1 Allergy status to other antibiotic agents; Z88.6 Allergy status to analgesic agent; Z88.5 Allergy status to narcotic agent
CPT/HCPCS: 36415; 43235; 74177; 74240; 74248; 80053; 80175; 81001; 82150; 83605; 83690; 83735; 85025; 85027; 86140; 96361; 96374; 96375; 99285

== ENCOUNTER → 2023-12-31 | Outpatient (CLI) | payer BC ==
[2023-12-31 15:24] VITALS: BP 143/84; PULSE 59; RESP 14; TEMP 97.5; BMI 32.0
--- NOTE | 2023-12-31 15:48 | P.HPBAR ---
Bariatric H&P - History & Physicial H&P Date: 12/31/23 History & Physicial: Visit/CC: follow up Patient initial contact: Initial weight: Initial weight in pounds: Height: 5 ft 3 in Initial BMI: Last weight: Current weight: 81.919 kg Current weight in pounds: 180.60 Current BMI: 32.0 Morgan body weight (based on NIH guidelines): 52.163 kg Excess body weight loss: The patient is a 53 year-old F who presents for Bariatric Assessment. CHIEF COMPLAINT: history of gastric bypass with abdominal pain HISTORY OF PRESENT ILLNESS: Nicole Vazquez is a 53-year-old female who presents with past history of gastric bypass. She was hospitalized due to abdominal pain and dysphagia in the last 2 weeks. She was in the hospital for abdominal pain. She had epigastric and upper abdominal cramps for over 2 weeks. She is taken multiple medications. She also comes in with panniculitis on her abdomen breast and skin. She has no current. She provided. She denies any past colonoscopy recent. Her highest weight was 362 pounds. Her lowest weight was 154 pounds. She presents to restart a bariatric management. At height of 5 feet 3 inches, her ideal body weight is 144 pounds. Highest weight 362 pounds, BMI 64.3. Her lowest weight was 154 pounds, BMI 27.3. Lifetime weight loss 181 pounds. Lifetime percent excess weight loss 82%. She comes in 181 pounds, BMI 32.0. She has gained 27 pounds from her lowest. She is 78 pounds overweight. PAST MEDICAL HISTORY: 1. Morbid obesity due to excess calories 2. Body mass index of 64.3 3. Osteoarthritis of the knees. 4. Osteoarthritis of the lower back. 5. Depressive disorder 6. Hypertensive heart disease 7. Gastroesophageal reflux disease 8. Chronic pain syndrome 9. Migraines 10. Ascending aortic aneurysm PAST SURGICAL HISTORY: 1. Cholecystectomy 2. Hysterectomy 3. Cardiac ablation 4. Gastric bypass 5. Cervical fusion 6. Left knee replacement 7. Loop recorder HOME MEDICATIONS: Home Medications Medication Instructions Recorded Confirmed Omeprazole [PriLOSEC] 20 mg PO HS 08/27/17 02/24/24 Metoprolol Tartrate 25 mg PO HS 02/06/20 02/24/24 Sertraline [Zoloft] 100 mg PO HS 05/28/21 02/24/24 fentaNYL 25MCG/HR PATCH [Duragesic 1 patch TRANSDERM Q72H 12/13/23 02/24/24 25MCG/HR] lamoTRIgine [LaMICtal] 50 mg PO HS 12/13/23 02/24/24 oxyCODONE HCL/ACETAMINOPHEN 1 tab PO DIRECTED PRN 02/24/24 02/24/24 [oxyCODONE HCL/ACETAMINOPHEN 7.5-325] ALLERGIES: Allergies Allergy/AdvReac Type Severity Reaction Status Date / Time ciprofloxacin [From Cipro] Allergy Swelling Verified 02/24/24 15:05 at injection site ciprofloxacin HCl Allergy Swelling Verified 02/24/24 15:05 [From Cipro] at injection site morphine AdvReac Nausea & Verified 02/24/24 15:05 Vomiting ropinirole [From Requip] AdvReac Upset Verified 02/24/24 15:05 Stomach, Chest pain SOCIAL HISTORY: Past tobacco use. Uses medical marijuana. FAMILY HISTORY: No family history of ulcerative colitis disease or Crohn's disease. Family history of morbid obesity. No lupus in the family. No reports of stomach or esophageal cancer. REVIEW OF ORGAN SYSTEMS: CONSTITUTIONAL: At height of 5 feet 4 inches, her ideal body weight is 144 pounds. She comes in 220 pounds. Her body mass index is 37.8 She is 76 pounds overweight. HEENT: Denies any active troubles with vision or hearing. ENDOCRINE: Has diabetes. Has hypothyroidism. CARDIOVASCULAR: Past reports of palpitations or heart attacks or chest pain. Has a loop recorder. Has ascending aortic aneurysm. RESPIRATORY: Has daytime somnolence. Obstructive sleep apnea. GASTROINTESTINAL: Denies any bright red blood per rectum. Has gastroesophageal reflux disease. Has cholecystectomy. Has gastroesophageal reflux disease. GENITOURINARY: Past hysterectomy. MUSCULOSKELETAL: Has lower back pain and joint pain. Has osteoarthritis of the knees. NEURO: No seizure disorders. Has migraines. Has chronic pain syndrome PSYCH: Has depression. No suicidal ideation. RHEUMATOLOGIC: No lupus. No rheumatoid arthritis. HEMATOLOGIC: Denies any abnormal bleeding or bruising. No personal history of DVTs. SKIN: Has rash. No skin cancer. PHYSICAL EXAM: VITAL SIGNS: Height 5 foot 3 inches, weight 181 pounds. BMI 32.0 Vital Signs Temp 97.5 F L 12/31/23 15:13 Pulse 59 L 12/31/23 15:13 Resp 14 12/31/23 15:13 BP 143/84 12/31/23 15:13 Pulse Ox FiO2 GENERAL: Well-developed in no acute distress. HEENT: No scleral icterus. Extraocular movements grossly intact. Hears conversational speech. No nasal drainage. NECK: Supple without lymphadenopathy. CHEST: Nonlabored respirations with equal bilateral excursions. CARDIOVASCULAR: Regular rate and regular rhythm. Distal 2+ pulses. ABDOMEN: Obese, soft, nontender, nondistended. Moderate redundancy, panniculitis, grade 3 MUSCULOSKELETAL: No clubbing, cyanosis. NEURO: No focal or lateralizing signs. Cranial nerves 2 through 12 grossly within normal limits. PSYCH: Appropriate affect. Alert and oriented to person, place and time. SKIN: Good skin turgor. Well perfused. ASSESSMENT: 1. Morbid obesity due to excess calories 2. Body mass index of 64.3 nto 32.0 3. Osteoarthritis of the knees. 4. Osteoarthritis of the lower back. 5. Depressive disorder 6. Hypertensive heart disease 7. Gastroesophageal reflux disease 8. Chronic pain syndrome 9. Migraines 10. Ascending aortic aneurysm 11. Gastric ulcers 12. Adverse reaction from medications, abdominal pain, Lamictal 13. Panniculitis 14. Dysphagia PLAN: 1. She has not had a structured bariatric follow-up in many years. Recommend full bariatric metabolic panel with correction of micronutrient deficiencies 2. Recommend upper endoscopy to address dysphagia and history of gastric ulcers 3. Recommend colonoscopy for colonic screening 4. Medication review and medical reconciliation performed whereby medication side effect of Lamictal includes abdominal pain abdominal cramping. Do recommend referral to a therapist for alternatives on the Lamictal. 5. She has panniculitis and recommend nystatin powder for treatment including referral to cv rn Past Medical History Past Medical History: GERD/Reflux, Hypertension, Osteoarthritis (OA), Sleep Apnea/CPAP/BIPAP, Syncope Additional Past Medical History / Comment(s): Chronic back & neck pain, migraines, ascending aortic aneurysm, gastric ulcers. Episodes of light headedness and dizziness , History of Any Multi-Drug Resistant Organisms: None Reported Past Surgical History: Ablation, Bariatric Surgery, Cholecystectomy, EPS, Hysterectomy, Joint Replacement, Orthopedic Surgery Additional Past Surgical History / Comment(s): NARA-EN-Y, cervical fusion C2-C5, arthroscopy left knee, left knee replacement, loop recorder insertion Past Anesthesia/Blood Transfusion Reactions: Motion Sickness Past Psychological History: Depression Smoking Status: Never smoker Past Alcohol Use History: None Reported Past Drug Use History: Marijuana Additional Drug Use History / Comment(s): MEDICAL MARIJUANA CARD, uses when needed for pain - 7-8X per month - Past Family History Mother Family Medical History: Coronary Artery Disease (CAD) Additional Family Medical History / Comment(s): Mother is alive at age 68 with history of three-vessel CABG and diabetes. Father Family Medical History: Coronary Artery Disease (CAD) Additional Family Medical History / Comment(s): Father is alive at age 68 with history of three-vessel CABG. Brother(s) Family Medical History: No Reported History Additional Family Medical History / Comment(s): Patient has one brother with history of seasonal ALLERGIES. Patient does not have any sisters. Daughter(s) Family Medical History: No Reported History Additional Family Medical History / Comment(s): Patient is a total of 3 children with no major medical problems. Son(s) Family Medical History: No Reported History Surgical - Exam Vital Signs Temp Pulse Resp BP 97.5 F L 59 L 14 143/84 12/31/23 15:13 12/31/23 15:13 12/31/23 15:13 12/31/23 15:13 Bariatric Checklist Checklist: Plan: Checklist: EGD: 1. Hiatal hernia: 2. H. Pylori: HgbA1c: Vitamin D: Smoking: Never smoker Primary care physician referral: [facility] clearance: Cardiology clearance: Sleep study: Diet journal: VTE risk score: VTE risk level: Rehab needs at discharge:
== END ==
LOC: BARWHC3 14:21
PROVIDERS: ATTEND Surgery Plastic and Reconstructive Surgery
DX: E66.01 Morbid (severe) obesity due to excess calories (principal); M17.0 Bilateral primary osteoarthritis of knee; M47.816 Spondylosis without myelopathy or radiculopathy, lumbar region; F32.A Depression, unspecified; I11.9 Hypertensive heart disease without heart failure; K21.9 Gastro-esophageal reflux disease without esophagitis; G89.4 Chronic pain syndrome; G43.909 Migraine, unspecified, not intractable, without status migrainosus; I71.21 Aneurysm of the ascending aorta, without rupture; K25.9 Gastric ulcer, unspecified as acute or chronic, without hemorrhage or perforation; M79.3 Panniculitis, unspecified; R10.9 Unspecified abdominal pain; R13.10 Dysphagia, unspecified; Z68.44 Body mass index [BMI] 60.0-69.9, adult; Z98.84 Bariatric surgery status; Z88.1 Allergy status to other antibiotic agents; Z88.5 Allergy status to narcotic agent; Z88.8 Allergy status to other drugs, medicaments and biological substances; Z79.899 Other long term (current) drug therapy
CPT/HCPCS: 99212

== ENCOUNTER → 2024-01-08 | Outpatient (CLI) | payer BC ==
[2024-01-08 11:51] LABS: Prothrombin Time 10.6 sec (10.0-12.5)
[2024-01-08 14:44] LABS: HGB 13.3 g/dL (12.0-15.0); MCH 27.4 pg (27.0-32.0); MCHC 31.7 g/dL (32.0-37.0); MCV 86.4 FL (80.0-97.0); Mean Platelet Volume 13.3 FL (9.5-12.2); NRBC Per 100 WBC 0 X 10*3/uL (0.00-0.01); Platelet Count 137 X 10*3/uL (140-440); RBC 4.86 X 10*6/uL (4.10-5.20); WBC 4.27 X 10*3/uL (4.50-10.00)
[2024-01-08 15:09] LABS: Prealbumin 18.2 mg/dL (18.0-42.0)
[2024-01-08 15:44] LABS: % Iron Saturation 14.84 (12.00-45.00); ALT 10 U/L (8-44); AST 18 U/L (13-35); Albumin 4.2 g/dL (3.8-4.9); Albumin/Globulin Ratio 1.68 Ratio (1.60-3.17); Alkaline Phosphatase 129 U/L (41-126); BUN/Creat Ratio 18.56 Ratio (12.00-20.00); Blood Urea Nitrogen 16.7 mg/dL (9.0-27.0); Calcium 9.6 mg/dL (8.7-10.3); Carbon Dioxide 26.5 mmol/L (21.6-31.8); Chloride 105 mmol/L (96-109); Chol/HDL Ratio 2.53 Ratio; Ferritin 13.8 ng/mL (10.0-291.0); Globulin 2.5 g/dL (1.6-3.3); Glucose 93 mg/dL (70-110); Iron 65 UG/DL (50-170); LDL Cholesterol,Calculated 98.9 mg/dL (0.0-131.0); Magnesium 1.9 mg/dL (1.5-2.4); Phosphorus 3.6 mg/dL (2.4-5.1); Potassium 4.1 mmol/L (3.5-5.5); Sodium 141 mmol/L (135-145); Total Bilirubin 0.3 mg/dL (0.3-1.2); Total Iron Binding Capacity 438 UG/DL (228-460); Total Protein 6.7 g/dL (6.2-8.2); VLDL Calculation 19.12 mg/dL (5.00-40.00)
[2024-01-09 12:15] LABS: Zinc, Serum 83 ug/dL (60-130)
== END | disposition home or self-care (01) ==
LOC: LABWHC1 11:16
PROVIDERS: ATTEND Surgery Plastic and Reconstructive Surgery
DX: E66.01 Morbid (severe) obesity due to excess calories (principal); E89.1 Postprocedural hypoinsulinemia; D50.8 Other iron deficiency anemias; K91.2 Postsurgical malabsorption, not elsewhere classified; E44.0 Moderate protein-calorie malnutrition; E45 Retarded development following protein-calorie malnutrition; E55.9 Vitamin D deficiency, unspecified; K74.1 Hepatic sclerosis; N19 Unspecified kidney failure; T56.894A Toxic effect of other metals, undetermined, initial encounter; K50.90 Crohn's disease, unspecified, without complications
CPT/HCPCS: 36415; 80053; 80061; 80307; 80323; 82306; 82525; 82607; 82728; 82746; 83036; 83540; 83550; 83735; 83970; 84100; 84134; 84255; 84425; 84443; 84590; 84630; 85027; 85610; 85730

== ENCOUNTER 2024-07-19 22:04 | Emergency (ER) | payer BC ==
--- NOTE | 2024-07-19 23:38 | ED ---
General Adult HPI - General Chief complaint: Urogenital Stated complaint: Blood in Urine Time Seen by Provider: 07/19/24 23:21 Source: patient, EMS Mode of arrival: EMS Limitations: no limitations - History of Present Illness Initial comments: Dictation was produced using [employer] dictation software. please excuse any grammatical, word or spelling errors. Chief Complaint: 54-year-old female multiple complaints History of Present Illness: Patient is 54-year-old female she has multiple complaints. States that today she started having total body pain including headache, neck pain, back pain, leg pain. States it radiates to her lower extremities. Patient also states she has some hematuria. She does complain of some fevers. Denies any significant comorbidities. Requesting Toradol. Patient is accompanied by her states that he was unaware of all of this because he just got home from work The ROS documented in this emergency department record has been reviewed and confirmed by me. Those systems with pertinent positive or negative responses have been documented in the HPI. All other systems are other negative and/or noncontributory. - Related Data Home Medications Medication Instructions Recorded Confirmed Omeprazole [PriLOSEC] 20 mg PO HS 08/27/17 02/24/24 Metoprolol Tartrate 25 mg PO HS 02/06/20 02/24/24 Sertraline [Zoloft] 100 mg PO HS 05/28/21 02/24/24 fentaNYL 25MCG/HR PATCH [Duragesic 1 patch TRANSDERM Q72H 12/13/23 02/24/24 25MCG/HR] lamoTRIgine [LaMICtal] 50 mg PO HS 12/13/23 02/24/24 oxyCODONE HCL/ACETAMINOPHEN 1 tab PO DIRECTED PRN 02/24/24 02/24/24 [oxyCODONE HCL/ACETAMINOPHEN 7.5-325] Previous Rx's Medication Instructions Recorded Cefpodoxime Proxetil [Vantin] 200 mg PO Q12HR 10 Days #20 tab 07/20/24 Allergies Allergy/AdvReac Type Severity Reaction Status Date / Time ciprofloxacin [From Cipro] Allergy Swelling Verified 02/24/24 15:05 at injection site ciprofloxacin HCl Allergy Swelling Verified 02/24/24 15:05 [From Cipro] at injection site hydromorphone [From Dilaudid] AdvReac Confusion Verified 07/19/24 22:11 morphine AdvReac Nausea & Verified 02/24/24 15:05 Vomiting ropinirole [From Requip] AdvReac Upset Verified 02/24/24 15:05 Stomach, Chest pain Review of Systems ROS Statement: Those systems with pertinent positive or pertinent negative responses have been documented in the HPI. ROS Other: All systems not noted in ROS Statement are negative. Past Medical History Past Medical History: GERD/Reflux, Hypertension, Osteoarthritis (OA), Sleep Apnea/CPAP/BIPAP, Syncope Additional Past Medical History / Comment(s): Chronic back & neck pain, m igraines, ascending aortic aneurysm, gastric ulcers. Episodes of light headedness and dizziness , no cpap used History of Any Multi-Drug Resistant Organisms: None Reported Past Surgical History: Bariatric Surgery, Cardiac Ablation, Cholecystectomy, EPS, Hysterectomy, Joint Replacement, Orthopedic Surgery Additional Past Surgical History / Comment(s): NARA-EN-Y, cervical fusion C2-C5, arthroscopy left knee, left knee replacement, loop recorder insertion Past Anesthesia/Blood Transfusion Reactions: Motion Sickness Past Psychological History: Depression Smoking Status: Never smoker - Past Family History Mother Family Medical History: Coronary Artery Disease (CAD) Additional Family Medical History / Comment(s): Mother is alive at age 68 with history of three-vessel CABG and diabetes. Father Family Medical History: Coronary Artery Disease (CAD) Additional Family Medical History / Comment(s): Father is alive at age 68 with history of three-vessel CABG. Brother(s) Family Medical History: No Reported History Additional Family Medical History / Comment(s): Patient has one brother with history of seasonal ALLERGIES. Patient does not have any sisters. Daughter(s) Family Medical History: No Reported History Additional Family Medical History / Comment(s): Patient is a total of 3 children with no major medical problems. Son(s) Family Medical History: No Reported History General Exam - General Exam Comments Initial Comments: PHYSICAL EXAM: General Impression: Alert and oriented x3, not in acute distress HEENT: Normocephalic atraumatic, extra-ocular movements intact, pupils equal and reactive to light bilaterally, mucous membranes moist. Cardiovascular: Heart regular rate and rhythm Chest: Able to complete full sentences, no retractions, no tachypnea Abdomen: abdomen soft, non-tender, non-distended, no organomegaly Musculoskeletal: Pulses present and equal in all extremities, no peripheral edema Motor: no focal deficits noted Neurological: CN II-XII grossly intact, no focal motor or sensory deficits noted Skin: Intact with no visualized rashes Psych: Normal affect and mood Limitations: no limitations Course Vital Signs 07/19/24 22:06 Temperature 99.5 F Pulse Rate 87 Respiratory 16 Rate Blood Pressure 171/85 O2 Sat by Pulse 98 Oximetry EKG Findings - EKG Comments: EKG Findings:: My EKG interpretation: Ventricular rate 70, sinus rhythm,. 141, QRS 80, QTc 372. No CT prolongation, no QTC prolongation, no ST or T-wave changes noted. EKG compared to July 12, 2023 showing no changes. Overall, this EKG is unremarkable Medical Decision Making - Medical Decision Making Was pt. sent in by a medical professional or institution (, PA, RUG DYER HELPER, urgent care, hospital, or care home...) When possible be specific @ -No Did you speak to anyone other than the patient for history (EMS, parent, family, police, friend...)? What history was obtained from this source @ -No Did you review nursing and triage notes (agree or disagree)? Why? @ -I reviewed and agree with nursing and triage notes Were old charts reviewed (outside hosp., previous admission, EMS record, old EKG, old radiological studies, urgent care reports/EKG's, care home records)? Report findings @ -No old charts were reviewed Differential Diagnosis (chest pain, altered mental status, abdominal pain women, abdominal pain men, vaginal bleeding, musculoskeletal, weakness, fever, dyspnea, syncope, headache, dizziness, GI bleed, back pain, seizure, CVA, palpatations, mental health)? @ -Differential Weakness: Hypoglycemia, shock, sepsis, hyponatremia, anemia, infection, SD, ETOH, adverse medicine reaction, overdose, stroke, this is not meant to be an all-inclusive list. EKG interpreted by me (3pts min.). @ -See above X-rays interpreted by me (1pt min.). @ -Chest x-ray shows similar appearing left lung nodule otherwise no acute processes noted CT interpreted by me (1pt min.). @ -None done U/S interpreted by me (1pt. min.). @ -None done What testing was considered but not performed or refused? (CT, X-rays, U/S, labs)? Why? @ -None What meds were considered but not given or refused? Why? @ -None Was smoking cessation discussed for >3mins.? @ -No Were there social determinants of health that impacted care today? How? (Homelessness, low income, unemployed, alcoholism, drug addiction, transportation, low edu. Level, literacy, decrease access to med. care, [facility], rehab)? @ -No Was there de-escalation of care discussed even if they declined (Discuss DNR or withdrawal of care, Hospice)? DNR status @ -No What co-morbidities impacted this encounter? (DM, HTN, Smoking, COPD, CAD, Cancer, CVA, ARF, Chemo, Hep., AIDS, mental health diagnosis, sleep apnea, morbid obesity)? @ -Chronic pain Was patient admitted / discharged? Hospital course, mention meds given and r oute, prescriptions, significant lab abnormalities, going to OR and other pertinent info. @ -54-year-old female multiple complaints. Vital signs stable. Physical examination is benign. Complaints include total body pain, hematuria right leg pain and headache. Patient well-appearing at the bedside. Resting comfortably no acute distress. Laboratory evaluation obtained. CBC is unremarkable. Magnesium level is 1.5. Urinalysis shows nitrite positive UTI. Patient has recent microbiology results. Most recently she does have third-generation cephalosporin sensitivity. Patient given dose of ceftriaxone sent with a prescription for cefpodoxime. Patient agreeable to discharge advised follow-up with primary care doctor and pain specialist. Did you discuss the management of the patient with other professionals (professionals i.e. , PA, RUG DYER HELPER, lab, RT, psych nurse, adoption social worker, inventory clerk, teacher, electrical engineering drafting officer, rehabilitation caseworker)? Give summary @ -No Was critical care preformed (if so, how long)? @ -No Undiagnosed new problem with uncertain prognosis? @ -No Drug Therapy requiring intensive monitoring for toxicity (Heparin, Nitro, Insulin, Cardizem)? @ -No Were any procedures done? @ -No Diagnosis/symptom? Acute, or Chronic, or Acute on Chronic? Uncomplicated (without systemic symptoms) or Complicated (systemic symptoms)? @ -UTI Side effects of treatment? @ -No Exacerbation, Progression, or Severe Exacerbation? @ -No Poses a threat to life or bodily function? How? (Chest pain, USA, SD, pneumonia, PE, COPD, DKA, ARF, appy, cholecystitis, CVA, Diverticulitis, Homicidal, S uicidal, threat to staff... and all critical care pts) @ -yes - Lab Data Result diagrams: 07/19/24 23:58 07/19/24 23:58 Lab Results 07/19/24 07/19/24 07/20/24 Range/Units 23:58 23:58 00:05 WBC 5.6 (3.8-10.6) k/uL RBC 4.61 (3.80-5.40) m/uL Hgb 13.5 (11.4-16.0) gm/dL Hct 40.3 (34.0-46.0) % MCV 87.4 (80.0-100.0) fL MCH 29.2 (25.0-35.0) pg MCHC 33.5 (31.0-37.0) g/dL RDW 13.6 (11.5-15.5) % Plt Count 99 L (150-450) k/uL MPV 8.9 Neutrophils % 93 % Lymphocytes % 3 % Monocytes % 3 % Eosinophils % 1 % Basophils % 0 % Neutrophils # 5.2 (1.3-7.7) k/uL Lymphocytes # 0.2 L (1.0-4.8) k/uL Monocytes # 0.2 (0-1.0) k/uL Eosinophils # 0.0 (0-0.7) k/uL Basophils # 0.0 (0-0.2) k/uL Sodium 134 L (137-145) mmol/L Potassium 4.4 (3.5-5.1) mmol/L Chloride 105 (98-107) mmol/L Carbon Dioxide 26 (22-30) mmol/L Anion Gap 3 mmol/L BUN 18 H (7-17) mg/dL Creatinine 0.99 (0.52-1.04) mg/dL Est GFR (CKD-EPI)AfAm 76 (>60 ml/min/1.73 sqM) Est GFR (CKD-EPI)NonAf 66 (>60 ml/min/1.73 sqM) Glucose 120 H (74-99) mg/dL Calcium 8.9 (8.4-10.2) mg/dL Magnesium 1.5 L (1.6-2.3) mg/dL Total Bilirubin 1.4 H (0.2-1.3) mg/dL AST 29 (14-36) U/L ALT 13 (4-34) U/L Alkaline Phosphatase 138 H (38-126) U/L Total Protein 6.7 (6.3-8.2) g/dL Albumin 4.0 (3.5-5.0) g/dL Urine Color Colorless Urine Appearance Cloudy H (Clear) Urine pH 7.0 (5.0-8.0) Ur Specific [place] 1.018 (1.001-1.035) Urine Protein Negative (Negative) Urine Glucose (UA) Negative (Negative) Urine Ketones Negative (Negative) Urine Blood Negative (Negative) Urine Nitrite Positive H (Negative) Urine Bilirubin Negative (Negative) Urine Urobilinogen <2.0 (<2.0) mg/dL Ur Leukocyte Esterase Negative (Negative) Urine RBC <1 (0-5) /hpf Urine WBC 14 H (0-5) /hpf Ur Squamous Epith Cells <1 (0-4) /hpf Urine Bacteria Many H (None) /hpf Hyaline Casts 21 H (0-2) /lpf Urine Mucus Rare H (None) /hpf Disposition Clinical Impression: UTI (urinary tract infection) Disposition: HOME SELF-CARE Condition: Fair Instructions (If sedation given, give patient instructions): Urinary Tract Infection in Women (ED) Prescriptions: Cefpodoxime Proxetil [Vantin] 200 mg PO Q12HR 10 Days #20 tab Is patient prescribed a controlled substance at d/c from ED?: No Referrals: Dario Greene DO [Primary Care Provider] - 1-2 days Time of Disposition: 01:04
[2024-07-20] MEDS: SODIUM CHLORIDE 0.9% 1,000 ML IV STA (00:09)
[2024-07-20] MEDS: KETOROLAC 15 MG/ML 1 ML VIAL IVP STA (00:10)
[2024-07-20 00:36] LABS: ALT 13 U/L (4-34); AST 29 U/L (14-36); African American GFR (CKD) 76 (>60 ml/min/1.73 sqM); Alkaline Phosphatase 138 U/L (38-126); Anion Gap 3 mmol/L; Blood Urea Nitrogen 18 mg/dL (7-17); Calcium 8.9 mg/dL (8.4-10.2); Carbon Dioxide 26 mmol/L (22-30); Chloride 105 mmol/L (98-107); Glucose 120 mg/dL (74-99); Magnesium 1.5 mg/dL (1.6-2.3); Non-African American GFR(CKD) 66 (>60 ml/min/1.73 sqM); Potassium 4.4 mmol/L (3.5-5.1); Sodium 134 mmol/L (137-145); Total Bilirubin 1.4 mg/dL (0.2-1.3); Total Protein 6.7 g/dL (6.3-8.2)
[2024-07-20 00:49] LABS: Appearance,Urine Cloudy (Clear); Bacteria,Urine Many /hpf; Bilirubin,Urine Negative (Negative); Blood,Urine Negative (Negative); Color,Urine Colorless; Glucose,Urine (UA) Negative (Negative); Hyaline Casts,Urine 21 /lpf (0-2); Ketones,Urine Negative (Negative); Leukocyte Esterase,Urine Negative (Negative); Mucus,Urine Rare /hpf; Nitrite,Urine Positive (Negative); Protein,Urine Negative (Negative); RBC,Urine <1 /hpf (0-5); Specific Gravity,Urine 1.018 (1.001-1.035); Squamous Epithelial Cell,Urine <1 /hpf (0-4); Urobilinogen,Urine <2.0 mg/dL (<2.0); WBC,Urine 14 /hpf (0-5)
[2024-07-20 00:51] LABS: Basophils % (A) 0 %; Eosinophils % (A) 1 %; HCT 40.3 % (34.0-46.0); HGB 13.5 gm/dL (11.4-16.0); Lymphocytes # (A) 0.2 k/uL (1.0-4.8); Lymphocytes % (A) 3 %; MCH 29.2 pg (25.0-35.0); MCHC 33.5 g/dL (31.0-37.0); MCV 87.4 fL (80.0-100.0); Mean Platelet Volume 8.9; Monocytes # (A) 0.2 k/uL (0-1.0); Monocytes % (A) 3 %; Neutrophils # (A) 5.2 k/uL (1.3-7.7); Neutrophils % (A) 93 %; Platelet Count 99 k/uL (150-450); RBC 4.61 m/uL (3.80-5.40); RDW 13.6 % (11.5-15.5); WBC 5.6 k/uL (3.8-10.6)
[2024-07-20] MEDS: MAGNESIUM OXIDE 400 MG TAB PO STA (00:52)
[2024-07-20] MEDS: cefTRIAXone IN SWFI 1,000 MG/10 ML SYRINGE IVP STA (01:01)
[2024-07-20] MEDS: HYDROmorphone 0.5 MG/0.5 ML SYRINGE IVP STA (01:08)
[2024-07-20 01:24] VITALS: BP 98/60; PULSE 83; RESP 47; TEMP 98.6
--- NOTE | 2024-07-20 02:14 | XR ---
EXAM: XR Chest, 2 Views CLINICAL HISTORY: ITS.REASON XR Reason: total body pain TECHNIQUE: Frontal and lateral views of the chest. COMPARISON: July 12, 2023. FINDINGS: Lungs: Nodular density in the LEFT upper lobe measures 1.0 cm. Stable when compared to July 12, 2023. No consolidation. Pleural space: Unremarkable. No pneumothorax. Heart: Unremarkable. No cardiomegaly. Mediastinum: Unremarkable. Normal mediastinal contour. Bones/joints: Unremarkable. No acute fracture. IMPRESSION: Nodular density in the LEFT upper lobe measures 1.0 cm. Stable when compared to July 12, 2023.
== END 2024-07-20 01:24 | disposition home or self-care (01) ==
LOC: EC 22:04
DX: N39.0 Urinary tract infection, site not specified (principal); Z82.49 Family history of ischemic heart disease and other diseases of the circulatory system; Z88.1 Allergy status to other antibiotic agents; Z88.8 Allergy status to other drugs, medicaments and biological substances
CPT/HCPCS: 99284; 96374; 96375 ×2; 96361; 36415; 93005; 80053; 83735; 85025; 81001; 71046; J0696; J1885; J1171